=== PATIENT | male | born 1935 | race Caucasian/White ===

== ENCOUNTER → 2016-11-02 | Outpatient (REF) | payer MEDICARE, OTHER ==
[~2016-11-02] MED LIST: /CLON1TA PO; /NEPHROTA PO; /NITR4TASL SL; /PRAV20TA PO; ALLO100T PO; ALLO50TA PO; AMLO10TA2 PO; ASPI1TAB PO; ASPI81TA85 PO; CALC0.25 PO; CLOP75TA2 PO; COLA50CA3 PO; LASI80TA PO; LISI5TAB PO; M-VI27TA PO; METO50TA2 PO; MS C200T PO; OMEP40CA2 PO; OXYC-208 PO; PRED10TA2 PO; PRED1TAB32 PO; SPIR25TA2 PO; TYLE325T5 PO; UROX10TA10 PO; VITA10003 PO; [UNRECOGNIZED DRUG - OTHER] PO
[2016-11-02 14:05] LABS: TOTAL PROTEIN 7.3 GM/DL (6.4-8.2)
[2016-11-02 21:25] LABS: BASOPHILS 1 % (0-4); EOSINOPHILS 4 % (0-5)
[2016-11-02 21:34] LABS: HOWELL-JOLLY BODIES 1+
[2016-11-03 10:54] LABS: ALBUMIN 4.29 GM/DL (3.29-5.55); ALBUMIN % 58.8 % (55.8-66.1); GAMMA GLOBULIN % 14.8 % (11.1-18.8)
== END ==
LOC: M LAB REF 12:30
DX: D64.9 Anemia, unspecified (principal)

== ENCOUNTER 2018-03-01 02:55 | Inpatient (IN) | payer MEDICARE, OTHER ==
[2018-03-01] MEDS ORDERED: MORPHINE 4 MG/ML 1ML VIAL/SYRINGE (J2270) IV (03:15)
[2018-03-01] MEDS ORDERED: oxyCODONE 5MG TAB PO (04:00)
[2018-03-01] MEDS ORDERED: ACETAMINOPHEN 325 MG TAB PO (04:00)
[2018-03-01] MEDS ORDERED: NITROGLYCERIN 0.4 MG SUBL TABLET SL (04:00)
[2018-03-01] MEDS ORDERED: MORPHINE 15 MG SA TAB PO (04:00)
[2018-03-01] MEDS: PIPERACILLIN/TAZOBACTAM SOD 3.375 GM in D5W MINI-BAG PLUS 50 ML IV (04:00)
[2018-03-01 04:43] LABS: BASO # 0.1 10^3/uL (0.0-0.2); BASO % 0.5 % (0.0-1.0); EOS % 0.1 % (0.0-3.0); HEMOGLOBIN 11.1 g/dl (13.5-17.5); IMMATURE GRANULOCYTE % 0.3 % (0-3.0); LYMPH # 0.4 10^3/uL (1.5-4.5); LYMPH % 4.4 % (24.0-44.0); MEAN CORPUSCULAR HGB CONC 33.6 g/dl (32.0-36.5); MEAN CORPUSCULAR VOLUME 104.1 fl (80.0-96.0); MONO # 0.4 10^3/uL (0.0-0.8); MONO % 4.5 % (0.0-5.0); NEUTROPHILS # 8.4 10^3/uL (1.8-7.7); NEUTROPHILS % 90.2 % (36.0-66.0); PLATELET COUNT, AUTOMATED 185 10^3/uL (150-450); RED BLOOD COUNT 3.17 10^6/uL (4.30-6.10); RED CELL DISTRIBUTION WIDTH 14.1 % (11.5-14.5); WHITE BLOOD COUNT 9.3 10^3/uL (4.0-10.0)
[2018-03-01 04:54] LABS: INR 3.31; PROTHROMBIN TIME 35.2 SECONDS (12.4-14.5)
[2018-03-01] MEDS: NS 1,000 ML IV (04:59)
[2018-03-01 05:06] LABS: LACTIC ACID SEPSIS PROTOCOL 0.9 MMOL/L (0.4-2.0)
[2018-03-01 05:08] LABS: ALBUMIN 3.6 GM/DL (3.2-5.2); ALBUMIN/GLOBULIN RATIO 0.95 (1.00-1.93); ALKALINE PHOSPHATASE 147 U/L (45-117); ALT/SGPT 15 U/L (12-78); ANION GAP 8 MEQ/L (8-16); AST/SGOT 19 U/L (7-37); BILIRUBIN,TOTAL 0.4 MG/DL (0.2-1.0); BLOOD UREA NITROGEN 61 MG/DL (7-18); CALCIUM LEVEL 8.2 MG/DL (8.8-10.2); CARBON DIOXIDE LEVEL 29 MEQ/L (21-32); CHLORIDE LEVEL 103 MEQ/L (98-107); CPK CREATINE PHOSPHOKINASE 116 U/L (39-308); GLOMERULAR FILTRATION RATE 6.6 (>35); GLUCOSE, FASTING 122 MG/DL (70-100); PHOSPHORUS LEVEL 3.6 MG/DL (2.5-4.9); POTASSIUM SERUM 4.4 MEQ/L (3.5-5.1); SODIUM LEVEL 140 MEQ/L (136-145); TOTAL PROTEIN 7.4 GM/DL (6.4-8.2); TROPONIN I 0.04 NG/ML (< 0.10)
[2018-03-01 05:09] LABS: CK-MB VALUE MASS 2.6 NG/ML (<3.6); MB/CK RELATIVE INDEX 2.24 (< OR =4)
[2018-03-01 05:20] LABS: CREATININE FOR GFR 8.27 MG/DL (0.70-1.30)
[2018-03-01] MEDS: (RENVELA) SEVELAMER **CARBONate** 800 MG TAB PO ×3 (08:00→17:59)
[2018-03-01] MEDS: PANTOPRAZOLE 40MG INJ (PROTONIX) (C9113) IV (08:02)
[2018-03-01] MEDS: CARVedilol 3.125 MG TAB PO ×2 (09:05→20:18)
[2018-03-01] MEDS: HEPARIN 1,000 UNITS/ML 10ML VIAL (FOR RADIOLOGY& DIALYSIS ONLY) IV (11:15)
[2018-03-01] MEDS: EMLA CREAM 5GM (LIDOCAINE/PRILOCAINE) EXT (14:23)
[2018-03-01] MEDS: MULTIVITAMINS/MINERALS THERAP 1 TAB PO (14:42)
[2018-03-01] MEDS: MORPHINE 15 MG SA TAB PO ×2 (14:42→20:18)
[2018-03-01] MEDS: DOCUSATE SODIUM 100 MG CAP PO ×2 (14:42→20:17)
[2018-03-01] MEDS: ASPIRIN 81 MG ENTERIC TAB PO (14:43)
[2018-03-01] MEDS: PIPERACILLIN/TAZOBACTAM SOD 2.25 GM in D5W MINI-BAG PLUS 50 ML IV ×2 (14:43→20:19)
[2018-03-01] MEDS: PRAVASTATIN 20 MG TAB PO (20:17)
[2018-03-01] MEDS: traZODone 50 MG TAB PO (20:19)
[2018-03-01] MEDS: amLODIPine 5 MG TAB PO (20:19)
[2018-03-01] MEDS ORDERED: ACETAMINOPHEN TAB 650MG DOSE (2X325MG) PO (23:00)
[2018-03-02] MEDS: PANTOPRAZOLE 40MG INJ (PROTONIX) (C9113) IV (05:25)
[2018-03-02] MEDS: PIPERACILLIN/TAZOBACTAM SOD 2.25 GM in D5W MINI-BAG PLUS 50 ML IV (05:25)
[2018-03-02 06:25] LABS: BASO # 0.1 10^3/uL (0.0-0.2); BASO % 0.7 % (0.0-1.0); EOS # 0.1 10^3/uL (0.0-0.50); EOS % 1.4 % (0.0-3.0); HEMATOCRIT 31.6 % (42.0-52.0); HEMOGLOBIN 10.7 g/dl (13.5-17.5); IMMATURE GRANULOCYTE % 0.5 % (0-3.0); LYMPH # 0.8 10^3/uL (1.5-4.5); LYMPH % 8.1 % (24.0-44.0); MEAN CORPUSCULAR HEMOGLOBIN 34.9 pg (27.0-33.0); MEAN CORPUSCULAR HGB CONC 33.9 g/dl (32.0-36.5); MEAN CORPUSCULAR VOLUME 102.9 fl (80.0-96.0); MONO % 10.4 % (0.0-5.0); NEUTROPHILS # 7.5 10^3/uL (1.8-7.7); NEUTROPHILS % 78.9 % (36.0-66.0); PLATELET COUNT, AUTOMATED 178 10^3/uL (150-450); RED BLOOD COUNT 3.07 10^6/uL (4.30-6.10); RED CELL DISTRIBUTION WIDTH 14.4 % (11.5-14.5); WHITE BLOOD COUNT 9.5 10^3/uL (4.0-10.0)
[2018-03-02 06:42] LABS: INR 3.43; PROTHROMBIN TIME 36.2 SECONDS (12.4-14.5)
[2018-03-02 06:48] LABS: ALBUMIN/GLOBULIN RATIO 0.77 (1.00-1.93); ALKALINE PHOSPHATASE 117 U/L (45-117); ALT/SGPT 15 U/L (12-78); ANION GAP 8 MEQ/L (8-16); AST/SGOT 19 U/L (7-37); BILIRUBIN,TOTAL 0.5 MG/DL (0.2-1.0); BLOOD UREA NITROGEN 37 MG/DL (7-18); CALCIUM LEVEL 8.6 MG/DL (8.8-10.2); CARBON DIOXIDE LEVEL 30 MEQ/L (21-32); CHLORIDE LEVEL 102 MEQ/L (98-107); CREATININE FOR GFR 6.25 MG/DL (0.70-1.30); GLOMERULAR FILTRATION RATE 9.1 (>35); GLUCOSE, FASTING 116 MG/DL (70-100); MAGNESIUM LEVEL 2.1 MG/DL (1.8-2.4); POTASSIUM SERUM 4.1 MEQ/L (3.5-5.1); SODIUM LEVEL 140 MEQ/L (136-145); TOTAL PROTEIN 6.9 GM/DL (6.4-8.2)
[2018-03-02] MEDS: (RENVELA) SEVELAMER **CARBONate** 800 MG TAB PO (09:08)
[2018-03-02] MEDS: DOCUSATE SODIUM 100 MG CAP PO (09:09)
[2018-03-02] MEDS: ASPIRIN 81 MG ENTERIC TAB PO (09:09)
[2018-03-02] MEDS: CARVedilol 3.125 MG TAB PO (09:09)
[2018-03-02] MEDS: MULTIVITAMINS/MINERALS THERAP 1 TAB PO (09:09)
[2018-03-02] MEDS: MORPHINE 15 MG SA TAB PO (09:10)
[2018-03-02] MEDS: OMEPRAZOLE 20 MG CAP PO (10:30)
== END 2018-03-02 10:43 | disposition home or self-care (01) | DRG 444 ==
LOC: M ED 02:55 → M ED INP 05:48 → M MSPAV 14:11
PROC: 5A1D70Z Performance of Urinary Filtration, Intermittent, Less than 6 Hours Per Day (ICD-10-PCS; principal; 2018-03-01)
DX: K81.0 Acute cholecystitis (principal); N18.6 End stage renal disease; I12.0 Hypertensive chronic kidney disease with stage 5 chronic kidney disease or end stage renal disease; N25.81 Secondary hyperparathyroidism of renal origin; M10.9 Gout, unspecified; I48.91 Unspecified atrial fibrillation; Z79.01 Long term (current) use of anticoagulants; I25.10 Atherosclerotic heart disease of native coronary artery without angina pectoris; M54.5 Low back pain; N40.0 Benign prostatic hyperplasia without lower urinary tract symptoms; Z79.82 Long term (current) use of aspirin; Z79.899 Other long term (current) drug therapy; Z90.81 Acquired absence of spleen; Z95.1 Presence of aortocoronary bypass graft; Z87.891 Personal history of nicotine dependence; D72.829 Elevated white blood cell count, unspecified

== ENCOUNTER → 2018-03-09 | Day surgery (SDC) | payer MEDICARE, OTHER ==
[~2018-03-09] MED LIST changes: -/CLON1TA PO; -/NEPHROTA PO; -/NITR4TASL SL; -/PRAV20TA PO; -ALLO100T PO; -ALLO50TA PO; -AMLO10TA2 PO; +AMPICILLIN SOD/SULBACTAM SOD 3 GM in D5W MINI-BAG PLUS 100 ML IV; -ASPI1TAB PO; -ASPI81TA85 PO; -CALC0.25 PO; -CLOP75TA2 PO; -COLA50CA3 PO; -LASI80TA PO; -LISI5TAB PO; +LR 1,000 ML IV; -M-VI27TA PO; -METO50TA2 PO; -MS C200T PO; -OMEP40CA2 PO; -OXYC-208 PO; -PRED10TA2 PO; -PRED1TAB32 PO; -SPIR25TA2 PO; -TYLE325T5 PO; -UROX10TA10 PO; -VITA10003 PO; -[UNRECOGNIZED DRUG - OTHER] PO
[2018-03-09] MEDS: LIDOCAINE 1% SDV INJ 30 ML VIAL As Ordered (13:25)
[2018-03-09] MEDS: BUPIVACAINE HCL 0.25% 30 ML VIAL As Ordered (13:25)
[2018-03-09 13:54] LABS: INR 1.04; PROTHROMBIN TIME 13.7 SECONDS (12.4-14.5)
[2018-03-09 13:58] LABS: POTASSIUM SERUM 4.7 MEQ/L (3.5-5.1)
[2018-03-09] MEDS: NS 1,000 ML IV (14:00)
== END | disposition home or self-care (01) ==
LOC: M SDC 13:02
DX: K81.0 Acute cholecystitis (principal); Z53.09 Procedure and treatment not carried out because of other contraindication; Z79.01 Long term (current) use of anticoagulants
CPT/HCPCS: 84132

== ENCOUNTER 2019-03-19 15:33 | Inpatient (IN) | payer MEDICARE, OTHER ==
[~2019-03-19] VITALS: Ht 175.3 cm; Wt 60.8 kg
[~2019-03-19 15:33] MED LIST changes: +ALLO100T PO; +ALLO50TA PO; +AMLO10TA2 PO; +AMLO5TAB6 PO; -AMPICILLIN SOD/SULBACTAM SOD 3 GM in D5W MINI-BAG PLUS 100 ML IV; +ASPI1TAB PO; +ASPI81TA85 PO; +ASPI81TAEC PO; +CALC0.25 PO; +CARV3.12 PO; +CLON-412 PO; +CLOP75TA2 PO; +COLA50CA3 PO; +DOCU100C16 PO; +LASI80TA PO; +LIDO2.5C15 EXT; +LISI5TAB PO; -LR 1,000 ML IV; +M-VI27TA PO; +METO50TA2 PO; +MORP-38 PO; +MS C200T PO; +NEPH1TAB8 PO; +NITR0.4S SL; +NITR4TASL SL; +OMEP20CA3 PO; +OMEP40CA2 PO; +OXYC-208 PO; +OXYC-517 PO; +PRAV1TAB39 PO; +PRAV40TA2 PO; +PRED10TA2 PO; +PRED1TAB32 PO; +RENATAB5 PO; +RENV2TAB PO; +SPIR25TA2 PO; +TRAZ-252 PO; +TYLE325T5 PO; +UROX10TA10 PO; +VITA10002 PO; +VITA10003 PO; +VITA50005 PO; +VITMTA PO; +WARF-20 PO; +[UNRECOGNIZED DRUG - OTHER] PO
[2019-03-19] MEDS ORDERED: WARFARIN SOD 5 MG TAB PO SCH (17:00)
[2019-03-19 17:41] VITALS: BP 154/84
[2019-03-19 18:27] LABS: HEMATOCRIT 29.2 % (42.0-52.0); HEMOGLOBIN 9.9 g/dl (13.5-17.5); MEAN CORPUSCULAR HEMOGLOBIN 36.3 pg (27.0-33.0); MEAN CORPUSCULAR HGB CONC 33.9 g/dl (32.0-36.5); PLATELET COUNT, AUTOMATED 270 10^3/uL (150-450); RED BLOOD COUNT 2.73 10^6/uL (4.30-6.10); WHITE BLOOD COUNT 11.8 10^3/uL (4.0-10.0)
[2019-03-19 18:36] LABS: INR 1.42; PROTHROMBIN TIME 17.6 SECONDS (12.1-14.4)
--- NOTE | 2019-03-19 18:54 | HPEPDOC ---
General Date of Admission Mar 19, 2019 at 17:35 Date of Service: Mar 19, 2019 Attending Physician: TATYANA CUNHA MD Chief Complaint The patient is a 83-year-old male admitted with a [facility]. History of Present Illness Patient is an 83 year old male, directly admitted from [facility] after preliminary evalaution showed multiple right rib fractures and mild rhabdomyolysis. Patient has a past medical history significant for end-stage renal disease on hemodialysis Tuesdays, , Wednesday, atrial fibrillation on anticoagulation therapy with Coumadin, CAD status post CABG, quadruple 1989, hypertension, chronic back pain. By patient's account, a week ago Wednesday he tripped over while working with the lawnmower. He did not seek attention continued with his daily activities. He, however, noticed significant pain which worsened yesterday when he slid to the floor and was unable to get up. Patient estimates he may have been on the floor for over 2 hours. EMS services were called and patient was brought to the hospital. Preliminary evaluation at [facility] is as stated above. Patient was able to have his hemodialysis session yesterday but multiple imaging studies were completed at that facility including CT of his spine with IV contrast. He was therefore transferred over to this facility for hemodialysis since marketing teacher is here. For removal of contrast and management of rhabdomyolysis. Other than complaining of severe pain. Patient denies any chills, fever, chest pain or shortness of breath. On assessment, he is on room air and oxygen saturation is greater than 95%. He is, however, in atrial fibrillation at a rapid ventricular rate. Home Medications Scheduled Amlodipine Besylate (Amlodipine Besylate) 5 Mg Tab, 5 MG PO QHS, (Reported) Carvedilol (Carvedilol) 3.125 Mg Tab, 3.125 MG PO BID, (Reported) Docusate Sodium (Docusate Sodium) 100 Mg Cap, 100 MG PO BID, (Reported) Ergocalciferol (Vitamin D2) (Vitamin D2) 50,000 Unit Cap, 50,000 UNIT PO 1XWK, (Reported) TAKES ON MONDAYS Folic Acid/Vit B Complex and C (Annabel-Nadine Tablet) 1 Tab Tab, 1 TAB PO DAILY, (Reported) Lidocaine/Prilocaine (Lidocaine-Prilocaine Cream) 1 Cre Cre, 1 CRE EXT 3XW, (Reported) TAKES ON TUESDAYS, WEDNESDAY AND SATURDAYS BEFORE DIALYSIS. Morphine Sulfate (Morphine Sulfate ER) 15 Mg Tab, 15 MG PO BID, (Reported) Omeprazole (Omeprazole) 20 Mg Cap, 20 MG PO DAILY, (Reported) Pravastatin Sodium (Pravastatin Sodium) 40 Mg Tab, 40 MG PO QHS, (Reported) Sennosides (Senna Lax) 8.6 Mg Tablet, 8.6 MG PO DAILY, (Reported) Sevelamer Carbonate (Renvela) 800 Mg Tab, 800 MG PO WM, (Reported) Warfarin Sodium (Warfarin Sodium) 2.5 Mg Tablet, 5 MG PO 2XW, (Reported) WEDNESDAY AND WEDNESDAY Warfarin Sodium (Warfarin Sodium) 2.5 Mg Tablet, 3.75 MG PO 5XW, (Reported) WED, , WED, , WED Scheduled PRN Acetaminophen (Tylenol) 325 Mg Tablet, 650 MG PO Q4H PRN for PAIN, (Reported) Nitroglycerin (Nitrostat) 0.4 Mg Subl, 0.4 MG SL NITRO PRN for CHEST PAIN, (Reported) Oxycodone HCl (Oxycodone HCl) 5 Mg Tab, 5 MG PO QID PRN for PAIN, (Reported) Trazodone HCl (Trazodone HCl) 50 Mg Tablet, 50 MG PO QHS PRN for SLEEP, (Reported) HAS NOT BEEN TAKING DUE TO NO RX, HOWEVER STATES HE DOES HAVE TROUBLE TAKING AND WOULD LIKE TO START RECEIVING AGAIN. Allergies Coded Allergies: No Known Allergies (Verified , 03/09/18) Past Medical History Medical History Hypertension. End-stage renal disease on hemodialysis. Gout. CAD status post CABG Chronic back pain. Chronic atrial fibrillation Surgical History Back surgery. Quadruple bypass. Splenectomy. Tonsillectomy. Fistula placement. Family History Significant Family History: No pertinent family hx Social History * Smoker: Denies Alcohol: occationally Drugs: denies A-FIB/CHADSVASC A-FIB History Current/History of A-Fib/PAF?: Yes Current PO Anticoag Therapy: Yes Age/Risk Factor Scoring CHADSVASC: CHADSVASC Response (Comments) Value Age Risk Factor Age >/= 75 years old 2 Total 2 Treatment Treatment ordered: Warfarin Review of Systems Other systems A pertinent 10 point review of systems is completed, negative except as stated in the history of presenting illness Physical Examination General Exam: Positive: Alert, Cooperative, No Acute Distress Eye Exam: Positive: PERRLA, Conjunctiva & lids normal, EOMI ENT Exam: Positive: Atraumatic, Mucous membr. moist/pink, Nares Patent Neck Exam: Positive: Supple; Negative: JVD, thyromegaly Chest Exam: Positive: Clear to auscultation, Normal air movement; Negative: Rales, Rhonchi, Wheezing Heart Exam: Positive: Tachycardic, Irregular Rhythm Telemetry: Positive: Atrial fibrillation Abdomen Exam: Positive: Normal bowel sounds, Soft; Negative: Tenderness Extremity Exam: Positive: Edema, Normal pulses; Negative: Clubbing, Cyanosis Skin Exam: Positive: Lesion (duffy abrasion) Neuro Exam: Positive: Normal Speech, Cranial Nerves 3-12 NL Psych Exam: Positive: Mental status NL, Mood NL, Oriented x 3 Vital Signs see below Laboratory Data Labs 24H Laboratory Tests 2 03/19/19 18:21: Nucleated Red Blood Cells % (auto) 0.0 CBC/BMP Laboratory Tests 03/19/19 18:21 Red Blood Count 2.73 L, Mean Corpuscular Volume 107.0 H, Mean Corpuscular Hemoglobin 36.3 H, Mean Corpuscular Hemoglobin Concent 33.9, Red Cell Distribution Width 16.0 H Assessment/Plan Chronic atrial fibrillation with RVR -Continue Anticoagulation therapy -Monitor INR to keep between 2-3 -Rate control with beta bailee Elevated CPK -Likely due to recent trauma and prolonged immobility due to weakness -Hemodialysis by nephrology -. Monitor CPK levels with treatment End-stage renal disease on hemodialysis -Call has been placed to patient's primary marketing teacher, who plans to dialyze him tomorrow -Renal diet. Fluid restriction, daily weights -Management of dialysis by nephrology, appreciate input Mechanical fall -Sustaining right rib fractures, 7 and 8 -Presenting with significant weakness -Fall precautions -Pain control as needed -PT, OT evaluation for rehabilitation potential and requirements DVT prophylaxis Fully anticoagulated on warfarin Plan / VTE VTE Prophylaxis Ordered?: Yes Plan Plan I saw and evaluated patient. I agree with the finding and plan of care as documented by DARLENE LESTER Mar 19, 2019 18:54 TATYANA CUNHA MD Mar 20, 2019 07:07
[2019-03-19 18:55] LABS: ALBUMIN 3.3 GM/DL (3.2-5.2); BILIRUBIN,TOTAL 0.7 MG/DL (0.2-1.0); CREATININE FOR GFR 6.34 MG/DL (0.70-1.30); POTASSIUM SERUM 4.4 MEQ/L (3.5-5.1); TOTAL PROTEIN 7.6 GM/DL (6.4-8.2)
[2019-03-19] MEDS ORDERED: RA S8.6T3 PO (18:57)
[2019-03-19] MEDS ORDERED: ACET-907 PO (18:57)
[2019-03-19] MEDS ORDERED: WARF-18 PO ×2 (18:57)
[2019-03-19] MEDS ORDERED: TRAZ-252 PO (18:58)
[2019-03-19] MEDS ORDERED: NITROGLYCERIN 0.4 MG SUBL TABLET SL PRN ×2 (19:15→20:00)
[2019-03-19 20:00] VITALS: BP 170/77
[2019-03-19] MEDS: (RENVELA) SEVELAMER **CARBONate** 800 MG TAB PO SCH (20:01)
[2019-03-19] MEDS: CARVedilol 3.125 MG TAB PO SCH (20:02)
[2019-03-19] MEDS: PRAVASTATIN 20 MG TAB PO SCH (21:24)
[2019-03-19] MEDS: DOCUSATE SODIUM 100 MG CAP PO SCH (21:24)
[2019-03-19] MEDS: MORPHINE 15 MG SA TAB PO SCH (21:26)
[2019-03-19] MEDS: amLODIPine 5 MG TAB PO SCH (21:27)
[2019-03-20] VITALS: BP 138/77
[2019-03-20 04:00] VITALS: BP 143/67
[2019-03-20 04:54] LABS: HEMATOCRIT 25.9 % (42.0-52.0); HEMOGLOBIN 8.7 g/dl (13.5-17.5); MEAN CORPUSCULAR HEMOGLOBIN 35.5 pg (27.0-33.0); MEAN CORPUSCULAR HGB CONC 33.6 g/dl (32.0-36.5); MEAN CORPUSCULAR VOLUME 105.7 fl (80.0-96.0); PLATELET COUNT, AUTOMATED 250 10^3/uL (150-450); RED BLOOD COUNT 2.45 10^6/uL (4.30-6.10); WHITE BLOOD COUNT 9.1 10^3/uL (4.0-10.0)
[2019-03-20 05:04] LABS: INR 1.66; PROTHROMBIN TIME 19.9 SECONDS (12.1-14.4)
[2019-03-20 05:12] LABS: ALBUMIN 2.9 GM/DL (3.2-5.2); BILIRUBIN,TOTAL 0.5 MG/DL (0.2-1.0); CALCIUM LEVEL 8.2 MG/DL (8.8-10.2); CREATININE FOR GFR 6.93 MG/DL (0.70-1.30); GLOMERULAR FILTRATION RATE 8.1 (>35); POTASSIUM SERUM 4.1 MEQ/L (3.5-5.1); TOTAL PROTEIN 6.4 GM/DL (6.4-8.2)
[2019-03-20 08:00] VITALS: BP 156/80
[2019-03-20] MEDS: DOCUSATE SODIUM 100 MG CAP PO SCH ×2 (08:45→21:12)
[2019-03-20] MEDS: CARVedilol 3.125 MG TAB PO SCH ×2 (08:45→21:13)
[2019-03-20] MEDS: OMEPRAZOLE 20 MG CAP PO SCH (08:45)
[2019-03-20] MEDS: (RENVELA) SEVELAMER **CARBONate** 800 MG TAB PO SCH ×3 (08:45→18:25)
[2019-03-20] MEDS: SENNA 8.6 MG TAB (SENOKOT) PO SCH (08:45)
[2019-03-20] MEDS: MORPHINE 15 MG SA TAB PO SCH ×2 (08:48→21:11)
[2019-03-20] MEDS ORDERED: VITAMIN D 50,000 UNITS CAPSULE (ERGOCALCIFEROL 1.25MG) PO SCH (09:00)
[2019-03-20] MEDS ORDERED: DARBEPOETIN 100 MCG/0.5 ML *DIALYSIS* SYRINGE (J0882) IV SCH (10:45)
[2019-03-20 12:00] VITALS: BP 140/77
[2019-03-20] MEDS ORDERED: HEPARIN 1,000 UNITS/ML 10ML VIAL (FOR RADIOLOGY& DIALYSIS ONLY) IV ONE (12:15)
[2019-03-20] MEDS ORDERED: LIDOCAINE 1% SDV 5 ML VIAL SQ ONE (12:15)
[2019-03-20 14:45] VITALS: BP 130/86
--- NOTE | 2019-03-20 16:35 | IPNPDOC ---
Text Note Date of Service The patient was seen on 03/20/19. NOTE Mr. Phillip is seen on rounds this morning, he is feeling well, he is walking ar ound without difficulty or chest pain. He has no specific complaints today. SUBJECTIVE: Patient is sitting in bedside chair speaking with his son who is in the exam room, he has no complaints. Says his rib pain on the right is much improved. Otherwise patient denies chest pain, shortness breath, nausea, vomiting, fevers, chills. OBJECTIVE PHYSICAL EXAMINATION: VITAL SIGNS: Please see below. GENERAL: Pleasant 83 y/o male sitting up in bed side chair awake alert oriented speaking in complete sentences no acute distress HEENT: Moist mucous membranes no elevation, no JVD, EOMI CARDIOVASCULAR: S1 S2 regular no additional heart sounds appreciated RESPIRATORY: Clear to auscultation bilaterally, no rales, rhonchi or wheezing ABDOMINAL: Bowel sounds present abdomen soft and nontender, thin, no he patosplenomegaly or masses appreciated, nabsx4 EXTREMITIES: No clubbing cyanosis or edema NEUROLOGICAL: Spontaneously moves all 4 extremities, no focal deficits appreciated PSYCHOLOGICAL: Appropriate affect LABORATORY DATA, MICROBIOLOGY: Please see below. This is a 83 yo male who presented to the ED with CP., now recovering well s/p CP from rib fractures from being hit by lawnmower. 1. Chest pain from multiple rib fractures right 7, 8 -patient says his chest pain is controlled, he is walking around the unit without difficultly -he says he was hit by a lawnmower that was sliding down a ramp, he did not have SOB, CP, urinary or bowel incontinence before event, he was simply unable to get out of the way before being struck by run away padder -he has not cleared PT., needs to work them again tomorrow -fall precautions 2. Chronic atrial fibrillation with RVR -Continue Anticoagulation therapy -Monitor INR to keep between 2-3, currently is only 1.6, increasing coumidin to 5 mg daily -Rate control with beta bailee, he is rate controlled at this time 3. Elevated CPK -Likely due to recent trauma and prolonged immobility due to weakness, repeat pending for today -Hemodialysis by nephrology -Monitor CPK levels with treatment 4. End-stage renal disease on hemodialysis -Nephrology on board appreciate their help -Renal diet. Fluid restriction, daily weights 5. DVT prophylaxis On warfarin Disposition: Changing coumidin dosing to 5 mg dosing in light of subtherapeutic INR., he needs to work with PT tomorrow, he has not been cleared by them for d.c VS,Fishbone, I+O VS, Fishbone, I+O Laboratory Tests 03/19/19 18:21 Red Blood Count 2.73 L, Mean Corpuscular Volume 107.0 H, Mean Corpuscular Hemoglobin 36.3 H, Mean Corpuscular Hemoglobin Concent 33.9, Red Cell Distribution Width 16.0 H, Calcium Level 9.0, Aspartate Amino Transf (AST/SGOT) 63 H, Alanine Aminotransferase (ALT/SGPT) 29, Total Creatine Kinase 2460 H, Alkaline Phosphatase 112, Total Bilirubin 0.7, Total Protein 7.6, Albumin 3.3 03/20/19 04:38 Red Blood Count 2.45 L, Mean Corpuscular Volume 105.7 H, Mean Corpuscular Hemoglobin 35.5 H, Mean Corpuscular Hemoglobin Concent 33.6, Red Cell Distribution Width 16.0 H, Calcium Level 8.2 L, Aspartate Amino Transf (AST/SGOT) 47 H, Alanine Aminotransferase (ALT/SGPT) 27, Total Creatine Kinase 1 509 H, Alkaline Phosphatase 97, Total Bilirubin 0.5, Total Protein 6.4, Albumin 2.9 L Vital Signs Date Time Temp Pulse Resp B/P (MAP) Pulse Ox O2 Delivery O2 Flow Rate FiO2 03/20/19 14:45 97.8 91 18 130/86 (101) 94 03/20/19 04:00 2.0 I&O- Last 24 Hours up to 6 AM 03/20/19 06:00 Intake Total 850 ml Balance 850 ml GME ATTESTATION GME ATTESTATION My faculty preceptor for this patient encounter was physically present during the encounter and was fully available. All aspects of the patient interview, examination, medical decision making process, and medical care plan development were reviewed and approved by the faculty preceptor. The faculty preceptor is aware and concurs with the plan as stated in the body of this note and will attest to such by his/her cosignature. ATTENDING NOTE I, Samy Morales, have both independently examined this patient as well as revi ewed the documentation. I have discussed in detail with the resident the findings and plan of treatment as documented in the residents documentation and agree with what is stated. I will continue to follow the patient and offer further guidance to the patients care as necessary during this hospital stay. CONNIE HOLLIS DO Mar 20, 2019 16:35 SAMY MORALES MD Mar 20, 2019 17:16
[2019-03-20] MEDS ORDERED: WARFARIN SOD 2.5 MG TAB PO SCH (17:00)
[2019-03-20] MEDS ORDERED: WARFARIN SOD 5 MG TAB PO SCH (17:00)
[2019-03-20] MEDS: amLODIPine 5 MG TAB PO SCH (21:12)
[2019-03-20] MEDS: PRAVASTATIN 20 MG TAB PO SCH (21:13)
[2019-03-20 22:00] VITALS: BP 134/61
[2019-03-21 02:00] VITALS: BP 142/69
[2019-03-21 06:00] VITALS: BP 133/69
[2019-03-21 06:26] LABS: INR 2.24; PROTHROMBIN TIME 25.2 SECONDS (12.1-14.4)
[2019-03-21] MEDS: SENNA 8.6 MG TAB (SENOKOT) PO SCH (06:38)
[2019-03-21] MEDS: (RENVELA) SEVELAMER **CARBONate** 800 MG TAB PO SCH ×3 (06:38→17:29)
[2019-03-21] MEDS: CARVedilol 3.125 MG TAB PO SCH ×2 (06:38→20:40)
[2019-03-21] MEDS: OMEPRAZOLE 20 MG CAP PO SCH (06:39)
[2019-03-21] MEDS: DOCUSATE SODIUM 100 MG CAP PO SCH ×2 (06:40→20:39)
[2019-03-21] MEDS: MORPHINE 15 MG SA TAB PO SCH ×2 (06:40→20:39)
--- NOTE | 2019-03-21 07:24 | CR ---
DATE OF CONSULTATION: 03/20/2019 REQUESTING PHYSICIAN: Dr. Samy Grande REASON FOR CONSULTATION: Management of end-stage renal disease on hemodialysis. HISTORY OF PRESENT ILLNESS: The patient is an 83-year-old male well known to me with a past medical history of end-stage renal disease on hemodialysis on a Wednesday, , Wednesday schedule, atrial fibrillation, coronary artery disease status post coronary artery bypass graft (CABG), hypertension, and other comorbid conditions mentioned below. The patient states he was in his usual health until a week ago when a marine meteorologist that his family member was unloading off of a vehicle slipped and struck the patient in the right chest. He did not seek medical attention at that time; however, over the next several days he noted ongoing pain in his side which culminated in him eventually being unable to get off the floor for a couple of hours. EMS services were called and the patient was brought to [facility] Emergency Room where he did have a contrast based CAT scan. He was subsequently transferred over to [facility] for hemodialysis arrangement and management of his very mild creatine kinase elevation. PAST MEDICAL AND SURGICAL HISTORY: Significant for longstanding hypertension, coronary artery disease status post CABG, atrial fibrillation on anticoagulation, dyslipidemia, end-stage renal disease on dialysis Tuesdays, and Wednesday, gout, secondary hyperparathyroidism, history of chronic low back pain, history of anemia related to chronic renal failure, benign prostatic hypertrophy (BPH), depression. Past surgical history of splenectomy due to trauma in 1971, CABG for four vessels in 2007, tonsillectomy in his 20s, AV fistula creation. HOME MEDICATIONS: Reviewed and include amlodipine, Renovite, aspirin, carvedilol, vitamin B12, Colace, vitamin D, omeprazole, pravastatin, Renvela, trazodone, Coumadin, and opioids. ALLERGIES: The patient has no known drug allergies. PERSONAL AND SOCIAL HISTORY: Lives alone with a dog. He is . He denies any alcohol or drug use. He quit smoking about a decade ago. FAMILY HISTORY: Noncontributory. REVIEW OF SYSTEMS: The patient denies any fevers or chills. He has been feeling generally weak with pain in the right side. ENT: He denies tinnitus or rhinorrhea. Cardiac system is significant for chronic atrial fibrillation. He denies chest pain. There is history of coronary artery disease. Respiratory system is significant for chronic obstructive pulmonary disease (COPD), but he denies any new cough or pleuritic type of chest pain. Gastrointestinal system is significant for history of cholecystitis. He denies any nausea, vomiting or diarrhea. system is significant for BPH. He denies dysuria. Musculoskeletal: Significant for chronic back pain for which he has been narcotic dependent. He denies leg edema. He reports some trauma to the right chest wall. Endocrine system is significant for secondary hyperparathyroidism. There is no history of diabetes. Neurologic system is negative for seizures or strokes. Hematologic system is significant for chronic anticoagulation and anemia of chronic kidney disease. Skin is negative for rash or ulcers. PHYSICAL EXAMINATION: Vital Signs: Temperature 98.5, pulse 77, respiratory rate 17, blood pressure 134/61, saturating 94% on room air. Intake yesterday was 450, dialysis today removed 1 liter. Weight in the bed scale today is 62.8 kg. General: The patient is seen on hemodialysis awake, alert, oriented, conversational, interactive, in no acute distress. Extraocular muscles are intact. Tongue is moist. Neck is supple. Jugular veins are not elevated. Cardiac: S1 and S2, systolic murmur. No edema in the peripheries. Lungs show symmetric air entry bilaterally. No crackles or rales. Abdomen is soft and nontender. There are bowel sounds. The lower extremities are negative for edema. The right upper extremity fistula is presently in use. Skin: Normal temperature and turgor. Neurologic: He is oriented times three and there are no focal deficits. LABORATORY DATA: Sodium 134, potassium 4.1, bicarbonate 29, CK 1500, hemoglobin 8.7. Microbiology: Blood cultures no growth for 24 hours times one set. INPATIENT MEDICATIONS: Reviewed by myself and include - Tylenol p.r.n. - amlodipine 5 mg by mouth at bedtime - Coreg 3.125 mg by mouth twice a day - Aranesp 100 mcg IV with dialysis - morphine sulfate 15 mg by mouth twice a day - Prilosec 20 mg by mouth daily - pravastatin 40 mg by mouth at bedtime - Senokot two tablets by mouth daily - Renvela 800 mg by mouth with meals - vitamin D on Mondays - Coumadin PROBLEMS: 1. End-stage renal disease on hemodialysis on a Wednesday, , Wednesday schedule. His last dialysis was on Wednesday. He had a contrast procedure over the weekend at an outside emergency room. He is being dialyzed today for a short treatment for 2-1/2 hours with goal fluid removal of 1 kg. His electrolytes and volume status are acceptable. His creatine kinase level is very mild and fairly negligible. He will be dialyzed again tomorrow as per his chronic maintenance schedule and we have arranged for that hemodialysis treatment be done in the outpatient setting. 2. Right rib fractures secondary to trauma. The patient reports pain is adequately controlled. He is chronically opioid dependent. He is receiving physical therapy and is on fall precautions. His CK was mildly elevated and is already improving. He is dialyzed today and will be dialyzed again tomorrow. 3. Hypertension. Blood pressures are acceptable and no changes are being made to the current regimen of carvedilol and amlodipine. 4. Anemia related to chronic renal failure. He will continue on the usual Aranesp. 5. Chronic atrial fibrillation. The patient is rate controlled with beta bailee. His INR is subtherapeutic and his Coumadin is adjusted as per the primary team. Thank you for involving me in the care of Mr. Grace. I will be happy to follow him along with you.
[2019-03-21 08:11] LABS: BASO # 0.1 10^3/uL (0.0-0.2); BASO % 0.5 % (0.0-1.0); CALCIUM LEVEL 8.6 MG/DL (8.8-10.2); CREATININE FOR GFR 4.96 MG/DL (0.70-1.30); EOS # 0.1 10^3/uL (0.0-0.50); GLOMERULAR FILTRATION RATE 11.9 (>35); HEMATOCRIT 27.4 % (42.0-52.0); LYMPH # 0.6 10^3/uL (1.5-4.5); MAGNESIUM LEVEL 2.1 MG/DL (1.8-2.4); MEAN CORPUSCULAR HEMOGLOBIN 34.9 pg (27.0-33.0); MEAN CORPUSCULAR HGB CONC 32.8 g/dl (32.0-36.5); MEAN CORPUSCULAR VOLUME 106.2 fl (80.0-96.0); MONO % 10.2 % (0.0-5.0); NEUTROPHILS # 8.1 10^3/uL (1.8-7.7); PLATELET COUNT, AUTOMATED 262 10^3/uL (150-450); POTASSIUM SERUM 4.4 MEQ/L (3.5-5.1); RED BLOOD COUNT 2.58 10^6/uL (4.30-6.10); WHITE BLOOD COUNT 9.8 10^3/uL (4.0-10.0)
[2019-03-21] MEDS ORDERED: HEPARIN 1,000 UNITS/ML 10ML VIAL (FOR RADIOLOGY& DIALYSIS ONLY) IV ONE (09:15)
--- NOTE | 2019-03-21 10:46 | IPNPDOC ---
Text Note Date of Service The patient was seen on 03/21/19. NOTE Mr. Phillip is seen on rounds this morning, currently going through HD. He is fee ling well, he says he has some chest wall pain where his ribs were bruised from his fall, when he is ambulating but it is much improved since admission and pain is tolerable. He has no specific complaints today. SUBJECTIVE: Patient is in his bed undergoing dialysis, he says his rib pain on the right is much improved but still present with ambulation . Otherwise patient denies chest pain, shortness breath, nausea, vomiting, fevers, chills. OBJECTIVE PHYSICAL EXAMINATION: VITAL SIGNS: Please see below. GENERAL: Pleasant 83 y/o male sitting up in bed side chair awake alert oriented speaking in complete sentences no acute distress HEENT: Moist mucous membranes no elevation, no JVD, EOMI CARDIOVASCULAR: S1 S2 regular no additional heart sounds appreciated RESPIRATORY: Clear to auscultation bilaterally, no rales, rhonchi or wheezing ABDOMINAL: Bowel sounds present abdomen soft and nontender, thin, no hepatosplenomegaly or masses appreciated, nabsx4 EXTREMITIES: No clubbing cyanosis or edema NEUROLOGICAL: Spontaneously moves all 4 extremities, no focal deficits appreciated PSYCHOLOGICAL: Appropriate affect LABORATORY DATA, MICROBIOLOGY: Please see below. This is a 83 yo male who presented to the ED with CP., now recovering well s/p CP from rib fractures from being hit by lawnmower. 1. Chest pain from multiple rib fractures right 7, 8 -patient says his chest pain is tolerable, he can feel it a bit when he walks around controlled -he says he was hit by a lawnmower that was sliding down a ramp, he did not have SOB, CP, urinary or bowel incontinence before event, he was simply unable to get out of the way before being struck by run away press feeder, this was a mechanical fall/injury -he has cleared PT. today 03/21/19 2. Chronic atrial fibrillation with RVR -Continue Anticoagulation therapy, he is now therapeutic INR this AM was 2.24 -Goal INR would be to keep between 2-3, will reduce Coumadin to 3 mg today -Will need follow up out pt with PCP for repeat INR's and adjustment of Coumadin as needed -Will return to home regimen upon discharge -Rate control with beta bailee, he is rate controlled at this time 3. Elevated CPK -Likely due to recent trauma and prolonged immobility due to weakness, repeat showed improvement -Hemodialysis by nephrology today -Resolving 4. End-stage renal disease on hemodialysis -Nephrology on board appreciate their help, he is getting dialysis today -Renal diet. Fluid restriction, daily weights 5. DVT prophylaxis On warfarin Disposition: From a medical standpoint the patient should be optimized for d/c today, however he has no way of getting home, his son can't get him until tomorrow, as such we will pend for d/c in AM VS,Fishbone, I+O VS, Fishbone, I+O Laboratory Tests 03/21/19 05:50 Red Blood Count 2.58 L, Mean Corpuscular Volume 106.2 H, Mean Corpuscular Hemoglobin 34.9 H, Mean Corpuscular Hemoglobin Concent 32.8, Red Cell Distribution Width 16.7 H, Neutrophils (%) (Auto) 82.0 H, Lymphocytes (%) (Auto) 6.0 L, Monocytes (%) (Auto) 10.2 H, Eosinophils (%) (Auto) 1.0, Basophils (%) (Auto) 0.5, Neutrophils # (Auto) 8.1 H, Lymphocytes # (Auto) 0.6 L, Monocytes # (Auto) 1.0 H, Eosinophils # (Auto) 0.1, Basophils # (Auto) 0.1, Calcium Level 8.6 L Vital Signs Date Time Temp Pulse Resp B/P (MAP) Pulse Ox O2 Delivery O2 Flow Rate FiO2 03/21/19 06:40 18 03/21/19 06:38 77 133/69 03/21/19 06:00 98.1 91 03/20/19 04:00 2.0 I&O- Last 24 Hours up to 6 AM 03/21/19 06:00 Intake Total 1050 ml Output Total 1200 ml Balance -150 ml GME ATTESTATION GME ATTESTATION My faculty preceptor for this patient encounter was physically present during the encounter and was fully available. All aspects of the patient interview, examination, medical decision making process, and medical care plan development were reviewed and approved by the faculty preceptor. The faculty preceptor is aware and concurs with the plan as stated in the body of this note and will attest to such by his/her cosignature. ATTENDING NOTE I, Samy Morales, have both independently examined this patient as well as reviewed the documentation. I have discussed in detail with the resident the findings and plan of treatment as documented by the resident. I agree with their findings and treatment plan. I will continue to follow the patient and offer further guidance to the patients care as necessary during this hospital stay. CONNIE HOLLIS DO Mar 21, 2019 10:46 SAMY MORALES MD Mar 21, 2019 14:20
[2019-03-21 14:00] VITALS: BP 147/65
[2019-03-21] MEDS ORDERED: WARFARIN SOD 3 MG TAB PO SCH (17:00)
[2019-03-21 18:00] VITALS: BP 140/58
[2019-03-21] MEDS: ACETAMINOPHEN TAB 650MG DOSE (2X325MG) PO PRN (18:09)
[2019-03-21] MEDS: PRAVASTATIN 20 MG TAB PO SCH (20:39)
[2019-03-21] MEDS: amLODIPine 5 MG TAB PO SCH (20:40)
--- NOTE | 2019-03-21 21:38 | IPN ---
DATE: 03/21/2019 SUBJECTIVE: Kenji is seen and examined this morning at the bedside. Has no complaints. Dialysis was uneventful with 1500 mL of fluid removed. He is looking forward to going home tomorrow. VITAL SIGNS: Temperature 98.9, pulse 50, respiratory rate 16, blood pressure 140/58, saturating 92% on room air. Intake yesterday was 1450. Dialysis yesterday removed 1 liter. Dialysis today removed 1.5 liters. Weight in the bed scale today is 62.4 kg. General: The patient is seen lying in bed, awake, alert and comfortable. No distress. Mucous membranes are moist. Jugular veins were not elevated. Cardiac: Heart sounds are regular. S1, S2. No edema in the peripheries. Lungs are clear to auscultation bilaterally. No crackle, rale or wheeze. Abdomen is soft and nontender. Extremities: The right upper extremity fistula is patent with thrill and bruit. Skin: Normal temperature and turgor. LABORATORY DATA White count 9.8, hemoglobin 9.0, sodium 139, potassium 4.4. Microbiology: Blood cultures: No growth for 48 hours. INPATIENT MEDICATIONS: Reviewed by myself. Coumadin was adjusted per the primary team. Remainder of medications are unchanged from prior. PROBLEMS: 1. End-stage renal disease, on hemodialysis on a Wednesday, , Wednesday schedule. The patient was dialyzed today to bring him back to his usual schedule. He is tolerating his treatments without any issues. His fistula is in good use. His volume status and electrolytes are reasonable. His next hemodialysis treatment will be on as an outpatient. 2. Right-sided rib fracture. Status post chest wall trauma. The patient cleared physical therapy. He is looking forward to going home. 3. Atrial fibrillation. INR is therapeutic today and he continues on the Coumadin. Dose has been adjusted and he is rate controlled with Carvedilol. 4. Hypertension. Blood pressures are acceptable on the current regimen and no changes are being made. 5. Anemia related to chronic renal failure. He continues on Aranesp.
[2019-03-21 22:00] VITALS: BP 132/57
[2019-03-22 02:00] VITALS: BP 140/63
[2019-03-22 02:45] VITALS: BP 117/59
[2019-03-22 04:15] VITALS: BP 154/72
[2019-03-22] MEDS: ACETAMINOPHEN TAB 650MG DOSE (2X325MG) PO PRN (05:29)
[2019-03-22 06:57] LABS: BASO # 0.1 10^3/uL (0.0-0.2); BASO % 0.5 % (0.0-1.0); EOS # 0.2 10^3/uL (0.0-0.50); EOS % 1.5 % (0.0-3.0); HEMOGLOBIN 9.4 g/dl (13.5-17.5); LYMPH # 0.7 10^3/uL (1.5-4.5); LYMPH % 6.3 % (24.0-44.0); MEAN CORPUSCULAR HEMOGLOBIN 36.4 pg (27.0-33.0); MEAN CORPUSCULAR HGB CONC 33.6 g/dl (32.0-36.5); MEAN CORPUSCULAR VOLUME 108.5 fl (80.0-96.0); MONO # 1.2 10^3/uL (0.0-0.8); MONO % 11.5 % (0.0-5.0); NEUTROPHILS # 8.3 10^3/uL (1.8-7.7); NEUTROPHILS % 79.6 % (36.0-66.0); PLATELET COUNT, AUTOMATED 273 10^3/uL (150-450); RED BLOOD COUNT 2.58 10^6/uL (4.30-6.10); WHITE BLOOD COUNT 10.4 10^3/uL (4.0-10.0)
[2019-03-22 07:07] LABS: INR 2.23; PROTHROMBIN TIME 25.1 SECONDS (12.1-14.4)
[2019-03-22 07:23] LABS: CALCIUM LEVEL 8.6 MG/DL (8.8-10.2); CREATININE FOR GFR 3.98 MG/DL (0.70-1.30); GLOMERULAR FILTRATION RATE 15.4 (>35); MAGNESIUM LEVEL 2.2 MG/DL (1.8-2.4)
[2019-03-22 08:00] VITALS: BP 142/76
[2019-03-22] MEDS: OMEPRAZOLE 20 MG CAP PO SCH (08:46)
[2019-03-22] MEDS: SENNA 8.6 MG TAB (SENOKOT) PO SCH (08:46)
[2019-03-22] MEDS: DOCUSATE SODIUM 100 MG CAP PO SCH (08:46)
[2019-03-22 08:48] VITALS: BP 154/72
[2019-03-22] MEDS: (RENVELA) SEVELAMER **CARBONate** 800 MG TAB PO SCH (08:48)
[2019-03-22] MEDS: CARVedilol 3.125 MG TAB PO SCH (08:48)
[2019-03-22] MEDS: MORPHINE 15 MG SA TAB PO SCH (08:48)
--- NOTE | 2019-03-22 11:32 | DS.PDOC ---
Discharge Summary General Date of Admission Mar 19, 2019 at 17:35 Date of Discharge Mar 21, 2019 Discharge Summary dc 6. no ride home until then DISCHARGE DIAGNOSIS: 1. Rib fractures right 7, 8 SECONDARY DIAGNOSIS: 1. Hypertension 2. End-stage renal disease on hemodialysis 3. Gout 4. CAD status post CABG 5. Chronic back pain 6. Chronic atrial fibrillation PROCEDURES PERFORMED DURING STAY: Hemodialysis 03.21.19. CONSULTANTS: Nephrology HOSPITAL COURSE: Mr. Grace is a 83 y/o male that was directly admitted from [facility] after preliminary evaluation showed multiple right rib fractures and mild rhabdomyolysis. He apparently had been off loading a match up person from a truck and was inadvertently hit by the machine as it came down the ramps. Pt has a past medical history significant for end stage renal disease on hemodialysis Wednesday, and Wednesday, atrial fibrillation on anticoagulation thearp with Coumadin, CAD status post CABG, quadruple 1989, hypertension, chronic back pain. He states the a week ago Wednesday he was struck in the chest by a runaway lawnmower coming down the ramp of his truck and did not seek medical attention at that time. On 03.18.19, he noticed significant pain in the chest area where he was struck and slid to the floor and was unable to get up. Pt estimates that he may have been on the floor for over 2 hours. EMS services were called and patient was brought to [facility]. Multiple imaging studies were completed at [facility] including CT of his spine with IV contrast. He therefore transferred over to [facility] for hemodialysis since sales marketing director was here. Hemodialysis was performed on 03.21.19. During his hospitalization he denied experiencing cp, sob, light headedness, n/v, blurred vision, LOC, urine or bowel incontinence, jaw or shoulder pain just before being hit by a lawnmower, he sustained no LOC after the event. DISCHARGE MEDICATIONS: Please see below. ALLERGIES: Please see below SUBJECTIVE: Patient is sitting in his bed, alert and oriented. He says his rib pain on the right is improved but still small amount of pain with ambulation but is controlled. Patient otherwise patient denies chest pain, shortness, breath, nausea, vomiting, fever, chills OBJECTIVE: PHYSICAL EXAMINATION: VITAL SIGNS: Please see below GENERAL: Pleasant 83 y/o male sitting up in bed awake alert oriented speaking in complete sentences no acute distress HEENT: Moist mucous membranes no elevation, no JVD, EOMI CARDIOVASCULAR: S1 S2 regular no additional heart sounds appreciated RESPIRATORY: Clear to auscultation bilaterally, no rales, rhonchi, or wheezing, some tenderness over right rib 8 with palpation, no bruising, swelling or erythema appreciated nor swelling of area ABDOMINAL: Bowel sounds present abdomen soft and nontender, thin, no hep atosplenomegaly or masses, nabsx4 appreciated EXTREMITIES: No clubbing, cyanosis, edema NEUROLOGICAL: Spontaneously moves all 4 extremities, cranial 2 through 12 grossly intact, no gross focal deficits appreciated PSYCHOLOGICAL: Appropriate affect LABORATORY DATA, MICROBIOLOGY: Please see below DVT prophylaxis ordered: on Warfarin ASSESSMENT AND PLAN: This is a 83 -year-old male who presented to the ED with chest pain, who is now recovering well s/p CP from rib fractures from being hit by a runaway lawnmower. PROBLEMS: 1. Chest pain from multiple rib fractures right 7, 8 2. Chronic atrial fibrillation with RVR 3. Elevated CPK 4. End stage renal disease on hemodialysis DISPOSITION: Patient is stable and eager to go home. DISCHARGE CONDITION: Stable PROGNOSIS: Favorable prognosis FOLLOW UP: PCP and nephrology within 5-7 days of dc; return to the ER if you experience any problems ACTIVITY: As prior to admission DIET: Renal diet as prior to admission, fluid restriction, daily weights TIME SPENT ON DISCHARGE: 45 min Vital Signs/I&Os Vital Signs Date Time Temp Pulse Resp B/P (MAP) Pulse Ox O2 Delivery O2 Flow Rate FiO2 03/22/19 08:48 18 03/22/19 08:48 96 154/72 03/22/19 08:00 98.3 91 03/20/19 04:00 2.0 I&O- Last 24 Hours up to 6 AM 03/22/19 06:00 Intake Total 1110 ml Output Total 1700 ml Balance -590 ml Laboratory Data Labs 24H Laboratory Tests 2 03/22/19 06:21: Immature Granulocyte % (Auto) 0.6, White Blood Count 10.4H, Red Blood Count 2.58L, Hemoglobin 9.4L, Hematocrit 28.0L, Mean Corpuscular Volume 108.5H, Mean Corpuscular Hemoglobin 36.4H, Mean Corpuscular Hemoglobin Concent 33.6, Red Cell Distribution Width 16.7H, Platelet Count 273, Neutrophils (%) (Auto) 79.6H, Lymphocytes (%) (Auto) 6.3L, Monocytes (%) (Auto) 11.5H, Eosinophils (%) (Auto) 1.5, Basophils (%) (Auto) 0.5, Neutrophils # (Auto) 8.3H, Lymphocytes # (Auto) 0.7L, Monocytes # (Auto) 1.2H, Eosinophils # (Auto) 0.2, Basophils # (Auto) 0.1, Nucleated Red Blood Cells % (auto) 0.2H, Prothrombin Time 25.1H, Prothromb Time International Ratio 2.23, Anion Gap 5L, Glomerular Filtration Rate 15.4L, Blood Urea Nitrogen 30H, Creatinine 3.98H, Sodium Level 140, Potassium Level 4.0, Chloride Level 104, Carbon Dioxide Level 31, Calcium Level 8.6L, Magnesium Level 2.2 CBC/BMP Laboratory Tests 03/22/19 06:21 Red Blood Count 2.58 L, Mean Corpuscular Volume 108.5 H, Mean Corpuscular Hemoglobin 36.4 H, Mean Corpuscular Hemoglobin Concent 33.6, Red Cell Distribution Width 16.7 H, Neutrophils (%) (Auto) 79.6 H, Lymphocytes (%) (Auto) 6.3 L, Monocytes (%) (Auto) 11.5 H, Eosinophils (%) (Auto) 1.5, Basophils (%) (A uto) 0.5, Neutrophils # (Auto) 8.3 H, Lymphocytes # (Auto) 0.7 L, Monocytes # (Auto) 1.2 H, Eosinophils # (Auto) 0.2, Basophils # (Auto) 0.1, Calcium Level 8.6 L Microbiology Microbiology 03/19/19 Blood Culture - Preliminary, Resulted No Growth after 48 hours. All Specime... Discharge Medications Scheduled Amlodipine Besylate (Amlodipine Besylate) 5 Mg Tab, 5 MG PO QHS, (Reported) Carvedilol (Carvedilol) 3.125 Mg Tab, 3.125 MG PO BID, (Reported) Docusate Sodium (Docusate Sodium) 100 Mg Cap, 100 MG PO BID, (Reported) Ergocalciferol (Vitamin D2) (Vitamin D2) 50,000 Unit Cap, 50,000 UNIT PO 1XWK, (Reported) TAKES ON MONDAYS Folic Acid/Vit B Complex and C (Annabel-Nadine Tablet) 1 Tab Tab, 1 TAB PO DAILY, (Reported) Lidocaine/Prilocaine (Lidocaine-Prilocaine Cream) 1 Cre Cre, 1 CRE EXT 3XW, (Reported) TAKES ON TUESDAYS, WEDNESDAY AND SATURDAYS BEFORE DIALYSIS. Morphine Sulfate (Morphine Sulfate ER) 15 Mg Tab, 15 MG PO BID, (Reported) Omeprazole (Omeprazole) 20 Mg Cap, 20 MG PO DAILY, (Reported) Pravastatin Sodium (Pravastatin Sodium) 40 Mg Tab, 40 MG PO QHS, (Reported) Sennosides (Senna Lax) 8.6 Mg Tablet, 8.6 MG PO DAILY, (Reported) Sevelamer Carbonate (Renvela) 800 Mg Tab, 800 MG PO WM, (Reported) Warfarin Sodium (Warfarin Sodium) 2.5 Mg Tablet, 5 MG PO 2XW, (Reported) WEDNESDAY AND WEDNESDAY Warfarin Sodium (Warfarin Sodium) 2.5 Mg Tablet, 3.75 MG PO 5XW, (Reported) WED, , WED, , WED Scheduled PRN Acetaminophen (Tylenol) 325 Mg Tablet, 650 MG PO Q4H PRN for PAIN, (Reported) Nitroglycerin (Nitrostat) 0.4 Mg Subl, 0.4 MG SL NITRO PRN for CHEST PAIN, (Reported) Oxycodone HCl (Oxycodone HCl) 5 Mg Tab, 5 MG PO QID PRN for PAIN, (Reported) Trazodone HCl (Trazodone HCl) 50 Mg Tablet, 50 MG PO QHS PRN for SLEEP, (Reported) HAS NOT BEEN TAKING DUE TO NO RX, HOWEVER STATES HE DOES HAVE TROUBLE TAKING AND WOULD LIKE TO START RECEIVING AGAIN. Allergies Coded Allergies: No Known Allergies (Verified , 03/09/18) GME ATTESTATION GME ATTESTATION My faculty preceptor for this patient encounter was physically present during the encounter and was fully available. All aspects of the patient interview, examination, medical decision making process, and medical care plan development were reviewed and approved by the faculty preceptor. The faculty preceptor is a hewitt and concurs with the plan as stated in the body of this note and will attest to such by his/her cosignature. ATTENDING NOTE I, Samy Grande, have both independently examined this patient as well as reviewed the documentation. I have discussed in detail with the resident the findings and plan of treatment as documented by the resident. I agree with their findings and treatment plan. I will continue to follow the patient and offer further guidance to the patients care as necessary during this hospital stay. Time spent on discharge was 32 minutes CARISSA MAR OMS-3 Mar 22, 2019 11:32 CONNIE HOLLIS DO Mar 22, 2019 13:03 SAMY GRANDE MD Mar 22, 2019 13:38
== END 2019-03-22 12:45 | disposition home health service (06) | DRG 183 ==
LOC: M ICU 17:35 → M MSPAV 03-20 14:09 → M PCU 03-22 04:15
PROVIDERS: ADMIT Internal Medicine; ATTEND Internal Medicine
DX: S22.41XA Multiple fractures of ribs, right side, initial encounter for closed fracture (principal); N18.6 End stage renal disease; M62.82 Rhabdomyolysis; M10.9 Gout, unspecified; I48.2 Chronic atrial fibrillation; M54.5 Low back pain; I25.10 Atherosclerotic heart disease of native coronary artery without angina pectoris; Z95.1 Presence of aortocoronary bypass graft; Z79.01 Long term (current) use of anticoagulants; I10 Essential (primary) hypertension; Z79.899 Other long term (current) drug therapy; Z90.81 Acquired absence of spleen; D63.1 Anemia in chronic kidney disease; W22.8XXA Striking against or struck by other objects, initial encounter; Y92.009 Unspecified place in unspecified non-institutional (private) residence as the place of occurrence of the external cause

== ENCOUNTER → 2019-05-19 | Outpatient (REF) | payer MEDICARE, OTHER ==
[~2019-05-19] MED LIST changes: +ACET-907 PO; +CYAN100049 PO; -OMEP20CA3 PO; +OMEP20CA4 PO; +RA S8.6T3 PO; -VITA10002 PO; +WARF-18 PO
== END ==
LOC: M LAB REF 17:15
PROVIDERS: ATTEND Internal Medicine
DX: H53.2 Diplopia (principal)

== ENCOUNTER 2019-06-14 10:22 | Inpatient (IN) | payer MEDICARE, OTHER ==
[2019-06-14] VITALS (8 sets, daily range): BP systolic 96–179; BP diastolic 51–87
[~2019-06-14] VITALS: Ht 172.7 cm; Wt 52.0 kg
[~2019-06-14 10:22] MED LIST changes: -MORP-38 PO; +MORP-69 PO
[2019-06-14 12:40] LABS: HEMATOCRIT 36.1 % (42.0-52.0); HEMOGLOBIN 11.9 g/dl (13.5-17.5); MEAN CORPUSCULAR VOLUME 106.2 fl (80.0-96.0); PLATELET COUNT, AUTOMATED 170 10^3/uL (150-450); WHITE BLOOD COUNT 12.1 10^3/uL (4.0-10.0)
[2019-06-14] MEDS ORDERED: CARVedilol 6.25 MG TAB PO ONE (12:45)
[2019-06-14] MEDS ORDERED: ATOR80TA59 PO (12:56)
[2019-06-14] MEDS ORDERED: PROT40IN4 IV (12:56)
[2019-06-14] MEDS ORDERED: NITR2OI TOP (12:56)
[2019-06-14] MEDS ORDERED: [UNRECOGNIZED DRUG - OTHER] IV (12:56)
[2019-06-14] MEDS ORDERED: [UNRECOGNIZED DRUG - CODE] IV (12:56)
[2019-06-14] MEDS ORDERED: diltiaZEM 125 MG in NS 100 ML IV SCH (13:00)
[2019-06-14] MEDS ORDERED: traZODone 50 MG TAB PO PRN (13:00)
[2019-06-14] MEDS ORDERED: NITROGLYCERIN 0.4 MG SUBL TABLET SL PRN (13:00)
[2019-06-14 13:08] LABS: ALBUMIN 3.5 GM/DL (3.2-5.2); BILIRUBIN,TOTAL 0.6 MG/DL (0.2-1.0); CALCIUM LEVEL 9.4 MG/DL (8.8-10.2); CREATININE FOR GFR 5.53 MG/DL (0.70-1.30); GLOMERULAR FILTRATION RATE 10.5 (>35); POTASSIUM SERUM 4.4 MEQ/L (3.5-5.1); TOTAL PROTEIN 7.7 GM/DL (6.4-8.2)
--- NOTE | 2019-06-14 13:29 | REP ---
Portable chest, 12th 58 p.m., single AP view with the patient semi upright: Comparison is 03/02/2018. Bilateral interstitial infiltrates are again identified but are significantly worsened from the prior study. Additionally, there is a focal alveolar infiltrate inferiorly in the right lung also an interval change. There are bilateral pleural effusions, not significantly changed. There are sternotomy wires, unchanged. Impression: Worsening interstitial infiltrates. New right lower lobe alveolar infiltrate. Chronic cardiomegaly, unchanged. Chronic bilateral pleural effusions, unchanged. Electronically Signed by Giorgi Bay MD 06/14/2019 01:21 P
--- NOTE | 2019-06-14 13:33 | HPEPDOC ---
General Date of Admission Jun 14, 2019 at 11:49 Date of Service: Jun 14, 2019 Chief Complaint The patient is a 83-year-old male who is transferred from [facility] because of lack of dialysis capability History of Present Illness Patient is an 83-year-old male with PMHx of ESRD on HD (TTS), A. fib (on Coumadin), CAD s/p CABG (1988), HTN, Chronic back pain who presented to [facility] ICU as a transfer from [facility] because of lack of dialysis capability. Patient had reported that he was experiencing shortness of breath that started yesterday afternoon after he completed dialysis. Patient had reported that his dry weight is usually 61 kg. However, after his dialysis session, he had noted that his weight was higher than his dry weight. Patient was expressing some shortness of breath, but try to sleep. Patient had reported difficulty sleeping because of shortness of breath. This morning patient had woken up with worsening shortness of breath. . He denied cough, chest pain or palpitations. . He denies any fevers or chills over the last 2 weeks. He has reported no leg swelling or difficulty lying flat on his back. Patient denies nausea, vomiting, abdominal pain, constipation, diarrhea or urinary discomfort. Patient does report the ability to make some urine. Patient reports that his appetite is normal, but does report a mild weight increase. Home Medications Scheduled Amlodipine Besylate (Amlodipine Besylate) 5 Mg Tab, 5 MG PO DAILY, (Reported) Atorvastatin Calcium (Atorvastatin Calcium) 80 Mg Tablet, 80 MG PO QHS, (Reported) Carvedilol (Carvedilol) 3.125 Mg Tab, 3.125 MG PO BID, (Reported) Diltiazem HCl (Diltiazem HCl) 5 Mg/1 Ml Vial, 10 MG IV ASDIRECTED, (Reported) BOLUS OVER 4 MINUTES - RECEIVED AT [place] Docusate Sodium (Docusate Sodium) 100 Mg Cap, 100 MG PO DAILY, (Reported) Folic Acid/Vit B Complex and C (Annabel-Nadine Tablet) 1 Tab Tab, 1 TAB PO DAILY, (Reported) Lidocaine/Prilocaine (Lidocaine-Prilocaine Cream) 1 Cre Cre, 1 CRE EXT 3XW, (Reported) TAKES ON TUESDAYS, WEDNESDAY AND SATURDAYS BEFORE DIALYSIS. Morphine Sulfate (Morphine Sulfate ER) 15 Mg Tab, 15 MG PO BID, (Reported) Nitroglycerin (Nitro-Bid) 1 Gm Oint...g., 1 INCH TOP ASDIRECTED, (Reported) STARTED AT [place] Omeprazole (Omeprazole) 20 Mg Cap, 20 MG PO DAILY, (Reported) Pantoprazole Sodium (Protonix IV) 40 Mg Vial, 40 MG IV ASDIRECTED, (Reported) RECEIVED AT [place] Sevelamer Carbonate (Renvela) 800 Mg Tab, 800 MG PO DAILY, (Reported) WITH BREAKFAST Warfarin Sodium (Warfarin Sodium) 2.5 Mg Tablet, 2.5 MG PO QPM, (Reported) [Diltiazem Drip] , 5 MG IV ASDIRECTED, (Reported) IV DRIP AT 5MG PER HOUR - STARTED AT [place] Scheduled PRN Acetaminophen (Tylenol) 325 Mg Tablet, 650 MG PO Q4H PRN for PAIN, (Reported) Nitroglycerin (Nitrostat) 0.4 Mg Subl, 0.4 MG SL NITRO PRN for CHEST PAIN, (Reported) Oxycodone HCl (Oxycodone HCl) 5 Mg Tab, 5 MG PO QID PRN for PAIN, (Reported) Trazodone HCl (Trazodone HCl) 50 Mg Tablet, 50 MG PO QHS PRN for SLEEP, (Reported) Allergies Coded Allergies: No Known Allergies (Verified , 03/09/18) Past Medical History Medical History ESRD on HD (), A. 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[employer] Review of Systems Other systems 10 point review of systems complete, all negative otherwise stated in HPI Vital Signs - Vitals: BP 179/87, HR 83, RR 18, Sat 94%NC10L, Temp 96.9F - General: Lying in bed, No acute distress, Speaking in full sentences, AAOx3 - HEENT: NC, AT, PERRLA, EOMI - CVS: Tachycardic, +S1S2 - Lungs: Diminished lung sounds at bases, mild crackles, no appreciable rhonchi or wheezing - Abdomen: Soft, Non-distended, Non-tender - Extremities: Trace pitting edema bilaterally, No calf tenderness - Neuro: No focal motor or sensory deficit - Skin: Small open ulcers on right leg Laboratory Data Labs 24H Laboratory Tests 2 06/14/19 11:28: 06/14/19 12:17: Nucleated Red Blood Cells % (auto) 0.0, Anion Gap 6L, Glomerular Filtration Rate 10.5L, Lactic Acid Level 1.7, Blood Urea Nitrogen 37H, Creatinine 5.53H, Sodium Level 138, Potassium Level 4.4, Chloride Level 98, Carbon Dioxide Level 34H, Calcium Level 9.4, Aspartate Amino Transf (AST/SGOT) 20, Alanine Aminotransferase (ALT/SGPT) 17, Alkaline Phosphatase 124H, Total Bilirubin 0.6, Total Protein 7.7, Albumin 3.5, Albumin/Globulin Ratio 0.83L 06/14/19 13:11: CBC/BMP Laboratory Tests 06/14/19 12:17 Red Blood Count 3.40 L, Mean Corpuscular Volume 106.2 H, Mean Corpuscular Hemoglobin 35.0 H, Mean Corpuscular Hemoglobin Concent 33.0, Red Cell Distributi on Width 15.5 H, Calcium Level 9.4, Aspartate Amino Transf (AST/SGOT) 20, Alanine Aminotransferase (ALT/SGPT) 17, Alkaline Phosphatase 124 H, Total Bilirubin 0.6, Total Protein 7.7, Albumin 3.5 Microbiology Microbiology 06/14/19 Blood Culture, Received Pending 06/14/19 Blood Culture, Received Pending Plan / VTE VTE Prophylaxis Ordered?: Yes Plan Plan Shortness of breath - likely 2/2 bilateral effusion and pulmonary edema - 2/2 fluid overload - possibly 2/2 ESRD - Patient has reported shortness of breath from yesterday afternoon - Reports that his current weight is higher than his dry weight - BNP from [facility] was found to be significantly elevated - Imaging was reviewed by myself personally and does reveal bilateral effusions and pulmonary edema - Nephrology has been consulted and will be dialyzing the patient today A. fib with RVR - Upon arrival to [facility] patient was found to be in A. fib with RVR with heart rate of 150 - Patient was placed on Cardizem drip at [facility] and upon transfer - Upon arrival, patients heart rate was between 90-110 - Cardizem drip has been discontinued and carvedilol by mouth has been reinstituted - INR is subtherapeutic - Will increase dose of Coumadin to achieve therapeutic INR ESRD on HD () - Patient is scheduled for dialysis Wednesday, and Wednesday - Received dialysis on Wednesday without event - Nephrology has been consulted CAD s/p CABG (1988) - c/w Atorvastatin, Carvedilol HTN Urgency - Patients systolic blood pressure is approximately 170 - Will resume home blood pressure medications and patient will be dialyzed today - Will reevaluate blood pressure and readjust as needed Chronic back pain - c/w opiate based medications from outpatient setting Insomnia - c/w Trazodone GERD - c/w Omeprazole DVT prophylaxis - c/w full anticoagulation MINRO MORALES MD Jun 14, 2019 13:33
[2019-06-14 13:37] LABS: INR 1.73
--- NOTE | 2019-06-14 14:38 | ECGEPIP ---
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
[2019-06-14] MEDS ORDERED: WARFARIN SOD 5 MG TAB PO SCH (17:00)
--- NOTE | 2019-06-14 20:19 | ECHO ---
DATE OF PROCEDURE: 06/14/2019 Date of : 1935 Age: 83 REFERRING PHYSICIAN: Darin Grande MD REASON FOR ECHOCARDIOGRAM: Shortness of breath. 2D MEASUREMENTS: IVS: 1.5 cm LV: 3.7 cm LVPW: 1.5 cm LA: 4.8 cm Aorta: 3.1 cm DOPPLER MEASUREMENTS: Peak velocity across the aortic valve: 1.1 m/s Peak velocity across the LVOT: 0.53 m/s Mitral E: 0.84 Maximum tricuspid valve velocity: 3.6 m/s 2D COMMENTS: 1. Normal left ventricular size with probably moderately increased left ventricular wall thickness. Left ventricular systolic function is moderately depressed with a left ventricular ejection fraction (LVEF) estimated at 35%. 2. Mildly enlarged left atrium. Moderately enlarged right atrium. The right ventricle appeared to be mildly enlarged and hypokinetic. 3. The atrial septum appeared to be normal without evidence of defect or shunt. 4. Normal aortic root. 5. Trace pericardial effusion noted at the base of the heart. 6. Mildly calcified aortic valve with normal leaflet excursion. Could not rule out a bioprosthetic aortic valve. Normal tricuspid valve and pulmonic valve. The proximal pulmonary artery branches also appear to be normal. 7. The inferior vena cava was not visualized. DOPPLER: It detects mild aortic radiation, mild mitral regurgitation, and probably moderate tricuspid regurgitation. The calculated pulmonary artery systolic pressure varies between 50-60 mmHg. Assessment of the left ventricular diastolic function was limited. IMPRESSION 1. Moderate global left ventricular systolic dysfunction with diffuse hypokinesis. There is mild concentric left ventricle hypertrophy. Assessment of the left ventricular diastolic function was limited. 2. Probably by prosthetic aortic valve with normal function. There was mild aortic radiation. 3. Mild tricuspid regurgitation with mildly enlarged left atrium and mitral annulus calcification. 4. Mild to moderate tricuspid regurgitation with moderate pulmonary hypertension and dilated right heart chambers. There are features consistent with right ventricular systolic dysfunction. 5. A left pleural effusion was noted. Trace pericardial effusion was noted, many at the base of the heart.
[2019-06-14] MEDS: CARVedilol 3.125 MG TAB PO SCH (20:26)
[2019-06-14] MEDS: ATORVASTATIN 20 MG TAB PO SCH (20:26)
[2019-06-14] MEDS: MORPHINE 15 MG SA TAB PO SCH (20:27)
[2019-06-15] VITALS (13 sets, daily range): BP systolic 103–156; BP diastolic 55–78
[2019-06-15 05:30] LABS: BASO # 0.1 10^3/uL (0.0-0.2); BASO % 0.7 % (0.0-1.0); EOS # 0.1 10^3/uL (0.0-0.50); EOS % 0.5 % (0.0-3.0); HEMATOCRIT 31.7 % (42.0-52.0); HEMOGLOBIN 10.2 g/dl (13.5-17.5); LYMPH # 0.6 10^3/uL (1.5-4.5); LYMPH % 6.7 % (24.0-44.0); MEAN CORPUSCULAR HEMOGLOBIN 33.4 pg (27.0-33.0); MEAN CORPUSCULAR HGB CONC 32.2 g/dl (32.0-36.5); MEAN CORPUSCULAR VOLUME 103.9 fl (80.0-96.0); MONO % 10.8 % (0.0-5.0); NEUTROPHILS # 7.4 10^3/uL (1.8-7.7); PLATELET COUNT, AUTOMATED 147 10^3/uL (150-450); RED BLOOD COUNT 3.05 10^6/uL (4.30-6.10); WHITE BLOOD COUNT 9.1 10^3/uL (4.0-10.0)
[2019-06-15 05:40] LABS: INR 1.92; PROTHROMBIN TIME 21.7 SECONDS (11.8-14.0)
[2019-06-15 06:04] LABS: ALBUMIN 2.8 GM/DL (3.2-5.2); BILIRUBIN,TOTAL 0.5 MG/DL (0.2-1.0); CALCIUM LEVEL 8.9 MG/DL (8.8-10.2); CREATININE FOR GFR 4.25 MG/DL (0.70-1.30); GLOMERULAR FILTRATION RATE 14.2 (>35); MAGNESIUM LEVEL 1.8 MG/DL (1.8-2.4); POTASSIUM SERUM 4.5 MEQ/L (3.5-5.1); TOTAL PROTEIN 6.6 GM/DL (6.4-8.2)
[2019-06-15] MEDS: amLODIPine 5 MG TAB PO SCH (08:10)
[2019-06-15] MEDS: OMEPRAZOLE 20 MG CAP PO SCH (08:10)
[2019-06-15] MEDS: DOCUSATE SODIUM 100 MG CAP PO SCH (08:10)
[2019-06-15] MEDS: CARVedilol 3.125 MG TAB PO SCH ×2 (08:10→20:32)
[2019-06-15] MEDS: MORPHINE 15 MG SA TAB PO SCH ×2 (08:11→20:32)
--- NOTE | 2019-06-15 10:41 | IPNPDOC ---
Text Note Date of Service The patient was seen on 06/15/19. NOTE Subjective: Patient is an 83-year-old male who was transferred yesterday from [facility] due to their lack of dialysis capability. Patient says that he had been experiencing difficulty breathing after his dialysis treatment on Wednesday. He says he was eating dinner and he felt okay and then began having more difficulty breathing. Patient was then brought to the hospital where jessica trotter was found to have signs and symptoms of fluid overload. Patient was then transferred to our hospital and dialysis was performed again yesterday. Patient says he is feeling much better today however, he is still on 5 L of oxygen via nasal cannula which is not his baseline. Other than the fact that he is still not maintaining his saturations on room air, the patient says he is feeling well. He says he ate breakfast without difficulty and is feeling much better than he did prior to dialysis yesterday. Review of systems General: Patient denies fevers HEENT: Patient denies headaches Cardiovascular: Patient denies chest pain Respiratory: Patient denies shortness of breath while on 5 L of oxygen via nasal cannula. GI: Patient denies abdominal pain, nausea, vomiting, diarrhea : Patient denies pain or difficulty with urination Neurological: Patient denies numbness or tingling in extremities Extremities: Patient denies swelling or pain in extremities Objective: Vitals: (see below) General: No acute distress, laying comfortably in bed. HEENT: Normocephalic, atraumatic, moist mucous membranes. Neck: No JVD or lymphadenopathy Cardiac: Irregularly irregular, normal rate, No murmurs Pulm: Clear to auscultation b/l. No wheezing, rhonchi Abd: NT/ND + BS Ext: Patient has chronic venous stasis changes in his lower extremities bilaterally. There is small scabbed over areas on his right duffy. Labs (see below) Images: A chest x-ray performed on 06/14/2019 showed worsening interstitial infiltrates, new right lower lobe alveolar infiltrate, chronic cardiomegaly, unchanged. Chronic bilateral pleural effusions, unchanged. Assessment/Plan 1. Shortness of breath. This is most likely secondary to bilateral pleural effusions and pulmonary edema secondary to fluid overload. Patient's shortness of breath has decreased. Plan is to continue to wean the patient off his oxygen today as tolerated. A thoracentesis has been ordered in order to evaluate the pleural effusions. These are most likely transudate effusions however, this needs to be confirmed. Patient will get dialysis again today in order to help wean him off the oxygen as he may still be somewhat fluid overloaded. 2. Atrial fibrillation with rapid ventricular response. Patient was on a Cardizem drip when he arrived to our facility but has been taken off and has been switched to his carvedilol by mouth. Patient's heart rate was controlled today. Patient's Coumadin was held today for procedure. 3. End-stage renal disease on hemodialysis. Patient is on a Wednesday, , and Wednesday schedule. Nephrology has been consulted and we appreciate their help in treating this patient. 4. Coronary artery disease status post coronary artery bypass graft in 1988. We will continue with atorvastatin carvedilol. 5. Asymptomatic severe hypertension. Patient's blood pressure is better controlled today. 6. Chronic back pain. Continue with opiate-based pain medications from outpatient providers. 7. Insomnia. Continue with trazodone. 8. GERD. Continue with omeprazole. DVT prophy: Coumadin Dispo: Pending clinical improvement. VS,Fishbone, I+O VS, Fishbone, I+O Laboratory Tests 06/14/19 12:17 Red Blood Count 3.40 L, Mean Corpuscular Volume 106.2 H, Mean Corpuscular Hemoglobin 35.0 H, Mean Corpuscular Hemoglobin Concent 33.0, Red Cell Distribution Width 15.5 H, Calcium Level 9.4, Aspartate Amino Transf (AST/SGOT) 20, Alanine Aminotransferase (ALT/SGPT) 17, Alkaline Phosphatase 124 H, Total Bilirubin 0.6, Total Protein 7.7, Albumin 3.5 06/15/19 05:10 Red Blood Count 3.05 L, Mean Corpuscular Volume 103.9 H, Mean Corpuscular Hemoglobin 33.4 H, Mean Corpuscular Hemoglobin Concent 32.2, Red Cell Distribution Width 15.4 H, Calcium Level 8.9, Aspartate Amino Transf (AST/SGOT) 14, Alanine Aminotransferase (ALT/SGPT) 14, Alkaline Phosphatase 101, Total Bilirubin 0.5, Total Protein 6.6, Albumin 2.8 L, Neutrophils (%) (Auto) 81.0 H, Lymphocytes (%) (Auto) 6.7 L, Monocytes (%) (Auto) 10.8 H, Eosinophils (%) (Auto) 0.5, Basophils (%) (Auto) 0.7, Neutrophils # (Auto) 7.4, Lymphocytes # (Auto) 0.6 L, Monocytes # (Auto) 1.0 H, Eosinophils # (Auto) 0.1, Basophils # (Auto) 0.1 Vital Signs Date Time Temp Pulse Resp B/P (MAP) Pulse Ox O2 Delivery O2 Flow Rate FiO2 06/15/19 08:11 20 06/15/19 08:10 77 133/62 06/15/19 08:00 5.0 06/15/19 07:10 97.2 92 06/14/19 11:55 50 I&O- Last 24 Hours up to 6 AM 06/15/19 06:00 Intake Total 555 ml Output Total 3000 ml Balance -2445 ml GME ATTESTATION GME ATTESTATION My faculty preceptor for this patient encounter was physically present during the encounter and was fully available. All aspects of the patient interview, examination, medical decision making process, and medical care plan development were reviewed and approved by the faculty preceptor. The faculty preceptor is aware and concurs with the plan as stated in the body of this note and will attest to such by his/her cosignature. ATTENDING NOTE I, Samy Grande, have independently examined this patient and performed my own physical exam, as well as reviewed the documentation and edited where necessary. I have discussed in detail with the resident / student the findings and plan of treatment as documented by the resident / student and edited their note. I agree with their findings and treatment plan and have edited their documentation. I will continue to follow the patient during this hospital stay. COLBY RUFFIN DO Jun 15, 2019 10:41 SAMY GRANDE MD Jun 15, 2019 13:09
[2019-06-15] MEDS ORDERED: HEPARIN 1,000 UNITS/ML 10ML VIAL (FOR RADIOLOGY& DIALYSIS ONLY) IV ONE (11:00)
[2019-06-15] MEDS ORDERED: oxyCODONE 5MG TAB PO PRN (14:15)
--- NOTE | 2019-06-15 20:13 | IPN ---
DATE: 06/15/2019 Mr. Grace is seen this morning on his bedside in intensive care unit. He was admitted yesterday with acute pulmonary edema and rapid atrial fibrillation. The patient underwent urgent dialysis and 2.5 liters of fluid was removed. His atrial fibrillation has been controlled with medications. Diltiazem drip has been stopped and he is now on oral Carvedilol 3.125 mg twice a day. The patient is feeling much better today and denies any dyspnea, chest pain, nausea or vomiting. He is still on five liters of oxygen. PHYSICAL EXAMINATION: Temperature 97.9 degrees Fahrenheit, heart rate 72 per minute and respiratory rate 18 per minute. Blood pressure 112/55 mmHg and oxygen saturation 91% on five liters of oxygen. Head is atraumatic. Neck is supple and jugular venous distention (JVD) is still elevated. Lungs have bilateral diminished breath sounds and basilar rales. Heart sounds are irregular in rhythm. Abdomen is soft and nontender and bowel sounds are normal. Extremities without any cyanosis or clubbing. Neurologically, he is awake, alert and oriented times three. LABORATORY DATA: Today's laboratories show WBC count 9.1, hemoglobin 10.2 and hematocrit 31.7. Sodium 140, potassium 4.5, CO2 of 33, BUN 22 and creatinine 4.25. Albumin is 2.80. Chest x-ray done yesterday did show bilateral pleural effusions. He also had interstitial infiltrates and focal alveolar infiltrate in the inferior right lung. PROBLEMS: 1. Acute pulmonary edema. Volume status improved significantly with hemodialysis yesterday and three liters of fluid removal. He is still requiring five liters of oxygen and volume status is still decompensated. We will ultrafiltrate today and try to remove another 2.5 liters fluid as tolerated. 2. Atrial fibrillation with rapid ventricular rate. At present, his ventricular rate is reasonably well-controlled on low-dose of Carvedilol 3.125 mg twice a day. 3. Bilateral pleural effusions. He does have bilateral pleural effusions but I do not feel that they are big enough to consider thoracentesis on the chest x-ray from yesterday. We will see how he does with hemodialysis and ultrafiltration. If his hypoxemia improves then we will not consider thoracentesis and if it does not then we will consider it. 4. Anemia. At present, his anemia is stable and does not need any urgent intervention. 5. End-stage renal disease. The patient had regular dialysis yesterday. He will be ultrafiltrated today. His electrolytes are stable.
[2019-06-15] MEDS: ATORVASTATIN 20 MG TAB PO SCH (20:31)
[2019-06-16] VITALS: BP 139/63
[2019-06-16 04:00] VITALS: BP 119/61
[2019-06-16 05:02] LABS: BASO # 0.1 10^3/uL (0.0-0.2); BASO % 0.8 % (0.0-1.0); EOS # 0.2 10^3/uL (0.0-0.50); EOS % 2.5 % (0.0-3.0); HEMATOCRIT 33.3 % (42.0-52.0); HEMOGLOBIN 10.8 g/dl (13.5-17.5); LYMPH # 0.9 10^3/uL (1.5-4.5); MEAN CORPUSCULAR HEMOGLOBIN 34.8 pg (27.0-33.0); MEAN CORPUSCULAR HGB CONC 32.4 g/dl (32.0-36.5); MEAN CORPUSCULAR VOLUME 107.4 fl (80.0-96.0); MONO # 1.1 10^3/uL (0.0-0.8); MONO % 13.7 % (0.0-5.0); NEUTROPHILS # 5.5 10^3/uL (1.8-7.7); NEUTROPHILS % 70.7 % (36.0-66.0); PLATELET COUNT, AUTOMATED 150 10^3/uL (150-450); WHITE BLOOD COUNT 7.7 10^3/uL (4.0-10.0)
[2019-06-16 05:12] LABS: INR 1.61; PROTHROMBIN TIME 18.9 SECONDS (11.8-14.0)
[2019-06-16 05:32] LABS: ALBUMIN 2.7 GM/DL (3.2-5.2); BILIRUBIN,TOTAL 0.3 MG/DL (0.2-1.0); CALCIUM LEVEL 8.6 MG/DL (8.8-10.2); CREATININE FOR GFR 6.3 MG/DL (0.70-1.30); MAGNESIUM LEVEL 1.9 MG/DL (1.8-2.4); POTASSIUM SERUM 4.3 MEQ/L (3.5-5.1); TOTAL PROTEIN 6.7 GM/DL (6.4-8.2)
[2019-06-16 08:00] VITALS: BP 144/74
--- NOTE | 2019-06-16 08:16 | REP ---
Portable chest, 07:25 a.m., single AP view with the patient upright: Comparison is 06/14/2019. The the bilateral interstitial infiltrates have improved. The alveolar infiltrate inferiorly in the right lung has improved. There are bilateral pleural effusions, unchanged. There are sternotomy wires, unchanged. There is cardiomegaly, unchanged. Impression: The interstitial infiltrates have improved. The alveolar infiltrate inferiorly in the right lung has improved. No other interval change. Electronically Signed by Giorgi Bay MD 06/16/2019 08:08 A
--- NOTE | 2019-06-16 09:55 | IPNPDOC ---
Text Note Date of Service The patient was seen on 06/16/19. NOTE Subjective: Patient was seen and examined is bedside. Patient had dialysis again yesterday. Patient says he is feeling great today although he is still requiring 3 L of nasal cannula oxygen. Patient ate a double tray this morning and says he is feeling back to his usual self. There was no acute events overnight. Review of systems General: Patient denies fevers HEENT: Patient denies headaches Cardiovascular: Patient denies chest pain Respiratory: Patient denies shortness of breath, cough GI: Patient denies abdominal pain, nausea, vomiting, diarrhea : Patient denies pain or difficulty with urination Neurological: Patient denies numbness or tingling in extremities Extremities: Patient denies swelling or pain in extremities Objective: Vitals: (see below) General: No acute distress, laying comfortably in bed. HEENT: Normocephalic, atraumatic, moist mucous membranes. Neck: No JVD or lymphadenopathy Cardiac: RRR, No murmurs Pulm: Clear to auscultation b/l. No wheezing, rhonchi Abd: NT/ND + BS Ext: Patient has chronic venous stasis skin discolorations on his lower shor tness bilaterally. There are some scabbed over areas on his left duffy. Labs (see below) Images: A portable chest x-ray performed on 06/16/2019 shows interstitial infiltrates that are improved. Alveolar infiltrate inferiorly in the right lung has improved. No other interval change. Assessment/Plan 1. Shortness of breath. This is most likely secondary to pulmonary edema and bilateral pleural effusion secondary to fluid overload. Patient's shortness of breath has decreased and patient is now on 3 L of nasal cannula oxygen. We will continue to wean the patient off nasal cannula oxygen as the patient is not on oxygen at home. Based on the newest chest x-ray performed today, interstitial infiltrates have improved. The pleural effusions are unchanged but his oxygen requirement is lower so a thorocentesis may not be necessary. It appears patient will be getting dialyzed again today in order to help with his fluid overload status. 2. Atrial fibrillation with rapid ventricular response. Patient is currently on carvedilol 3.125 mg twice a day. Patient's rate is controlled. Patient is on Coumadin for anticoagulation. 3. End-stage renal disease on hemodialysis. Nephrology has been consulted and we appreciate Dr. Regalado's help treating this patient. Patient will be getting dialysis again today. 4. Coronary artery disease status post CABG in 1988. Continue atorvastatin and carvedilol. 5. Asymptomatic severe hypertension. Patient's blood pressure is controlled today. 6. Chronic back pain. Continue with opiate-based pain medications the patient is been on her outpatient providers. 7. Insomnia. Continue with trazodone. 8. GERD. Continue with omeprazole. DVT prophy: Coumadin Dispo: Pending improvement of respiratory status. VS,Fishbone, I+O VS, Fishbone, I+O Laboratory Tests 06/16/19 04:48 Red Blood Count 3.10 L, Mean Corpuscular Volume 107.4 H, Mean Corpuscular Hemoglobin 34.8 H, Mean Corpuscular Hemoglobin Concent 32.4, Red Cell Dis tribution Width 15.2 H, Neutrophils (%) (Auto) 70.7 H, Lymphocytes (%) (Auto) 12.0 L, Monocytes (%) (Auto) 13.7 H, Eosinophils (%) (Auto) 2.5, Basophils (%) (Auto) 0.8, Neutrophils # (Auto) 5.5, Lymphocytes # (Auto) 0.9 L, Monocytes # (Auto) 1.1 H, Eosinophils # (Auto) 0.2, Basophils # (Auto) 0.1, Calcium Level 8.6 L, Aspartate Amino Transf (AST/SGOT) 13, Alanine Aminotransferase (ALT/SGPT) 14, Alkaline Phosphatase 106, Total Bilirubin 0.3, Total Protein 6.7, Albumin 2.7 L Vital Signs Date Time Temp Pulse Resp B/P (MAP) Pulse Ox O2 Delivery O2 Flow Rate FiO2 06/16/19 08:35 92 2.0 06/16/19 08:00 97.8 78 20 144/74 (97) 06/14/19 11:55 50 I&O- Last 24 Hours up to 6 AM 06/16/19 06:00 Intake Total 920 ml Output Total 2500 ml Balance -1580 ml GME ATTESTATION GME ATTESTATION My faculty preceptor for this patient encounter was physically present during the encounter and was fully available. All aspects of the patient interview, examination, medical decision making process, and medical care plan development were reviewed and approved by the faculty preceptor. The faculty preceptor is aware and concurs with the plan as stated in the body of this note and will attest to such by his/her cosignature. ATTENDING NOTE I, Samy Grande, have independently examined this patient and performed my own physical exam, as well as reviewed the documentation and edited where necessary. I have discussed in detail with the resident / student the findings and plan of treatment as documented by the resident / student and edited their note. I agree with their findings and treatment plan and have edited their documentation. I will continue to follow the patient during this hospital stay. COLBY RUFFIN DO Jun 16, 2019 09:55 SAMY GRANDE MD Jun 16, 2019 13:33
[2019-06-16] MEDS ORDERED: HEPARIN 1,000 UNITS/ML 10ML VIAL (FOR RADIOLOGY& DIALYSIS ONLY) IV ONE (10:30)
--- NOTE | 2019-06-16 11:29 | CR ---
DATE OF CONSULTATION: 06/14/2019 NEPHROLOGY CONSULTATION FOR: Samy Grande MD REASON FOR CONSULTATION: Is to assist in the management of end-stage renal disease and shortness of breath. HISTORY OF PRESENT ILLNESS: Mr. Grace is an 83-year-old gentleman with known history of end-stage renal disease, coronary artery disease, congestive heart failure, pleural effusions and atrial fibrillation. He is regularly dialyzed on Wednesday, and Wednesday schedule. He was dialyzed yesterday and was feeling at his baseline. After dialysis he started to have episodes of shortness of breath which initially improved, however, later at night he became more short of breath and presented to the emergency room at [facility] today. He was found to be in pulmonary edema and also had bilateral pleural effusions. He was transferred to [facility] and admitted to intensive care unit. A nephrology consultation was requested for urgent dialysis as the patient is in acute pulmonary edema. PAST MEDICAL AND SURGICAL HISTORY: Significant for: 1. History of end-stage renal disease, atrial fibrillation, coronary artery disease, status post CABG, history of hypertension, history of valvular heart disease, history of chronic back pain, history of systolic congestive heart failure. Past surgical history is significant for AV fistula creation, quadruple bypass surgery, back surgery, tonsillectomy and splenectomy. ALLERGIES: The patient has no known drug allergies. MEDICATIONS: His medications include: - amlodipine 5 mg daily - atorvastatin 80 mg daily - carvedilol 6.125 mg twice a day - diltiazem, currently receiving in the drip form - Colace 100 mg twice a day - folic acid with B complex one tablet daily - morphine sulfate 15 mg twice a day - omeprazole 20 mg daily - nitroglycerin sublingual as needed - Renvela 800 mg three times a day with meals - Coumadin 2.5 mg daily - Tylenol as needed - he also takes trazodone 50 mg at bedtime PERSONAL AND SOCIAL HISTORY: The patient is and lives by himself. He denies any alcohol or drug use. FAMILY HISTORY: Is noncontributory and negative for end-stage renal disease. REVIEW OF SYSTEMS: The patient denies any fever or chills. He has been short of breath since yesterday. Denies any hemoptysis or pleuritic type of chest pain. Ears, nose and throat are unremarkable. Cardiovascular system significant for history of atrial fibrillation and coronary artery disease. He denies any leg edema. He has been short of breath. He was found to be in rapid atrial fibrillation at [facility] and has been on Cardizem drip. Respiratory system negative for hemoptysis or pleuritic type of chest pain. GI system negative for vomiting or diarrhea. system is negative for dysuria or hematuria. Hematological system significant for chronic anticoagulation with Coumadin. He also has a history of anemia of chronic kidney disease. Musculoskeletal system significant for chronic back pain. Neurological system negative for seizures or stroke. Psychosocial system negative for depression, anxiety. PHYSICAL EXAMINATION: The patient is awake and at his baseline mentation at the time of my visit in intensive care unit. His temperature is 98 degrees Fahrenheit, heart rate now 90s and respiratory rate 22 per minute. Blood pressure 179/87 mmHg and oxygen saturation is 94% on 10 liters oxygen. His head is atraumatic. Neck is supple and JVD is markedly elevated. He has no oral thrush or ulcers. Heart sounds are irregular and somewhat tachycardiac. Lungs with bilateral diminished breath sounds and bilateral rales. Abdomen soft and nontender and bowel sounds are normal. Extremities have no cyanosis or clubbing. Neurologically he is awake, alert and at his baseline mentation. His labs done here at [facility] after transfer show WBC count 12.1, hemoglobin 11.9 and hematocrit 36. Sodium 138, potassium 4.4, CO2 34, BUN 37 and creatinine 5.53. INR is 1.73. PROBLEMS: 1. End-stage renal disease. The patient is regularly dialyzed on Wednesday, and Wednesday schedule. He was dialyzed yesterday and we will urgently dialyze him again today due to pulmonary edema. 2. Shortness of breath. The patient has rapid atrial fibrillation which may have contributed to his acute pulmonary edema. He also has bilateral pleural effusions. At present his ventricular rate is reasonably well-controlled. We have arranged urgent dialysis and will try to remove 2.5 to 3 liters of fluid as tolerated. 3. Bilateral pleural effusions. The patient is frail and does have bilateral pleural effusions. I would suggest to consider a thoracentesis which would optimize his respiratory status. We should hold his Coumadin for a day. 4. Rapid atrial fibrillation. The patient has been on Cardizem even as an outpatient. His ventricular rate is better controlled now with Cardizem drip. He is not a suitable candidate for amiodarone due to chronic interstitial lung disease and hypoxemia. Will have to optimize his ventricular rate with possible use of digoxin and calcium channel blockers. 5. Anemia. His anemia is mild and stable and does not need any intervention. Thank you for involving me in the care of Mr. Grace. I will follow him along with you.
[2019-06-16 12:57] VITALS: BP 135/79
[2019-06-16] MEDS: CARVedilol 3.125 MG TAB PO SCH ×2 (12:59→20:43)
[2019-06-16] MEDS: OMEPRAZOLE 20 MG CAP PO SCH (12:59)
[2019-06-16] MEDS: DOCUSATE SODIUM 100 MG CAP PO SCH (13:00)
[2019-06-16] MEDS: amLODIPine 5 MG TAB PO SCH (13:00)
[2019-06-16] MEDS: MORPHINE 15 MG SA TAB PO SCH ×2 (13:01→20:41)
[2019-06-16] MEDS ORDERED: MIRALAX *UNIT DOSE* 17GM PACKET PO PRN (14:00)
[2019-06-16] MEDS ORDERED: SENOKOT S TAB PO PRN (14:00)
[2019-06-16] MEDS: WARFARIN SOD 2.5 MG TAB PO SCH (17:20)
--- NOTE | 2019-06-16 19:59 | IPN ---
DATE: 06/16/2019 Mr. Grace is seen this morning during hemodialysis. He was admitted with shortness of breath and was found to have acute pulmonary edema and bilateral pleural effusions. Initially we felt that he should have a thoracentesis. However, it has been on hold as he is being dialyzed on a daily basis and his dyspnea and hypoxemia is improving. Today we are ultrafiltrating him and trying to remove about 2.5 to 3 liters of fluid. He had another dialysis yesterday and will be dialyzed again tomorrow. The patient is feeling much better now and he is eating well. He denies any fever or chills. PHYSICAL EXAMINATION: Temperature 97.8 degrees Fahrenheit, heart rate 78 per minute and respiratory rate 20 per minute. Blood pressure 144/74 mmHg and oxygen saturation 95% on 3 liters oxygen. His head is atraumatic. Neck is supple and jugular venous distention (JVD) is not abnormally elevated now. Lungs have diminished breath sounds at bases and few basilar rales. Heart: Sounds are irregular. Abdomen: Soft and nontender and bowel sounds are normal. Extremities: Without any cyanosis or clubbing. Neurologically he is at his baseline mentation without a focal deficit. Today's labs show WBC count 7.7, hemoglobin 10.8 and hematocrit 33.3. Platelets 150. Sodium 138, potassium 4.3, CO2 of 31, BUN 44 and creatinine 6.30. PROBLEM #1: Acute pulmonary edema and bilateral pleural effusions. His volume status is gradually improving with frequent dialysis and fluid removal. Today we are trying to remove about 2.5 liters of fluid. Yesterday 2.5 liters was also removed, while the day before yesterday we removed 3 liters. His weight is now 52 kg. We will plan to dialyze him again tomorrow which is his regular dialysis day. PROBLEM #2: End-stage renal disease. The patient is dialyzed regularly three times a week. He is getting extra ultrafiltration in between dialysis treatments to correct his volume status. PROBLEM #3: Bilateral pleural effusion. I am going to hold off on thoracentesis at this point as his hypoxemia is improving with frequent dialysis and fluid removal. I am optimistic that he will be able to come off oxygen either later today or tomorrow. PROBLEM #4: Atrial fibrillation with rapid ventricular rate. His ventricular rate is now well controlled with current dose of a beta bailee. PROBLEM #5: Anemia. At present, his anemia is stable and we will continue to monitor closely.
[2019-06-16] MEDS: ATORVASTATIN 20 MG TAB PO SCH (20:40)
[2019-06-16 22:00] VITALS: BP 132/81
[2019-06-17 06:00] VITALS: BP 121/86
[2019-06-17 06:22] LABS: BASO # 0.1 10^3/uL (0.0-0.2); BASO % 0.9 % (0.0-1.0); EOS # 0.2 10^3/uL (0.0-0.50); EOS % 2.4 % (0.0-3.0); HEMATOCRIT 34.9 % (42.0-52.0); HEMOGLOBIN 11.5 g/dl (13.5-17.5); LYMPH # 0.7 10^3/uL (1.5-4.5); LYMPH % 9.3 % (24.0-44.0); MEAN CORPUSCULAR HEMOGLOBIN 34.8 pg (27.0-33.0); MEAN CORPUSCULAR VOLUME 105.8 fl (80.0-96.0); MONO # 1.1 10^3/uL (0.0-0.8); MONO % 13.7 % (0.0-5.0); NEUTROPHILS # 5.8 10^3/uL (1.8-7.7); NEUTROPHILS % 73.3 % (36.0-66.0); PLATELET COUNT, AUTOMATED 189 10^3/uL (150-450); WHITE BLOOD COUNT 7.9 10^3/uL (4.0-10.0)
[2019-06-17 06:34] LABS: INR 1.24; PROTHROMBIN TIME 15.3 SECONDS (11.8-14.0)
[2019-06-17 06:39] LABS: BILIRUBIN,TOTAL 0.4 MG/DL (0.2-1.0); CALCIUM LEVEL 8.9 MG/DL (8.8-10.2); GLOMERULAR FILTRATION RATE 11.8 (>35); MAGNESIUM LEVEL 1.7 MG/DL (1.8-2.4); POTASSIUM SERUM 4.3 MEQ/L (3.5-5.1); TOTAL PROTEIN 7.2 GM/DL (6.4-8.2)
[2019-06-17] MEDS: OMEPRAZOLE 20 MG CAP PO SCH (07:49)
[2019-06-17] MEDS: DOCUSATE SODIUM 100 MG CAP PO SCH (07:49)
[2019-06-17] MEDS: amLODIPine 5 MG TAB PO SCH (07:49)
[2019-06-17] MEDS: CARVedilol 3.125 MG TAB PO SCH ×2 (07:50→21:19)
[2019-06-17] MEDS: MORPHINE 15 MG SA TAB PO SCH ×2 (07:50→21:18)
--- NOTE | 2019-06-17 08:53 | IPNPDOC ---
Text Note Date of Service The patient was seen on 06/17/19. NOTE Subjective: Patient was seen today while he was getting dialysis. Patient was resting comfortably in the hospital bed. Patient did not have any acute events overnight. Patient was able to be weaned down to 1 L of oxygen via nasal cannula. He was attempted at 0.5 L however, his O2 saturation dropped below 90 and the patient was given 1 L. Patient remained on 1 L overnight. Patient denies any acute complaints today. Review of systems General: Patient denies fevers HEENT: Patient denies headaches Cardiovascular: Patient denies chest pain Respiratory: Patient denies shortness of breath, cough GI: Patient denies abdominal pain, nausea, vomiting, diarrhea : Patient denies pain or difficulty with urination Neurological: Patient denies numbness or tingling in extremities Extremities: Patient denies swelling or pain in extremities Objective: Vitals: (see below) General: No acute distress, laying comfortably in bed. HEENT: Normocephalic, atraumatic, moist mucous membranes. Neck: No JVD or lymphadenopathy Cardiac: RRR, No murmurs Pulm: Fine crackles at the bases bilaterally. All other lung benson clear to auscultation bilaterally. Abd: NT/ND + BS Ext: No edema present in the bilateral lower extremities. There are some healed wounds on the left duffy. Labs (see below) Images: No new images have been performed. Assessment/Plan 1. Shortness of breath. This is most likely secondary to pulmonary edema and bilateral pleural effusions secondary to fluid overload. Patient's shortness of breath has decreased and patient is now on 1 L of oxygen via nasal cannula. Plan is to hopefully wean the patient completely off oxygen today and have him work with physical therapy in order for him to be discharged home tomorrow. Patient is getting his regularly scheduled dialysis today which should hopefully help him. Patient's chest x-ray did show improvement in the pulmonary edema however, the pleural effusions were the same. Thoracentesis has been canceled as the pleural effusions are small. 2. Atrial fibrillation with rapid ventricular response. Patient is currently on carvedilol 3.125 mg twice a day. Patient's rate is now controlled. Patient's Coumadin was restarted and we will check an INR for him to be in the therapeutic range. 3. End-stage renal disease on hemodialysis. Nephrology has been consulted and we appreciate Dr. Regalado's help treating this patient. Patient is getting dialysis on his regular schedule today. 4. Coronary artery disease status post CABG in 1988. Continue atorvastatin carvedilol. 5. Asymptomatic severe hypertension. Patient's blood pressure is controlled today. 6. Chronic back pain. Continue with the patient's opiate pain medications from his outpatient provider. 7. Insomnia. Continue with trazodone. 8. GERD. Continue with omeprazole. DVT prophy: Coumadin Dispo: Pending improvement of respiratory status. VS,Fishbone, I+O VS, Fishbone, I+O Laboratory Tests 06/17/19 05:28 Red Blood Count 3.30 L, Mean Corpuscular Volume 105.8 H, Mean Corpuscular Hemoglobin 34.8 H, Mean Corpuscular Hemoglobin Concent 33.0, Red Cell Distribution Width 15.1 H, Neutrophils (%) (Auto) 73.3 H, Lymphocytes (%) (Auto) 9.3 L, Monocytes (%) (Auto) 13.7 H, Eosinophils (%) (Auto) 2.4, Basophils (%) (Auto) 0.9, Neutrophils # (Auto) 5.8, Lymphocytes # (Auto) 0.7 L, Monocytes # (Auto) 1.1 H, Eosinophils # (Auto) 0.2, Basophils # (Auto) 0.1, Calcium Level 8.9, Aspartate Amino Transf (AST/SGOT) 17, Alanine Aminotransferase (ALT/SGPT) 19, Alkaline Phosphatase 130 H, Total Bilirubin 0.4, Total Protein 7.2, Albumin 3.0 L Vital Signs Date Time Temp Pulse Resp B/P (MAP) Pulse Ox O2 Delivery O2 Flow Rate FiO2 06/17/19 07:50 16 1.0 06/17/19 07:49 85 137/76 06/17/19 06:00 98.0 97 06/14/19 11:55 50 I&O- Last 24 Hours up to 6 AM 06/17/19 06:00 Intake Total 1020 ml Output Total 2500 ml Balance -1480 ml GME ATTESTATION GME ATTESTATION My faculty preceptor for this patient encounter was physically present during the encounter and was fully available. All aspects of the patient interview, examination, medical decision making process, and medical care plan development were reviewed and approved by the faculty preceptor. The faculty preceptor is aware and concurs with the plan as stated in the body of this note and will attest to such by his/her cosignature. ATTENDING NOTE I, Samy Grande, have independently examined this patient and performed my own physical exam, as well as reviewed the documentation and edited where necessary. I have discussed in detail with the resident / student the findings and plan of treatment as documented by the resident / student and edited their note. I agree with their findings and treatment plan and have edited their documentation. I will continue to follow the patient during this hospital stay. COLYB RUFFIN DO Jun 17, 2019 08:52 SAMY GRANDE MD Jun 17, 2019 10:57
[2019-06-17] MEDS ORDERED: HEPARIN 1,000 UNITS/ML 10ML VIAL (FOR RADIOLOGY& DIALYSIS ONLY) IV ONE (10:00)
--- NOTE | 2019-06-17 13:07 | IPN ---
DATE OF SERVICE: 06/17/2019 SUBJECTIVE: The patient was seen and examined at the bedside today morning during hemodialysis procedure. He is tolerating the hemodialysis procedure well. His shortness of breath is significantly better. Oxygen requirement is going down. He got fluid removal [id number] for the last 3 days. OBJECTIVE: Vital signs: Temperature is 98 degrees Fahrenheit, blood pressure 137/76, pulse is 85, respiratory rate of 17, saturating 97% on 1 liter via nasal cannula. Intake and output: There is no urine output recorded. Ultrafiltration with hemodialysis yesterday was 2.5 liters. Weight in the bed scale was 52 kg yesterday. PHYSICAL EXAMINATION: General: The patient is awake, alert, oriented times three, laying in bed getting hemodialysis done. Head and neck examination: Extraocular muscles intact. Pupils equally round and reactive to light. Mucous membranes are moist. Neck is supple. There is no jugular venous distention (JVD). Cardiovascular: S1, S2, regular rate. No edema of the bilateral lower extremities. Respiratory: Chest is clear to auscultation bilaterally. Bilateral equal air entry. No rales or rhonchi. Abdomen: Soft. Positive bowel sounds. Nontender. No organomegaly. Musculoskeletal: No clubbing or cyanosis. Pulses are 2+. Central nervous system (MAINTENANCE MILLWRIGHT): No focal deficit. Power is 5/5 in all extremities. LABORATORY REVIEW: Complete blood count (CBC) showed WBC 7.9, hemoglobin 11.5, platelets are 189. Basic metabolic profile (BMP) showed sodium 136, potassium 4.3, chloride 98, bicarbonate 29, BUN 33, creatinine 5, albumin is 3. CURRENT INPATIENT MEDICATIONS: The patient's medications were all reviewed by me. There is no change in the medications today as compared with yesterday. ASSESSMENT AND PLAN: 1. End-stage renal disease. The patient is hemodialysis dependent. He is being dialyzed today. Ultrafiltration goal will be at least 2 liters as tolerated by his blood pressure. He is tolerating the fluid removal. 2. Bilateral pleural effusions and fluid overload. The patient's volume status is significantly better. So far, for the last 3 days in a row, 13 kg of fluid has been removed; and he is getting further fluid removal. Volume status is optimal. Oxygen requirement is only 1 liter now; and hopefully, after dialysis today, oxygen can be weaned off. 3. Atrial fibrillation with rapid ventricular rate. Heart rate is controlled now. He is currently on Coreg 3.125 mg by mouth twice a day. He is anticoagulated with Coumadin. 4. Hypertension with end-stage renal disease. Continue current dose of Coreg. Blood pressure is stable, even though aggressive fluid removal has been done. In the heparin hypertension. Continue current dose of carvedilol. Blood pressure is optimized. I am going to stop the amlodipine because of systolic heart failure and switch the patient to hydralazine or angiotensin-converting enzyme (SORAYA) inhibitor. 5. Acute decompensated systolic congestive heart failure. Patient volume status is improving. The latest echocardiogram done on 06/14/2019 shows left ventricle (LV) ejection fraction of around 35%. Continue the beta bailee. Hold the calcium channel bailee, and start the patient on hydralazine 10 mg by mouth twice a day with holding parameters.
[2019-06-17 14:00] VITALS: BP 119/51
[2019-06-17] MEDS: WARFARIN SOD 2.5 MG TAB PO SCH (17:33)
[2019-06-17] MEDS: ATORVASTATIN 20 MG TAB PO SCH (21:17)
[2019-06-17] MEDS: **hydrALAZINE** 10 MG TAB PO SCH (21:18)
[2019-06-17 21:19] VITALS: BP 146/67
[2019-06-17 22:00] VITALS: BP 132/63
[2019-06-18 06:00] VITALS: BP 133/64
[2019-06-18 06:15] LABS: BASO # 0.1 10^3/uL (0.0-0.2); BASO % 0.8 % (0.0-1.0); EOS # 0.3 10^3/uL (0.0-0.50); EOS % 3.4 % (0.0-3.0); HEMOGLOBIN 11.4 g/dl (13.5-17.5); LYMPH # 0.8 10^3/uL (1.5-4.5); LYMPH % 9.1 % (24.0-44.0); MEAN CORPUSCULAR HEMOGLOBIN 34.3 pg (27.0-33.0); MEAN CORPUSCULAR HGB CONC 32.6 g/dl (32.0-36.5); MEAN CORPUSCULAR VOLUME 105.4 fl (80.0-96.0); MONO # 1.1 10^3/uL (0.0-0.8); NEUTROPHILS # 6.1 10^3/uL (1.8-7.7); NEUTROPHILS % 73.3 % (36.0-66.0); PLATELET COUNT, AUTOMATED 196 10^3/uL (150-450); RED BLOOD COUNT 3.32 10^6/uL (4.30-6.10); WHITE BLOOD COUNT 8.3 10^3/uL (4.0-10.0)
[2019-06-18 06:21] LABS: INR 1.19; PROTHROMBIN TIME 14.8 SECONDS (11.8-14.0)
[2019-06-18 06:37] LABS: ALBUMIN 3.1 GM/DL (3.2-5.2); BILIRUBIN,TOTAL 0.6 MG/DL (0.2-1.0); CALCIUM LEVEL 9.3 MG/DL (8.8-10.2); CREATININE FOR GFR 4.74 MG/DL (0.70-1.30); GLOMERULAR FILTRATION RATE 12.6 (>35); MAGNESIUM LEVEL 1.9 MG/DL (1.8-2.4); POTASSIUM SERUM 4.3 MEQ/L (3.5-5.1); TOTAL PROTEIN 7.4 GM/DL (6.4-8.2)
[2019-06-18] MEDS: OMEPRAZOLE 20 MG CAP PO SCH (09:02)
[2019-06-18] MEDS: MORPHINE 15 MG SA TAB PO SCH (09:02)
[2019-06-18] MEDS: DOCUSATE SODIUM 100 MG CAP PO SCH (09:02)
[2019-06-18] MEDS: **hydrALAZINE** 10 MG TAB PO SCH (09:03)
[2019-06-18] MEDS: CARVedilol 3.125 MG TAB PO SCH (09:03)
[2019-06-18] MEDS ORDERED: HYDR10TAB PO ×2 (09:58→11:49)
--- NOTE | 2019-06-18 10:07 | DS.PDOC ---
Discharge Summary General Date of Admission Jun 14, 2019 at 11:49 Date of Discharge 06/18/2019 Discharge Summary PROCEDURES PERFORMED DURING STAY: [None]. ADMITTING DIAGNOSES / DISCHARGE DIAGNOSES: Shortness of breath - Acute hypoxic respiratory failure - likely 2/2 bilateral effusion and pulmonary edema - 2/2 fluid overload - possibly 2/2 ESRD A. fib; s/p RVR ESRD on HD () CAD s/p CABG (1988) s/p HTN Urgency Chronic back pain Insomnia GERD DVT prophylaxis COMPLICATIONS/CHIEF COMPLAINT: Shortness of breath HISTORY OF PRESENT ILLNESS: Patient is an 83-year-old male with PMHx of ESRD on HD (), A. fib (on Coumadin), CAD s/p CABG (1988), HTN, Chronic back pain who presented to [facility] ICU as a transfer from [facility] because of lack of dialysis capability. Patient had reported that he was experiencing shortness of breath that started yesterday afternoon after he completed dialysis. Patient had reported that his dry weight is usually 61 kg. However, after his dialysis session, he had noted that his weight was higher than his dry weight. Patient was expressing some shor tness of breath, but try to sleep. Patient had reported difficulty sleeping because of shortness of breath. This morning patient had woken up with worsening shortness of breath. . He denied cough, chest pain or palpitations. . He denies any fevers or chills over the last 2 weeks. He has reported no leg swelling or difficulty lying flat on his back. Patient was admitted to hospitalist service for further evaluation and treatment. HOSPITAL COURSE: Shortness of breath - Acute hypoxic respiratory failure - likely 2/2 bilateral effusion and pulmonary edema - 2/2 fluid overload - possibly 2/2 ESRD - Clinically patient has had significant improvement in breathing - Patient has been taken off of supplemental oxygen and has been saturating well on room air - Nephrology has been consulted - Will have outpatient follow-up with Dr. Madeline Allison and Dr. Ania Cortez fib; s/p RVR - s/p Cardizem drip - c/w rate control with carvedilol - INR is subtherapeutic - will c/w Coumadin; will have outpatient lab work completed for INR check ESRD on HD () - Patient is scheduled for dialysis Wednesday, and Wednesday - Received dialysis on Wednesday without event - Nephrology has been consulted CAD s/p CABG (1988) - c/w Atorvastatin, Carvedilol s/p HTN Urgency - Patient's blood pressure has been well controlled - c/w Hydralazine and Carvedilol, s/p Amlodipine Chronic back pain - c/w opiate based medications from outpatient setting Insomnia - c/w Trazodone GERD - c/w Omeprazole DVT prophylaxis - c/w full anticoagulation DISCHARGE MEDICATIONS: Please see below. ALLERGIES: Please see below. PHYSICAL EXAMINATION ON DISCHARGE: VITAL SIGNS: Please see below. General: Lying in bed, no acute distress, comfortable, AAOx3 HEENT: NC, AT CVS: RRR, +S1S2 Lungs: Fair air entry b/l, no appreciable wheezing, rhonchi or rales Abdomen: Soft, ND, NT Extremities: - Edema, - Calf tenderness LABORATORY DATA: Please see below. ACTIVITY: [As tolerated]. DISCHARGE PLAN: Follow up with Dr. Madeline Allison and Dr. Jorge within 7 days Remain compliant with treatment plan and medications Return to the ER if you experience problems DISPOSITION: Home DISCHARGE CONDITION: [Stable]. TIME SPENT ON DISCHARGE: 37 minutes Vital Signs/I&Os Vital Signs Date Time Temp Pulse Resp B/P (MAP) Pulse Ox O2 Delivery O2 Flow Rate FiO2 06/18/19 09:02 20 06/18/19 06:00 97.0 75 133/64 (87) 96 06/17/19 20:45 1.0 06/14/19 11:55 50 I&O- Last 24 Hours up to 6 AM 06/18/19 06:00 Intake Total 960 ml Output Total 1500 ml Balance -540 ml Laboratory Data Labs 24H Laboratory Tests 2 06/18/19 05:26: Immature Granulocyte % (Auto) 0.4, White Blood Count 8.3, Red Blood Count 3.32L, Hemoglobin 11.4L, Hematocrit 35.0L, Mean Corpuscular Volume 105.4H, Mean Corpuscular Hemoglobin 34.3H, Mean Corpuscular Hemoglobin Concent 32.6, Red Cell Distribution Width 15.0H, Platelet Count 196, Neutrophils (%) (Auto) 73.3H, Lymphocytes (%) (Auto) 9.1L, Monocytes (%) (Auto) 13.0H, Eosinophils (%) (Auto) 3.4H, Basophils (%) (Auto) 0.8, Neutrophils # (Auto) 6.1, Lymphocytes # (Auto) 0.8L, Monocytes # (Auto) 1.1H, Eosinophils # (Auto) 0.3, Basophils # (Auto) 0.1, Nucleated Red Blood Cells % (auto) 0.0, Prothrombin Time 14.8H, Prothromb Time International Ratio 1.19, Anion Gap 6L, Glomerular Filtration Rate 12.6L, Blood Urea Nitrogen 29H, Creatinine 4.74H, Sodium Level 137, Potassium Level 4.3, Chloride Level 100, Carbon Dioxide Level 31, Calcium Level 9.3, Aspartate Amino Transf (AST/SGOT) 22, Alanine Aminotransferase (ALT/SGPT) 22, Alkaline Phosphatase 137H, Total Bilirubin 0.6, Total Protein 7.4, Albumin 3.1L, Magnesium Level 1.9, Albumin/Globulin Ratio 0.72L CBC/BMP Laboratory Tests 06/18/19 05:26 Red Blood Count 3.32 L, Mean Corpuscular Volume 105.4 H, Mean Corpuscular Hemoglobin 34.3 H, Mean Corpuscular Hemoglobin Concent 32.6, Red Cell Distribution Width 15.0 H, Neutrophils (%) (Auto) 73.3 H, Lymphocytes (%) (Auto) 9.1 L, Monocytes (%) (Auto) 13.0 H, Eosinophils (%) (Auto) 3.4 H, Basophils (%) (Auto) 0.8, Neutrophils # (Auto) 6.1, Lymphocytes # (Auto) 0.8 L, Monocytes # (Auto) 1.1 H, Eosinophils # (Auto) 0.3, Basophils # (Auto) 0.1, Calcium Level 9.3, Aspartate Amino Transf (AST/SGOT) 22, Alanine Aminotransferase (ALT/SGPT) 22, Alkaline Phosphatase 137 H, Total Bilirubin 0.6, Total Protein 7.4, Albumin 3.1 L Microbiology Microbiology 06/14/19 Blood Culture - Preliminary, Resulted No Growth after 72 hours. All specime... 06/14/19 Blood Culture - Preliminary, Resulted No Growth after 72 hours. All specime... Discharge Medications Scheduled Atorvastatin Calcium (Atorvastatin Calcium) 80 Mg Tablet, 80 MG PO QHS, (Reported) Carvedilol (Carvedilol) 3.125 Mg Tab, 3.125 MG PO BID, (Reported) Docusate Sodium (Docusate Sodium) 100 Mg Cap, 100 MG PO DAILY, (Reported) Folic Acid/Vit B Complex and C (Annabel-Nadine Tablet) 1 Tab Tab, 1 TAB PO DAILY, (Reported) Hydralazine HCl (Hydralazine HCl) 10 Mg Tablet, 10 MG PO BID Lidocaine/Prilocaine (Lidocaine-Prilocaine Cream) 1 Cre Cre, 1 CRE EXT 3XW, (Reported) TAKES ON TUESDAYS, WEDNESDAY AND SATURDAYS BEFORE DIALYSIS. Morphine Sulfate (Morphine Sulfate ER) 15 Mg Tab, 15 MG PO BID, (Reported) Nitroglycerin (Nitro-Bid) 1 Gm Oint...g., 1 INCH TOP ASDIRECTED, (Reported) STARTED AT RIVER Omeprazole (Omeprazole) 20 Mg Cap, 20 MG PO DAILY, (Reported) Sevelamer Carbonate (Renvela) 800 Mg Tab, 800 MG PO DAILY, (Reported) WITH BREAKFAST Warfarin Sodium (Warfarin Sodium) 2.5 Mg Tablet, 2.5 MG PO QPM, (Reported) Scheduled PRN Acetaminophen (Tylenol) 325 Mg Tablet, 650 MG PO Q4H PRN for PAIN, (Reported) Nitroglycerin (Nitrostat) 0.4 Mg Subl, 0.4 MG SL NITRO PRN for CHEST PAIN, (Reported) Oxycodone HCl (Oxycodone HCl) 5 Mg Tab, 5 MG PO QID PRN for PAIN, (Reported) Trazodone HCl (Trazodone HCl) 50 Mg Tablet, 50 MG PO QHS PRN for SLEEP, (Reported) Allergies Coded Allergies: No Known Allergies (Verified , 03/09/18) MINOR MORALES MD Jun 18, 2019 10:07
== END 2019-06-18 11:46 | disposition home health service (06) | DRG 186 ==
LOC: M ICU 11:49 → M MSPAV 06-16 10:35
PROVIDERS: ADMIT Internal Medicine; ATTEND Internal Medicine
PROC: 5A1D70Z Performance of Urinary Filtration, Intermittent, Less than 6 Hours Per Day (ICD-10-PCS; principal; 2019-06-17)
DX: J90 Pleural effusion, not elsewhere classified (principal); N18.6 End stage renal disease; J81.0 Acute pulmonary edema; J96.01 Acute respiratory failure with hypoxia; I48.91 Unspecified atrial fibrillation; I16.0 Hypertensive urgency; K21.9 Gastro-esophageal reflux disease without esophagitis; G47.00 Insomnia, unspecified; M54.5 Low back pain; Z95.1 Presence of aortocoronary bypass graft; I25.10 Atherosclerotic heart disease of native coronary artery without angina pectoris; Z79.01 Long term (current) use of anticoagulants; Z79.899 Other long term (current) drug therapy; D64.9 Anemia, unspecified

== ENCOUNTER 2019-10-24 15:36 | Inpatient (IN) | payer MEDICARE, OTHER ==
[~2019-10-24] VITALS: Ht 175.3 cm; Wt 55.2 kg
[~2019-10-24 15:36] MED LIST changes: +ATOR80TA59 PO; +HYDR10TAB PO; +NITR2OI TOP; +OMEP-172 PO; -OMEP20CA4 PO; +PROT40IN4 IV; +[UNRECOGNIZED DRUG - CODE] IV; +[UNRECOGNIZED DRUG - OTHER] IV
[2019-10-24] MEDS ORDERED: ONDANSETRON 4MG/2ML VIAL (J2405) IV ONE (16:15)
[2019-10-24] MEDS ORDERED: MORPHINE 2 MG/ML 1ML VIAL (J2270) IV ONE (16:15)
--- NOTE | 2019-10-24 16:46 | REP ---
Pelvis right hip: Three views. History: Trauma. Findings: There is advanced diffuse osteopenia. No pelvic fracture is seen. No sacral fractures noted. Fairly prominent vascular calcifications noted. The left hip appears intact. There is a comminuted intertrochanteric fracture of the right hip in varus. Impression: Comminuted intertrochanteric right hip fracture in varus position. Osteoporosis. Electronically Signed by Kan Henderson MD 10/24/2019 04:37 P
--- NOTE | 2019-10-24 16:49 | REP ---
Right femur: Three views. History: Trauma. Findings: Comparison is made with right hip radiographs. The intertrochanteric/subtrochanteric fracture is seen in the proximal femur. There is diffuse osteopenia and vascular calcification. No distal femoral fracture is appreciated. Impression: No distal femoral fracture seen. Electronically Signed by Kan Henderson MD 10/24/2019 06:22 P
--- NOTE | 2019-10-24 16:50 | REP ---
Chest x-ray: Portable exam single view. History: Preop. Comparison study: June 16, 2019. Findings: The patient is status post prior median sternotomy. EKG electrodes are seen. Vascular calcifications noted. Cardiomegaly is observed unchanged. The lungs are well inflated and free of infiltrate today. Pulmonary vasculature is not increased. Impression: Cardiomegaly. Status post prior sternotomy. Vascular calcification. No acute disease. Electronically Signed by Kan Henderson MD 10/24/2019 06:23 P
[2019-10-24 17:29] LABS: BASO # 0.1 10^3/uL (0.0-0.2); BASO % 0.7 % (0.0-1.0); EOS # 0.2 10^3/uL (0.0-0.5); EOS % 1.9 % (0.0-3.0); HEMATOCRIT 36.1 % (42.0-52.0); HEMOGLOBIN 11.3 g/dl (13.5-17.5); LYMPH # 0.6 10^3/uL (1.5-5.0); LYMPH % 5.7 % (24.0-44.0); MEAN CORPUSCULAR HEMOGLOBIN 33.6 pg (27.0-33.0); MEAN CORPUSCULAR HGB CONC 31.3 g/dl (32.0-36.5); MEAN CORPUSCULAR VOLUME 107.4 fl (80.0-96.0); MONO # 0.9 10^3/uL (0.0-0.8); NEUTROPHILS % 82.1 % (36.0-66.0); PLATELET COUNT, AUTOMATED 296 10^3/uL (150-450); RED BLOOD COUNT 3.36 10^6/uL (4.30-6.10); WHITE BLOOD COUNT 9.8 10^3/uL (4.0-10.0)
[2019-10-24] MEDS: MORPHINE 4 MG/ML 1ML VIAL/SYRINGE (J2270) IV PRN ×2 (17:42→18:32)
[2019-10-24 17:53] LABS: INR 1.88; PROTHROMBIN TIME 21.4 SECONDS (11.8-14.0)
[2019-10-24 17:54] LABS: PARTIAL THROMBOPLASTIN TIME 37.2 SECONDS (25.0-38.4)
[2019-10-24 17:58] LABS: CALCIUM LEVEL 8.9 MG/DL (8.8-10.2); CREATININE FOR GFR 4.68 MG/DL (0.70-1.30); GLOMERULAR FILTRATION RATE 12.7 (>35); POTASSIUM SERUM 4.6 MEQ/L (3.5-5.1)
[2019-10-24] MEDS ORDERED: GLUCOSE 4 GM CHEW TABLET PO PRN (18:30)
[2019-10-24] MEDS ORDERED: ACETAMINOPHEN TAB 650MG DOSE (2X325MG) PO PRN (18:30)
[2019-10-24] MEDS ORDERED: DEXTROSE 50% 50 ML SYRINGE IV PRN (18:30)
[2019-10-24] MEDS ORDERED: GLUCAGON FOR INJ 1 MG VIAL (J1610) SC PRN (18:30)
[2019-10-24] MEDS ORDERED: HYDR10TAB PO (19:11)
[2019-10-24] MEDS ORDERED: WARF-18 PO (19:11)
[2019-10-24] MEDS ORDERED: MORPHINE 2 MG/ML 1ML VIAL (J2270) IV PRN (19:30)
[2019-10-24 19:40] VITALS: BP 177/81
[2019-10-24 20:30] LABS: TROPONIN I 0.05 NG/ML (< 0.10)
[2019-10-24] MEDS: **hydrALAZINE** 10 MG TAB PO SCH (21:00)
[2019-10-24] MEDS: DOCUSATE SODIUM 100 MG CAP PO SCH (21:03)
[2019-10-24 22:00] VITALS: BP 140/65
[2019-10-24] MEDS ORDERED: ACETAMINOPHEN *IV* 1,000 MG in IV 1 EA IV ONE (22:00)
--- NOTE | 2019-10-24 22:52 | HPEPDOC ---
[facility] Medical History & Physical Date of Admission Oct 24, 2019 Date of Service: Oct 24, 2019 Primary Care Physician: Jr Allison Collins Attending Physician: STEPAN JENSEN MD History and Physical TIME OF SERVICE: 9 PM CHIEF COMPLAINT: Right hip pain HISTORY OF PRESENT ILLNESS: This is an 83-year-old male who was sent to the hospital today after tripping on a rug while walking to the [place] clinic. As a result of the fall, he developed right right-sided, aching, 8 out of 10 in severity, hip pain and was found to have a right-sided hip fracture. Prior to the fall he denied having prodromal headache, shortness of breath, dizziness, palpitations, nausea, vomiting or diarrhea. He attended his dialysis session on Wednesday. REVIEW OF SYSTEMS: 12 point review of systems negative except as listed in HPI PAST MEDICAL/ SURGICAL HISTORY: Chronic CAD/CABG Atrial fibrillation (Coumadin) Dyslipidemia. Chronic hypertension. Chronic back pain ESRD via right arm AV fistula (TTS) Status post splenectomy. Status post laminectomy SOCIAL HISTORY: Former smoker. was in the [place] FAMILY HISTORY: Kidney failure. Hypertensive heart disease ALLERGIES: Please see below. HOME MEDICATIONS: Please see below. PHYSICAL EXAMINATION: VITAL SIGNS: Please see below. GEN: Slim build/ well developed/ NAD INTEGUMENT: not flushed/ not jaundice /has immature AV fistula at the right arm with a palpable thrill HEENT: NCAT / lips acyanotic /mucus membranes moist and pink CVS: RRR/NMRG/no lower extremity edema LUNGS: coughing / lungs are clear to auscultation bilaterally on room air ABDOMEN: Contour (flat,) / the abdomen is soft & not tender with palpation MSK/EXTREMITIES: range of motion intact in all extremities except for right hip NEURO: CN 2-12 are grossly intact / speech is not dysarthric PSYCH: alert and oriented to person place and time/ able to understand and fol low all commands LABORATORY DATA: See below. IMAGING: X-ray of the hip and pelvis " Impression: Comminuted intertrochanteric right hip fracture in varus position. Osteoporosis." X-ray of the femur " Impression: No distal femoral fracture seen." Chest x-ray " Impression: Cardiomegaly. Status post prior sternotomy. Vascular calcification. No acute disease." MICROBIOLOGY: Please see below. ASSESSMENT: Mr. Grace is an 83-year-old with a history of CAD, fibrillation, hypertension, dyslipidemia, ESRD, chronic back pain who is admitted for management of a right hip fracture. PLAN: 1. Mechanical fall resulting in right hip fracture X-ray confirmed the presence of a right hip fracture and osteoporosis Plan: admit to [facility] / NPO after midnight w IVF for surgery possibly tomorrow / Ortho consult / PT consult / pain control w Ofrimev and Morphine / will need work-up to r/o secondary causes of Osteoporosis which can be done on an out pt prior to selecting medications 2. Hyperchromic macrocytic anemia Likely multifactorial in nature as he has ESRD. Plan: Follow-up iron panel, B12 & folate and stool occult 3. Chronic CAD/CABG / Dyslipidemia Plan: atorvastatin, carvedilol, nitroglycerin 4.Atrial fibrillation INR is subtherapeutic at 1.8. Plan: Hold warfarin follow-up repeat INR in the morning 5. Chronic hypertension Plan: Carvedilol, hydralazine 6. Chronic back pain Plan: Morphine and lidocaine patch 7. ESRD via right arm AV fistula (TTS) Plan: Nephrology consult, Sevelamer 8. Preoperative Assessment Revised Cardiac Index (RCRI) to asses risk of MACE from surgery = 2 points = class III risk Plan: Based on the 2016 [facility] Perioperative Guidelines because of his RCRI score we checked a BNP which was >300. Based on the guidelines we ordered Troponins & EKG. He is on Coumadin for atrial fibrillation with a CHADSVASC2 score of 4, therefore he does not need bridging prior to discontinuing warfarin. Surprisingly, his INR was only 1.8. We'll recheck INR in the morning. In the morning if his troponin, EKG, and INR unremarkable he will likely be optimized for surgery. DVT PROPHYLAXIS: SCDs pending surgery DISPOSITION: Inpatient rehabilitation vs SNF after more than 2 midnight's stay Vital Signs Vital Signs Date Time Temp Pulse Resp B/P (MAP) Pulse Ox O2 Delivery O2 Flow Rate FiO2 10/24/19 21:15 18 10/24/19 18:36 108 179/79 (112) 92 Room Air 10/24/19 15:59 98.5 Laboratory Data Labs 24H Laboratory Tests 2 10/24/19 16:48: Immature Granulocyte % (Auto) 0.6, Neutrophils (%) (Auto) 82.1H, Lymphocytes (%) (Auto) 5.7L, Monocytes (%) (Auto) 9.0H, Eosinophils (%) (Auto) 1.9, Basophils (%) (Auto) 0.7, Neutrophils # (Auto) 8.0, Lymphocytes # (Auto) 0.6L, Monocytes # (Auto) 0.9H, Eosinophils # (Auto) 0.2, Basophils # (Auto) 0.1, Nucleated Red Blood Cells % (auto) 0.0, Prothrombin Time 21.4H, Prothromb Time International Ratio 1.88, Activated Partial Thromboplast Time 37.2, Anion Gap 8, Glomerular Filtration Rate 12.7L, Calcium Level 8.9, Troponin I 0.05, IH-Ldl-J-Type Natriuretic Peptide 30081R CBC/BMP Laboratory Tests 10/24/19 16:48 Home Medications Scheduled Atorvastatin Calcium (Atorvastatin Calcium) 80 Mg Tablet, 80 MG PO QHS Carvedilol (Carvedilol) 3.125 Mg Tab, 3.125 MG PO BID Docusate Sodium (Docusate Sodium) 100 Mg Cap, 100 MG PO DAILY Folic Acid/Vit B Complex and C (Annabel-Nadine Tablet) 1 Tab Tab, 1 TAB PO DAILY Hydralazine HCl (Hydralazine HCl) 10 Mg Tablet, 10 MG PO BID Lidocaine/Prilocaine (Lidocaine-Prilocaine Cream) 1 Cre Cre, 1 DOSE EXT 3XW TAKES ON TUESDAYS, WEDNESDAY AND SATURDAYS BEFORE DIALYSIS. Omeprazole (Omeprazole) 20 Mg Cap, 20 MG PO DAILY Sevelamer Carbonate (Renvela) 800 Mg Tab, 1,600 MG PO WM Warfarin Sodium (Warfarin Sodium) 2.5 Mg Tablet, 2.5 MG PO 6XWK QPM: WED, , WED, , WED, SAT Warfarin Sodium (Warfarin Sodium) 2.5 Mg Tablet, 5 MG PO 1XWK QPM: WEDNESDAY Scheduled PRN Acetaminophen (Tylenol) 325 Mg Tablet, 650 MG PO Q4H PRN for PAIN Morphine Sulfate (Morphine Sulfate ER) 15 Mg Tab, 15 MG PO BID PRN for PAIN PATIENT STATES HE TAKES ONLY WHEN NEEDED Nitroglycerin (Nitrostat) 0.4 Mg Subl, 0.4 MG SL NITRO PRN for CHEST PAIN Oxycodone HCl (Oxycodone HCl) 5 Mg Tab, 5 MG PO QID PRN for PAIN Trazodone HCl (Trazodone HCl) 50 Mg Tablet, 50 MG PO QHS PRN for SLEEP Allergies Coded Allergies: No Known Allergies (Verified , 03/09/18) A-FIB/CHADSVASC A-FIB History Current/History of A-Fib/PAF?: Yes Current PO Anticoag Therapy: No Age/Risk Factor Scoring CHADSVASC: CHADSVASC Response (Comments) Value Age Risk Factor Age >/= 75 years old 2 Gender Risk Factor Male 0 Hx of CHF No 0 Hx of HTN Yes 1 Hx of Stroke/TIA/or VTE No 0 Hx of Diabetes No 0 Hx of Vascular Disease Yes 1 Total 4 Treatment Treatment ordered: Holding Warfarin Reason Anticoagulant not given: Recent/upcomin procedure STEPAN JENSEN MD Oct 24, 2019 22:51
[2019-10-24] MEDS: MORPHINE 2 MG/ML 1ML VIAL (J2270) IV PRN (23:22)
[2019-10-24] MEDS: RAMELTEON 8 MG TAB (ROZEREM) PO SCH (23:22)
[2019-10-24] MEDS: LIDOCAINE 5% (LIDODERM) PATCH TD SCH (23:22)
[2019-10-24] MEDS ORDERED: NITROGLYCERIN 0.4 MG SUBL TABLET SL PRN (23:45)
[2019-10-24] MEDS ORDERED: (RENVELA) SEVELAMER **CARBONate** 800 MG TAB PO ONE (23:45)
[2019-10-24] MEDS ORDERED: traZODone 50 MG TAB PO PRN (23:45)
[2019-10-25] MEDS: ATORVASTATIN 20 MG TAB PO SCH ×2 (00:25→21:42)
[2019-10-25] MEDS: CARVedilol 3.125 MG TAB PO SCH ×3 (00:32→21:43)
[2019-10-25] MEDS: MORPHINE 2 MG/ML 1ML VIAL (J2270) IV PRN ×3 (05:38→13:04)
[2019-10-25 06:00] VITALS: BP_SYST 125; BP_SYST 156; BP_DIAS 71; BP_DIAS 88
[2019-10-25] MEDS: ceFAZolin SOD 2 GM in IV 1 EA IV ONE ×2 (06:00→12:58)
[2019-10-25 06:20] LABS: HEMATOCRIT 31.8 % (42.0-52.0); HEMOGLOBIN 10.5 g/dl (13.5-17.5); MEAN CORPUSCULAR HEMOGLOBIN 34.9 pg (27.0-33.0); MEAN CORPUSCULAR VOLUME 105.6 fl (80.0-96.0); PLATELET COUNT, AUTOMATED 270 10^3/uL (150-450); RED BLOOD COUNT 3.01 10^6/uL (4.30-6.10); WHITE BLOOD COUNT 12.6 10^3/uL (4.0-10.0)
[2019-10-25 06:27] LABS: INR 1.57; PROTHROMBIN TIME 18.5 SECONDS (11.8-14.0)
[2019-10-25 06:28] LABS: PARTIAL THROMBOPLASTIN TIME 34.6 SECONDS (25.0-38.4)
[2019-10-25 06:46] LABS: BLOOD UREA NITROGEN 30 MG/DL (7-18); CALCIUM LEVEL 8.7 MG/DL (8.8-10.2); CARBON DIOXIDE LEVEL 31 MEQ/L (21-32); CHLORIDE LEVEL 96 MEQ/L (98-107); CREATININE FOR GFR 5.94 MG/DL (0.70-1.30); FERRITIN 1143 NG/ML (26-388); GLOMERULAR FILTRATION RATE 9.7 (>35); GLUCOSE, FASTING 96 MG/DL (70-100); IRON (FE) 37 UG/DL (65-175); PERCENT SATURATION 26.1 % (19.7-50.0); POTASSIUM SERUM 5.2 MEQ/L (3.5-5.1); SODIUM LEVEL 137 MEQ/L (136-145); TOTAL IRON BINDING CAPACITY 142 UG/DL (250-450); TROPONIN I 0.06 NG/ML (< 0.10)
[2019-10-25] MEDS: (RENVELA) SEVELAMER **CARBONate** 800 MG TAB PO SCH ×3 (08:00→18:01)
--- NOTE | 2019-10-25 08:03 | ECGEPIP ---
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
--- NOTE | 2019-10-25 08:28 | HPE ---
DATE OF ADMISSION: 10/24/2019 CHIEF COMPLAINT: Right intertrochanteric hip fracture. HISTORY OF PRESENT ILLNESS: This is an 83-year-old man who seen at the [place] [facility]. He tripped on a rug and fell on to his right hip. He is unable to ambulate. He was brought to the emergency department and x-ray showed a right intertrochanteric hip fracture. He denied previous hip pain or problems with shortness breath, chest pain, dizziness or head injuries associated with hip fracture. He underwent dialysis recently as yesterday. He did not take his Coumadin yesterday. He is seen today on the pavilion by the hospitalist. 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 HOME MEDICATIONS: Atorvastatin, carvedilol, docusate sodium, folic acid, vitamin D, lidocaine/prilocaine, omeprazole, sevelamer carbonate, Warfarin 2.5 mg, as needed acetaminophen morphine, nitroglycerin, oxycodone, trazodone. NO KNOWN DRUG ALLERGIES. SOCIAL HISTORY: He has a nephew the Esdras that lives a few blocks away from him, otherwise he lives alone with his dog. He ambulates with a walker inside his house and a cane outside the house. He has a daughter in [place] and a son as well as two daughters who live in [facility]. He is a nonsmoker. He drinks occasional alcohol. He does not use illicit drug use. He goes to the [place] and was in the [place]. PHYSICAL EXAMINATION: Vital signs are stable. 97.6 Temperature, 125/71 blood pressure, pulse rate 77. Respiratory 17, 99% on room air. He is alert and oriented times three. He responds appropriately. He is lying supine in bed. On inspection of the lower extremities right side slightly short externally rotated. He can wiggles toes. Normal sensation throughout the foot was warm well perfused. Good pedal pulses. No obvious abnormalities or pain down the knee or tibia right side. Radiographs of the right hip and pelvis demonstrate a four-part right worse oblique intertrochanteric hip fracture. There was demineralization. LABS: Laboratory examination reveals hemoglobin 9.5. Inr elevated 1.8 down to 1.57 this morning. ASSESSMENT/PLAN: 83-year-old man who is four-part right intertrochanteric hip fracture. He is on Coumadin with an elevated INR as well as being on dialysis. We talked about pros and cons, risks and benefits of nonsurgical internal fixation in the form IM nail. Risks include but not limited to infection, pain, stiffness, and bleeding, neuromuscular injury, delayed mal or nonunion, anesthetic complications, blood clots and . He wished to go ahead and we signed the consent form for this as well as possible need for blood products risks of this were discussed as well. For now he can have breakfast. I will wait to trend his INR down possibly surgery tonight or tomorrow if his INR trends down closer to 1.3. Will give Vitamin K if it does not trend down. He is well aware of the plan and further management with the hospitalist service. ELIOT
[2019-10-25] MEDS: DOCUSATE SODIUM 100 MG CAP PO SCH ×2 (08:57→21:43)
[2019-10-25] MEDS: OMEPRAZOLE 20 MG CAP PO SCH (08:57)
[2019-10-25] MEDS: **hydrALAZINE** 10 MG TAB PO SCH ×2 (08:58→21:42)
[2019-10-25] MEDS ORDERED: DOCUSATE SODIUM 100 MG CAP PO SCH (09:00)
[2019-10-25] MEDS ORDERED: PREVNAR 13 VACCINE SYRINGE (CPT CODE:90670) IM ONE (09:00)
[2019-10-25] MEDS: **NOTE PATIENT COMMENT** MISC XX SCH (09:00)
[2019-10-25 09:10] LABS: VITAMIN B12 LEVEL 540 PG/ML (247-911)
[2019-10-25 09:11] LABS: FOLATE > 24.0 NG/ML (>5.4)
--- NOTE | 2019-10-25 13:12 | IPNPDOC ---
Subjective Date Seen The patient was seen on 10/25/19. Subjective Chief Complaint/HPI Is comfortable offers no new complaints at the present time is awaiting for surgery General: Denies: ROS Unobtainable, Chills, Night Sweats, Fatigue, Malaise, Normal Appetite, Other Symptoms Constitutional: Denies: Chills, Fever, Malaise, Night Sweats, Weakness, Fatigue, Weight Loss, Lethargy, Other Pulmonary: Denies: Dyspnea, Cough, Pleuritic Chest Pain, Other Symptoms Cardiovascular: Denies: Chest Pain, Palpitations, Orthopnea, Paroxysmal Noc. Dyspnea, Edema, Lt Headedness, Other Symptoms Gastrointestinal: Denies: Nausea, Vomiting, Abdominal Pain, Diarrhea, Constipation, Melena, Hematochezia, Other Symptoms Musculoskeletal: Denies: Neck Pain, Back Pain, Shoulder Pain, Arm Pain, Hand Pain, Leg Pain, Foot Pain, Joint Pain, Muscle Pain, Spasms, Other Symptoms Neurological: Denies: Weakness, Numbness, Incoordination, Change in speech, Confusion, Seizures, Other Symptoms Objective Physical Examination General Exam: Positive: Alert, Cooperative Eye Exam: Positive: PERRLA, Conjunctiva & lids normal Chest Exam: Positive: Clear to auscultation, Normal air movement Heart Exam: Positive: Rate Normal, Normal S1, Normal S2 Abdomen Exam: Positive: Normal bowel sounds, Soft Extremity Exam: Positive: Normal pulses Neuro Exam: Positive: Strength at 5/5 X4 ext, Cranial Nerves 3-12 NL Assessment /Plan Problems (1) Intertrochanteric fracture of right hip Status: Acute Problem Text: Patient sustained a mechanical fall causing fracture of right hip Patient is nothing by mouth at the present time of the consult was done Awaiting PT/INR to be corrected before patient goes to OR Continue all other present meds (2) ESRD needing dialysis Status: Chronic Problem Text: ESRD via right arm AV fistula (TTS) Nephrology consult, Sevelamer Plan/VTE VTE Prophylaxis Ordered?: Yes VS, I&O, 24H, Fishbone Vital Signs/I&O Vital Signs Date Time Temp Pulse Resp B/P (MAP) Pulse Ox O2 Delivery O2 Flow Rate FiO2 10/25/19 13:04 17 10/25/19 06:00 97.6 77 125/71 (89) 99 Room Air I&O- Last 24 Hours up to 6 AM 10/25/19 06:00 Intake Total 0 ml Balance 0 ml Laboratory Data 24H LABS Laboratory Tests 2 10/24/19 16:48: Immature Granulocyte % (Auto) 0.6, Neutrophils (%) (Auto) 82.1H, Lymphocytes (%) (Auto) 5.7L, Monocytes (%) (Auto) 9.0H, Eosinophils (%) (Auto) 1.9, Basophils (%) (Auto) 0.7, Neutrophils # (Auto) 8.0, Lymphocytes # (Auto) 0.6L, Monocytes # (Auto) 0.9H, Eosinophils # (Auto) 0.2, Basophils # (Auto) 0.1, Nucleated Red Blood Cells % (auto) 0.0, Prothrombin Time 21.4H, Prothromb Time International Ratio 1.88, Activated Partial Thromboplast Time 37.2, Anion Gap 8, Glomerular Filtration Rate 12.7L, Calcium Level 8.9, Troponin I 0.05, OP-Uea-N-Type Natriuretic Peptide [id number] 10/25/19 01:33: Troponin I 0.08# 10/25/19 05:49: Nucleated Red Blood Cells % (auto) 0.0, Prothrombin Time 18.5H, Prothromb Time International Ratio 1.57, Activated Partial Thromboplast Time 34.6, Anion Gap 10, Glomerular Filtration Rate 9.7L, Calcium Level 8.7L, Troponin I 0.06#, Iron Level 37L, Total Iron Binding Capacity 142L, Transferrin % Saturation 26.1, Ferritin 1143H, Vitamin B12 Level 540, Folate > 24.0 CBC/BMP Laboratory Tests 10/24/19 16:48 10/25/19 05:49 TATYANA CUNHA MD Oct 25, 2019 13:12
[2019-10-25 14:00] VITALS: BP 143/74
--- NOTE | 2019-10-25 14:27 | CR ---
DATE OF CONSULTATION: 10/25/2019 REQUESTING PHYSICIAN: Benigno Rushing MD CONSULTING PHYSICIAN: Lorena Regalado MD REASON FOR CONSULTATION: Management of end-stage renal disease on hemodialysis in this patient with hip fracture. HISTORY OF PRESENT ILLNESS: Kenji Grace is well known to me. He is an 83-year-old male with a past medical history of end-stage renal disease on hemodialysis on a Wednesday, , Wednesday schedule, coronary artery disease, congestive heart failure, atrial fibrillation and other comorbid conditions mentioned below. He was last dialyzed on Wednesday and had an uneventful dialysis treatment. He had a fall [place] the [place] when he tripped on a rug and sustained a right hip fracture. He was subsequently admitted to [facility] yesterday and is pending OR later this afternoon. The patient reports his pain is controlled and he denies any other complaints including shortness of breath or chest pain. PAST MEDICAL HISTORY: End-stage renal disease. Atrial fibrillation. Coronary artery disease. History of hypertension. History of valvular heart disease. Chronic back pain. History of systolic congestive heart failure. PAST SURGICAL HISTORY: AV fistula creation. quadruple bypass surgery. Back surgery. Tonsillectomy. Splenectomy. ALLERGIES: No known drug allergies. HOME MEDICATIONS: Reviewed and include: - amlodipine 5 mg daily - atorvastatin 80 mg daily - carvedilol 6.125 mg twice daily - diltiazem - Colace 100 mg twice a day - folic acid with B complex one tablet daily - morphine sulfate 15 mg twice a day - omeprazole 20 mg daily - nitroglycerin sublingual as needed - Renvela 800 mg three times a day with meals - Coumadin 2.5 mg daily - Tylenol as needed - trazodone 50 mg at bedtime. PERSONAL AND SOCIAL HISTORY: He is . He lives alone. He denies any alcohol or drug use. FAMILY HISTORY: Noncontributory and is negative for end-stage renal disease. REVIEW OF SYSTEMS: CONSTITUTIONAL: Denies fevers or chills. EYES: Denies visual changes or tearing. ENT: Denies any recent epistaxis or odynophagia. CARDIAC: Has a history of atrial fibrillation and coronary artery disease. Denies leg edema or palpitations. RESPIRATORY: Denies shortness of breath or cough. GASTROINTESTINAL: Denies nausea, vomiting or diarrhea. ENDOCRINE: Has secondary hyperparathyroidism of renal origin. Denies diabetes. MUSCULOSKELETAL: Reports right hip fracture and pain. Denies any other trauma. Also significant for chronic back pain. GENITOURINARY: Negative for dysuria or hematuria. HEMATOLOGIC: Significant for chronic anticoagulation and history of anemia of chronic kidney disease. NEUROLOGIC SYSTEM: Negative for seizures or strokes. PSYCHOSOCIAL SYSTEM: Negative for depression and anxiety. SKIN: Is negative for any new ulcers or pruritus. PHYSICAL EXAMINATION Vital signs: Temperature 97.6, pulse 77, respiratory rate 17, blood pressure 125/71, saturating 99% on room air. GENERAL: Patient is seen lying in bed, elderly male, awake, alert, oriented, interactive, conversational, no acute distress. Extraocular muscles are intact and the pupils are round and reactive to light. Ears, nose and throat are unremarkable. Neck is supple. Jugular veins were not elevated. Heart sounds are regular S1-S2. No edema in the legs. Lungs are clear to auscultation bilaterally. No crackles, rale or rhonchus. Abdomen is soft and nontender. There are bowel sounds. Extremities negative for clubbing, cyanosis or edema. Range of motion of the right hip was not tested. There is a fistula in the right upper extremity, which is patent with thrill and bruit. Neurologic: He is oriented times three, interactive conversational at baseline mentation. Psychiatric: Appropriate mood and affect. Skin: Normal turgor and temperature. LABORATORIES: White count 12.6, hemoglobin 10.5, sodium 137, potassium 5.2, BUN 30, transferrin saturation 26%, ferritin 1100. INR 1.5. IMAGING STUDIES Chest x-ray yesterday shows cardiomegaly. Lungs are well inflated and free of infiltrate. Pulmonary vasculature is not increased. INPATIENT MEDICATIONS: Reviewed by myself. - cephazolin 2 grams IV x1 - Tylenol 650 mg p.o. every 4 hours p.r.n. - atorvastatin 80 mg p.o. q.h.s. - carvedilol 3.125 mg p.o. twice daily - docusate 100 mg p.o. b.i.d. - hydralazine 10 mg p.o. b.i.d. - morphine 2 mg IV x1 and 2 mg IV q. 2 hours p.r.n. pain - omeprazole 20 mg p.o. daily - Zofran 4 mg IV x1 - Renvela 1600 mg p.o. with meals - trazodone 50 mg p.o. q.h.s. problems 1. End-stage renal disease on hemodialysis on a Wednesday, , Wednesday schedule the patient was last dialyzed on Wednesday. He is well dialyzed. His volume status is acceptable and well compensated. There is very mild hyperkalemia on labs today. His next dialysis will be on as per his maintenance schedule. I will plan for heparin free dialysis in view of orthopedic intervention. 2. Mechanical fall resulting in right hip fracture. The patient is n.p.o. for orthopedic intervention later this afternoon. He reports his pain is well controlled. It is managed as per the primary team and orthopedic service. 3. Anemia related to chronic renal failure, hemoglobin is 10.5 which is optimal for end-stage renal disease. His iron studies are acceptable with transferrin saturation of 26%. He will receive Aranesp while he is in the hospital. 4. Hypertension. Blood pressures are well-controlled and no changes are being made to the current antihypertensives. 5. Hyperkalemia. It is mild. He is due for his next treatment on . When his diet is resumed it should be a renal diet.
[2019-10-25] MEDS: MORPHINE 4 MG/ML 1ML VIAL/SYRINGE (J2270) IV PRN ×3 (14:42→23:21)
[2019-10-25 16:38] LABS: INR 1.57; PROTHROMBIN TIME 18.5 SECONDS (11.8-14.0)
[2019-10-25] MEDS ORDERED: PHYTONADIONE 5 MG TAB PO ONE (17:00)
[2019-10-25] MEDS: LIDOCAINE 5% (LIDODERM) PATCH TD SCH (18:00)
[2019-10-25] MEDS: RAMELTEON 8 MG TAB (ROZEREM) PO SCH (21:42)
[2019-10-25 22:00] VITALS: BP 157/74
--- NOTE | 2019-10-25 23:13 | ECGEPIP ---
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 Electronically Signed on 10-25-2019 23:12:38 EST by Paul Mckeon
[2019-10-26] MEDS: MORPHINE 4 MG/ML 1ML VIAL/SYRINGE (J2270) IV PRN ×4 (02:47→14:16)
[2019-10-26 06:00] VITALS: BP 133/79
[2019-10-26] MEDS ORDERED: ceFAZolin SOD 2 GM in IV 1 EA IV ONE (06:00)
[2019-10-26] MEDS: (RENVELA) SEVELAMER **CARBONate** 800 MG TAB PO SCH ×3 (06:12→18:00)
[2019-10-26] MEDS: **hydrALAZINE** 10 MG TAB PO SCH ×2 (06:13→22:45)
[2019-10-26] MEDS: CARVedilol 3.125 MG TAB PO SCH ×2 (06:13→22:46)
[2019-10-26] MEDS: OMEPRAZOLE 20 MG CAP PO SCH (06:13)
[2019-10-26] MEDS: DOCUSATE SODIUM 100 MG CAP PO SCH ×2 (06:13→22:12)
[2019-10-26 06:32] LABS: BASO # 0.1 10^3/uL (0.0-0.2); BASO % 0.4 % (0.0-1.0); EOS % 0.1 % (0.0-3.0); HEMATOCRIT 34.6 % (42.0-52.0); HEMOGLOBIN 11.5 g/dl (13.5-17.5); LYMPH # 0.7 10^3/uL (1.5-5.0); MEAN CORPUSCULAR HEMOGLOBIN 34.7 pg (27.0-33.0); MEAN CORPUSCULAR HGB CONC 33.2 g/dl (32.0-36.5); MEAN CORPUSCULAR VOLUME 104.5 fl (80.0-96.0); MONO # 1.9 10^3/uL (0.0-0.8); MONO % 11.5 % (0.0-5.0); NEUTROPHILS # 13.4 10^3/uL (1.5-8.5); NEUTROPHILS % 83.4 % (36.0-66.0); PLATELET COUNT, AUTOMATED 259 10^3/uL (150-450); RED BLOOD COUNT 3.31 10^6/uL (4.30-6.10); WHITE BLOOD COUNT 16.1 10^3/uL (4.0-10.0)
[2019-10-26 07:08] LABS: ALBUMIN 2.8 GM/DL (3.2-5.2); BILIRUBIN,TOTAL 0.7 MG/DL (0.2-1.0); CALCIUM LEVEL 8.5 MG/DL (8.8-10.2); CREATININE FOR GFR 7.97 MG/DL (0.70-1.30); GLOMERULAR FILTRATION RATE 6.9 (>35); POTASSIUM SERUM 5.6 MEQ/L (3.5-5.1); TOTAL PROTEIN 7.2 GM/DL (6.4-8.2)
[2019-10-26 07:10] LABS: INR 1.57; PROTHROMBIN TIME 18.5 SECONDS (11.8-14.0)
--- NOTE | 2019-10-26 08:02 | IPN ---
DATE: 10/26/2019 CHIEF COMPLAINT: Post admission day 2 right hip fracture. HISTORY OF PRESENT ILLNESS: This 83-year-old man has a right intertrochanteric hip fracture. We have been holding his blood thinners as he was on Coumadin trying to get his INR to come down to appropriate level for surgery. Unfortunately, this was still elevated last night so we allowed him to eat and made him nothing by mouth overnight. He is doing well aside from pain to his right hip. PHYSICAL EXAMINATION: Well appearing 83-year-old man. He is alert and oriented times three. Responds appropriately. He is neurovascularly intact to his right lower extremity. He wiggles his toes, normal sensation and motor function to his foot. Warm and well perfused, good pedal pulses. INR still elevated at 1.57. ASSESSMENT/PLAN: We gave Kenji vitamin K last night. We will recheck the INR this afternoon, but my preference would be to do the case this afternoon around 2 o'clock as long as anesthesia feels comfortable with giving man anesthetic with his INR being slightly elevated, as to not wait more than 48 hours since admission for the hip fracture surgery.
[2019-10-26] MEDS: **NOTE PATIENT COMMENT** MISC XX SCH (08:57)
--- NOTE | 2019-10-26 12:24 | IPN ---
DATE OF SERVICE: 10/26/2019 SUBJECTIVE: Kenji is seen and examined this afternoon in the hemodialysis unit receiving his treatment. His potassium level was elevated at 5.6 today. He is scheduled for the OR later this afternoon. He is receiving heparin free dialysis and we are not removing any fluid with his treatment. He offers no complaints and reports his pain is tolerably controlled. Denies shortness of breath. Temperature 98.4, pulse 100, respiratory rate 18, blood pressure 133/79, saturating 100% on room air. Intake yesterday was 240. Weight in the bed scale today is not recorded. General: The patient is seen in the hemodialysis unit receiving his treatment. Elderly male awake, alert, oriented, interactive, conversational, in no apparent distress. Extraocular muscles are intact. Pupils are round and reactive to light. Ears, nose and throat are unremarkable. Neck is supple. Jugular veins were not elevated. Heart sounds are regular. S1, S2. No edema in the legs nor in the dependent area. Lungs are clear to auscultation bilaterally. No crackle, rale or rhonchus. Abdomen is soft and nontender. There are bowel sounds. The extremities are negative for clubbing, cyanosis or edema. The right hip was not examined. There is a fistula which is in the right upper extremity and is presently in use. Neurologic: He is oriented times three, interactive and conversational at baseline mentation. Skin: Normal turgor and temperature. Psychiatric: Appropriate mood and affect. LABS: Sodium 136, potassium 5.6, glucose 114, hemoglobin 11.5, INR 1.5. INPATIENT MEDICATIONS: Reviewed by myself. He is pending a dose of cephazolin today. His pain medication morphine was adjusted by the primary team. The remainder medications are unchanged as compared to yesterday. PROBLEMS: 1. End-stage renal disease on hemodialysis on a Wednesday, , Wednesday schedule. The patient was dialyzed today. We did not remove any fluid given that he is for the OR this afternoon. He is well dialyzed. His volume status is acceptable. He was mildly hyperkalemic and this should improve with dialysis. He received heparin free dialysis in view of pending OR/orthopedic intervention. 2. Anemia related to chronic renal failure. Hemoglobin is optimal and at goal. Iron studies were acceptable. Aranesp will be resumed when indicated. 3. Hypertension. Blood pressures are well-controlled and no changes are being made to the current antihypertensive regimen. 4. Hyperkalemia. It is mild. Potassium 5.6. He is dialyzed prior to the OR. When his diet is resumed, it should be a renal diet. 5. Mechanical fall resulting in right hip fracture. The patient is pending orthopedic intervention later this afternoon. He received heparin free dialysis this morning. Pain management, etc., etc., is as per primary team and orthopedic service.
--- NOTE | 2019-10-26 12:36 | IPNPDOC ---
Subjective Date Seen The patient was seen on 10/26/19. Subjective Chief Complaint/HPI Rebekah complaining of pain at the right hip, scheduled for surgery today General: Denies: ROS Unobtainable, Chills, Night Sweats, Fatigue, Malaise, Normal Appetite, Other Symptoms Pulmonary: Denies: Dyspnea, Cough, Pleuritic Chest Pain, Other Symptoms Cardiovascular: Denies: Chest Pain, Palpitations, Orthopnea, Paroxysmal Noc. Dyspnea, Edema, Lt Headedness, Other Symptoms Gastrointestinal: Denies: Nausea, Vomiting, Abdominal Pain, Diarrhea, Constipation, Melena, Hematochezia, Other Symptoms Hematologic: Denies: Bruising, Bleeding Excessively, Petecchia, Purpura, Enlarged Lymph Nodes, Other Hematologic Endocrine: Denies: Polydipsia, Polyphagia, Polyuria, Heat Intolerance, Cold Intolerance, Other Endocrine Sx Musculoskeletal: Reports: Other Symptoms Neurological: Denies: Weakness, Numbness, Incoordination, Change in speech, Confusion, Seizures, Other Symptoms Psych: Denies: Mood Normal, Anxiety, Depression, Memory Issues, Thoughts of Se lf Harm, Anger, Thoughts of Harming Other, Other Psych Objective Physical Examination Chest Exam: Positive: Clear to auscultation, Normal air movement Heart Exam: Positive: Rate Normal, Normal S1, Normal S2 Abdomen Exam: Positive: Normal bowel sounds, Soft Extremity Exam: Positive: Normal pulses, Other (pain and right hip on palpation) Neuro Exam: Positive: Strength at 5/5 X4 ext, Cranial Nerves 3-12 NL Assessment /Plan Problems (1) Intertrochanteric fracture of right hip Status: Acute Problem Text: Patient sustained a mechanical fall causing fracture of right hip Patient is nothing by mouth at the present time of the consult was done Patient is scheduled for surgery today Also will receive hemodialysis as before the surgery Discussed with Dr. Reyes patient possibly will be discharged to acute rehabilitation unit tomorrow (2) ESRD needing dialysis Status: Chronic Problem Text: ESRD via right arm AV fistula (TTS) Scheduled for HD today Plan/VTE VTE Prophylaxis Ordered?: Yes VS, I&O, 24H, Fishbone Vital Signs/I&O Vital Signs Date Time Temp Pulse Resp B/P (MAP) Pulse Ox O2 Delivery O2 Flow Rate FiO2 10/26/19 09:08 16 10/26/19 06:00 98.4 100 133/79 (97) 100 Room Air I&O- Last 24 Hours up to 6 AM 10/26/19 06:00 Intake Total 240 ml Output Total 0 ml Balance 240 ml Laboratory Data 24H LABS Laboratory Tests 2 10/25/19 13:43: Troponin I 0.04# 10/25/19 16:05: Prothrombin Time 18.5H, Prothromb Time International Ratio 1.57 10/25/19 19:09: Troponin I 0.04 10/26/19 06:04: Prothrombin Time 18.5H, Prothromb Time International Ratio 1.57, Immature Granulocyte % (Auto) 0.6, Neutrophils (%) (Auto) 83.4H, Lymphocytes (%) (Auto) 4.0L, Monocytes (%) (Auto) 11.5H, Eosinophils (%) (Auto) 0.1, Basophils (%) (Auto) 0.4, Neutrophils # (Auto) 13.4H, Lymphocytes # (Auto) 0.7L, Monocytes # (Auto) 1.9H, Eosinophils # (Auto) 0.0, Basophils # (Auto) 0.1, Nucleated Red Blood Cells % (auto) 0.0, Anion Gap 9, Glomerular Filtration Rate 6.9L, Calcium Level 8.5L, Total Bilirubin 0.7, Aspartate Amino Transf (AST/SGOT) 17, Alanine Aminotransferase (ALT/SGPT) 17, Alkaline Phosphatase 97, Total Protein 7.2, Albumin 2.8L, Albumin/Globulin Ratio 0.64L CBC/BMP Laboratory Tests 10/26/19 06:04 TATYANA CUNHA MD Oct 26, 2019 12:36
[2019-10-26 14:00] VITALS: BP 173/93
[2019-10-26 14:24] LABS: INR 1.36; PROTHROMBIN TIME 16.5 SECONDS (11.8-14.0)
[2019-10-26] MEDS ORDERED: KETAMINE HCL 200 MG/20 ML VIAL As Ordered ONE (14:57)
[2019-10-26] MEDS ORDERED: TRANEXAMIC ACID 100 MG/ML 10ML VIAL As Ordered ONE (14:57)
[2019-10-26] MEDS ORDERED: MIDAZOLAM INJ 2 MG/2 ML VIAL (J2250) As Ordered ONE (14:57)
[2019-10-26] MEDS ORDERED: ceFAZolin 1GM INJ (J0690 PER 500MG) As Ordered ONE (14:58)
[2019-10-26] MEDS ORDERED: ceFAZolin 2 GM/D5W 50 ML IV BAG (J0690 PER 500MG) As Ordered ONE (15:08)
[2019-10-26 16:30] LABS: CALCIUM LEVEL 8.4 MG/DL (8.8-10.2); CREATININE FOR GFR 4.54 MG/DL (0.70-1.30); GLOMERULAR FILTRATION RATE 13.2 (>35); POTASSIUM SERUM 4.7 MEQ/L (3.5-5.1)
[2019-10-26] MEDS ORDERED: fentaNYL 100 MCG/2 ML INJECTION (J3010) As Ordered ONE ×4 (17:11→19:41)
[2019-10-26] MEDS ORDERED: PHENYLephrine HCL 500 MCG/5 ML (100MCG/ML) SYRINGE (J2370) As Ordered ONE (17:41)
[2019-10-26] MEDS ORDERED: PROPOFOL 200 MG/20 ML VIAL As Ordered ONE (17:41)
[2019-10-26] MEDS ORDERED: LIDOCAINE 2% INJ 100 MG/5 ML SDV (FOR ANES.) As Ordered ONE (17:41)
[2019-10-26] MEDS ORDERED: ONDANSETRON 4MG/2ML VIAL (J2405) As Ordered ONE (18:29)
[2019-10-26] MEDS: PERCOCET 5MG/325MG TAB PO PRN ×5 (19:00→19:37)
[2019-10-26] MEDS ORDERED: PERCOCET 5MG/325MG TAB As Ordered ONE ×2 (19:04→19:37)
--- NOTE | 2019-10-26 19:13 | REP ---
Right femur: Six views. History: ORIF. 4 minutes 39 seconds of fluoroscopy time is reported. Findings: A sequence of six last image hold fluoroscopically obtained spot radiographs of the femur document open reduction internal fixation for proximal femur fracture. Electronically Signed by Kan Henderson MD 10/26/2019 07:04 P
[2019-10-26] MEDS ORDERED: HYDROMORPHONE HCL 0.5 MG/ 0.5 ML SYRINGE (J1170 PER 1) As Ordered ONE (19:22)
[2019-10-26] MEDS: HYDROMORPHONE HCL 0.5 MG/ 0.5 ML SYRINGE (J1170 PER 1) IV PRN ×2 (19:23→19:31)
[2019-10-26] MEDS ORDERED: LABETALOL HCL 100 MG/20 ML VIAL As Ordered ONE (19:31)
[2019-10-26] MEDS: fentaNYL 100 MCG/2 ML INJECTION (J3010) IV PRN ×2 (19:37→19:42)
--- NOTE | 2019-10-26 19:38 | RO ---
DATE OF PROCEDURE: 10/26/2019 PREOPERATIVE DIAGNOSIS: Right hip intertrochanteric hip fracture. POSTOPERATIVE DIAGNOSIS: Right hip intertrochanteric hip fracture. PLANNED PROCEDURE: Right hip IM nailing. PROCEDURE: Right hip IM nailing. SURGEON: Dr. Ohara. METROPOLITAN EDITOR: Dr. Urrutia FRONT WORKER: None. TYPE OF ANESTHETIC: Spinal converted to a GA. OPERATIVE PREAMBLE: This 83-year-old man had a mechanical slip and fall. He had a four part comminuted right intertrochanteric hip fracture. Talked about pros and cons, risks and benefits and going ahead with IM nailing versus nonoperative management. We waited for his INR to come down after treatment with vitamin K. Recently dialyzes electrolytes were appropriate proceeded surgery. I marked the right lower extremity and we proceeded to surgery. He had no further questions. I met his son prior to the case. OPERATIVE REPORT: Patient was brought to the operating room theater. They did a spinal anesthetic and placed in the for the fracture table. Spinal anesthetic did not fully take so he was converted general anesthetic. Right leg was placed in traction. Left leg was scissored and attached to the bed with Coban and appropriately padded with a pillow. Right lower extremity was placed in traction and internal rotation. Preoperative AP radiographs were taken to confirm appropriate reduction. Limb was prepped and draped the usual sterile fashion lying over 3 minutes for prep solution to dry. 2g IV Ancef and 0.25g TXA IV was given. Preop time-out was performed to confirm the site, patient and surgery. I began making a small 2 inch incision centered three fingerbreadths proximal to level of greater trochanter. I carried this dissection down through skin saphenous tissue. I ensured the partially threaded 3.2 mm guidewire at the level of the greater trochanter on AP lateral rate radiographs aiming towards the lesser trochanter on AP radiograph and down the femoral canal on the lateral radiographs. Then used soft tissue protector in the entry reamer over top the guidewire. This was all removed and first and ball-tip guidewire inserted down the distal femur center center on both AP lateral radiographs. This measured 400 mm long. Sequential reaming was used up to a size 12.5 mm reamer with chatter at the isthmus. A Synthes TFN-A IM nail length 400 mm diameter 11 mm and neck shaft angle 130 degrees was used inserted appropriate depth. Ball tip guide wire removed. I used 130 drop down guide. I made a small percutaneous incision over the anterior aspect of the femoral neck staying well lateral to the femoral vessels to achieve proper reduction of the neck shaft angle on lateral radiographs. The guidewire was again passed up to the center of the femoral head. This had to be slightly posterior inferior in order to get to appropriate position. This measured 115 mm as such we reamed to 105 mm and inserted a 105 mm helical blade. Nail was locked proximally and backed off a quarter turn to allow for some compression. I then turned my attention distally. I used percutaneous technique inserted perfect tunica-biloxi technique to insert two distal locking screws. These were 50 mm long and 46 mm long in the proximal and oblong hole. This confirmed on both AP and lateral radiographs. Guide was removed and final e final radiographs AP lateral proximally was taken and saved on to the system. The wound was thoroughly irrigated using normal saline with Ancef solution. Subcutaneous tissues closed with interrupted 2-0 Vicryl sutures and skin with anuj. Drapes removed and bandages applied. The patient was removed the traction setup transferred off the operating table taken postanesthetic care unit stable condition. All sponge, needle, strong counts were correct.. Blood loss 100 mL. No complications. PLAN: The patient will be weightbearing as tolerated. Back on his normal blood thinner for VT prophylaxis. Admit under hospitalist service for medical management. Follow up in clinic 2 weeks time and discontinue the anuj and Cheryl Moran Nurse Practitioner will aid in the discharge planning. ELIOT
[2019-10-26] MEDS ORDERED: NS 1,000 ML IV SCH (19:45)
[2019-10-26] MEDS ORDERED: METOCLOPRAMIDE INJ 10MG/2ML VIAL (J2765) IV PRN (20:00)
[2019-10-26] MEDS ORDERED: MEPERIDINE INJ 25 MG/ML VIAL (J2175) IV PRN (20:00)
[2019-10-26] MEDS ORDERED: ONDANSETRON 4MG/2ML VIAL (J2405) IV PRN ×2 (20:00→21:00)
[2019-10-26 20:57] VITALS: BP 127/65
[2019-10-26] MEDS ORDERED: PERCOCET 5MG/325MG TAB PO PRN (21:00)
[2019-10-26] MEDS ORDERED: MORPHINE 2 MG/ML 1ML VIAL (J2270) IV PRN (21:00)
[2019-10-26 21:33] VITALS: BP 119/62
[2019-10-26] MEDS: ATORVASTATIN 20 MG TAB PO SCH (22:12)
[2019-10-26] MEDS: RAMELTEON 8 MG TAB (ROZEREM) PO SCH (22:13)
[2019-10-26 22:20] VITALS: BP 103/55
[2019-10-26] MEDS: LIDOCAINE 5% (LIDODERM) PATCH TD SCH (22:20)
[2019-10-27] MEDS: ACETAMINOPHEN TAB 650MG DOSE (2X325MG) PO PRN ×2 (01:13→07:07)
[2019-10-27 02:05] VITALS: BP 95/50
[2019-10-27 05:57] VITALS: BP 101/62
[2019-10-27] MEDS ORDERED: ceFAZolin SOD 2 GM in IV 1 EA IV SCH (06:00)
[2019-10-27] MEDS ORDERED: PERCOCET 5MG/325MG TAB PO PRN ×2 (06:15)
[2019-10-27] MEDS ORDERED: PERC5TAB12 PO (06:20)
--- NOTE | 2019-10-27 07:38 | IPN ---
DATE: 10/27/2019 Postoperative day 1 right IM nailing for hip fracture. HISTORY OF PRESENT ILLNESS This 83-year-old man underwent open reduction internal fixation of his right intertrochanteric hip fracture yesterday evening. Appears to be doing well in the reed. No concerns or complaints from him or the nursing staff. PHYSICAL EXAMINATION: Physical exams shows well-appearing 83-year-old man. He is alert and oriented times three. He is up and alert, eating his breakfast. Vital signs are stable. Bulky dressing in situ free of strike through. He is able to wiggle his toes, dorsiflex and plantar flex the foot. Normal sensation of foot. The foot is warm and well perfused. Laboratory examination pending. ASSESSMENT/PLAN: This 83-year-old man we will mobilize weightbearing as tolerated. He is doing well with the aid of Cheryl, our nurse practitioner. She relayed discharge planning and management to the hospitalist service.
[2019-10-27 09:00] VITALS: BP 89/41
[2019-10-27] MEDS ORDERED: MIRALAX *UNIT DOSE* 17GM PACKET PO SCH (09:00)
[2019-10-27] MEDS ORDERED: SENOKOT S TAB PO SCH (09:00)
[2019-10-27] MEDS ORDERED: PREVNAR 13 VACCINE SYRINGE (CPT CODE:90670) IM ONE (09:00)
[2019-10-27] MEDS: CARVedilol 3.125 MG TAB PO SCH (09:00)
[2019-10-27] MEDS: **hydrALAZINE** 10 MG TAB PO SCH (09:00)
[2019-10-27] MEDS: DOCUSATE SODIUM 100 MG CAP PO SCH (09:20)
[2019-10-27] MEDS: OMEPRAZOLE 20 MG CAP PO SCH (09:20)
[2019-10-27] MEDS: (RENVELA) SEVELAMER **CARBONate** 800 MG TAB PO SCH (09:21)
[2019-10-27] MEDS: **NOTE PATIENT COMMENT** MISC XX SCH (09:22)
[2019-10-27] MEDS ORDERED: PEG1POW PO (10:02)
[2019-10-27] MEDS ORDERED: PERCOCET PO (10:02)
[2019-10-27] MEDS ORDERED: SENN-52 PO (10:02)
[2019-10-27] MEDS ORDERED: RAME8TAB2 PO (10:02)
[2019-10-27 10:42] LABS: HEMOGLOBIN 9.8 g/dl (13.5-17.5); MEAN CORPUSCULAR HEMOGLOBIN 34.5 pg (27.0-33.0); MEAN CORPUSCULAR HGB CONC 31.6 g/dl (32.0-36.5); MEAN CORPUSCULAR VOLUME 109.2 fl (80.0-96.0); PLATELET COUNT, AUTOMATED 240 10^3/uL (150-450); RED BLOOD COUNT 2.84 10^6/uL (4.30-6.10); WHITE BLOOD COUNT 15.4 10^3/uL (4.0-10.0)
[2019-10-27 11:04] LABS: CALCIUM LEVEL 7.8 MG/DL (8.8-10.2); CREATININE FOR GFR 6.45 MG/DL (0.70-1.30); GLOMERULAR FILTRATION RATE 8.8 (>35); POTASSIUM SERUM 4.8 MEQ/L (3.5-5.1)
--- NOTE | 2019-10-27 12:08 | DS.PDOC ---
Discharge Summary General Date of Admission Oct 24, 2019 at 18:30 Date of Discharge 10/27/19 Discharge Summary PROCEDURES PERFORMED DURING STAY: None. ADMITTING DIAGNOSES: 1. Intertrochanteric fracture of right hip. DISCHARGE DIAGNOSES: 1. Intertrochanteric fracture of right hip. COMPLICATIONS/CHIEF COMPLAINT: Intertrochanteric Fracture Of Rt Hip. HISTORY OF PRESENT ILLNESS: This is an 83-year-old male who was sent to the hospital today after tripping on a rug while walking to the [facility] clinic. As a re sult of the fall, he developed right right-sided, aching, 8 out of 10 in severity, hip pain and was found to have a right-sided hip fracture. Prior to the fall he denied having prodromal headache, shortness of breath, dizziness, palpitations, nausea, vomiting or diarrhea. He attended his dialysis session on Wednesday.. HOSPITAL COURSE: [ Intertrochanteric fracture of right hip Patient sustained a mechanical fall causing fracture of right hip Patient was taken to operating room and had ORIF of right hip done Patient was started on physical therapy and pain management Will be transferred to acute rehabilitation unit for further care ESRD needing dialysis ESRD via right arm AV fistula (TTS) Head HD yesterday. Further, as per nephrology DISCHARGE MEDICATIONS: Please see below. ALLERGIES: Please see below. PHYSICAL EXAMINATION ON DISCHARGE: VITAL SIGNS: Please see below. GENERAL: Within normal limits HEENT: PERRLA. Extraocular muscles intact NECK: Supple CARDIOVASCULAR EXAMINATION: S1, S2, regular RESPIRATORY EXAMINATION: Clear to A&P ABDOMINAL EXAMINATION: Benign EXTREMITIES: No clubbing, cyanosis, edema SKIN: Within normal limits NEUROLOGICAL EXAMINATION: Focal motor sensory deficit PSYCHIATRIC EXAMINATION: Ben LABORATORY DATA: Please see below. IMAGING: X-ray of hip: Findings: A sequence of six last image hold fluoroscopically obtained spot radiographs of the femur document open reduction internal fixation for proximal femur fracture. PROGNOSIS: Good ACTIVITY: As tolerated. DIET: As tolerated DISCHARGE PLAN: Discharged to acute rehabilitation unit DISPOSITION: 70 Xfer Other. DISCHARGE INSTRUCTIONS: 1. As per discharge instructions. ITEMS TO FOLLOWUP ON ON OUTPATIENT: 1. To acute rehabilitation unit. DISCHARGE CONDITION: Stable. TIME SPENT ON DISCHARGE: 38 minutes. Vital Signs/I&Os Vital Signs Date Time Temp Pulse Resp B/P (MAP) Pulse Ox O2 Delivery O2 Flow Rate FiO2 10/27/19 09:00 89/41 10/27/19 08:00 2.0 10/27/19 05:57 96.5 89 20 99 Nasal Cannula I&O- Last 24 Hours up to 6 AM 10/27/19 06:00 Intake Total 1560 ml Output Total 500 ml Balance 1060 ml Laboratory Data Labs 24H Laboratory Tests 2 10/26/19 13:31: Prothrombin Time 16.5H, Prothromb Time International Ratio 1.36 10/26/19 15:49: Anion Gap 9, Glomerular Filtration Rate 13.2L, Calcium Level 8.4L 10/27/19 10:05: Anion Gap 13, Glomerular Filtration Rate 8.8L, Calcium Level 7.8L, Nucleated Red Blood Cells % (auto) 0.0 CBC/BMP Laboratory Tests 10/26/19 15:49 10/27/19 10:05 Discharge Medications Scheduled Atorvastatin Calcium (Atorvastatin Calcium) 80 Mg Tablet, 80 MG PO QHS, (Reported) Carvedilol (Carvedilol) 3.125 Mg Tab, 3.125 MG PO BID, (Reported) Docusate Sodium (Docusate Sodium) 100 Mg Cap, 100 MG PO DAILY, (Reported) Folic Acid/Vit B Complex and C (Annabel-Nadine Tablet) 1 Tab Tab, 1 TAB PO DAILY, (Reported) Hydralazine HCl (Hydralazine HCl) 10 Mg Tablet, 10 MG PO BID, (Reported) Lidocaine/Prilocaine (Lidocaine-Prilocaine Cream) 1 Cre Cre, 1 DOSE EXT 3XW, (Reported) TAKES ON TUESDAYS, WEDNESDAY AND SATURDAYS BEFORE DIALYSIS. Omeprazole (Omeprazole) 20 Mg Cap, 20 MG PO DAILY, (Reported) Polyethylene Glycol 3350 (Polyethylene Glycol 3350) 17 Gm Powd.pack, 1 PKT PO DAILY Ramelteon (Ramelteon) 8 Mg Tablet, 8 MG PO QHS Sennosides/Docusate Sodium (Senna Plus Tablet) 1 Each Tablet, 1 TAB PO BID Sevelamer Carbonate (Renvela) 800 Mg Tab, 1,600 MG PO WM, (Reported) Warfarin Sodium (Warfarin Sodium) 2.5 Mg Tablet, 2.5 MG PO 6XWK, (Reported) QPM: MON, TU, WED, TH, FRI, SAT Warfarin Sodium (Warfarin Sodium) 2.5 Mg Tablet, 5 MG PO 1XWK, (Reported) QPM: WEDNESDAY Scheduled PRN Acetaminophen (Tylenol) 325 Mg Tablet, 650 MG PO Q4H PRN for PAIN, (Reported) Morphine Sulfate (Morphine Sulfate ER) 15 Mg Tab, 15 MG PO BID PRN for PAIN, (Reported) PATIENT STATES HE TAKES ONLY WHEN NEEDED Nitroglycerin (Nitrostat) 0.4 Mg Subl, 0.4 MG SL NITRO PRN for CHEST PAIN, (Reported) Oxycodone HCl/Acetaminophen (Percocet 5-325 mg Tablet) 1 Each Tablet, 1 TAB PO Q4H PRN for PAIN Oxycodone/Acetaminophen (Oxycodone-Acetaminophen 5-325) 1 Each Tablet, 1 TAB PO Q4HP PRN for MILD/MODERATE PAIN (PS 1-7) Oxycodone/Acetaminophen (Oxycodone-Acetaminophen 5-325) 1 Each Tablet, 2 TAB PO Q4HP PRN for SEVERE PAIN (PS 8-10) Trazodone HCl (Trazodone HCl) 50 Mg Tablet, 50 MG PO QHS PRN for SLEEP, (Reported) Allergies Coded Allergies: No Known Allergies (Verified , 03/09/18) TATYANA CUNHA MD Oct 27, 2019 12:08
[2019-10-27] MEDS ORDERED: HEPARIN 1,000 UNITS/ML 10ML VIAL (FOR RADIOLOGY& DIALYSIS ONLY) IV ONE (16:30)
== END 2019-10-27 10:55 | DRG 480 ==
LOC: M ED 15:36 → EDBD 15:36 → M ED INP 18:30 → ENRESERV 18:48 → M MSPAV 19:40 → M MS5PR 10-26 20:30
PROVIDERS: ADMIT General Practice; ATTEND Internal Medicine
PROC: 0QS636Z Reposition Right Upper Femur with Intramedullary Internal Fixation Device, Percutaneous Approach (ICD-10-PCS; principal; 2019-10-24)
PROC: 5A1D70Z Performance of Urinary Filtration, Intermittent, Less than 6 Hours Per Day (ICD-10-PCS; 2019-10-26)
DX: S72.144A Nondisplaced intertrochanteric fracture of right femur, initial encounter for closed fracture (principal); N18.6 End stage renal disease; Z79.899 Other long term (current) drug therapy; W18.09XA Striking against other object with subsequent fall, initial encounter; Y92.009 Unspecified place in unspecified non-institutional (private) residence as the place of occurrence of the external cause; I48.91 Unspecified atrial fibrillation; Z79.01 Long term (current) use of anticoagulants; E78.5 Hyperlipidemia, unspecified; Z87.891 Personal history of nicotine dependence; M54.5 Low back pain; I25.10 Atherosclerotic heart disease of native coronary artery without angina pectoris; D53.9 Nutritional anemia, unspecified; D63.1 Anemia in chronic kidney disease; E87.5 Hyperkalemia

== ENCOUNTER 2019-10-27 10:17 | Inpatient (IN) | payer MEDICARE, OTHER ==
[~2019-10-27 10:17] MED LIST changes: -OMEP-172 PO; +OMEP1CAP73 PO; +PEG1POW PO; +PERC5TAB12 PO; +PERCOCET PO; +RAME8TAB2 PO; +SENN-52 PO
[2019-10-27 11:05] VITALS: BP 153/65
[2019-10-27] MEDS ORDERED: oxyCODONE 5MG TAB PO ONE (12:00)
[2019-10-27] MEDS ORDERED: ACETAMINOPHEN 500 MG TAB PO ONE (12:00)
[2019-10-27] MEDS ORDERED: NITROGLYCERIN 0.4 MG SUBL TABLET SL PRN (12:30)
[2019-10-27] MEDS: (RENVELA) SEVELAMER **CARBONate** 800 MG TAB PO SCH ×2 (12:30→17:23)
[2019-10-27 14:00] VITALS: BP 110/55
[2019-10-27] MEDS: oxyCODONE 5MG TAB PO SCH ×2 (15:11→18:54)
--- NOTE | 2019-10-27 15:24 | HPEPDOC ---
Formulation Technician Note DATE OF ADMISSION: 10-27-19 DATE OF SERVICE: 10-27-19 TIME OF ADMISSION: Please refer to physician's admission order. SOURCE OF ADMISSION INFORMATION: [facility] record and patient CHIEF COMPLAINT: hip fracture HISTORY OF PRESENT ILLNESS: 83M pmh CAD s/p CABG, Afib obn Coumadin, HLD, HTN, chronic back pain, ESRD on HD who fell at home onto his right side and presented to [facility] ED on 10-24-19 complaining of difficulty walking. Hip x-ray revealed, Comminuted int ertrochanteric right hip fracture in varus position. He was evaluated by orthopedics and underwent an ORIF on 10-26-19 without any complications and was made WBAT. He was monitored on telemetry for his atrial fibrillation, and was found to have had post-op anemia and leukocytosis. He was evaluated by therapy, noted to be well below his prior level of function and deemed medically a ppropriate for discharge to ARU on 10-27-19. REVIEW OF SYSTEMS: The following is a completed review of systems and has been reviewed. Review of systems otherwise unremarkable. PAIN: Patient self reports right hip pain and chronic low back pain EYES: No recent vision changes EARS, NOSE, & THROAT: No throat pain, or dysphagia, or rhinorrhea. CARDIOVASCULAR: Denies chest pain or palpitations PULMONARY: Denies shortness of breath GASTROINTESTINAL: Denies constipation/diarrhea GENITOURINARY: denies dysuria MUSCULOSKELETAL: right hip fracture NEUROLOGICAL: denies focal tremor HEMATOLOGICAL: +anemia SKIN: right hip incision PSYCHIATRIC: Unremarkable All other review of systems found to be negative. PAST MEDICAL HISTORY: as per HPI PAST SURGICAL HISTORY: Splenectomy, laminectomy ALLERGIES: Please see below. MEDICATIONS: Please see below. FAMILY HISTORY: Kidney failure, HTN SOCIAL HISTORY: Former smoker, no etoh/illicit drugs DIET: renal PHYSICAL EXAMINATION: VITAL SIGNS: Please see below. GENERAL: Pleasant and cooperative. No acute distress. thin HEENT: PERRL. Extraocular movements intact. Clear conjunctiva CARDIOVASCULAR: Irregular rate and rhythm. No murmurs, rubs, or gallops LUNGS: Clear to auscultation bilaterally. No wheezes. No rhonchi ABDOMEN: Soft, nontender, nondistended. Positive bowel sounds. Normal active bowel sounds NEUROLOGICAL: Alert and oriented times three. Cranial nerves II through XII grossly intact. Sensation grossly intact EXTREMITIES: 5\5 strength bilateral upper extremities. 5\5 strength right ankle DF and PF (limited due to recent surgery) 5/5 strength in left lower extremity. SKIN: right hip incision LABORATORY DATA: Please see below. IMAGING:Imaging documentation personally reviewed by record. FUNCTIONAL STATUS: Premorbid: Modified Independent with all activities of daily life as well as mobility On Admission: Minimum assistance for dressing, bed chair and wheelchair transfers, toilet transfers, ambulation x 3Ft GOALS: Modified independent household distances, stairs, dressing, toileting, functional transfers, medical optimization. ASSESSMENT: 83-year-old M with past medical history of ESRD on HD, Afib, CHF who presents status post fall with right hip fracture: PLAN: 1. Rehab- PT/OT advance gait and ADL training, strengthen/stretch/maintain ROM all 4 extremities -Max HR 110-120 or RPE 4-5 while in therapy 2. Neuro: no known hx, monitor for delirium 3. Cardiac: hx of CAD s/p CABG & CHF with EF 35%, fluid management per renal, will fluid restrict while on ARU- medicine consulted to assist in management -Hx of afib on Co-Reg and Warfarin, monitor daily INRs and adjust, goal 2-3 -pmh HTN, will hold hydralazine for soft BPs -HLD- statin -c/u supplemental 02 prn 4. Resp: patient without known pulmonary disease, patient denies being on home 02 -monitor for infection and encourage incentive spirometry 5. Renal: ESRD on HD [id number], renal consulted to assist in management 6. Ortho: s/p right hip fracture with ORIF- ortho consulted 7. Heme: anemia of chronic disease, per renal 8. Pain: oxycodone and Tylenol 9. DVT ppx: teds, on Coumadin 10. GI ppx: prilosec 11. Psych- trazodone for insomnia 12. Dispo: TBD POST ADMISSION PHYSICIAN EVALUATION: Medical and functional status: Description of medical status, medical assessment: As above. Rehabilitation diagnosis and current and prior cold morbid medical conditions as above. Risk of complications and plans to mitigate them as above. Description of functional status current status is as above. Prior status as above. Status compared to preadmission: There are no clinically significant differences between the patient's current status and the information described on the preadmission screening document. Treatment plan anticipated: Treatment plan is as described above. Required disciplines including physical therapy, occupational therapy, others as noted above. Intensity of services: 3 hours a day, 6 days a week. Special considerations: There are no specific special or safety considerations that would likely preclude immediate implementation of an intensive rehabilitation program or subsequently influence the plan of care. ATTESTATION: Considering all the information above, it is my best judgment that this patient requires intensive rehabilitation therapy as described above and an inpatient hospital environment due to the complexity of nursing, medical, and rehabilitation needs required by the patient. Furthermore, this patient can reasonably be expected to participate in an benefit from an inpatient rehabilita tion stay with an interdisciplinary team approach to the delivery of rehabilitation care under the direction and supervision of rehabilitation physician. PROGNOSIS: Good ESTIMATED LENGTH OF STAY:14-18 days. PROJECTED DISCHARGE DESTINATION: Home with family support and any durable medical equipment required to increase functional safety and mobility TIME SPENT COUNSELING AND COORDINATING INITIAL CARE: Greater than 70 minutes. Vital Signs Vital Sign - Last 24 Hours 10/27/19 10/27/19 10/27/19 11:05 12:31 14:00 Temp 97.1 97.2 Pulse 79 85 Resp 20 18 20 B/P (MAP) 153/65 (94) 110/55 (73) Pulse Ox 100 96 O2 Delivery Room Air Room Air Home Medications Scheduled Atorvastatin Calcium (Atorvastatin Calcium) 80 Mg Tablet, 80 MG PO QHS, (Reported) Carvedilol (Carvedilol) 3.125 Mg Tab, 3.125 MG PO BID, (Reported) Docusate Sodium (Docusate Sodium) 100 Mg Cap, 100 MG PO DAILY, (Reported) Folic Acid/Vit B Complex and C (Annabel-Nadine Tablet) 1 Tab Tab, 1 TAB PO DAILY, (Reported) Hydralazine HCl (Hydralazine HCl) 10 Mg Tablet, 10 MG PO BID, (Reported) Lidocaine/Prilocaine (Lidocaine-Prilocaine Cream) 1 Cre Cre, 1 DOSE EXT 3XW, (Re ported) TAKES ON TUESDAYS, WEDNESDAY AND SATURDAYS BEFORE DIALYSIS. Omeprazole (Omeprazole) 20 Mg Cap, 20 MG PO DAILY, (Reported) Polyethylene Glycol 3350 (Polyethylene Glycol 3350) 17 Gm Powd.pack, 1 PKT PO DAILY Ramelteon (Ramelteon) 8 Mg Tablet, 8 MG PO QHS Sennosides/Docusate Sodium (Senna Plus Tablet) 1 Each Tablet, 1 TAB PO BID Sevelamer Carbonate (Renvela) 800 Mg Tab, 1,600 MG PO WM, (Reported) Warfarin Sodium (Warfarin Sodium) 2.5 Mg Tablet, 2.5 MG PO 6XWK, (Reported) QPM: MON, TU, WED, THURS, FRI, SAT Warfarin Sodium (Warfarin Sodium) 2.5 Mg Tablet, 5 MG PO 1XWK, (Reported) QPM: WEDNESDAY Scheduled PRN Acetaminophen (Tylenol) 325 Mg Tablet, 650 MG PO Q4H PRN for PAIN, (Reported) Morphine Sulfate (Morphine Sulfate ER) 15 Mg Tab, 15 MG PO BID PRN for PAIN, (Reported) PATIENT STATES HE TAKES ONLY WHEN NEEDED Nitroglycerin (Nitrostat) 0.4 Mg Subl, 0.4 MG SL NITRO PRN for CHEST PAIN, (Reported) Oxycodone HCl/Acetaminophen (Percocet 5-325 mg Tablet) 1 Each Tablet, 1 TAB PO Q4H PRN for PAIN Oxycodone/Acetaminophen (Oxycodone-Acetaminophen 5-325) 1 Each Tablet, 1 TAB PO Q4HP PRN for MILD/MODERATE PAIN (PS 1-7) Oxycodone/Acetaminophen (Oxycodone-Acetaminophen 5-325) 1 Each Tablet, 2 TAB PO Q4HP PRN for SEVERE PAIN (PS 8-10) Trazodone HCl (Trazodone HCl) 50 Mg Tablet, 50 MG PO QHS PRN for SLEEP, (Reported) Allergies Coded Allergies: No Known Allergies (Verified , 03/09/18) A-FIB/CHADSVASC A-FIB History Current/History of A-Fib/PAF?: Yes Current PO Anticoag Therapy: Yes KATJA UGALDE MD Oct 27, 2019 15:24
[2019-10-27] MEDS: NEPHRO-VIT TAB (NEPHROCAPS) PO SCH (15:54)
[2019-10-27] MEDS: REMEDY PHYTOPLEX Z-GUARD PASTE 113GM TUBE (FROM STOREROOM PRODUCT) TOP SCH ×2 (16:00→21:28)
[2019-10-27] MEDS: ACETAMINOPHEN 500 MG TAB PO SCH ×2 (16:08→21:27)
[2019-10-27] MEDS ORDERED: WARFARIN SOD 5 MG TAB PO ONE (17:00)
[2019-10-27] MEDS ORDERED: DARBEPOETIN 100 MCG/0.5 ML *DIALYSIS* SYRINGE (J0882) IV SCH (18:30)
--- NOTE | 2019-10-27 19:47 | CR ---
DATE OF CONSULTATION: 10/27/2019 CONSULTATION REPORT FOR: Dr. Reyes CONSULTING PHYSICIAN: Dr. Regalado REASON FOR CONSULTATION: Management of end-stage renal disease on hemodialysis. HISTORY OF PRESENT ILLNESS: Kenji Grace is well-known to me. He is an 83-year-old male with a past medical history of end-stage renal disease on hemodialysis on a Wednesday, , Wednesday schedule, coronary artery disease status post coronary artery bypass graft (CABG), atrial fibrillation on Coumadin, dyslipidemia, hypertension, chronic back pain and other comorbid conditions mentioned below. He had a mechanical fall after tripping on a rug at [facility] and was admitted for fracture of the right hip. He was evaluated by orthopedics and underwent open reduction and internal fixation on 10/26/2019 and was made weightbearing as tolerated (WBAT). He was found to have functional status below his baseline and he was discharged to the acute rehabilitation unit today. The patient was last dialyzed yesterday prior to the operating room (OR). Today, he is seen and he complains of postoperative pain but has no other complaints. PAST MEDICAL HISTORY: End-stage renal disease on hemodialysis, coronary artery disease status post coronary artery bypass graft (CABG), atrial fibrillation on Coumadin, hypertension, dyslipidemia, chronic back pain, end-stage renal disease on hemodialysis, anemia of chronic kidney disease, secondary hyperparathyroidism of renal origin, gastroesophageal reflux disease (GERD), history of valvular heart disease and history of systolic congestive heart failure. PAST SURGICAL HISTORY: Splenectomy, laminectomy, arteriovenous fistula (AVF) creation, quadruple bypass, back surgery, tonsillectomy. ALLERGIES: No known drug allergies. HOME MEDICATIONS: - amlodipine 5 mg daily - atorvastatin 80 mg daily - Carvedilol 6.125 mg twice daily - diltiazem - Colace 100 mg twice daily - vitamin B complex one tablet daily - morphine sulfate 15 mg twice a day - omeprazole 20 mg daily - nitroglycerin sublingual as needed - Renvela 800 mg three times a day with meal - Coumadin 2.5 mg daily - Tylenol as needed - trazodone 50 mg at bedtime PERSONAL AND SOCIAL HISTORY: He is . He lives alone. There is no alcohol or drug use. FAMILY HISTORY: Noncontributory and is negative for end-stage renal disease. REVIEW OF SYSTEMS: CONSTITUTIONAL: Denies fevers, chills. EYES: Denies visual changes or tearing. EARS, NOSE AND THROAT (ENT): Denies recent epistaxis or odynophagia. CARDIAC: He has a history of atrial fibrillation and coronary artery disease. Denies leg edema or palpitations. RESPIRATORY: Denies shortness of breath or cough. GASTROINTESTINAL: Denies nausea, vomiting or diarrhea. ENDOCRINE: He has secondary hyperparathyroidism of renal origin. Denies diabetes. MUSCULOSKELETAL: Reports hip fracture and pain, status post open reduction internal fixation. Denies any other, also significant for chronic back pain. GENITOURINARY: Negative for dysuria or hematuria. HEMATOLOGIC: Significant for chronic anticoagulation and history of anemia of chronic kidney disease. NEUROLOGIC SYSTEM: Negative for seizures or strokes. PSYCHOSOCIAL SYSTEM: Negative for depression or anxiety. SKIN: Negative for new ulcers or pruritus. PHYSICAL EXAMINATION: VITAL SIGNS: Temperature 97.2, pulse 85, respiratory rate 20, blood pressure 110/55, saturating 96% on room air. GENERAL: The patient is seen in the rehabilitation unit, elderly male, awake, alert, oriented, interactive, conversational, in no apparent distress, of thin body habitus and slight fraying. Extraocular muscles are intact. Ears, nose and throat are unremarkable. Jugular veins are not abnormally distended. Heart sounds are irregularly irregular. There is no murmur. There is no edema of the legs. Lungs are clear to auscultation bilaterally. No crackle, rale or rhonchus. Abdomen is soft and nontender. There are bowel sounds. NEUROLOGIC: He is oriented times three. No focal deficits. EXTREMITIES: There is a right upper extremity fistula that is patent. The right hip is not examined. The legs are negative for edema or clubbing. SKIN: Normal temperature and turgor. LABORATORY DATA: Sodium 136, potassium 4.8, BUN 42. Hemoglobin 9.8, platelets 240, white count 15. INPATIENT MEDICATIONS: - Tylenol 1 gram by mouth three times a day - atorvastatin 80 mg by mouth at bedtime - Carvedilol 3.125 mg by mouth daily - gabapentin 100 mg by mouth at bedtime - omeprazole 20 mg by mouth daily - oxycodone as needed and oxycodone 5 mg at 07:00 a.m., 11:00 a.m., 03:00 p.m. and 07:00 p.m. - Renvela 1600 mg by mouth with meal - trazodone as needed at bedtime - Coumadin PROBLEMS: 1. End-stage renal disease on hemodialysis on a Wednesday, , Wednesday schedule. The patient was last dialyzed on . That was preoperatively and we dialyzed him for clearance only without fluid removal. His electrolytes and volume status are acceptable. His next dialysis will be on Wednesday. 2. Anemia related to chronic renal failure and also perioperative. Hemoglobin has down trended slightly but is still reasonable. There is no need for transfusion at present. I will continue him on Aranesp. 3. Systolic congestive heart failure, ejection fraction of 35%. Volume management is via hemodialysis. He is appropriately on fluid restriction. Next dialysis treatment will be on Wednesday and his volume status is well-compensated at present. 4. History of atrial fibrillation. The patient is rate controlled with Carvedilol and anticoagulated with Coumadin. I see that his Coumadin has been resumed. 5. Status post right hip fracture. Pain management is as per rehabilitation and primary team. Thank you for involving me in the care Mr. Grace. I will be happy to follow him along with you.
[2019-10-27 20:42] VITALS: BP 122/68
[2019-10-27] MEDS: RAMELTEON 8 MG TAB (ROZEREM) PO SCH (21:26)
[2019-10-27] MEDS: SENOKOT S TAB PO SCH (21:26)
[2019-10-27] MEDS: GABAPENTIN 100 MG CAP PO SCH (21:26)
[2019-10-27] MEDS: ATORVASTATIN 20 MG TAB PO SCH (21:27)
[2019-10-27] MEDS: oxyCODONE 5MG TAB PO PRN (21:57)
[2019-10-28] MEDS ORDERED: PERCOCET 5MG/325MG TAB PO ONE (03:30)
[2019-10-28 06:00] VITALS: BP 130/66
[2019-10-28] MEDS: oxyCODONE 5MG TAB PO SCH ×4 (06:14→18:10)
[2019-10-28 06:41] LABS: BASO % 0.2 % (0.0-1.0); EOS # 0.1 10^3/uL (0.0-0.5); EOS % 0.7 % (0.0-3.0); HEMOGLOBIN 8.7 g/dl (13.5-17.5); LYMPH # 0.5 10^3/uL (1.5-5.0); LYMPH % 4.2 % (24.0-44.0); MEAN CORPUSCULAR HEMOGLOBIN 34.4 pg (27.0-33.0); MEAN CORPUSCULAR HGB CONC 32.2 g/dl (32.0-36.5); MEAN CORPUSCULAR VOLUME 106.7 fl (80.0-96.0); MONO # 1.4 10^3/uL (0.0-0.8); MONO % 11.1 % (0.0-5.0); NEUTROPHILS # 10.6 10^3/uL (1.5-8.5); NEUTROPHILS % 83.2 % (36.0-66.0); PLATELET COUNT, AUTOMATED 250 10^3/uL (150-450); RED BLOOD COUNT 2.53 10^6/uL (4.30-6.10); WHITE BLOOD COUNT 12.7 10^3/uL (4.0-10.0)
[2019-10-28 06:55] LABS: INR 1.36; PROTHROMBIN TIME 16.5 SECONDS (11.8-14.0)
[2019-10-28 07:12] LABS: ALBUMIN 2.3 GM/DL (3.2-5.2); ALT/SGPT < 6 U/L (12-78); BILIRUBIN,TOTAL 0.4 MG/DL (0.2-1.0); BLOOD UREA NITROGEN 56 MG/DL (7-18); CALCIUM LEVEL 7.8 MG/DL (8.8-10.2); CARBON DIOXIDE LEVEL 26 MEQ/L (21-32); CHLORIDE LEVEL 94 MEQ/L (98-107); CREATININE FOR GFR 7.84 MG/DL (0.70-1.30); GLUCOSE, FASTING 118 MG/DL (70-100); POTASSIUM SERUM 4.8 MEQ/L (3.5-5.1); SODIUM LEVEL 131 MEQ/L (136-145); TOTAL PROTEIN 6.6 GM/DL (6.4-8.2)
[2019-10-28] MEDS: SENOKOT S TAB PO SCH ×2 (07:29→20:15)
[2019-10-28] MEDS: NEPHRO-VIT TAB (NEPHROCAPS) PO SCH (07:30)
[2019-10-28] MEDS: (RENVELA) SEVELAMER **CARBONate** 800 MG TAB PO SCH ×3 (07:30→17:33)
[2019-10-28] MEDS: ACETAMINOPHEN 500 MG TAB PO SCH ×3 (07:30→20:17)
[2019-10-28] MEDS: OMEPRAZOLE 20 MG CAP PO SCH (07:30)
[2019-10-28] MEDS: CARVedilol 3.125 MG TAB PO SCH (07:31)
[2019-10-28] MEDS: REMEDY PHYTOPLEX Z-GUARD PASTE 113GM TUBE (FROM STOREROOM PRODUCT) TOP SCH ×3 (09:00→20:18)
[2019-10-28 14:00] VITALS: BP 128/58
[2019-10-28] MEDS: WARFARIN SOD 2.5 MG TAB PO SCH (17:33)
--- NOTE | 2019-10-28 17:39 | CR.PDOC ---
General Date of Consultation: Oct 28, 2019 Consultation REASON FOR CONSULTATION/CHIEF COMPLAINT: Physical examination HISTORY OF PRESENT ILLNESS: Patient is 83 years old male with past medical history of end-stage renal diseases on dialysis, atrial fibrillation on Coumadin, coronary artery diseases presented to the hospital with fracture of the right hip. He underwent open reduction and internal fixation on 10/26/2019 and was made weightbearing as tolerated (WBAT). He was discharged to the acute rehabilitation unit. Patient denies fever, chills, nausea, vomiting, chest pain, palpitations, diarrhea. ALLERGIES: Please see below. HOME MEDICATIONS: Please see below. PAST MEDICAL HISTORY: End-stage renal disease on hemodialysis, coronary artery disease status post coronary artery bypass graft (CABG), atrial fibrillation on Coumadin, hypertension, dyslipidemia, chronic back pain, end-stage renal disease on hemodialysis, anemia of chronic kidney disease, secondary hyperparathyroidism of renal origin, gastroesophageal reflux disease (GERD), history of valvular heart disease and history of systolic congestive heart failure. PAST SURGICAL HISTORY: quadruple bypass, back surgery, tonsillectomy. splenectomy, laminectomy FAMILY HISTORY: I personally reviewed family history and found not pertinent SOCIAL HISTORY: ETOH: Denied Illicit drug use: Denied IV drug use: Denied Tobacco smoking denied REVIEW OF SYSTEMS: All 10 point review system negative except as listed above PHYSICAL EXAMINATION: VITAL SIGNS: Please see below. GENERAL APPEARANCE: not in apparent distress HEENT: Normocephalic, atraumatic. Mucous members moist and pink CARDIOVASCULAR: Irregularly irregular, S1-S2 LUNGS: Diminished lung sounds ABDOMEN: Abdomen is soft and nontender. MUSCULOSKELETAL: Range of motion is intact in all 4 extremities NEUROLOGICAL: Cranial nerves II-12 are grossly intact. Speech is not dysarthric EXTREMITIES: There is a right upper extremity fistula that is patent. The right hip is not examined. The legs are negative for edema or clubbing. LABORATORY DATA: Please see below ASSESSMENT/PLAN: Status post right hip fracture Continue pain management is as per rehabilitation and primary team. Systolic congestive heart failure, -Volume management is via hemodialysis. [employer] team follows him Atrial fibrillation Rate is under control Continue home cardioprotective medications with Coumadin Anemia of chronic diseases We'll transfuse if hemoglobin less than 7 Continue Aranesp per counter maker recommendation End-stage renal diseases Continue with dialysis Wednesday, , Wednesday Vital Signs/I&O Vital Signs Date Time Temp Pulse Resp B/P (MAP) Pulse Ox O2 Delivery O2 Flow Rate FiO2 10/28/19 15:33 16 10/28/19 14:00 97.7 83 128/58 (81) 95 Room Air I&O- Last 24 Hours up to 6 AM 10/28/19 06:00 Intake Total 565 ml Output Total 0 ml Balance 565 ml Laboratory Data Labs 24H Laboratory Tests 2 10/28/19 06:25: Immature Granulocyte % (Auto) 0.6, Neutrophils (%) (Auto) 83.2H, Lymphocytes (%) (Auto) 4.2L, Monocytes (%) (Auto) 11.1H, Eosinophils (%) (Auto) 0.7, Basophils (%) (Auto) 0.2, Neutrophils # (Auto) 10.6H, Lymphocytes # (Auto) 0.5L, Monocytes # (Auto) 1.4H, Eosinophils # (Auto) 0.1, Basophils # (Auto) 0.0, Nucleated Red Blood Cells % (auto) 0.0, Prothrombin Time 16.5H, Prothromb Time International Ratio 1.36, Anion Gap 11, Glomerular Filtration Rate 7.0L, Calcium Level 7.8L, Total Bilirubin 0.4, Aspartate Amino Transf (AST/SGOT) 24, Alanine Aminotransferase (ALT/SGPT) < 6L, Alkaline Phosphatase 85, Total Protein 6.6, Albumin 2.3L, Albumin/Globulin Ratio 0.53L CBC/BMP Laboratory Tests 10/28/19 06:25 Allergies Coded Allergies: No Known Allergies (Verified , 03/09/18) Home Medications Scheduled Atorvastatin Calcium (Atorvastatin Calcium) 80 Mg Tablet, 80 MG PO QHS, (Reported) Carvedilol (Carvedilol) 3.125 Mg Tab, 3.125 MG PO BID, (Reported) Docusate Sodium (Docusate Sodium) 100 Mg Cap, 100 MG PO DAILY, (Reported) Folic Acid/Vit B Complex and C (Annabel-Nadine Tablet) 1 Tab Tab, 1 TAB PO DAILY, (Reported) Hydralazine HCl (Hydralazine HCl) 10 Mg Tablet, 10 MG PO BID, (Reported) Lidocaine/Prilocaine (Lidocaine-Prilocaine Cream) 1 Cre Cre, 1 DOSE EXT 3XW, (Reported) TAKES ON TUESDAYS, WEDNESDAY AND SATURDAYS BEFORE DIALYSIS. Omeprazole (Omeprazole) 20 Mg Cap, 20 MG PO DAILY, (Reported) Polyethylene Glycol 3350 (Polyethylene Glycol 3350) 17 Gm Powd.pack, 1 PKT PO DAILY, #30 Ramelteon (Ramelteon) 8 Mg Tablet, 8 MG PO QHS, #30 Sennosides/Docusate Sodium (Senna Plus Tablet) 1 Each Tablet, 1 TAB PO BID, #30 Sevelamer Carbonate (Renvela) 800 Mg Tab, 1,600 MG PO WM, (Reported) Warfarin Sodium (Warfarin Sodium) 2.5 Mg Tablet, 2.5 MG PO 6XWK, (Reported) QPM: MON, , WED, , WED, SAT Warfarin Sodium (Warfarin Sodium) 2.5 Mg Tablet, 5 MG PO 1XWK, (Reported) QPM: WEDNESDAY Scheduled PRN Acetaminophen (Tylenol) 325 Mg Tablet, 650 MG PO Q4H PRN for PAIN, (Reported) Morphine Sulfate (Morphine Sulfate ER) 15 Mg Tab, 15 MG PO BID PRN for PAIN, (Reported) PATIENT STATES HE TAKES ONLY WHEN NEEDED Nitroglycerin (Nitrostat) 0.4 Mg Subl, 0.4 MG SL NITRO PRN for CHEST PAIN, (Reported) Oxycodone HCl/Acetaminophen (Percocet 5-325 mg Tablet) 1 Each Tablet, 1 TAB PO Q4H PRN for PAIN, #30 Oxycodone/Acetaminophen (Oxycodone-Acetaminophen 5-325) 1 Each Tablet, 1 TAB PO Q4HP PRN for MILD/MODERATE PAIN (PS 1-7), #30 Oxycodone/Acetaminophen (Oxycodone-Acetaminophen 5-325) 1 Each Tablet, 2 TAB PO Q4HP PRN for SEVERE PAIN (PS 8-10), #30 Trazodone HCl (Trazodone HCl) 50 Mg Tablet, 50 MG PO QHS PRN for SLEEP, (Reported) ELLIE SANCHEZ DO Oct 28, 2019 17:39
--- NOTE | 2019-10-28 18:58 | IPN ---
DATE: 10/28/2019 Mr. Grace is seen this morning on his bedside. He was admitted with right hip fracture following a fall. He already had his surgery and is feeling some pain in his hip. He did have physical therapy this morning. The patient is scheduled for hemodialysis this afternoon. He is weak and frail but not in any acute distress. PHYSICAL EXAMINATION: Temperature 97.7 degrees Fahrenheit, heart rate 82 per minute and respiratory rate 18 per minute. Blood pressure 128/58 mmHg and oxygen saturation 95% on room air. Head is atraumatic. Neck is supple and without jugular venous distension (JVD) or thyroid enlargement. He is very frail looking. Heart: Sounds are irregular in rhythm and lungs sound clear to auscultation. Abdomen: Soft and nontender. Bowel sounds are normal. Extremities: Without any cyanosis or clubbing. Neurologically, he seems to be at his baseline mentation. He has a right forearm AV fistula, which is patent. Today's labs show WBC count 12.7, hemoglobin 8.7 and hematocrit 27.0. Platelets 250. Sodium 131, potassium 4.8, CO2 26, BUN 56 and creatinine 7.84. Calcium 7.8 and albumin 2.3. INR is 1.36. PROBLEMS: 1. End-stage renal disease. The patient is due for dialysis and we plan to dialyze him this afternoon. We will use A 2.0 mEq potassium bath. 2. Congestive heart failure and atrial fibrillation. His volume status seems reasonably well-compensated and ventricular rate is also well controlled. We will try to remove about 1.5 to 2 liters of fluid with dialysis today. He remains on his chronic low-dose beta bailee therapy along with Coumadin. His Coumadin was held for hip surgery and has been resumed. His INR is still subtherapeutic. 3. Anemia. Will give him Aranesp 100 mcg once a week with dialysis. At this point, there is no emergent indication for a transfusion. 4. Right hip fracture. The patient already had his surgery and is now working with physical therapy and acute rehab. His pain is being managed by rehab service.
[2019-10-28 20:00] VITALS: BP 109/54
[2019-10-28] MEDS: GABAPENTIN 100 MG CAP PO SCH (20:15)
[2019-10-28] MEDS: ATORVASTATIN 20 MG TAB PO SCH (20:15)
[2019-10-28] MEDS: RAMELTEON 8 MG TAB (ROZEREM) PO SCH (20:15)
[2019-10-28] MEDS: oxyCODONE 5MG TAB PO PRN (20:17)
[2019-10-28] MEDS: traZODone 25MG PER 1/2 TABLET PO PRN (23:34)
[2019-10-29] MEDS ORDERED: PERCOCET 5MG/325MG TAB PO ONE (00:45)
[2019-10-29 05:53] VITALS: BP 143/67
[2019-10-29] MEDS: oxyCODONE 5MG TAB PO SCH ×4 (06:24→18:03)
[2019-10-29 06:57] LABS: INR 2.4
[2019-10-29] MEDS: CARVedilol 3.125 MG TAB PO SCH (08:25)
[2019-10-29] MEDS: (RENVELA) SEVELAMER **CARBONate** 800 MG TAB PO SCH ×3 (08:25→18:02)
[2019-10-29] MEDS: SENOKOT S TAB PO SCH ×2 (08:25→20:33)
[2019-10-29] MEDS: REMEDY PHYTOPLEX Z-GUARD PASTE 113GM TUBE (FROM STOREROOM PRODUCT) TOP SCH ×3 (08:25→20:41)
[2019-10-29] MEDS: NEPHRO-VIT TAB (NEPHROCAPS) PO SCH (08:25)
[2019-10-29] MEDS: ACETAMINOPHEN 500 MG TAB PO SCH ×3 (08:25→20:33)
[2019-10-29] MEDS: OMEPRAZOLE 20 MG CAP PO SCH (08:25)
[2019-10-29 14:00] VITALS: BP 120/62
[2019-10-29] MEDS: WARFARIN SOD 2.5 MG TAB PO SCH (16:08)
[2019-10-29 20:00] VITALS: BP 140/63
[2019-10-29] MEDS: RAMELTEON 8 MG TAB (ROZEREM) PO SCH (20:33)
[2019-10-29] MEDS: ATORVASTATIN 20 MG TAB PO SCH (20:34)
[2019-10-29] MEDS: GABAPENTIN 100 MG CAP PO SCH (20:34)
[2019-10-29] MEDS: oxyCODONE 5MG TAB PO PRN (21:53)
[2019-10-29] MEDS: traZODone 25MG PER 1/2 TABLET PO PRN (23:00)
[2019-10-30] MEDS: oxyCODONE 5MG TAB PO PRN (01:45)
[2019-10-30 05:37] VITALS: BP 134/63
[2019-10-30] MEDS: oxyCODONE 5MG TAB PO SCH ×4 (06:15→18:38)
[2019-10-30 06:57] LABS: INR 4.45; PROTHROMBIN TIME 42.6 SECONDS (11.8-14.0)
[2019-10-30] MEDS: SENOKOT S TAB PO SCH ×2 (09:08→21:32)
[2019-10-30] MEDS: OMEPRAZOLE 20 MG CAP PO SCH (09:08)
[2019-10-30] MEDS: NEPHRO-VIT TAB (NEPHROCAPS) PO SCH (09:08)
[2019-10-30] MEDS: CARVedilol 3.125 MG TAB PO SCH (09:09)
[2019-10-30] MEDS: (RENVELA) SEVELAMER **CARBONate** 800 MG TAB PO SCH ×3 (09:09→17:51)
[2019-10-30] MEDS: ACETAMINOPHEN 500 MG TAB PO SCH ×3 (09:10→21:33)
[2019-10-30] MEDS: REMEDY PHYTOPLEX Z-GUARD PASTE 113GM TUBE (FROM STOREROOM PRODUCT) TOP SCH ×3 (09:11→21:36)
[2019-10-30 10:22] LABS: BASO # 0.1 10^3/uL (0.0-0.2); BASO % 0.4 % (0.0-1.0); EOS # 0.3 10^3/uL (0.0-0.5); EOS % 2.5 % (0.0-3.0); HEMATOCRIT 25.3 % (42.0-52.0); HEMOGLOBIN 8.1 g/dl (13.5-17.5); LYMPH # 0.8 10^3/uL (1.5-5.0); LYMPH % 6.9 % (24.0-44.0); MEAN CORPUSCULAR HEMOGLOBIN 34.9 pg (27.0-33.0); MEAN CORPUSCULAR VOLUME 109.1 fl (80.0-96.0); MONO # 1.3 10^3/uL (0.0-0.8); NEUTROPHILS # 8.9 10^3/uL (1.5-8.5); NEUTROPHILS % 78.5 % (36.0-66.0); PLATELET COUNT, AUTOMATED 288 10^3/uL (150-450); RED BLOOD COUNT 2.32 10^6/uL (4.30-6.10); WHITE BLOOD COUNT 11.4 10^3/uL (4.0-10.0)
[2019-10-30 10:27] LABS: CALCIUM LEVEL 8.2 MG/DL (8.8-10.2); CREATININE FOR GFR 7.23 MG/DL (0.70-1.30); GLOMERULAR FILTRATION RATE 7.7 (>35); POTASSIUM SERUM 5.7 MEQ/L (3.5-5.1)
[2019-10-30] MEDS ORDERED: PILL CUTTER 1 EACH XX PRN (11:30)
--- NOTE | 2019-10-30 11:32 | IPNPDOC ---
PM&R Progress Note DATE OF SERVICE: Oct 30, 2019 Associate Professor Of Radiology Progress Note Subjective: Patient reporting he is having left hip pain, but that it is a little better since getting oxycodone in the middle of the night. REVIEW OF SYSTEMS: The following is a completed review of systems and has been reviewed. Review of systems otherwise unremarkable. PAIN: Patient self reports right hip pain and chronic low back pain EYES: No recent vision changes EARS, NOSE, & THROAT: No throat pain, or dysphagia, or rhinorrhea. CARDIOVASCULAR: Denies chest pain or palpitations PULMONARY: Denies shortness of breath GASTROINTESTINAL: Denies constipation/diarrhea GENITOURINARY: denies dysuria MUSCULOSKELETAL: right hip fracture NEUROLOGICAL: denies focal tremor HEMATOLOGICAL: +anemia SKIN: right hip incision PSYCHIATRIC: Unremarkable All other review of systems found to be negative. PHYSICAL EXAMINATION: VITAL SIGNS: Please see below. GENERAL: Pleasant and cooperative. No acute distress. thin HEENT: PERRL. Extraocular movements intact. Clear conjunctiva CARDIOVASCULAR: Irregular rate and rhythm. No murmurs, rubs, or gallops LUNGS: Clear to auscultation bilaterally. No wheezes. No rhonchi ABDOMEN: Soft, nontender, nondistended. Positive bowel sounds. Normal active bowel sounds NEUROLOGICAL: Alert and oriented times three. Cranial nerves II through XII grossly intact. Sensation grossly intact EXTREMITIES: 5\5 strength bilateral upper extremities. 5\5 strength right ankle DF and PF (limited due to recent surgery) 5/5 strength in left lower extremity. SKIN: right hip incision ASSESSMENT: 83-year-old M with past medical history of ESRD on HD, Afib, CHF who presents status post fall with right hip fracture: PLAN: 1. Rehab- PT/OT advance gait and ADL training, strengthen/stretch/maintain ROM all 4 extremities -Max HR 110-120 or RPE 4-5 while in therapy 2. Neuro: no known hx, monitor for delirium 3. Cardiac: hx of CAD s/p CABG & CHF with EF 35%, fluid management per renal, will fluid restrict while on ARU- medicine consulted to assist in management -Hx of afib on Co-Reg and Warfarin, monitor daily INRs and adjust, goal 2-3- holding Warfarin today for INR 4.45 -pmh HTN, will hold hydralazine for soft BPs -HLD- statin -c/u supplemental 02 prn 4. Resp: patient without known pulmonary disease, patient denies being on home 02 -monitor for infection and encourage incentive spirometry 5. Renal: ESRD on HD [id number], renal consulted to assist in management -will giv 1x dose Veltassa for high potassium 6. Ortho: s/p right hip fracture with ORIF- ortho consulted 7. Heme: anemia of chronic disease, per renal 8. Pain: oxycodone and Tylenol -will trial low dose effexor 9. DVT ppx: teds, on Coumadin 10. GI ppx: prilosec 11. Psych- trazodone for insomnia 12. Dispo: TBD Allergies Coded Allergies: No Known Allergies (Verified , 03/09/18) Vital Signs Vital Signs Date Time Temp Pulse Resp B/P (MAP) Pulse Ox O2 Delivery O2 Flow Rate FiO2 10/30/19 11:00 20 Room Air 10/30/19 09:09 88 128/60 10/30/19 05:37 97.6 98 Laboratory Data CBC/BMP Laboratory Tests 10/30/19 06:22 Labs 24H Laboratory Tests 2 10/30/19 06:22: Immature Granulocyte % (Auto) 0.7, Neutrophils (%) (Auto) 78.5H, Lymphocytes (%) (Auto) 6.9L, Monocytes (%) (Auto) 11.0H, Eosinophils (%) (Auto) 2.5, Basophils (%) (Auto) 0.4, Neutrophils # (Auto) 8.9H, Lymphocytes # (Auto) 0.8L, Monocytes # (Auto) 1.3H, Eosinophils # (Auto) 0.3, Basophils # (Auto) 0.1, Nucleated Red Blood Cells % (auto) 0.0, Anion Gap 10, Glomerular Filtration Rate 7.7L, Calcium Level 8.2L 10/30/19 06:26: Prothrombin Time 42.6H, Prothromb Time International Ratio 4.45 Current Medications Current Medications Current Medications Medications (Trade) Dose Ordered Sig/Kristen Route PRN Reason Start Time Stop Time Status Last Admin Dose Admin Acetaminophen (Tylenol Tab) 1,000 mg TID PO 10/27/19 16:00 10/30/19 09:10 Atorvastatin Calcium (Lipitor) 80 mg QHS PO 10/27/19 21:00 10/29/19 20:34 Carvedilol (COReg) 3.125 mg DAILY PO 10/28/19 09:00 10/30/19 09:09 Darbepoetin Alvin (Aranesp (Dialysis Use)) 100 mcg HD IV 10/27/19 18:30 Gabapentin (Neurontin) 100 mg QHS PO 10/27/19 21:00 10/29/19 20:34 Magnesium Hydroxide (Milk Of Magnesia) 30 ml DAILYPRN PRN PO CONSTIPATION 10/27/19 12:30 Nitroglycerin (Nitrostat (1/ 150)) 0.4 mg Q5MP PRN SL CHEST PAIN 10/27/19 12:30 Omeprazole (PriLOSEC) 20 mg DAILY PO 10/28/19 09:00 10/30/19 09:08 Oxycodone HCl (Roxicodone, Oxyir) 5 mg 0700,1100,1500,1900 PO 10/27/19 15:00 10/30/19 11:00 Oxycodone HCl (Roxicodone, Oxyir) 5 mg QHS PRN PO PAIN 10/27/19 12:30 10/29/19 21:53 Oxycodone HCl (Roxicodone, Oxyir) 5 mg QHS PRN PO PAIN 10/29/19 11:30 10/30/19 01:45 Ramelteon (Rozerem) 8 mg QHS PO 10/27/19 21:00 10/29/19 20:33 Senna/Docusate Sodium (Senokot S) 1 tab BID PO 10/27/19 21:00 10/30/19 09:08 Sevelamer Carbonate (Renvela) 1,600 mg WM PO 10/27/19 12:30 10/30/19 09:09 Trazodone HCl (Desyrel) 25 mg QHSP PRN PO INSOMNIA 10/27/19 12:30 10/29/19 23:00 Vitamin B Complex/ Vit C/Folic Acid (Nephro-Nadine Rx) 1 tab DAILY PO 10/27/19 09:00 10/30/19 09:08 Warfarin Sodium (Coumadin) 2.5 mg DAILY@17 PO 10/28/19 17:00 10/30/19 09:58 DC 10/29/19 16:08 KATJA UGALDE MD Oct 30, 2019 11:32
[2019-10-30] MEDS ORDERED: PATIROMER SORBITEX CALCIUM 8.4 GM POWDER PACKET (VELTASSA) PO ONE (12:00)
[2019-10-30] MEDS: VENLAFAXINE 37.5 MG TAB PO SCH ×2 (12:51→21:33)
[2019-10-30 14:00] VITALS: BP 134/63
[2019-10-30] MEDS ORDERED: SOD POLYSTYRENE SULFONATE SUSP 15 GM/60 ML UD PO ONE (14:00)
--- NOTE | 2019-10-30 19:47 | IPN ---
DATE: 10/30/2019 Mr. Grace is seen this morning on his bedside. He is sitting in the chair and reports pain in his right hip. He did have physical therapy this morning. The patient denies any dyspnea, chest pain, nausea or vomiting. PHYSICAL EXAMINATION: Temperature is 97.6 degrees Fahrenheit, heart rate 88 per minute and respiratory rate 20 per minute. Blood pressure 128/60 mmHg and oxygen saturation 98% on room air. Head is atraumatic. Neck supple and without JVD or thyroid enlargement. Heart sounds are irregular in rhythm and lungs with few basilar crepitations. Abdomen soft and nontender and bowel sounds are normal. Extremities without any cyanosis or clubbing. Skin has no rash or ulcers. Neurologically he is awake and at his baseline. Today's labs show WBC count 11.4, hemoglobin 8.1 and hematocrit 25.3. Platelets 288. Sodium 133, potassium 5.7, CO2 27, BUN 56 and creatinine 7.23. Glucose 90 and calcium 8.2. PROBLEMS: 1. End-stage renal disease. The patient is regularly dialyzed on Wednesday, and Wednesday schedule. He was dialyzed on Wednesday and we will plan on dialyzing him again tomorrow. 2. Hyperkalemia. Most likely this is related to his hip fracture surgery and hematoma absorption. We will give him one dose of Kayexalate and recheck his electrolytes tomorrow. 3. Anemia. His anemia is also worsened, most likely related to hip fracture and blood loss. CBC will be checked again tomorrow and will consider to transfuse if needed. 4. Atrial fibrillation. Ventricular rate is well-controlled. His INR is being managed by rehabilitation service.
[2019-10-30 20:00] VITALS: BP 141/62
[2019-10-30] MEDS: traZODone 25MG PER 1/2 TABLET PO PRN (21:32)
[2019-10-30] MEDS: GABAPENTIN 100 MG CAP PO SCH (21:32)
[2019-10-30] MEDS: RAMELTEON 8 MG TAB (ROZEREM) PO SCH (21:33)
[2019-10-30] MEDS: ATORVASTATIN 20 MG TAB PO SCH (21:33)
[2019-10-31] MEDS: oxyCODONE 5MG TAB PO PRN (01:49)
[2019-10-31 05:12] VITALS: BP 161/72
[2019-10-31] MEDS: oxyCODONE 5MG TAB PO SCH ×2 (06:08→12:31)
[2019-10-31 07:05] LABS: HEMATOCRIT 25.9 % (42.0-52.0); HEMOGLOBIN 8.3 g/dl (13.5-17.5); MEAN CORPUSCULAR HEMOGLOBIN 34.3 pg (27.0-33.0); PLATELET COUNT, AUTOMATED 349 10^3/uL (150-450); RED BLOOD COUNT 2.42 10^6/uL (4.30-6.10); WHITE BLOOD COUNT 13.6 10^3/uL (4.0-10.0)
[2019-10-31 07:14] LABS: PROTHROMBIN TIME 48.1 SECONDS (11.8-14.0)
[2019-10-31 07:21] LABS: INR 5.18
[2019-10-31 07:33] LABS: ALBUMIN 2.5 GM/DL (3.2-5.2); CREATININE FOR GFR 8.27 MG/DL (0.70-1.30); GLOMERULAR FILTRATION RATE 6.6 (>35); PHOSPHORUS LEVEL 4.7 MG/DL (2.5-4.9); POTASSIUM SERUM 5.2 MEQ/L (3.5-5.1)
[2019-10-31] MEDS: REMEDY PHYTOPLEX Z-GUARD PASTE 113GM TUBE (FROM STOREROOM PRODUCT) TOP SCH ×3 (09:00→21:00)
[2019-10-31] MEDS: ACETAMINOPHEN 500 MG TAB PO SCH ×3 (09:08→21:34)
[2019-10-31] MEDS: (RENVELA) SEVELAMER **CARBONate** 800 MG TAB PO SCH ×3 (09:08→18:46)
[2019-10-31] MEDS: CARVedilol 3.125 MG TAB PO SCH ×2 (09:09→21:34)
[2019-10-31] MEDS: NEPHRO-VIT TAB (NEPHROCAPS) PO SCH (09:09)
[2019-10-31] MEDS: OMEPRAZOLE 20 MG CAP PO SCH (09:09)
[2019-10-31] MEDS: VENLAFAXINE 37.5 MG TAB PO SCH ×2 (09:09→21:33)
[2019-10-31] MEDS: SENOKOT S TAB PO SCH ×2 (09:09→21:34)
[2019-10-31] MEDS ORDERED: HEPARIN 1,000 UNITS/ML 10ML VIAL (FOR RADIOLOGY& DIALYSIS ONLY)(J1644-10) IV ONE (10:30)
[2019-10-31 11:52] LABS: C REACTIVE PROTEIN QUANTITATIV 9.87 MG/DL (0.00-0.30)
[2019-10-31 14:00] VITALS: BP 119/74
--- NOTE | 2019-10-31 14:56 | IPNPDOC ---
PM&R Progress Note DATE OF SERVICE: Oct 31, 2019 Pulp Screen Operator Progress Note Subjective: Patient reporting daytime fatigue and states he slept ok last night, but in general is a poor sleeper. REVIEW OF SYSTEMS: The following is a completed review of systems and has been reviewed. Review of systems otherwise unremarkable. PAIN: Patient self reports right hip pain and chronic low back pain EYES: No recent vision changes EARS, NOSE, & THROAT: No throat pain, or dysphagia, or rhinorrhea. CARDIOVASCULAR: Denies chest pain or palpitations PULMONARY: Denies shortness of breath GASTROINTESTINAL: Denies constipation/diarrhea GENITOURINARY: denies dysuria MUSCULOSKELETAL: right hip fracture NEUROLOGICAL: denies focal tremor HEMATOLOGICAL: +anemia SKIN: right hip incision PSYCHIATRIC: Unremarkable All other review of systems found to be negative. PHYSICAL EXAMINATION: VITAL SIGNS: Please see below. GENERAL: Pleasant and cooperative. No acute distress. thin HEENT: PERRL. Extraocular movements intact. Clear conjunctiva CARDIOVASCULAR: Irregular rate and rhythm. No murmurs, rubs, or gallops LUNGS: Clear to auscultation bilaterally. No wheezes. No rhonchi ABDOMEN: Soft, nontender, nondistended. Positive bowel sounds. Normal active bowel sounds NEUROLOGICAL: Alert and oriented times three. Cranial nerves II through XII grossly intact. Sensation grossly intact EXTREMITIES: 5\5 strength bilateral upper extremities. 5\5 strength right ankle DF and PF (limited due to recent surgery) 5/5 strength in left lower extremity. SKIN: right hip incision ASSESSMENT: 83-year-old M with past medical history of ESRD on HD, Afib, CHF who presents status post fall with right hip fracture: PLAN: 1. Rehab- PT/OT advance gait and ADL training, strengthen/stretch/maintain ROM all 4 extremities -Max HR 110-120 or RPE 4-5 while in therapy 2. Neuro: no known hx, monitor for delirium 3. Cardiac: hx of CAD s/p CABG & CHF with EF 35%, fluid management per renal, will fluid restrict while on ARU- medicine consulted to assist in management -Hx of afib on Co-Reg and Warfarin, monitor daily INRs and adjust, goal 2-3- h olding Warfarin today for INR 5.18, no signs of active bleed -pmh HTN, will hold hydralazine for soft BPs -HLD- statin 4. Resp: patient without known pulmonary disease, patient denies being on home 02 -monitor for infection and encourage incentive spirometry -c/u supplemental 02, will change to nocturnal to assist with daytime somnolence 5. Renal: ESRD on HD [id number], renal consulted to assist in management -s/p 1x dose Veltassa for high potassium 6. Ortho: s/p right hip fracture with ORIF- ortho consulted 7. Heme: anemia of chronic disease, per renal 8. Pain: concern for daytime fatigue in setting of standing oxycodone dosing, will trial tramadol 25mg q4prn and d/c gabapentin -will increase effexor to 37.5 BID 9. DVT ppx: teds, on Coumadin 10. GI ppx: prilosec 11. Psych- trazodone for insomnia prn -will hold Rozerem for daytime somnolence 12. Leukocytosis: likely from post-op inflammation, will monitor and follow CRP, afebrile 13. Dispo: TBD Allergies Coded Allergies: No Known Allergies (Verified , 03/09/18) Vital Signs Vital Signs Date Time Temp Pulse Resp B/P (MAP) Pulse Ox O2 Delivery O2 Flow Rate FiO2 10/31/19 13:01 16 10/31/19 09:09 79 161/72 10/31/19 06:38 Room Air 10/31/19 05:12 97.5 98 Laboratory Data CBC/BMP Laboratory Tests 10/31/19 06:44 Labs 24H Laboratory Tests 2 10/31/19 06:44: Nucleated Red Blood Cells % (auto) 0.1H, Prothrombin Time 48.1H, Prothromb Time International Ratio 5.18*H, Anion Gap 11, Glomerular Filtration Rate 6.6L, Calcium Level 9.0, Phosphorus Level 4.7, C-Reactive Protein, Quantitative 9.87H, Albumin 2.5L Current Medications Current Medications Current Medications Medications (Trade) Dose Ordered Sig/Kristen Route PRN Reason Start Time Stop Time Status Last Admin Dose Admin Acetaminophen (Tylenol Tab) 1,000 mg TID PO 10/27/19 16:00 10/31/19 09:08 Atorvastatin Calcium (Lipitor) 80 mg QHS PO 10/27/19 21:00 10/30/19 21:33 Carvedilol (COReg) 3.125 mg BID PO 10/31/19 21:00 Carvedilol (COReg) 3.125 mg DAILY PO 10/28/19 09:00 10/31/19 11:26 DC 10/31/19 09:09 Darbepoetin Alvin (Aranesp (Dialysis Use)) 100 mcg HD IV 10/27/19 18:30 Gabapentin (Neurontin) 100 mg QHS PO 10/27/19 21:00 10/30/19 21:32 Magnesium Hydroxide (Milk Of Magnesia) 30 ml DAILYPRN PRN PO CONSTIPATION 10/27/19 12:30 Nitroglycerin (Nitrostat (1/ 150)) 0.4 mg Q5MP PRN SL CHEST PAIN 10/27/19 12:30 Omeprazole (PriLOSEC) 20 mg DAILY PO 10/28/19 09:00 10/31/19 09:09 Oxycodone HCl (Roxicodone, Oxyir) 5 mg 0700,1100,1500,1900 PO 10/27/19 15:00 10/31/19 12:31 Oxycodone HCl (Roxicodone, Oxyir) 5 mg QHS PRN PO PAIN 10/27/19 12:30 10/29/19 21:53 Oxycodone HCl (Roxicodone, Oxyir) 5 mg QHS PRN PO PAIN 10/29/19 11:30 10/31/19 01:49 Ramelteon (Rozerem) 8 mg QHS PO 10/27/19 21:00 10/30/19 21:33 Senna/Docusate Sodium (Senokot S) 1 tab BID PO 10/27/19 21:00 10/31/19 09:09 Sevelamer Carbonate (Renvela) 1,600 mg WM PO 10/27/19 12:30 10/31/19 12:31 Trazodone HCl (Desyrel) 25 mg QHSP PRN PO INSOMNIA 10/27/19 12:30 10/30/19 21:32 Venlafaxine HCl (Effexor) 18.75 mg BID PO 10/30/19 09:00 10/31/19 09:09 Vitamin B Complex/ Vit C/Folic Acid (Nephro-Nadine Rx) 1 tab DAILY PO 10/27/19 09:00 10/31/19 09:09 Warfarin Sodium (Coumadin) 2.5 mg DAILY@17 PO 10/28/19 17:00 10/30/19 09:58 DC 10/29/19 16:08 KATJA UGALDE MD Oct 31, 2019 14:56
[2019-10-31 16:59] LABS: PERCENT SATURATION 14.6 % (19.7-50.0)
--- NOTE | 2019-10-31 17:45 | IPN ---
DATE: 10/31/2019 Mr. Grace is seen this afternoon during hemodialysis. He is feeling better and tolerating dialysis treatment well. He is continuing with physical therapy and his right hip pain is improving. He denies any dyspnea, chest pain, nausea or vomiting. PHYSICAL EXAMINATION: Temperature 97 degrees Fahrenheit, heart rate 82 per minute and respiratory rate 18 per minute. Blood pressure 119/74 mmHg and oxygen saturation 94% on room air. Head is atraumatic. Neck is supple and without jugular venous distention (JVD) or thyroid enlargement. Heart sounds are irregular in rhythm. Lungs sound clear to auscultation. Abdomen is soft and nontender. Bowel sounds are normal. Extremities without any cyanosis or clubbing. Neurologically, he is awake, alert and oriented times three. LABORATORY DATA: Today's laboratories show WBC count 13.6, hemoglobin 8.3 and hematocrit 25.9. Sodium 130, potassium 5.2, BUN 74 and creatinine 8.27. His C-reactive protein is 9.87. PROBLEMS: 1. End-stage renal disease. The patient is being dialyzed this afternoon and he is tolerating his dialysis treatment very well. 2. Hyperkalemia. Slight improvement since yesterday with Kayexalate. The patient is being dialyzed with 2.0 mEq potassium bath today. This will correct his hyperkalemia. 3. Anemia. His anemia is related to hip fracture and surgery. He is receiving Aranesp 100 mcg once a week which will be continued and we will check iron studies to rule out any possibility of iron deficiency. 4. Right hip fracture, status post open reduction internal fixation (ORIF). The patient is currently undergoing acute rehabilitation and making some progress.
[2019-10-31 20:00] VITALS: BP 136/61
[2019-10-31] MEDS: traMADol 50 MG TAB PO PRN (21:32)
[2019-10-31] MEDS: ATORVASTATIN 20 MG TAB PO SCH (21:34)
[2019-11-01] MEDS: traMADol 50 MG TAB PO PRN ×3 (03:29→21:16)
[2019-11-01 06:00] VITALS: BP 138/70
[2019-11-01] MEDS: CARVedilol 3.125 MG TAB PO SCH ×2 (07:39→21:20)
[2019-11-01] MEDS: VENLAFAXINE 37.5 MG TAB PO SCH ×2 (07:39→21:15)
[2019-11-01] MEDS: OMEPRAZOLE 20 MG CAP PO SCH (07:39)
[2019-11-01] MEDS: (RENVELA) SEVELAMER **CARBONate** 800 MG TAB PO SCH ×3 (07:39→16:52)
[2019-11-01] MEDS: ACETAMINOPHEN 500 MG TAB PO SCH ×3 (07:39→21:17)
[2019-11-01] MEDS: REMEDY PHYTOPLEX Z-GUARD PASTE 113GM TUBE (FROM STOREROOM PRODUCT) TOP SCH ×3 (07:39→21:20)
[2019-11-01] MEDS: SENOKOT S TAB PO SCH ×2 (07:40→21:18)
[2019-11-01 07:48] LABS: BASO # 0.1 10^3/uL (0.0-0.2); BASO % 0.4 % (0.0-1.0); EOS # 0.1 10^3/uL (0.0-0.5); EOS % 0.7 % (0.0-3.0); HEMATOCRIT 24.5 % (42.0-52.0); HEMOGLOBIN 8.1 g/dl (13.5-17.5); LYMPH # 0.5 10^3/uL (1.5-5.0); LYMPH % 4.2 % (24.0-44.0); MEAN CORPUSCULAR HEMOGLOBIN 35.1 pg (27.0-33.0); MEAN CORPUSCULAR HGB CONC 33.1 g/dl (32.0-36.5); MEAN CORPUSCULAR VOLUME 106.1 fl (80.0-96.0); MONO # 1.1 10^3/uL (0.0-0.8); MONO % 9.3 % (0.0-5.0); NEUTROPHILS # 10.2 10^3/uL (1.5-8.5); NEUTROPHILS % 84.8 % (36.0-66.0); PLATELET COUNT, AUTOMATED 395 10^3/uL (150-450); RED BLOOD COUNT 2.31 10^6/uL (4.30-6.10); WHITE BLOOD COUNT 12.1 10^3/uL (4.0-10.0)
[2019-11-01 08:03] LABS: INR 3.05; PROTHROMBIN TIME 31.5 SECONDS (11.8-14.0)
[2019-11-01 08:31] LABS: C REACTIVE PROTEIN QUANTITATIV 9.4 MG/DL (0.00-0.30); CALCIUM LEVEL 8.9 MG/DL (8.8-10.2); CREATININE FOR GFR 4.74 MG/DL (0.70-1.30); GLOMERULAR FILTRATION RATE 12.6 (>35); POTASSIUM SERUM 4.7 MEQ/L (3.5-5.1)
[2019-11-01] MEDS: NEPHRO-VIT TAB (NEPHROCAPS) PO SCH (10:08)
[2019-11-01] MEDS ORDERED: tiZANidine 4 MG TAB PO ONE (11:45)
--- NOTE | 2019-11-01 11:53 | IPNPDOC ---
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 He reports his right hip muscles feel like they are in spasms. REVIEW OF SYSTEMS: The following is a completed review of systems and has been reviewed. Review of systems otherwise unremarkable. PAIN: Patient self reports right hip pain and chronic low back pain EYES: No recent vision changes EARS, NOSE, & THROAT: No throat pain, or dysphagia, or rhinorrhea. CARDIOVASCULAR: Denies chest pain or palpitations PULMONARY: Denies shortness of breath GASTROINTESTINAL: Denies constipation/diarrhea GENITOURINARY: denies dysuria MUSCULOSKELETAL: right hip fracture NEUROLOGICAL: denies focal tremor HEMATOLOGICAL: +anemia SKIN: right hip incision PSYCHIATRIC: Unremarkable All other review of systems found to be negative. PHYSICAL EXAMINATION: VITAL SIGNS: Please see below. GENERAL: Pleasant and cooperative. No acute distress. thin HEENT: PERRL. Extraocular movements intact. Clear conjunctiva CARDIOVASCULAR: Irregular rate and rhythm. No murmurs, rubs, or gallops LUNGS: Clear to auscultation bilaterally. No wheezes. No rhonchi ABDOMEN: Soft, nontender, nondistended. Positive bowel sounds. Normal active bowel sounds NEUROLOGICAL: Alert and oriented times three. Cranial nerves II through XII grossly intact. Sensation grossly intact EXTREMITIES: 5\5 strength bilateral upper extremities. 5\5 strength right ankle DF and PF (limited due to recent surgery) 5/5 strength in left lower extremity. SKIN: right hip incision ASSESSMENT: 83-year-old M with past medical history of ESRD on HD, Afib, CHF who presents status post fall with right hip fracture: PLAN: 1. Rehab- PT/OT advance gait and ADL training, strengthen/stretch/maintain ROM all 4 extremities -Max HR 110-120 or RPE 4-5 while in therapy 2. Neuro: no known hx, monitor for delirium 3. Cardiac: hx of CAD s/p CABG & CHF with EF 35%, fluid management per renal, will fluid restrict while on ARU- medicine consulted to assist in management -Hx of afib on Co-Reg and Warfarin, monitor daily INRs and adjust, goal 2-3- hol ding Warfarin again today for INR 3, will restart tomorrow at lower dose, no signs of active bleed -pmh HTN, will hold hydralazine for soft BPs -HLD- statin 4. Resp: patient without known pulmonary disease, patient denies being on home 02 -monitor for infection and encourage incentive spirometry -c/u supplemental 02, will change to nocturnal to assist with daytime somnolence 5. Renal: ESRD on HD [id number], renal consulted to assist in management -s/p 1x dose Veltassa for high potassium-resolved 6. Ortho: s/p right hip fracture with ORIF- ortho consulted 7. Heme: anemia of chronic disease, per renal 8. Pain: concern for daytime fatigue in setting of standing oxycodone dosing, will trial tramadol 25mg q4prn and d/c gabapentin -will increase effexor to 37.5 BID -one time dose fo tizanidine ordered for today 9. DVT ppx: teds, on Coumadin 10. GI ppx: prilosec 11. Psych- will increase trazodone to 50mg qHS standing -c/u to hold Rozerem for daytime somnolence 12. Leukocytosis: likely from post-op inflammation, will monitor and follow CRP, afebrile- CRP trending down 13. Dispo: TBD Allergies Coded Allergies: No Known Allergies (Verified , 03/09/18) Vital Signs Vital Signs Date Time Temp Pulse Resp B/P (MAP) Pulse Ox O2 Delivery O2 Flow Rate FiO2 11/01/19 08:13 16 11/01/19 07:43 Room Air 11/01/19 07:39 87 138/70 11/01/19 06:00 98.0 93 Laboratory Data CBC/BMP Laboratory Tests 11/01/19 07:29 Labs 24H Laboratory Tests 2 11/01/19 07:29: Immature Granulocyte % (Auto) 0.6, Neutrophils (%) (Auto) 84.8H, Lymphocytes (%) (Auto) 4.2L, Monocytes (%) (Auto) 9.3H, Eosinophils (%) (Auto) 0.7, Basophils (%) (Auto) 0.4, Neutrophils # (Auto) 10.2H, Lymphocytes # (Auto) 0.5L, Monocytes # (Auto) 1.1H, Eosinophils # (Auto) 0.1, Basophils # (Auto) 0.1, Nucleated Red Blood Cells % (auto) 0.3H, Prothrombin Time 31.5H, Prothromb Time International Ratio 3.05, Anion Gap 7L, Glomerular Filtration Rate 12.6L, Calcium Level 8.9, C-Reactive Protein, Quantitative 9.40H Current Medications Current Medications Current Medications Medications (Trade) Dose Ordered Sig/Kristen Route PRN Reason Start Time Stop Time Status Last Admin Dose Admin Acetaminophen (Tylenol Tab) 1,000 mg TID PO 10/27/19 16:00 11/01/19 07:39 Atorvastatin Calcium (Lipitor) 80 mg QHS PO 10/27/19 21:00 10/31/19 21:34 Carvedilol (COReg) 3.125 mg BID PO 10/31/19 21:00 11/01/19 07:39 Carvedilol (COReg) 3.125 mg DAILY PO 10/28/19 09:00 10/31/19 11:26 DC 10/31/19 09:09 Darbepoetin Alvin (Aranesp (Dialysis Use)) 100 mcg HD IV 10/27/19 18:30 Gabapentin (Neurontin) 100 mg QHS PO 10/27/19 21:00 10/31/19 14:53 DC 10/30/19 21:32 Magnesium Hydroxide (Milk Of Magnesia) 30 ml DAILYPRN PRN PO CONSTIPATION 10/27/19 12:30 Nitroglycerin (Nitrostat (1/ 150)) 0.4 mg Q5MP PRN SL CHEST PAIN 10/27/19 12:30 Omeprazole (PriLOSEC) 20 mg DAILY PO 10/28/19 09:00 11/01/19 07:39 Oxycodone HCl (Roxicodone, Oxyir) 5 mg 0700,1100,1500,1900 PO 10/27/19 15:00 10/31/19 14:53 DC 10/31/19 12:31 Oxycodone HCl (Roxicodone, Oxyir) 5 mg QHS PRN PO PAIN 10/27/19 12:30 10/31/19 14:53 DC 10/29/19 21:53 Oxycodone HCl (Roxicodone, Oxyir) 5 mg QHS PRN PO PAIN 10/29/19 11:30 10/31/19 14:53 DC 10/31/19 01:49 Ramelteon (Rozerem) 8 mg QHS PO 10/27/19 21:00 10/31/19 14:53 DC 10/30/19 21:33 Senna/Docusate Sodium (Senokot S) 1 tab BID PO 10/27/19 21:00 11/01/19 07:40 Sevelamer Carbonate (Renvela) 1,600 mg WM PO 10/27/19 12:30 11/01/19 07:39 Tramadol HCl (Ultram) 25 mg Q4HP PRN PO MODERATE PAIN (PS 5-7) 10/31/19 15:00 11/01/19 07:43 Trazodone HCl (Desyrel) 25 mg QHSP PRN PO INSOMNIA 10/27/19 12:30 10/30/19 21:32 Venlafaxine HCl (Effexor) 18.75 mg BID PO 10/30/19 09:00 10/31/19 14:53 DC 10/31/19 09:09 Venlafaxine HCl (Effexor) 37.5 mg BID PO 10/31/19 21:00 11/01/19 07:39 Vitamin B Complex/ Vit C/Folic Acid (Nephro-Nadine Rx) 1 tab DAILY PO 10/27/19 09:00 11/01/19 10:08 Warfarin Sodium (Coumadin) 2.5 mg DAILY@17 PO 10/28/19 17:00 10/30/19 09:58 DC 10/29/19 16:08 KATJA UGALDE MD Nov 01, 2019 11:53
[2019-11-01 14:00] VITALS: BP 149/64
[2019-11-01] MEDS: tiZANidine 4 MG TAB PO SCH ×2 (16:52→21:18)
[2019-11-01 20:00] VITALS: BP 135/61
[2019-11-01] MEDS ORDERED: traZODone 50 MG TAB PO SCH (21:00)
[2019-11-01] MEDS: ATORVASTATIN 20 MG TAB PO SCH (21:18)
[2019-11-02] MEDS: traMADol 50 MG TAB PO PRN (01:52)
[2019-11-02 05:31] VITALS: BP 159/74
[2019-11-02] MEDS: tiZANidine 4 MG TAB PO SCH ×4 (06:16→21:25)
[2019-11-02] MEDS: MOM 30ML SUSPENSION UDC PO PRN ×2 (06:34→06:35)
[2019-11-02 07:16] LABS: INR 3.26; PROTHROMBIN TIME 33.2 SECONDS (11.8-14.0)
[2019-11-02] MEDS: (RENVELA) SEVELAMER **CARBONate** 800 MG TAB PO SCH ×3 (08:00→18:01)
[2019-11-02] MEDS: SENOKOT S TAB PO SCH ×2 (09:29→21:29)
[2019-11-02] MEDS: VENLAFAXINE 37.5 MG TAB PO SCH ×2 (09:29→21:29)
[2019-11-02] MEDS: NEPHRO-VIT TAB (NEPHROCAPS) PO SCH (09:29)
[2019-11-02] MEDS: OMEPRAZOLE 20 MG CAP PO SCH (09:29)
[2019-11-02] MEDS: ACETAMINOPHEN 500 MG TAB PO SCH ×3 (09:32→21:30)
[2019-11-02] MEDS: CARVedilol 3.125 MG TAB PO SCH ×2 (09:33→21:00)
[2019-11-02] MEDS: REMEDY PHYTOPLEX Z-GUARD PASTE 113GM TUBE (FROM STOREROOM PRODUCT) TOP SCH ×3 (09:34→21:30)
[2019-11-02] MEDS ORDERED: traMADol 50 MG TAB PO PRN (10:30)
[2019-11-02] MEDS ORDERED: tiZANidine 4 MG TAB PO PRN (10:30)
[2019-11-02] MEDS ORDERED: HEPARIN 1,000 UNITS/ML 10ML VIAL (FOR RADIOLOGY& DIALYSIS ONLY)(J1644-10) IV ONE (11:00)
[2019-11-02] MEDS ORDERED: BISACODYL 10 MG SUPP PR ONE (11:00)
[2019-11-02] MEDS ORDERED: IRON SUCROSE 100MG 5ML VIAL (J1756 PER 1MG) IV SCH (11:15)
--- NOTE | 2019-11-02 12:01 | IPNPDOC ---
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 He reports he uses Relistor at home. He is having difficulty sleeping and says his appetite is poor. REVIEW OF SYSTEMS: The following is a completed review of systems and has been reviewed. Review of systems otherwise unremarkable. PAIN: Patient self reports right hip pain and chronic low back pain EYES: No recent vision changes EARS, NOSE, & THROAT: No throat pain, or dysphagia, or rhinorrhea. CARDIOVASCULAR: Denies chest pain or palpitations PULMONARY: Denies shortness of breath GASTROINTESTINAL: +constipation GENITOURINARY: denies dysuria MUSCULOSKELETAL: right hip fracture NEUROLOGICAL: denies focal tremor HEMATOLOGICAL: +anemia SKIN: right hip incision PSYCHIATRIC: Unremarkable All other review of systems found to be negative. PHYSICAL EXAMINATION: VITAL SIGNS: Please see below. GENERAL: Pleasant and cooperative. No acute distress. thin HEENT: PERRL. Extraocular movements intact. Clear conjunctiva CARDIOVASCULAR: Irregular rate and rhythm. No murmurs, rubs, or gallops LUNGS: Clear to auscultation bilaterally. No wheezes. No rhonchi ABDOMEN: Soft, nontender, nondistended. Positive bowel sounds. Normal active bowel sounds NEUROLOGICAL: Alert and oriented times three. Cranial nerves II through XII grossly intact. Sensation grossly intact EXTREMITIES: 5\5 strength bilateral upper extremities. 5\5 strength right ankle DF and PF (limited due to recent surgery) 5/5 strength in left lower extremity. SKIN: right hip incision ASSESSMENT: 83-year-old M with past medical history of ESRD on HD, Afib, CHF who presents status post fall with right hip fracture: PLAN: 1. Rehab- PT/OT advance gait and ADL training, strengthen/stretch/maintain ROM all 4 extremities -Max HR 110-120 or RPE 4-5 while in therapy 2. Neuro: no known hx, monitor for delirium 3. Cardiac: hx of CAD s/p CABG & CHF with EF 35%, fluid management per renal, will fluid restrict while on ARU- medicine consulted to assist in management -Hx of afib on Co-Reg and Warfarin, monitor daily INRs and adjust, goal 2-3- holding Warfarin again today for INR 3, will restart tomorrow at lower dose, no signs of active bleed -pmh HTN, will c/u to hold hydralazine for soft BPs -HLD- statin 4. Resp: patient without known pulmonary disease, patient denies being on home 02 -monitor for infection and encourage incentive spirometry -c/u supplemental 02, will change to nocturnal to assist with daytime somnolence 5. Renal: ESRD on HD [id number], renal consulted to assist in management -s/p 1x dose Veltassa for high potassium-resolved 6. Ortho: s/p right hip fracture with ORIF- ortho consulted 7. Heme: anemia of chronic disease, per renal 8. Pain: concern for daytime fatigue in setting of standing oxycodone dosing, d/c'd gabapentin -c/u tramadol at increased dose 50mg to TID standing and qHS prn -patient reported significant relief with tizanidine c/u -c/u effexor to 37.5 BID 9. DVT ppx: teds, on Coumadin 10. GI ppx: prilosec -will start Relistor 4mg q48h IM renally dosed for constipation, suppository ordered as well 11. Psych- will change trazodone to Remeron 7.5mg qhs to help with insomnia and poor appetite 12. Leukocytosis: likely from post-op inflammation, will monitor and follow CRP, afebrile- CRP trending down 13. Dispo: TBD Allergies Coded Allergies: No Known Allergies (Verified , 03/09/18) Vital Signs Vital Signs Date Time Temp Pulse Resp B/P (MAP) Pulse Ox O2 Delivery O2 Flow Rate FiO2 11/02/19 10:21 20 Room Air 11/02/19 09:33 95 149/70 11/02/19 05:31 96.6 100 2.0 Laboratory Data Labs 24H Laboratory Tests 2 11/02/19 06:46: Prothrombin Time 33.2H, Prothromb Time International Ratio 3.26 Current Medications Current Medications Current Medications Medications (Trade) Dose Ordered Sig/Kristen Route PRN Reason Start Time Stop Time Status Last Admin Dose Admin Acetaminophen (Tylenol Tab) 1,000 mg TID PO 10/27/19 16:00 11/02/19 09:32 Atorvastatin Calcium (Lipitor) 80 mg QHS PO 10/27/19 21:00 11/01/19 21:18 Carvedilol (COReg) 3.125 mg BID PO 10/31/19 21:00 11/02/19 09:33 Carvedilol (COReg) 3.125 mg DAILY PO 10/28/19 09:00 10/31/19 11:26 DC 10/31/19 09:09 Darbepoetin Alvin (Aranesp (Dialysis Use)) 100 mcg HD IV 10/27/19 18:30 Gabapentin (Neurontin) 100 mg QHS PO 10/27/19 21:00 10/31/19 14:53 DC 10/30/19 21:32 Iron (Venofer) 100 mg HD IV 11/02/19 11:15 Magnesium Hydroxide (Milk Of Magnesia) 30 ml DAILYPRN PRN PO CONSTIPATION 10/27/19 12:30 11/02/19 06:35 Nitroglycerin (Nitrostat (1/ 150)) 0.4 mg Q5MP PRN SL CHEST PAIN 10/27/19 12:30 Omeprazole (PriLOSEC) 20 mg DAILY PO 10/28/19 09:00 11/02/19 09:29 Oxycodone HCl (Roxicodone, Oxyir) 5 mg 0700,1100,1500,1900 PO 10/27/19 15:00 10/31/19 14:53 DC 10/31/19 12:31 Oxycodone HCl (Roxicodone, Oxyir) 5 mg QHS PRN PO PAIN 10/27/19 12:30 10/31/19 14:53 DC 10/29/19 21:53 Oxycodone HCl (Roxicodone, Oxyir) 5 mg QHS PRN PO PAIN 10/29/19 11:30 10/31/19 14:53 DC 10/31/19 01:49 Ramelteon (Rozerem) 8 mg QHS PO 10/27/19 21:00 10/31/19 14:53 DC 10/30/19 21:33 Senna/Docusate Sodium (Senokot S) 1 tab BID PO 10/27/19 21:00 11/02/19 09:29 Sevelamer Carbonate (Renvela) 1,600 mg WM PO 10/27/19 12:30 11/01/19 16:52 Tizanidine HCl (Zanaflex) 2 mg 0700,1100,1600,2100 PO 11/01/19 16:00 11/02/19 06:16 Tizanidine HCl (Zanaflex) 2 mg QHS PRN PO pain 11/02/19 10:30 Tramadol HCl (Ultram) 25 mg Q4HP PRN PO MODERATE PAIN (PS 5-7) 10/31/19 15:00 11/02/19 10:19 DC 11/02/19 01:52 Tramadol HCl (Ultram) 50 mg Q4HP PRN PO MODERATE PAIN (PS 5-7) 11/02/19 10:30 Trazodone HCl (Desyrel) 25 mg QHSP PRN PO INSOMNIA 10/27/19 12:30 11/01/19 11:42 DC 10/30/19 21:32 Trazodone HCl (Desyrel) 50 mg QHS PO 11/01/19 21:00 11/01/19 21:17 Venlafaxine HCl (Effexor) 18.75 mg BID PO 10/30/19 09:00 10/31/19 14:53 DC 10/31/19 09:09 Venlafaxine HCl (Effexor) 37.5 mg BID PO 10/31/19 21:00 11/02/19 09:29 Vitamin B Complex/ Vit C/Folic Acid (Nephro-Nadine Rx) 1 tab DAILY PO 10/27/19 09:00 11/02/19 09:29 Warfarin Sodium (Coumadin) 2.5 mg DAILY@17 PO 10/28/19 17:00 10/30/19 09:58 DC 10/29/19 16:08 KATJA UGALDE MD Nov 02, 2019 12:01
[2019-11-02] MEDS: traMADol 50 MG TAB PO SCH ×3 (12:59→21:25)
[2019-11-02] MEDS ORDERED: traMADol 50 MG TAB PO SCH (13:00)
[2019-11-02] MEDS: BISACODYL 10 MG SUPP PR ONE ×2 (13:00→19:48)
--- NOTE | 2019-11-02 14:36 | IPN ---
DATE: 11/02/2019 Mr. Grace is seen this morning on his bedside. He is complaining of pain in his right hip and also complains of pain in the rectal area and constipation. He denies any nausea, vomiting, dyspnea or chest pain. PHYSICAL EXAMINATION: Temperature 96.6 degrees Fahrenheit, heart rate 95 per minute and respiratory rate 18 per minute. Blood pressure 149/73 mmHg and oxygen saturation 100%. His head is atraumatic. Neck is supple and without jugular venous distention (JVD) or thyroid enlargement. Heart sounds are irregular and tachycardiac. Lungs sound clear to auscultation. Abdomen is soft and nontender. Bowel sounds are normal. Extremities are without any cyanosis or clubbing. Neurologically, he is awake, alert and oriented times three. His labs done yesterday have been reviewed. WBC count 12.1, hemoglobin 8.1 and hematocrit 24.5. His iron level was only 19 and saturation 14.6%. Sodium was 133, potassium 4.7, BUN 31 and creatinine 4.74. C-reactive protein 9.4. PROBLEMS: 1. End-stage renal disease. The patient is regularly dialyzed on Wednesday, and Wednesday schedule and today he will have his dialysis done this afternoon. 2. Hyponatremia. He does have mild chronic and stable hyponatremia, which is likely to improve with dialysis and no other intervention is indicated. 3. Iron deficiency anemia in the setting of end-stage renal disease. The patient has been receiving maintenance hemodialysis and Aranesp 100 mcg once a week along with it. He has iron deficiency due to his hip fracture and surgery, and I am starting him on Venofer 100 mg with each hemodialysis. 4. Constipation. Most likely related to pain medications. He has been getting stool softener, and we will give him one dose of Dulcolax suppository as he is complaining of rectal pain and suppository might help.
[2019-11-02] MEDS: METHYLNALTREXONE BROMIDE 12 MG/0.6 ML VIAL (RELISTOR) SC SCH (15:00)
[2019-11-02 16:45] VITALS: BP 170/75
[2019-11-02 20:00] VITALS: BP 102/50
[2019-11-02] MEDS: MIRTAZAPINE 7.5MG PER 1/2 TABLET PO SCH (21:26)
[2019-11-02] MEDS: ATORVASTATIN 20 MG TAB PO SCH (21:29)
[2019-11-03 05:34] VITALS: BP 124/80
[2019-11-03] MEDS: tiZANidine 4 MG TAB PO SCH ×4 (06:13→21:57)
[2019-11-03 07:08] LABS: BASO # 0.1 10^3/uL (0.0-0.2); BASO % 0.3 % (0.0-1.0); EOS % 0.1 % (0.0-3.0); HEMATOCRIT 24.7 % (42.0-52.0); HEMOGLOBIN 8.2 g/dl (13.5-17.5); LYMPH # 0.4 10^3/uL (1.5-5.0); LYMPH % 2.1 % (24.0-44.0); MEAN CORPUSCULAR HGB CONC 33.2 g/dl (32.0-36.5); MEAN CORPUSCULAR VOLUME 105.6 fl (80.0-96.0); MONO # 1.3 10^3/uL (0.0-0.8); MONO % 7.2 % (0.0-5.0); NEUTROPHILS # 15.9 10^3/uL (1.5-8.5); NEUTROPHILS % 89.5 % (36.0-66.0); PLATELET COUNT, AUTOMATED 457 10^3/uL (150-450); RED BLOOD COUNT 2.34 10^6/uL (4.30-6.10); WHITE BLOOD COUNT 17.8 10^3/uL (4.0-10.0)
[2019-11-03 07:17] LABS: INR 2.05; PROTHROMBIN TIME 22.9 SECONDS (11.8-14.0)
[2019-11-03 07:31] LABS: CALCIUM LEVEL 8.9 MG/DL (8.8-10.2); CREATININE FOR GFR 3.92 MG/DL (0.70-1.30); GLOMERULAR FILTRATION RATE 15.6 (>35); POTASSIUM SERUM 4.4 MEQ/L (3.5-5.1)
[2019-11-03] MEDS: MOM 30ML SUSPENSION UDC PO PRN (07:31)
[2019-11-03] MEDS: VENLAFAXINE 37.5 MG TAB PO SCH ×2 (07:32→22:01)
[2019-11-03] MEDS: OMEPRAZOLE 20 MG CAP PO SCH (07:32)
[2019-11-03] MEDS: (RENVELA) SEVELAMER **CARBONate** 800 MG TAB PO SCH ×3 (07:32→17:14)
[2019-11-03] MEDS: traMADol 50 MG TAB PO SCH ×3 (07:32→22:01)
[2019-11-03] MEDS: REMEDY PHYTOPLEX Z-GUARD PASTE 113GM TUBE (FROM STOREROOM PRODUCT) TOP SCH ×3 (07:33→21:00)
[2019-11-03] MEDS: SENOKOT S TAB PO SCH ×2 (07:33→22:01)
[2019-11-03] MEDS: CARVedilol 3.125 MG TAB PO SCH ×2 (07:33→22:00)
[2019-11-03] MEDS: ACETAMINOPHEN 500 MG TAB PO SCH ×3 (07:33→21:57)
[2019-11-03] MEDS: NEPHRO-VIT TAB (NEPHROCAPS) PO SCH (11:06)
--- NOTE | 2019-11-03 13:39 | REP ---
Chest x-ray: Three views. History: Rule out infiltrate. Comparison chest x-ray: October 24, 2019. Findings: Median sternotomy wires are noted. Multiple old bilateral rib fractures are again noted. Pulmonary vasculature is not increased. The aorta is tortuous and calcific. No infiltrate is seen. Impression: No infiltrate noted. Electronically Signed by Kan Henderson MD 11/03/2019 01:30 P
[2019-11-03 14:00] VITALS: BP 133/97
--- NOTE | 2019-11-03 14:40 | IPNPDOC ---
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 He acknowledges that sometimes when he looks down he see ants, stating this happened to him on occasion prior to being admitted to ARU. REVIEW OF SYSTEMS: The following is a completed review of systems and has been reviewed. Review of systems otherwise unremarkable. PAIN: Patient self reports right hip pain and chronic low back pain EYES: No recent vision changes EARS, NOSE, & THROAT: No throat pain, or dysphagia, or rhinorrhea. CARDIOVASCULAR: Denies chest pain or palpitations PULMONARY: Denies shortness of breath GASTROINTESTINAL: +constipation GENITOURINARY: denies dysuria MUSCULOSKELETAL: right hip fracture NEUROLOGICAL: denies focal tremor HEMATOLOGICAL: +anemia SKIN: right hip incision PSYCHIATRIC: Unremarkable All other review of systems found to be negative. PHYSICAL EXAMINATION: VITAL SIGNS: Please see below. GENERAL: Pleasant and cooperative. No acute distress. thin HEENT: PERRL. Extraocular movements intact. Clear conjunctiva CARDIOVASCULAR: Irregular rate and rhythm. No murmurs, rubs, or gallops LUNGS: Clear to auscultation bilaterally. No wheezes. No rhonchi ABDOMEN: Soft, nontender, nondistended. Positive bowel sounds. Normal active bowel sounds NEUROLOGICAL: Alert and oriented times three. Cranial nerves II through XII grossly intact. Sensation grossly intact EXTREMITIES: 5\5 strength bilateral upper extremities. 5\5 strength right ankle DF and PF (limited due to recent surgery) 5/5 strength in left lower extremity. SKIN: right hip incision ASSESSMENT: 83-year-old M with past medical history of ESRD on HD, Afib, CHF who presents status post fall with right hip fracture: PLAN: 1. Rehab- PT/OT advance gait and ADL training, strengthen/stretch/maintain ROM all 4 extremities -Max HR 110-120 or RPE 4-5 while in therapy 2. Neuro: no known hx, monitor for delirium 3. Cardiac: hx of CAD s/p CABG & CHF with EF 35%, fluid management per renal, will fluid restrict while on ARU- medicine consulted to assist in management -Hx of afib on Co-Reg and Warfarin, monitor daily INRs and adjust, goal 2-3- holding Warfarin again today for INR 3, will restart tomorrow at lower dose, no signs of active bleed -pmh HTN, will c/u to hold hydralazine for soft BPs -HLD- statin 4. Resp: patient without known pulmonary disease, patient denies being on home 02 -monitor for infection and encourage incentive spirometry -c/u supplemental 02, will change to nocturnal to assist with daytime somnolence 5. Renal: ESRD on HD [id number], renal consulted to assist in management -s/p 1x dose Veltassa for high potassium-resolved 6. Ortho: s/p right hip fracture with ORIF- ortho consulted 7. Heme: anemia of chronic disease, per renal 8. Pain: concern for daytime fatigue in setting of standing oxycodone dosing, d/c'd gabapentin -c/u tramadol at increased dose 50mg to TID standing and qHS prn -patient reported significant relief with tizanidine c/u -c/u effexor to 37.5 BID 9. DVT ppx: teds, on Coumadin 10. GI ppx: prilosec -c/u Relistor 4mg q48h IM renally dosed for constipation, will order enema today and q3d prn 11. Psych- c/u Remeron 7.5mg qhs to help with insomnia and poor appetite 12. Leukocytosis: likely from post-op inflammation, will monitor and follow CRP, afebrile- wbc and crp trending up, patient denies cough, fevers, or chills- blood cx, Ucx, and CXR ordered 13. Dispo: TBD Allergies Coded Allergies: No Known Allergies (Verified , 03/09/18) Vital Signs Vital Signs Date Time Temp Pulse Resp B/P (MAP) Pulse Ox O2 Delivery O2 Flow Rate FiO2 11/03/19 07:33 99 124/80 11/03/19 07:32 16 11/03/19 05:34 96.9 99 Nasal Cannula 2.0 Laboratory Data CBC/BMP Laboratory Tests 11/03/19 06:32 Labs 24H Laboratory Tests 2 11/03/19 06:32: Immature Granulocyte % (Auto) 0.8, Neutrophils (%) (Auto) 89.5H, Lymphocytes (%) (Auto) 2.1L, Monocytes (%) (Auto) 7.2H, Eosinophils (%) (Auto) 0.1, Basophils (%) (Auto) 0.3, Neutrophils # (Auto) 15.9H, Lymphocytes # (Auto) 0.4L, Monocytes # (Auto) 1.3H, Eosinophils # (Auto) 0.0, Basophils # (Auto) 0.1, Nucleated Red Blood Cells % (auto) 0.5H, Prothrombin Time 22.9H, Prothromb Time International Ratio 2.05, Anion Gap 8, Glomerular Filtration Rate 15.6L, Calcium Level 8.9, C- Reactive Protein, Quantitative 11.00H Microbiology Microbiology 11/03/19 Blood Culture, Received Pending 11/03/19 Blood Culture, Received Pending Current Medications Current Medications Current Medications Medications (Trade) Dose Ordered Sig/Kristen Route PRN Reason Start Time Stop Time Status Last Admin Dose Admin Acetaminophen (Tylenol Tab) 1,000 mg TID PO 10/27/19 16:00 11/03/19 07:33 Atorvastatin Calcium (Lipitor) 80 mg QHS PO 10/27/19 21:00 11/02/19 21:29 Carvedilol (COReg) 3.125 mg BID PO 10/31/19 21:00 11/03/19 07:33 Carvedilol (COReg) 3.125 mg DAILY PO 10/28/19 09:00 10/31/19 11:26 DC 10/31/19 09:09 Darbepoetin Alvin (Aranesp (Dialysis Use)) 100 mcg HD IV 10/27/19 18:30 Gabapentin (Neurontin) 100 mg QHS PO 10/27/19 21:00 10/31/19 14:53 DC 10/30/19 21:32 Iron (Venofer) 100 mg HD IV 11/02/19 11:15 Magnesium Hydroxide (Milk Of Magnesia) 30 ml DAILYPRN PRN PO CONSTIPATION 10/27/19 12:30 11/03/19 07:31 Methylnaltrexone [place] (Relistor) 4 mg Q48H SC 11/02/19 15:00 Mirtazapine (Remeron) 7.5 mg QHS PO 11/02/19 21:00 11/02/19 21:26 Nitroglycerin (Nitrostat (1/ 150)) 0.4 mg Q5MP PRN SL CHEST PAIN 10/27/19 12:30 Omeprazole (PriLOSEC) 20 mg DAILY PO 10/28/19 09:00 11/03/19 07:32 Oxycodone HCl (Roxicodone, Oxyir) 5 mg 0700,1100,1500,1900 PO 10/27/19 15:00 10/31/19 14:53 DC 10/31/19 12:31 Oxycodone HCl (Roxicodone, Oxyir) 5 mg QHS PRN PO PAIN 10/27/19 12:30 10/31/19 14:53 DC 10/29/19 21:53 Oxycodone HCl (Roxicodone, Oxyir) 5 mg QHS PRN PO PAIN 10/29/19 11:30 10/31/19 14:53 DC 10/31/19 01:49 Ramelteon (Rozerem) 8 mg QHS PO 10/27/19 21:00 10/31/19 14:53 DC 10/30/19 21:33 Senna/Docusate Sodium (Senokot S) 1 tab BID PO 10/27/19 21:00 11/03/19 07:33 Sevelamer Carbonate (Renvela) 1,600 mg WM PO 10/27/19 12:30 11/03/19 11:06 Sodium Biphosphate/ Sodium Phosphate (Fleet Enema) 1 ea Q3DP PRN [place] CONSTIPATION 11/06/19 09:00 Tizanidine HCl (Zanaflex) 2 mg 0700,1100,1600,2100 PO 11/01/19 16:00 11/03/19 11:06 Tizanidine HCl (Zanaflex) 2 mg QHS PRN PO pain 11/02/19 10:30 Tramadol HCl (Ultram) 25 mg Q4HP PRN PO MODERATE PAIN (PS 5-7) 10/31/19 15:00 11/02/19 10:19 DC 11/02/19 01:52 Tramadol HCl (Ultram) 50 mg DAILY@0100 PRN PO PAIN 11/02/19 12:00 Tramadol HCl (Ultram) 50 mg Q4HP PRN PO MODERATE PAIN (PS 5-7) 11/02/19 10:30 11/02/19 11:58 DC Tramadol HCl (Ultram) 50 mg QID PO 11/02/19 13:00 11/02/19 12:00 DC Tramadol HCl (Ultram) 50 mg TID PO 11/02/19 13:00 11/03/19 07:32 Trazodone HCl (Desyrel) 25 mg QHSP PRN PO INSOMNIA 10/27/19 12:30 11/01/19 11:42 DC 10/30/19 21:32 Trazodone HCl (Desyrel) 50 mg QHS PO 11/01/19 21:00 11/02/19 11:55 DC 11/01/19 21:17 Venlafaxine HCl (Effexor) 18.75 mg BID PO 10/30/19 09:00 10/31/19 14:53 DC 10/31/19 09:09 Venlafaxine HCl (Effexor) 37.5 mg BID PO 10/31/19 21:00 11/03/19 07:32 Vitamin B Complex/ Vit C/Folic Acid (Nephro-Nadine Rx) 1 tab DAILY PO 10/27/19 09:00 11/03/19 11:06 Warfarin Sodium (Coumadin) 1 mg DAILY@17 PO 11/03/19 17:00 Warfarin Sodium (Coumadin) 2.5 mg DAILY@17 PO 10/28/19 17:00 10/30/19 09:58 DC 10/29/19 16:08 KATJA UGALDE MD Nov 03, 2019 14:40
[2019-11-03] MEDS ORDERED: FLEET ENEMA PR ONE (15:00)
[2019-11-03] MEDS: WARFARIN SOD 1 MG TAB PO SCH (16:22)
[2019-11-03 20:00] VITALS: BP 151/71
[2019-11-03] MEDS: ATORVASTATIN 20 MG TAB PO SCH (22:02)
[2019-11-03] MEDS: MIRTAZAPINE 7.5MG PER 1/2 TABLET PO SCH (22:06)
[2019-11-04 06:00] VITALS: BP 148/68
[2019-11-04] MEDS: tiZANidine 4 MG TAB PO SCH ×4 (06:18→19:58)
[2019-11-04 06:43] LABS: BASO # 0.1 10^3/uL (0.0-0.2); BASO % 0.2 % (0.0-1.0); EOS % 0.1 % (0.0-3.0); HEMATOCRIT 25.6 % (42.0-52.0); HEMOGLOBIN 8.4 g/dl (13.5-17.5); LYMPH # 0.6 10^3/uL (1.5-5.0); LYMPH % 2.8 % (24.0-44.0); MEAN CORPUSCULAR HGB CONC 32.8 g/dl (32.0-36.5); MEAN CORPUSCULAR VOLUME 106.7 fl (80.0-96.0); MONO # 1.4 10^3/uL (0.0-0.8); MONO % 6.9 % (0.0-5.0); NEUTROPHILS # 17.9 10^3/uL (1.5-8.5); NEUTROPHILS % 89.1 % (36.0-66.0); PLATELET COUNT, AUTOMATED 475 10^3/uL (150-450); WHITE BLOOD COUNT 20.1 10^3/uL (4.0-10.0)
[2019-11-04 07:02] LABS: INR 2.15; PROTHROMBIN TIME 23.8 SECONDS (11.8-14.0)
[2019-11-04 07:13] LABS: CALCIUM LEVEL 9.3 MG/DL (8.8-10.2); CREATININE FOR GFR 5.8 MG/DL (0.70-1.30); GLOMERULAR FILTRATION RATE 9.9 (>35)
[2019-11-04] MEDS: SENOKOT S TAB PO SCH ×2 (08:33→19:57)
[2019-11-04] MEDS: (RENVELA) SEVELAMER **CARBONate** 800 MG TAB PO SCH ×3 (08:33→16:43)
[2019-11-04] MEDS: traMADol 50 MG TAB PO SCH ×3 (08:34→19:57)
[2019-11-04] MEDS: VENLAFAXINE 37.5 MG TAB PO SCH ×2 (08:34→19:58)
[2019-11-04] MEDS: OMEPRAZOLE 20 MG CAP PO SCH (08:34)
[2019-11-04] MEDS: NEPHRO-VIT TAB (NEPHROCAPS) PO SCH (08:34)
[2019-11-04] MEDS: CARVedilol 3.125 MG TAB PO SCH ×2 (08:34→19:59)
[2019-11-04] MEDS: ACETAMINOPHEN 500 MG TAB PO SCH ×3 (08:35→19:57)
[2019-11-04] MEDS: REMEDY PHYTOPLEX Z-GUARD PASTE 113GM TUBE (FROM STOREROOM PRODUCT) TOP SCH ×3 (08:35→20:08)
--- NOTE | 2019-11-04 14:12 | IPN ---
DATE OF SERVICE: 11/04/2019 SUBJECTIVE: The patient was seen and examined at the bedside today morning in the rehabilitation. He was sitting up on the sofa, he was drowsy. He does report pain in the right hip, today's his regular day of dialysis. He denies any other active complaints at this time. OBJECTIVE: Vital signs: Temperature is 97.2 degree Fahrenheit, blood pressure 148/68, pulse is 72, respiratory rate 18, saturating 95% on nasal cannula at 2 liters. Intake and output - there is no urine output recorded. Weight in the bed scale is 59.2 kg. PHYSICAL EXAMINATION: General: The patient is awake, alert, oriented times three, sitting up on the sofa in no apparent distress. Head and neck exam: Extraocular muscles intact. Pupils equally round and reactive to light. Mucous membranes are moist. Neck is supple. There is no jugular venous distention (JVD). Cardiovascular: S1, S2, regular rate. No edema of the bilateral extremities. Respiratory: Chest is clear to auscultation bilaterally. Bilateral equal air entry. No rales or rhonchi. Abdomen: Soft, positive bowel sounds. Nontender. Musculoskeletal: He has a right forearm AV fistula with thrill and bruit. LINE WALKER: No focal deficit, power is 5/5 in bilateral upper extremities. LAB REVIEW: CBC showed WBC of 20, hemoglobin is 8.4, platelets are 475. BMP showed sodium 135, potassium 5, chloride 98, bicarb 26, BUN 47, creatinine is 5.8. IMAGING: A chest x-ray was done yesterday which showed no infiltrates. CURRENT INPATIENT MEDICATIONS: The patient's medications were all reviewed by me. He continues to be on Venofer with dialysis along with Aranesp. There is no other significant change in the medications today as compared with yesterday. ASSESSMENT AND PLAN: 1. End-stage renal disease. The patient is dialysis dependent. He has he will be dialyzed today in the afternoon. Ultrafiltration goal will be around 1 liter as tolerated by his blood pressure. 2. Anemia secondary to iron deficiency and end-stage renal disease. The patient continues to be on Venofer and Aranesp. No urgent need of transfusion, hemoglobin level is slowly coming up. 3. Constipation. Patient is constipated. I see the primary team has already ordered an enema.
[2019-11-04] MEDS: METHYLNALTREXONE BROMIDE 12 MG/0.6 ML VIAL (RELISTOR) SC SCH (15:00)
[2019-11-04] MEDS ORDERED: HEPARIN 1,000 UNITS/ML 10ML VIAL (FOR RADIOLOGY& DIALYSIS ONLY)(J1644-10) IV ONE (15:00)
[2019-11-04] MEDS ORDERED: LIDOCAINE 1% SDV 5 ML VIAL SQ ONE (15:00)
[2019-11-04] MEDS: WARFARIN SOD 1 MG TAB PO SCH (16:43)
[2019-11-04 18:00] VITALS: BP 100/52
--- NOTE | 2019-11-04 18:39 | IPNPDOC ---
Subjective Date Seen The patient was seen on 11/04/19. Subjective Chief Complaint/HPI c/o pain in hip. sitting in chair. awake and alert Objective Physical Examination General Exam: Positive: Alert, Cooperative, No Acute Distress, Other (frail w/ kyphosis) Eye Exam: Positive: PERRLA; Negative: Sclera icteric ENT Exam: Positive: Mucous membr. 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9, Neutrophils (%) (Auto) 89.1H, Lymphocytes (%) (Auto) 2.8L, Monocytes (%) (Auto) 6.9H, Eosinophils (%) (Auto) 0.1, Basophils (%) (Auto) 0.2, Neutrophils # (Auto) 17.9H, Lymphocytes # (Auto) 0.6L, Monocytes # (Auto) 1.4H, Eosinophils # (Auto) 0.0, Basophils # (Auto) 0.1, Nucleated Red Blood Cells % (auto) 0.6H, Prothrombin Time 23.8H, Prothromb Time International Ratio 2.15, Anion Gap 11, Glomerular Filtration Rate 9.9L, Calcium Level 9.3 CBC/BMP Laboratory Tests 11/04/19 06:25 Microbiology Microbiology 11/03/19 Blood Culture - Preliminary, Resulted No growth after 24 hours . All specim... 11/03/19 Blood Culture - Preliminary, Resulted No growth after 24 hours . All specim... LORE LYONS MD Nov 04, 2019 18:34
[2019-11-04] MEDS: ATORVASTATIN 20 MG TAB PO SCH (19:58)
[2019-11-04] MEDS: MIRTAZAPINE 7.5MG PER 1/2 TABLET PO SCH (19:59)
[2019-11-04 20:00] VITALS: BP 110/56
[2019-11-05] MEDS: traMADol 50 MG TAB PO PRN (01:39)
[2019-11-05 06:00] VITALS: BP 158/84
[2019-11-05] MEDS: tiZANidine 4 MG TAB PO SCH ×4 (06:14→20:25)
[2019-11-05 07:22] LABS: INR 2.05; PROTHROMBIN TIME 22.9 SECONDS (11.8-14.0)
[2019-11-05] MEDS: (RENVELA) SEVELAMER **CARBONate** 800 MG TAB PO SCH ×3 (08:27→17:11)
[2019-11-05] MEDS: CARVedilol 3.125 MG TAB PO SCH ×2 (08:27→20:24)
[2019-11-05] MEDS: VENLAFAXINE 37.5 MG TAB PO SCH ×2 (08:27→20:24)
[2019-11-05] MEDS: OMEPRAZOLE 20 MG CAP PO SCH (08:27)
[2019-11-05] MEDS: SENOKOT S TAB PO SCH ×2 (08:27→20:24)
[2019-11-05] MEDS: traMADol 50 MG TAB PO SCH ×3 (08:28→20:25)
[2019-11-05] MEDS: REMEDY PHYTOPLEX Z-GUARD PASTE 113GM TUBE (FROM STOREROOM PRODUCT) TOP SCH ×3 (08:28→20:28)
[2019-11-05] MEDS: NEPHRO-VIT TAB (NEPHROCAPS) PO SCH (08:28)
[2019-11-05] MEDS: ACETAMINOPHEN 500 MG TAB PO SCH ×3 (09:25→20:25)
[2019-11-05 10:30] LABS: HEMATOCRIT 27.9 % (42.0-52.0); HEMOGLOBIN 8.7 g/dl (13.5-17.5); MEAN CORPUSCULAR HEMOGLOBIN 34.1 pg (27.0-33.0); MEAN CORPUSCULAR HGB CONC 31.2 g/dl (32.0-36.5); MEAN CORPUSCULAR VOLUME 109.4 fl (80.0-96.0); PLATELET COUNT, AUTOMATED 496 10^3/uL (150-450); RED BLOOD COUNT 2.55 10^6/uL (4.30-6.10); WHITE BLOOD COUNT 14.7 10^3/uL (4.0-10.0)
[2019-11-05 14:00] VITALS: BP 128/43
[2019-11-05] MEDS: WARFARIN SOD 1 MG TAB PO SCH (17:09)
[2019-11-05 20:00] VITALS: BP 112/64
[2019-11-05] MEDS: ATORVASTATIN 20 MG TAB PO SCH (20:24)
[2019-11-05] MEDS: MIRTAZAPINE 7.5MG PER 1/2 TABLET PO SCH (20:24)
[2019-11-06] MEDS: traMADol 50 MG TAB PO PRN (02:50)
[2019-11-06 05:44] VITALS: BP 150/82
[2019-11-06] MEDS: tiZANidine 4 MG TAB PO SCH ×2 (06:31→10:11)
[2019-11-06 06:46] LABS: BASO # 0.1 10^3/uL (0.0-0.2); BASO % 0.4 % (0.0-1.0); EOS # 0.2 10^3/uL (0.0-0.5); EOS % 1.5 % (0.0-3.0); HEMATOCRIT 29.5 % (42.0-52.0); HEMOGLOBIN 9.4 g/dl (13.5-17.5); LYMPH # 0.8 10^3/uL (1.5-5.0); LYMPH % 6.6 % (24.0-44.0); MEAN CORPUSCULAR HEMOGLOBIN 34.6 pg (27.0-33.0); MEAN CORPUSCULAR HGB CONC 31.9 g/dl (32.0-36.5); MEAN CORPUSCULAR VOLUME 108.5 fl (80.0-96.0); MONO % 8.3 % (0.0-5.0); NEUTROPHILS # 10.2 10^3/uL (1.5-8.5); NEUTROPHILS % 82.3 % (36.0-66.0); PLATELET COUNT, AUTOMATED 515 10^3/uL (150-450); RED BLOOD COUNT 2.72 10^6/uL (4.30-6.10); WHITE BLOOD COUNT 12.4 10^3/uL (4.0-10.0)
[2019-11-06 06:50] LABS: INR 1.83
[2019-11-06 07:20] LABS: CALCIUM LEVEL 8.6 MG/DL (8.8-10.2); CREATININE FOR GFR 5.31 MG/DL (0.70-1.30)
[2019-11-06] MEDS: REMEDY PHYTOPLEX Z-GUARD PASTE 113GM TUBE (FROM STOREROOM PRODUCT) TOP SCH ×3 (07:30→20:44)
[2019-11-06] MEDS: CARVedilol 3.125 MG TAB PO SCH ×2 (07:55→20:42)
[2019-11-06] MEDS: (RENVELA) SEVELAMER **CARBONate** 800 MG TAB PO SCH ×3 (07:55→17:24)
[2019-11-06] MEDS: VENLAFAXINE 37.5 MG TAB PO SCH ×2 (07:55→20:42)
[2019-11-06] MEDS: SENOKOT S TAB PO SCH ×2 (07:56→20:41)
[2019-11-06] MEDS: traMADol 50 MG TAB PO SCH (07:56)
[2019-11-06] MEDS: OMEPRAZOLE 20 MG CAP PO SCH (07:56)
[2019-11-06] MEDS: ACETAMINOPHEN 500 MG TAB PO SCH (07:57)
[2019-11-06] MEDS ORDERED: FLEET ENEMA PR PRN (09:00)
[2019-11-06] MEDS: NEPHRO-VIT TAB (NEPHROCAPS) PO SCH (10:11)
--- NOTE | 2019-11-06 11:17 | IPNPDOC ---
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 He would like to go back on his home Morphine sulphate regimen, stating he also took Frazer from time to time. REVIEW OF SYSTEMS: The following is a completed review of systems and has been reviewed. Review of systems otherwise unremarkable. PAIN: Patient self reports right hip pain and chronic low back pain EYES: No recent vision changes EARS, NOSE, & THROAT: No throat pain, or dysphagia, or rhinorrhea. CARDIOVASCULAR: Denies chest pain or palpitations PULMONARY: Denies shortness of breath GASTROINTESTINAL: denies constipation GENITOURINARY: denies dysuria MUSCULOSKELETAL: right hip fracture NEUROLOGICAL: denies focal tremor HEMATOLOGICAL: +anemia SKIN: right hip incision PSYCHIATRIC: Unremarkable All other review of systems found to be negative. PHYSICAL EXAMINATION: VITAL SIGNS: Please see below. GENERAL: Pleasant and cooperative. No acute distress. thin HEENT: PERRL. Extraocular movements intact. Clear conjunctiva CARDIOVASCULAR: Irregular rate and rhythm. No murmurs, rubs, or gallops LUNGS: Clear to auscultation bilaterally. No wheezes. No rhonchi ABDOMEN: Soft, nontender, nondistended. Positive bowel sounds. Normal active bowel sounds NEUROLOGICAL: Alert and oriented times three. Cranial nerves II through XII grossly intact. Sensation grossly intact EXTREMITIES: 5\5 strength bilateral upper extremities. 5\5 strength right ankle DF and PF (limited due to recent surgery) 5/5 strength in left lower extremity. SKIN: right hip incision ASSESSMENT: 83-year-old M with past medical history of ESRD on HD, Afib, CHF who presents status post fall with right hip fracture: PLAN: 1. Rehab- PT/OT advance gait and ADL training, strengthen/stretch/maintain ROM all 4 extremities, ambulating short distances with RW -Max HR 110-120 or RPE 4-5 while in therapy 2. Neuro: no known hx, monitor for delirium 3. Cardiac: hx of CAD s/p CABG & CHF with EF 35%, fluid management per renal, will fluid restrict while on ARU- medicine consulted to assist in management -Hx of afib on Co-Reg and Warfarin, monitor daily INRs and adjust, goal 2-3- holding Warfarin again today for INR 3, will restart tomorrow at lower dose, no signs of active bleed -pmh HTN, will c/u to hold hydralazine for soft BPs -HLD- statin 4. Resp: patient without known pulmonary disease, patient denies being on home 02 -monitor for infection and encourage incentive spirometry -c/u supplemental 02, will change to nocturnal to assist with daytime somnolence 5. Renal: ESRD on HD [id number], renal consulted to assist in management -s/p 1x dose Veltassa for high potassium-resolved 6. Ortho: s/p right hip fracture with ORIF- ortho consulted 7. Heme: anemia of chronic disease, per renal 8. Pain: will trial morphine sulfate 25mg BID per patient's request stating this helped him the most at home and Frazer q6h prn -c/u effexor to 37.5 BID 9. DVT ppx: teds, on Coumadin 10. GI ppx: prilosec -c/u Relistor 4mg q48h IM renally dosed for constipation, will order enema today and q3d prn 11. Psych- c/u Remeron 7.5mg qhs to help with insomnia and poor appetite 12. Leukocytosis: likely from post-op inflammation, resolving - patient denies cough, fevers, or chills- blood cx negative and CXR no i nfiltrate 13. Dispo: TBD Allergies Coded Allergies: No Known Allergies (Verified , 03/09/18) Vital Signs Vital Signs Date Time Temp Pulse Resp B/P (MAP) Pulse Ox O2 Delivery O2 Flow Rate FiO2 11/06/19 07:56 16 11/06/19 07:55 88 150/82 11/06/19 05:44 96.9 99 Room Air 11/04/19 06:00 2.0 Laboratory Data CBC/BMP Laboratory Tests 11/06/19 06:17 Labs 24H Laboratory Tests 2 11/06/19 06:17: Immature Granulocyte % (Auto) 0.9, Neutrophils (%) (Auto) 82.3H, Lymphocytes (%) (Auto) 6.6L, Monocytes (%) (Auto) 8.3H, Eosinophils (%) (Auto) 1.5, Basophils (%) (Auto) 0.4, Neutrophils # (Auto) 10.2H, Lymphocytes # (Auto) 0.8L, Monocytes # (Auto) 1.0H, Eosinophils # (Auto) 0.2, Basophils # (Auto) 0.1, Nucleated Red Blood Cells % (auto) 2.3H, Prothrombin Time 21.0H, Prothromb Time International Ratio 1.83, Anion Gap 7L, Glomerular Filtration Rate 11.0L, Calcium Level 8.6L Microbiology Microbiology 11/03/19 Blood Culture - Preliminary, Resulted No Growth after 48 hours. All Specime... 11/03/19 Blood Culture - Preliminary, Resulted No Growth after 48 hours. All Specime... Current Medications Current Medications Current Medications Medications (Trade) Dose Ordered Sig/Kristen Route PRN Reason Start Time Stop Time Status Last Admin Dose Admin Acetaminophen (Tylenol Tab) 1,000 mg TID PO 10/27/19 16:00 11/06/19 07:57 Atorvastatin Calcium (Lipitor) 80 mg QHS PO 10/27/19 21:00 11/05/19 20:24 Carvedilol (COReg) 3.125 mg BID PO 10/31/19 21:00 11/06/19 07:55 Carvedilol (COReg) 3.125 mg DAILY PO 10/28/19 09:00 10/31/19 11:26 DC 10/31/19 09:09 Darbepoetin Alvin (Aranesp (Dialysis Use)) 100 mcg HD IV 10/27/19 18:30 Gabapentin (Neurontin) 100 mg QHS PO 10/27/19 21:00 10/31/19 14:53 DC 10/30/19 21:32 Iron (Venofer) 100 mg HD IV 11/02/19 11:15 Magnesium Hydroxide (Milk Of Magnesia) 30 ml DAILYPRN PRN PO CONSTIPATION 10/27/19 12:30 11/03/19 07:31 Methylnaltrexone [place] (Relistor) 4 mg Q48H SC 11/02/19 15:00 Mirtazapine (Remeron) 7.5 mg QHS PO 11/02/19 21:00 11/05/19 20:24 Nitroglycerin (Nitrostat (1/ 150)) 0.4 mg Q5MP PRN SL CHEST PAIN 10/27/19 12:30 Omeprazole (PriLOSEC) 20 mg DAILY PO 10/28/19 09:00 11/06/19 07:56 Oxycodone HCl (Roxicodone, Oxyir) 5 mg 0700,1100,1500,1900 PO 10/27/19 15:00 10/31/19 14:53 DC 10/31/19 12:31 Oxycodone HCl (Roxicodone, Oxyir) 5 mg QHS PRN PO PAIN 10/27/19 12:30 10/31/19 14:53 DC 10/29/19 21:53 Oxycodone HCl (Roxicodone, Oxyir) 5 mg QHS PRN PO PAIN 10/29/19 11:30 10/31/19 14:53 DC 10/31/19 01:49 Ramelteon (Rozerem) 8 mg QHS PO 10/27/19 21:00 10/31/19 14:53 DC 10/30/19 21:33 Senna/Docusate Sodium (Senokot S) 1 tab BID PO 10/27/19 21:00 11/06/19 07:56 Sevelamer Carbonate (Renvela) 1,600 mg WM PO 10/27/19 12:30 11/06/19 07:55 Sodium Biphosphate/ Sodium Phosphate (Fleet Enema) 1 ea Q3DP PRN [place] CONSTIPATION 11/06/19 09:00 Tizanidine HCl (Zanaflex) 2 mg 0700,1100,1600,2100 PO 11/01/19 16:00 11/06/19 10:11 Tizanidine HCl (Zanaflex) 2 mg QHS PRN PO pain 11/02/19 10:30 Tramadol HCl (Ultram) 25 mg Q4HP PRN PO MODERATE PAIN (PS 5-7) 10/31/19 15:00 11/02/19 10:19 DC 11/02/19 01:52 Tramadol HCl (Ultram) 50 mg DAILY@0100 PRN PO PAIN 11/02/19 12:00 11/06/19 02:50 Tramadol HCl (Ultram) 50 mg Q4HP PRN PO MODERATE PAIN (PS 5-7) 11/02/19 10:30 11/02/19 11:58 DC Tramadol HCl (Ultram) 50 mg QID PO 11/02/19 13:00 11/02/19 12:00 DC Tramadol HCl (Ultram) 50 mg TID PO 11/02/19 13:00 11/06/19 07:56 Trazodone HCl (Desyrel) 25 mg QHSP PRN PO INSOMNIA 10/27/19 12:30 11/01/19 11:42 DC 10/30/19 21:32 Trazodone HCl (Desyrel) 50 mg QHS PO 11/01/19 21:00 11/02/19 11:55 DC 11/01/19 21:17 Venlafaxine HCl (Effexor) 18.75 mg BID PO 10/30/19 09:00 10/31/19 14:53 DC 10/31/19 09:09 Venlafaxine HCl (Effexor) 37.5 mg BID PO 10/31/19 21:00 11/06/19 07:55 Vitamin B Complex/ Vit C/Folic Acid (Nephro-Nadine Rx) 1 tab DAILY PO 10/27/19 09:00 11/06/19 10:11 Warfarin Sodium (Coumadin) 1 mg DAILY@17 PO 11/03/19 17:00 11/06/19 09:13 DC 11/05/19 17:09 Warfarin Sodium (Coumadin) 2 mg DAILY@17 PO 11/06/19 17:00 Warfarin Sodium (Coumadin) 2.5 mg DAILY@17 PO 10/28/19 17:00 10/30/19 09:58 DC 10/29/19 16:08 KATJA UGALDE MD Nov 06, 2019 11:17
[2019-11-06 14:00] VITALS: BP 128/57
[2019-11-06] MEDS: METHYLNALTREXONE BROMIDE 12 MG/0.6 ML VIAL (RELISTOR) SC SCH (14:19)
[2019-11-06] MEDS: MORPHINE 15 MG SA TAB PO SCH ×2 (14:20→20:42)
[2019-11-06] MEDS ORDERED: WARFARIN SOD 2 MG TAB PO SCH (17:00)
[2019-11-06 20:00] VITALS: BP 134/72
[2019-11-06] MEDS: MIRTAZAPINE 7.5MG PER 1/2 TABLET PO SCH (20:41)
[2019-11-06] MEDS: ATORVASTATIN 20 MG TAB PO SCH (20:42)
[2019-11-06] MEDS: NORCO, ANEXSIA 5/325MG TABLET (HYDROcodone/ACETAMINOPHEN) PO PRN (23:24)
[2019-11-07 05:59] VITALS: BP 139/68
[2019-11-07] MEDS: VENLAFAXINE 37.5 MG TAB PO SCH ×2 (08:13→21:49)
[2019-11-07] MEDS: CARVedilol 3.125 MG TAB PO SCH ×2 (08:13→21:49)
[2019-11-07] MEDS: OMEPRAZOLE 20 MG CAP PO SCH (08:13)
[2019-11-07] MEDS: NEPHRO-VIT TAB (NEPHROCAPS) PO SCH (08:13)
[2019-11-07] MEDS: SENOKOT S TAB PO SCH ×2 (08:13→21:49)
[2019-11-07] MEDS: (RENVELA) SEVELAMER **CARBONate** 800 MG TAB PO SCH ×3 (08:14→17:33)
[2019-11-07] MEDS: MORPHINE 15 MG SA TAB PO SCH ×2 (08:14→21:49)
[2019-11-07] MEDS: REMEDY PHYTOPLEX Z-GUARD PASTE 113GM TUBE (FROM STOREROOM PRODUCT) TOP SCH ×3 (08:16→21:50)
[2019-11-07 10:50] LABS: HEMATOCRIT 29.4 % (42.0-52.0); HEMOGLOBIN 9.4 g/dl (13.5-17.5); MEAN CORPUSCULAR HEMOGLOBIN 35.1 pg (27.0-33.0); MEAN CORPUSCULAR VOLUME 109.7 fl (80.0-96.0); PLATELET COUNT, AUTOMATED 518 10^3/uL (150-450); RED BLOOD COUNT 2.68 10^6/uL (4.30-6.10); WHITE BLOOD COUNT 11.9 10^3/uL (4.0-10.0)
[2019-11-07] MEDS: NORCO, ANEXSIA 5/325MG TABLET (HYDROcodone/ACETAMINOPHEN) PO PRN (11:11)
[2019-11-07 11:59] LABS: CALCIUM LEVEL 8.6 MG/DL (8.8-10.2); CREATININE FOR GFR 6.79 MG/DL (0.70-1.30); GLOMERULAR FILTRATION RATE 8.3 (>35)
[2019-11-07] MEDS ORDERED: LIDOCAINE 1% SDV 5 ML VIAL SQ ONE (12:00)
[2019-11-07] MEDS ORDERED: HEPARIN 1,000 UNITS/ML 10ML VIAL (FOR RADIOLOGY& DIALYSIS ONLY)(J1644-10) IV ONE (12:00)
--- NOTE | 2019-11-07 12:29 | IPNPDOC ---
PM&R Progress Note DATE OF SERVICE: Nov 07, 2019 [employer] Progress Note Subjective: Patient reporting he slept better and his pain is much better on the long acting morphine. He reports doing stairs and walking further. REVIEW OF SYSTEMS: The following is a completed review of systems and has been reviewed. Review of systems otherwise unremarkable. PAIN: Patient self reports right hip pain and chronic low back pain EYES: No recent vision changes EARS, NOSE, & THROAT: No throat pain, or dysphagia, or rhinorrhea. CARDIOVASCULAR: Denies chest pain or palpitations PULMONARY: Denies shortness of breath GASTROINTESTINAL: denies constipation GENITOURINARY: denies dysuria MUSCULOSKELETAL: right hip fracture NEUROLOGICAL: denies focal tremor HEMATOLOGICAL: +anemia SKIN: right hip incision PSYCHIATRIC: Unremarkable All other review of systems found to be negative. PHYSICAL EXAMINATION: VITAL SIGNS: Please see below. GENERAL: Pleasant and cooperative. No acute distress. thin HEENT: PERRL. Extraocular movements intact. Clear conjunctiva CARDIOVASCULAR: Irregular rate and rhythm. No murmurs, rubs, or gallops LUNGS: Clear to auscultation bilaterally. No wheezes. No rhonchi ABDOMEN: Soft, nontender, nondistended. Positive bowel sounds. Normal active bowel sounds NEUROLOGICAL: Alert and oriented times three. Cranial nerves II through XII grossly intact. Sensation grossly intact EXTREMITIES: 5\5 strength bilateral upper extremities. 5\5 strength right ankle DF and PF (limited due to recent surgery) 5/5 strength in left lower extremity. SKIN: right hip incision ASSESSMENT: 83-year-old M with past medical history of ESRD on HD, Afib, CHF who presents status post fall with right hip fracture: PLAN: 1. Rehab- PT/OT advance gait and ADL training, strengthen/stretch/maintain ROM all 4 extremities, ambulating short distances with RW -Max HR 110-120 or RPE 4-5 while in therapy 2. Neuro: no known hx, monitor for delirium 3. Cardiac: hx of CAD s/p CABG & CHF with EF 35%, fluid management per renal, will fluid restrict while on ARU- medicine consulted to assist in management -Hx of afib on Co-Reg and Warfarin, monitor daily INRs and adjust, goal 2-3- holding Warfarin again today for INR 3, will restart tomorrow at lower dose, no signs of active bleed -pmh HTN, will c/u to hold hydralazine for soft BPs -HLD- statin 4. Resp: patient without known pulmonary disease, patient denies being on home 02 -monitor for infection and encourage incentive spirometry -c/u supplemental , will change to nocturnal to assist with daytime somnolence 5. Renal: ESRD on HD [id number], renal consulted to assist in management -s/p 1x dose Veltassa for high potassium-resolved 6. Ortho: s/p right hip fracture with ORIF- ortho consulted 7. Heme: anemia of chronic disease, per renal 8. Pain: c/u morphine sulfate 15mg BID per patient's request stating this helped him the most at home and [place] q6h prn -c/u effexor to 37.5 BID 9. DVT ppx: teds, on Coumadin 10. GI ppx: prilosec -c/u Relistor 4mg q48h IM renally dosed for constipation, will order enema today and q3d prn 11. Psych- will increase Remeron 15 mg qhs to help with insomnia and poor appetite-imroving 12. Leukocytosis: likely from post-op inflammation, resolving - patient denies cough, fevers, or chills- blood cx negative and CXR no infiltrate 13. Dispo: TBD Allergies Coded Allergies: No Known Allergies (Verified , 03/09/18) Vital Signs Vital Signs Date Time Temp Pulse Resp B/P (MAP) Pulse Ox O2 Delivery O2 Flow Rate FiO2 11/07/19 11:41 16 11/07/19 08:13 90 139/68 11/07/19 05:59 97.5 96 Room Air 11/04/19 06:00 2.0 Laboratory Data CBC/BMP Laboratory Tests 11/07/19 10:31 Labs 24H Laboratory Tests 2 11/07/19 10:31: Nucleated Red Blood Cells % (auto) 2.3H, Anion Gap 9, Glomerular Filtration Rate 8.3L, Calcium Level 8.6L Microbiology Microbiology 11/03/19 Blood Culture - Preliminary, Resulted No Growth after 72 hours. All specime... 11/03/19 Blood Culture - Preliminary, Resulted No Growth after 72 hours. All specime... Current Medications Current Medications Current Medications Medications (Trade) Dose Ordered Sig/Kristen Route PRN Reason Start Time Stop Time Status Last Admin Dose Admin Acetaminophen (Tylenol Tab) 1,000 mg TID PO 10/27/19 16:00 11/06/19 11:14 DC 11/06/19 07:57 Acetaminophen/ Hydrocodone Bitart ([place], Anexsia 5/325) 1 tab Q6HP PRN PO MILD/MODERATE PAIN (PS 1-7) 11/06/19 11:15 11/07/19 11:11 Atorvastatin Calcium (Lipitor) 80 mg QHS PO 10/27/19 21:00 11/06/19 20:42 Carvedilol (COReg) 3.125 mg BID PO 10/31/19 21:00 11/07/19 08:13 Carvedilol (COReg) 3.125 mg DAILY PO 10/28/19 09:00 10/31/19 11:26 DC 10/31/19 09:09 Darbepoetin Alvin (Aranesp (Dialysis Use)) 100 mcg HD IV 10/27/19 18:30 Gabapentin (Neurontin) 100 mg QHS PO 10/27/19 21:00 10/31/19 14:53 DC 10/30/19 21:32 Iron (Venofer) 100 mg HD IV 11/02/19 11:15 Magnesium Hydroxide (Milk Of Magnesia) 30 ml DAILYPRN PRN PO CONSTIPATION 10/27/19 12:30 11/03/19 07:31 Methylnaltrexone [place] (Relistor) 4 mg Q48H SC 11/02/19 15:00 11/06/19 14:19 Mirtazapine (Remeron) 7.5 mg QHS PO 11/02/19 21:00 11/06/19 20:41 Morphine Sulfate (Ms Contin) 15 mg BID PO 11/06/19 09:00 11/07/19 08:14 Nitroglycerin (Nitrostat (1/ 150)) 0.4 mg Q5MP PRN SL CHEST PAIN 10/27/19 12:30 Omeprazole (PriLOSEC) 20 mg DAILY PO 10/28/19 09:00 11/07/19 08:13 Oxycodone HCl (Roxicodone, Oxyir) 5 mg 0700,1100,1500,1900 PO 10/27/19 15:00 10/31/19 14:53 DC 10/31/19 12:31 Oxycodone HCl (Roxicodone, Oxyir) 5 mg QHS PRN PO PAIN 10/27/19 12:30 10/31/19 14:53 DC 10/29/19 21:53 Oxycodone HCl (Roxicodone, Oxyir) 5 mg QHS PRN PO PAIN 10/29/19 11:30 10/31/19 14:53 DC 10/31/19 01:49 Ramelteon (Rozerem) 8 mg QHS PO 10/27/19 21:00 10/31/19 14:53 DC 10/30/19 21:33 Senna/Docusate Sodium (Senokot S) 1 tab BID PO 10/27/19 21:00 11/07/19 08:13 Sevelamer Carbonate (Renvela) 1,600 mg WM PO 10/27/19 12:30 11/07/19 12:20 Sodium Biphosphate/ Sodium Phosphate (Fleet Enema) 1 ea Q3DP PRN [place] CONSTIPATION 11/06/19 09:00 Tizanidine HCl (Zanaflex) 2 mg 0700,1100,1600,2100 PO 11/01/19 16:00 11/06/19 11:13 DC 11/06/19 10:11 Tizanidine HCl (Zanaflex) 2 mg QHS PRN PO pain 11/02/19 10:30 11/06/19 11:13 DC Tramadol HCl (Ultram) 25 mg Q4HP PRN PO MODERATE PAIN (PS 5-7) 10/31/19 15:00 11/02/19 10:19 DC 11/02/19 01:52 Tramadol HCl (Ultram) 50 mg DAILY@0100 PRN PO PAIN 11/02/19 12:00 11/06/19 11:13 DC 11/06/19 02:50 Tramadol HCl (Ultram) 50 mg Q4HP PRN PO MODERATE PAIN (PS 5-7) 11/02/19 10:30 11/02/19 11:58 DC Tramadol HCl (Ultram) 50 mg QID PO 11/02/19 13:00 11/02/19 12:00 DC Tramadol HCl (Ultram) 50 mg TID PO 11/02/19 13:00 11/06/19 11:13 DC 11/06/19 07:56 Trazodone HCl (Desyrel) 25 mg QHSP PRN PO INSOMNIA 10/27/19 12:30 11/01/19 11:42 DC 10/30/19 21:32 Trazodone HCl (Desyrel) 50 mg QHS PO 11/01/19 21:00 11/02/19 11:55 DC 11/01/19 21:17 Venlafaxine HCl (Effexor) 18.75 mg BID PO 10/30/19 09:00 10/31/19 14:53 DC 10/31/19 09:09 Venlafaxine HCl (Effexor) 37.5 mg BID PO 10/31/19 21:00 11/07/19 08:13 Vitamin B Complex/ Vit C/Folic Acid (Nephro-Nadine Rx) 1 tab DAILY PO 10/27/19 09:00 11/07/19 08:13 Warfarin Sodium (Coumadin) 1 mg DAILY@17 PO 11/03/19 17:00 11/06/19 09:13 DC 11/05/19 17:09 Warfarin Sodium (Coumadin) 2 mg DAILY@17 PO 11/06/19 17:00 11/06/19 17:24 Warfarin Sodium (Coumadin) 2.5 mg DAILY@17 PO 10/28/19 17:00 10/30/19 09:58 DC 10/29/19 16:08 KATJA UGALDE MD Nov 07, 2019 12:29
[2019-11-07] MEDS ORDERED: WARFARIN SOD 3 MG TAB PO SCH (17:00)
--- NOTE | 2019-11-07 17:14 | IPN ---
DATE: 11/07/2019 SUBJECTIVE: The patient is seen and examined this afternoon in the hemodialysis unit receiving his maintenance treatment. He reports rehab has been going well. His discharge date is still to be decided. He did not have an INR done today. He reports his pain is tolerably controlled. His dialysis treatment has been uneventful. Temperature 97.5, pulse 90, respiratory rate 18, blood pressure 139/68, saturating 96% on room air. Intake yesterday was 1 liter. Goal dialysis removal today is 1 liter. Weight in the bed scale today is 57.2 kg. General: The patient is seen awake, alert, oriented, comfortable, in no apparent distress in the hemodialysis unit receiving his treatment. Extraocular muscles are intact. Conjunctivae are clear. Heart sounds are irregular. There is no edema in the legs. Peripheral pulses are palpable. Lungs are clear to auscultation bilaterally. No crackle, rale, or rhonchus. Abdomen is soft and nontender. There are bowel sounds. Neurologic: He is at baseline mentation, alert, conversational, interactive, oriented times three. Musculoskeletal: There is no leg edema. The right hip is not examined. His fistula is in use. Skin: Normal temperature and turgor. LABORATORY DATA: There is no INR today. Hemoglobin 9.4, white count 11.9, platelets 518. Sodium 133, potassium 4.0. INPATIENT MEDICATIONS: Reviewed by myself. Noted his mirtazapine was increased to 15 mg by mouth nightly, and his Coumadin was adjusted to 3 mg. Remainder of medications are unchanged as compared to prior. PROBLEMS: 1. End-stage renal disease. The patient is dialyzed this afternoon, goal fluid removal is 1 liter. He has been compliant with fluid restriction. His electrolytes and volume status are acceptable. No changes being made to the current prescription. 2. Anemia related to chronic renal failure and hip fracture and surgery. He continues on Aranesp. Hemoglobin is overall improved to 9.4. He is also receiving Venofer with his treatments. 3. Hypertension. Blood pressures are acceptable and no change is being made to the current regimen of carvedilol.
[2019-11-07 17:31] VITALS: BP 147/75
[2019-11-07 20:00] VITALS: BP 149/64
[2019-11-07] MEDS: MIRTAZAPINE 15 MG TAB PO SCH (21:48)
[2019-11-07] MEDS: ATORVASTATIN 20 MG TAB PO SCH (21:50)
[2019-11-08 06:00] VITALS: BP 132/76
[2019-11-08 07:38] LABS: INR 2.18
[2019-11-08] MEDS: NEPHRO-VIT TAB (NEPHROCAPS) PO SCH (08:54)
[2019-11-08] MEDS: (RENVELA) SEVELAMER **CARBONate** 800 MG TAB PO SCH ×3 (08:54→16:20)
[2019-11-08] MEDS: SENOKOT S TAB PO SCH ×2 (08:54→21:06)
[2019-11-08] MEDS: OMEPRAZOLE 20 MG CAP PO SCH (08:54)
[2019-11-08] MEDS: CARVedilol 3.125 MG TAB PO SCH ×2 (08:54→21:05)
[2019-11-08] MEDS: VENLAFAXINE 37.5 MG TAB PO SCH ×2 (08:54→21:05)
[2019-11-08] MEDS: MORPHINE 15 MG SA TAB PO SCH ×2 (08:55→21:05)
[2019-11-08] MEDS: REMEDY PHYTOPLEX Z-GUARD PASTE 113GM TUBE (FROM STOREROOM PRODUCT) TOP SCH ×3 (08:56→21:06)
--- NOTE | 2019-11-08 12:04 | IPNPDOC ---
PM&R Progress Note DATE OF SERVICE: Nov 08, 2019 [employer] Progress Note Subjective: Patient reporting he continues to sleep better and that he had no pain overnight. He feels a little constipated today. REVIEW OF SYSTEMS: The following is a completed review of systems and has been reviewed. Review of systems otherwise unremarkable. PAIN: Patient self reports right hip pain and chronic low back pain EYES: No recent vision changes EARS, NOSE, & THROAT: No throat pain, or dysphagia, or rhinorrhea. CARDIOVASCULAR: Denies chest pain or palpitations PULMONARY: Denies shortness of breath GASTROINTESTINAL: denies constipation GENITOURINARY: denies dysuria MUSCULOSKELETAL: right hip fracture NEUROLOGICAL: denies focal tremor HEMATOLOGICAL: +anemia SKIN: right hip incision PSYCHIATRIC: Unremarkable All other review of systems found to be negative. PHYSICAL EXAMINATION: VITAL SIGNS: Please see below. GENERAL: Pleasant and cooperative. No acute distress. thin HEENT: PERRL. Extraocular movements intact. Clear conjunctiva CARDIOVASCULAR: Irregular rate and rhythm. No murmurs, rubs, or gallops LUNGS: Clear to auscultation bilaterally. No wheezes. No rhonchi ABDOMEN: Soft, nontender, nondistended. Positive bowel sounds. Normal active bowel sounds NEUROLOGICAL: Alert and oriented times three. Cranial nerves II through XII grossly intact. Sensation grossly intact EXTREMITIES: 5\5 strength bilateral upper extremities. 5\5 strength right ankle DF and PF (limited due to recent surgery) 5/5 strength in left lower extremity. SKIN: right hip incision ASSESSMENT: 83-year-old M with past medical history of ESRD on HD, Afib, CHF who presents status post fall with right hip fracture: PLAN: 1. Rehab- PT/OT advance gait and ADL training, strengthen/stretch/maintain ROM all 4 extremities, ambulating short distances with RW -Max HR 110-120 or RPE 4-5 while in therapy 2. Neuro: no known hx, monitor for delirium 3. Cardiac: hx of CAD s/p CABG & CHF with EF 35%, fluid management per renal, will fluid restrict while on ARU- medicine consulted to assist in management -Hx of afib on Co-Reg and Warfarin, monitor daily INRs and adjust, goal 2-3- holding Warfarin again today for INR 3, will restart tomorrow at lower dose, no signs of active bleed -pmh HTN, will c/u to hold hydralazine for soft BPs -HLD- statin 4. Resp: patient without known pulmonary disease, patient denies being on home 02 -monitor for infection and encourage incentive spirometry -c/u supplemental 02, will change to nocturnal to assist with daytime somnolence 5. Renal: ESRD on HD [id number], renal consulted to assist in management -s/p 1x dose Veltassa for high potassium-resolved 6. Ortho: s/p right hip fracture with ORIF- ortho consulted 7. Heme: anemia of chronic disease, per renal 8. Pain: c/u morphine sulfate 15mg BID per patient's request stating this helped him the most at home and [place] q6h prn -c/u effexor to 37.5 BID 9. DVT ppx: teds, on Coumadin 10. GI ppx: prilosec -c/u Relistor 4mg q48h IM renally dosed for constipation, enema ordered q3d prn 11. Psych- c/u Remeron 15 mg qhs to help with insomnia and poor appetite- improving 12. Leukocytosis: likely from post-op inflammation, resolving - patient denies cough, fevers, or chills- blood cx negative and CXR no infiltrate 13. Dispo: 11/16/19 to home, progressing towards goals Allergies Coded Allergies: No Known Allergies (Verified , 03/09/18) Vital Signs Vital Signs Date Time Temp Pulse Resp B/P (MAP) Pulse Ox O2 Delivery O2 Flow Rate FiO2 11/08/19 08:55 18 11/08/19 06:00 97.5 83 132/76 (94) 94 Room Air 11/04/19 06:00 2.0 Laboratory Data Labs 24H Laboratory Tests 2 11/08/19 07:07: Prothrombin Time 24.0H, Prothromb Time International Ratio 2.18 Microbiology Microbiology 11/03/19 Blood Culture - Preliminary, Resulted No Growth after 72 hours. All specime... 11/03/19 Blood Culture - Preliminary, Resulted No Growth after 72 hours. All specime... Current Medications Current Medications Current Medications Medications (Trade) Dose Ordered Sig/Kristen Route PRN Reason Start Time Stop Time Status Last Admin Dose Admin Acetaminophen (Tylenol Tab) 1,000 mg TID PO 10/27/19 16:00 11/06/19 11:14 DC 11/06/19 07:57 Acetaminophen/ Hydrocodone Bitart ([place], Anexsia 5/325) 1 tab Q6HP PRN PO MILD/MODERATE PAIN (PS 1-7) 11/06/19 11:15 11/07/19 11:11 Atorvastatin Calcium (Lipitor) 80 mg QHS PO 10/27/19 21:00 11/07/19 21:50 Carvedilol (COReg) 3.125 mg BID PO 10/31/19 21:00 11/08/19 08:54 Carvedilol (COReg) 3.125 mg DAILY PO 10/28/19 09:00 10/31/19 11:26 DC 10/31/19 09:09 Darbepoetin Alvin (Aranesp (Dialysis Use)) 100 mcg HD IV 10/27/19 18:30 Gabapentin (Neurontin) 100 mg QHS PO 10/27/19 21:00 10/31/19 14:53 DC 10/30/19 21:32 Iron (Venofer) 100 mg HD IV 11/02/19 11:15 Magnesium Hydroxide (Milk Of Magnesia) 30 ml DAILYPRN PRN PO CONSTIPATION 10/27/19 12:30 11/03/19 07:31 Methylnaltrexone [place] (Relistor) 4 mg Q48H SC 11/02/19 15:00 11/06/19 14:19 Mirtazapine (Remeron) 7.5 mg QHS PO 11/02/19 21:00 11/07/19 12:30 DC 11/06/19 20:41 Mirtazapine (Remeron) 15 mg QHS PO 11/07/19 21:00 11/07/19 21:48 Morphine Sulfate (Ms Contin) 15 mg BID PO 11/06/19 09:00 11/08/19 08:55 Nitroglycerin (Nitrostat (1/ 150)) 0.4 mg Q5MP PRN SL CHEST PAIN 10/27/19 12:30 Omeprazole (PriLOSEC) 20 mg DAILY PO 10/28/19 09:00 11/08/19 08:54 Oxycodone HCl (Roxicodone, Oxyir) 5 mg 0700,1100,1500,1900 PO 10/27/19 15:00 10/31/19 14:53 DC 10/31/19 12:31 Oxycodone HCl (Roxicodone, Oxyir) 5 mg QHS PRN PO PAIN 10/27/19 12:30 10/31/19 14:53 DC 10/29/19 21:53 Oxycodone HCl (Roxicodone, Oxyir) 5 mg QHS PRN PO PAIN 10/29/19 11:30 10/31/19 14:53 DC 10/31/19 01:49 Ramelteon (Rozerem) 8 mg QHS PO 10/27/19 21:00 10/31/19 14:53 DC 10/30/19 21:33 Senna/Docusate Sodium (Senokot S) 1 tab BID PO 10/27/19 21:00 11/08/19 08:54 Sevelamer Carbonate (Renvela) 1,600 mg WM PO 10/27/19 12:30 11/08/19 08:54 Sodium Biphosphate/ Sodium Phosphate (Fleet Enema) 1 ea Q3DP PRN [place] CONSTIPATION 11/06/19 09:00 Tizanidine HCl (Zanaflex) 2 mg 0700,1100,1600,2100 PO 11/01/19 16:00 11/06/19 11:13 DC 11/06/19 10:11 Tizanidine HCl (Zanaflex) 2 mg QHS PRN PO pain 11/02/19 10:30 11/06/19 11:13 DC Tramadol HCl (Ultram) 25 mg Q4HP PRN PO MODERATE PAIN (PS 5-7) 10/31/19 15:00 11/02/19 10:19 DC 11/02/19 01:52 Tramadol HCl (Ultram) 50 mg DAILY@0100 PRN PO PAIN 11/02/19 12:00 11/06/19 11:13 DC 11/06/19 02:50 Tramadol HCl (Ultram) 50 mg Q4HP PRN PO MODERATE PAIN (PS 5-7) 11/02/19 10:30 11/02/19 11:58 DC Tramadol HCl (Ultram) 50 mg QID PO 11/02/19 13:00 11/02/19 12:00 DC Tramadol HCl (Ultram) 50 mg TID PO 11/02/19 13:00 11/06/19 11:13 DC 11/06/19 07:56 Trazodone HCl (Desyrel) 25 mg QHSP PRN PO INSOMNIA 10/27/19 12:30 11/01/19 11:42 DC 10/30/19 21:32 Trazodone HCl (Desyrel) 50 mg QHS PO 11/01/19 21:00 11/02/19 11:55 DC 11/01/19 21:17 Venlafaxine HCl (Effexor) 18.75 mg BID PO 10/30/19 09:00 10/31/19 14:53 DC 10/31/19 09:09 Venlafaxine HCl (Effexor) 37.5 mg BID PO 10/31/19 21:00 11/08/19 08:54 Vitamin B Complex/ Vit C/Folic Acid (Nephro-Nadine Rx) 1 tab DAILY PO 10/27/19 09:00 11/08/19 08:54 Warfarin Sodium (Coumadin) 1 mg DAILY@17 PO 11/03/19 17:00 11/06/19 09:13 DC 11/05/19 17:09 Warfarin Sodium (Coumadin) 2 mg DAILY@17 PO 11/06/19 17:00 11/07/19 12:55 DC 11/06/19 17:24 Warfarin Sodium (Coumadin) 2.5 mg DAILY@17 PO 10/28/19 17:00 10/30/19 09:58 DC 10/29/19 16:08 Warfarin Sodium (Coumadin) 2.5 mg DAILY@17 PO 11/08/19 17:00 Warfarin Sodium (Coumadin) 3 mg DAILY@17 PO 11/07/19 17:00 11/08/19 10:14 DC 11/07/19 17:33 KATJA UGALDE MD Nov 08, 2019 12:04
[2019-11-08] MEDS: NORCO, ANEXSIA 5/325MG TABLET (HYDROcodone/ACETAMINOPHEN) PO PRN (13:01)
[2019-11-08 14:00] VITALS: BP 136/71
[2019-11-08] MEDS: METHYLNALTREXONE BROMIDE 12 MG/0.6 ML VIAL (RELISTOR) SC SCH (16:19)
[2019-11-08] MEDS: WARFARIN SOD 2.5 MG TAB PO SCH (16:19)
[2019-11-08] MEDS: MOM 30ML SUSPENSION UDC PO PRN (17:21)
[2019-11-08 20:00] VITALS: BP 126/61
[2019-11-08] MEDS: ATORVASTATIN 20 MG TAB PO SCH (21:06)
[2019-11-08] MEDS: MIRTAZAPINE 15 MG TAB PO SCH (21:14)
[2019-11-09 06:00] VITALS: BP 131/69
[2019-11-09 07:55] LABS: HEMATOCRIT 29.9 % (42.0-52.0); MEAN CORPUSCULAR HEMOGLOBIN 33.8 pg (27.0-33.0); MEAN CORPUSCULAR HGB CONC 30.1 g/dl (32.0-36.5); MEAN CORPUSCULAR VOLUME 112.4 fl (80.0-96.0); PLATELET COUNT, AUTOMATED 492 10^3/uL (150-450); RED BLOOD COUNT 2.66 10^6/uL (4.30-6.10); WHITE BLOOD COUNT 12.6 10^3/uL (4.0-10.0)
[2019-11-09 08:11] LABS: CALCIUM LEVEL 8.6 MG/DL (8.8-10.2); CREATININE FOR GFR 5.46 MG/DL (0.70-1.30); GLOMERULAR FILTRATION RATE 10.7 (>35); POTASSIUM SERUM 4.3 MEQ/L (3.5-5.1)
[2019-11-09] MEDS: NEPHRO-VIT TAB (NEPHROCAPS) PO SCH (08:13)
[2019-11-09] MEDS: VENLAFAXINE 37.5 MG TAB PO SCH ×2 (08:13→20:59)
[2019-11-09] MEDS: (RENVELA) SEVELAMER **CARBONate** 800 MG TAB PO SCH ×3 (08:14→18:00)
[2019-11-09] MEDS: MOM 30ML SUSPENSION UDC PO PRN (08:14)
[2019-11-09] MEDS: SENOKOT S TAB PO SCH ×2 (08:14→21:00)
[2019-11-09] MEDS: OMEPRAZOLE 20 MG CAP PO SCH (08:14)
[2019-11-09] MEDS: MORPHINE 15 MG SA TAB PO SCH ×2 (08:15→21:00)
[2019-11-09] MEDS: CARVedilol 3.125 MG TAB PO SCH ×2 (08:15→20:59)
[2019-11-09 08:24] LABS: INR 2.34; PROTHROMBIN TIME 25.4 SECONDS (11.8-14.0)
[2019-11-09] MEDS: REMEDY PHYTOPLEX Z-GUARD PASTE 113GM TUBE (FROM STOREROOM PRODUCT) TOP SCH ×3 (09:00→21:00)
[2019-11-09] MEDS ORDERED: HEPARIN 1,000 UNITS/ML 10ML VIAL (FOR RADIOLOGY& DIALYSIS ONLY)(J1644-10) IV ONE (12:00)
[2019-11-09] MEDS ORDERED: WARF-18 PO (12:24)
--- NOTE | 2019-11-09 12:31 | IPNPDOC ---
PM&R Progress Note DATE OF SERVICE: Nov 09, 2019 Bed Placement Coordinator Progress Note Subjective: Patient reporting he feels well today, he had an enema last night and is worried about having constipation when he goes home. REVIEW OF SYSTEMS: The following is a completed review of systems and has been reviewed. Review of systems otherwise unremarkable. PAIN: Patient self reports right hip pain and chronic low back pain EYES: No recent vision changes EARS, NOSE, & THROAT: No throat pain, or dysphagia, or rhinorrhea. CARDIOVASCULAR: Denies chest pain or palpitations PULMONARY: Denies shortness of breath GASTROINTESTINAL: denies constipation GENITOURINARY: denies dysuria MUSCULOSKELETAL: right hip fracture NEUROLOGICAL: denies focal tremor HEMATOLOGICAL: +anemia SKIN: right hip incision PSYCHIATRIC: Unremarkable All other review of systems found to be negative. PHYSICAL EXAMINATION: VITAL SIGNS: Please see below. GENERAL: Pleasant and cooperative. No acute distress. thin HEENT: PERRL. Extraocular movements intact. Clear conjunctiva CARDIOVASCULAR: Irregular rate and rhythm. No murmurs, rubs, or gallops LUNGS: Clear to auscultation bilaterally. No wheezes. No rhonchi ABDOMEN: Soft, nontender, nondistended. Positive bowel sounds. Normal active bowel sounds NEUROLOGICAL: Alert and oriented times three. Cranial nerves II through XII grossly intact. Sensation grossly intact EXTREMITIES: 5\5 strength bilateral upper extremities. 5\5 strength right ankle DF and PF (limited due to recent surgery) 5/5 strength in left lower extremity. SKIN: right hip incision ASSESSMENT: 83-year-old M with past medical history of ESRD on HD, Afib, CHF who presents status post fall with right hip fracture: PLAN: 1. Rehab- PT/OT advance gait and ADL training, strengthen/stretch/maintain ROM all 4 extremities, ambulating short distances with RW -Max HR 110-120 or RPE 4-5 while in therapy 2. Neuro: no known hx, monitor for delirium 3. Cardiac: hx of CAD s/p CABG & CHF with EF 35%, fluid management per renal, will fluid restrict while on ARU- medicine consulted to assist in management -Hx of afib on Co-Reg and Warfarin, monitor daily INRs and adjust, goal 2-3- holding Warfarin again today for INR 3, will restart tomorrow at lower dose, no signs of active bleed -pmh HTN, will c/u to hold hydralazine for soft BPs -HLD- statin 4. Resp: patient without known pulmonary disease, patient denies being on home 02 -monitor for infection and encourage incentive spirometry -c/u supplemental 02, will change to nocturnal to assist with daytime somnolence 5. Renal: ESRD on HD [id number], renal consulted to assist in management -s/p 1x dose Veltassa for high potassium-resolved 6. Ortho: s/p right hip fracture with ORIF- ortho consulted 7. Heme: anemia of chronic disease, per renal 8. Pain: c/u morphine sulfate 15mg BID per patient's request stating this helped him the most at home and [place] q6h prn -c/u effexor to 37.5 BID 9. DVT ppx: teds, on Coumadin 10. GI ppx: prilosec -c/u Relistor 4mg q48h IM renally dosed for constipation, enema ordered q3d prn 11. Psych- c/u Remeron 15 mg qhs to help with insomnia and poor appetite- improving 12. Leukocytosis: likely from post-op inflammation, stable - patient denies cough, fevers, or chills- blood cx negative and CXR no infiltrate 13. Dispo: 11/16/19 to home, progressing towards goals Allergies Coded Allergies: No Known Allergies (Verified , 03/09/18) Vital Signs Vital Signs Date Time Temp Pulse Resp B/P (MAP) Pulse Ox O2 Delivery O2 Flow Rate FiO2 11/09/19 08:15 18 Room Air 11/09/19 08:15 83 131/69 11/09/19 06:00 98.0 96 11/04/19 06:00 2.0 Laboratory Data CBC/BMP Laboratory Tests 11/09/19 07:31 Labs 24H Laboratory Tests 2 11/09/19 07:31: Nucleated Red Blood Cells % (auto) 0.4H, Prothrombin Time 25.4H, Prothromb Time International Ratio 2.34, Anion Gap 7L, Glomerular Filtration Rate 10.7L, Calcium Level 8.6L Microbiology Microbiology 11/03/19 Blood Culture - Final, Complete NO GROWTH AFTER 5 DAYS 11/03/19 Blood Culture - Final, Complete NO GROWTH AFTER 5 DAYS Current Medications Current Medications Current Medications Medications (Trade) Dose Ordered Sig/Kristen Route PRN Reason Start Time Stop Time Status Last Admin Dose Admin Acetaminophen (Tylenol Tab) 1,000 mg TID PO 10/27/19 16:00 11/06/19 11:14 DC 11/06/19 07:57 Acetaminophen/ Hydrocodone Bitart ([place], Anexsia 5/325) 1 tab Q6HP PRN PO MILD/MODERATE PAIN (PS 1-7) 11/06/19 11:15 11/08/19 13:01 Atorvastatin Calcium (Lipitor) 80 mg QHS PO 10/27/19 21:00 11/08/19 21:06 Carvedilol (COReg) 3.125 mg BID PO 10/31/19 21:00 11/09/19 08:15 Carvedilol (COReg) 3.125 mg DAILY PO 10/28/19 09:00 10/31/19 11:26 DC 10/31/19 09:09 Darbepoetin Alvin (Aranesp (Dialysis Use)) 100 mcg HD IV 10/27/19 18:30 Gabapentin (Neurontin) 100 mg QHS PO 10/27/19 21:00 10/31/19 14:53 DC 10/30/19 21:32 Iron (Venofer) 100 mg HD IV 11/02/19 11:15 11/23/19 23:59 Magnesium Hydroxide (Milk Of Magnesia) 30 ml DAILYPRN PRN PO CONSTIPATION 10/27/19 12:30 11/09/19 08:14 Methylnaltrexone [place] (Relistor) 4 mg Q48H SC 11/02/19 15:00 11/08/19 16:19 Mirtazapine (Remeron) 7.5 mg QHS PO 11/02/19 21:00 11/07/19 12:30 DC 11/06/19 20:41 Mirtazapine (Remeron) 15 mg QHS PO 11/07/19 21:00 11/08/19 21:14 Morphine Sulfate (Ms Contin) 15 mg BID PO 11/06/19 09:00 11/09/19 08:15 Nitroglycerin (Nitrostat (1/ 150)) 0.4 mg Q5MP PRN SL CHEST PAIN 10/27/19 12:30 Omeprazole (PriLOSEC) 20 mg DAILY PO 10/28/19 09:00 11/09/19 08:14 Oxycodone HCl (Roxicodone, Oxyir) 5 mg 0700,1100,1500,1900 PO 10/27/19 15:00 10/31/19 14:53 DC 10/31/19 12:31 Oxycodone HCl (Roxicodone, Oxyir) 5 mg QHS PRN PO PAIN 10/27/19 12:30 10/31/19 14:53 DC 10/29/19 21:53 Oxycodone HCl (Roxicodone, Oxyir) 5 mg QHS PRN PO PAIN 10/29/19 11:30 10/31/19 14:53 DC 10/31/19 01:49 Ramelteon (Rozerem) 8 mg QHS PO 10/27/19 21:00 10/31/19 14:53 DC 10/30/19 21:33 Senna/Docusate Sodium (Senokot S) 1 tab BID PO 10/27/19 21:00 11/09/19 08:14 Sevelamer Carbonate (Renvela) 1,600 mg WM PO 10/27/19 12:30 11/09/19 08:14 Sodium Biphosphate/ Sodium Phosphate (Fleet Enema) 1 ea Q3DP PRN [place] CONSTIPATION 11/06/19 09:00 11/08/19 17:21 Tizanidine HCl (Zanaflex) 2 mg 0700,1100,1600,2100 PO 11/01/19 16:00 11/06/19 11:13 DC 11/06/19 10:11 Tizanidine HCl (Zanaflex) 2 mg QHS PRN PO pain 11/02/19 10:30 11/06/19 11:13 DC Tramadol HCl (Ultram) 25 mg Q4HP PRN PO MODERATE PAIN (PS 5-7) 10/31/19 15:00 11/02/19 10:19 DC 11/02/19 01:52 Tramadol HCl (Ultram) 50 mg DAILY@0100 PRN PO PAIN 11/02/19 12:00 11/06/19 11:13 DC 11/06/19 02:50 Tramadol HCl (Ultram) 50 mg Q4HP PRN PO MODERATE PAIN (PS 5-7) 11/02/19 10:30 11/02/19 11:58 DC Tramadol HCl (Ultram) 50 mg QID PO 11/02/19 13:00 11/02/19 12:00 DC Tramadol HCl (Ultram) 50 mg TID PO 11/02/19 13:00 11/06/19 11:13 DC 11/06/19 07:56 Trazodone HCl (Desyrel) 25 mg QHSP PRN PO INSOMNIA 10/27/19 12:30 11/01/19 11:42 DC 10/30/19 21:32 Trazodone HCl (Desyrel) 50 mg QHS PO 11/01/19 21:00 11/02/19 11:55 DC 11/01/19 21:17 Venlafaxine HCl (Effexor) 18.75 mg BID PO 10/30/19 09:00 10/31/19 14:53 DC 10/31/19 09:09 Venlafaxine HCl (Effexor) 37.5 mg BID PO 10/31/19 21:00 11/09/19 08:13 Vitamin B Complex/ Vit C/Folic Acid (Nephro-Nadine Rx) 1 tab DAILY PO 10/27/19 09:00 11/09/19 08:13 Warfarin Sodium (Coumadin) 1 mg DAILY@17 PO 11/03/19 17:00 11/06/19 09:13 DC 11/05/19 17:09 Warfarin Sodium (Coumadin) 2 mg DAILY@17 PO 11/06/19 17:00 11/07/19 12:55 DC 11/06/19 17:24 Warfarin Sodium (Coumadin) 2.5 mg DAILY@17 PO 10/28/19 17:00 10/30/19 09:58 DC 10/29/19 16:08 Warfarin Sodium (Coumadin) 2.5 mg DAILY@17 PO 11/08/19 17:00 11/08/19 16:19 Warfarin Sodium (Coumadin) 3 mg DAILY@17 PO 11/07/19 17:00 11/08/19 10:14 DC 11/07/19 17:33 KATJA UGALDE MD Nov 09, 2019 12:31
[2019-11-09 17:05] VITALS: BP 167/75
[2019-11-09] MEDS ORDERED: FLEET ENEMA PR PRN (17:30)
[2019-11-09] MEDS: WARFARIN SOD 2.5 MG TAB PO SCH (18:43)
[2019-11-09 20:30] VITALS: BP 155/70
[2019-11-09] MEDS: ATORVASTATIN 20 MG TAB PO SCH (20:59)
[2019-11-09] MEDS: MIRTAZAPINE 15 MG TAB PO SCH (21:00)
[2019-11-09] MEDS ORDERED: DARBEPOETIN 100 MCG/0.5 ML *DIALYSIS* SYRINGE (J0882) IV SCH (21:30)
--- NOTE | 2019-11-09 23:19 | IPN ---
DATE: 11/09/2019 SUBJECTIVE The patient was seen and examined at the bedside today morning in the rehab unit. He was getting ready to get his physical therapy when I saw him. Today is the patient's regular day of dialysis. He complains of constipation. Otherwise he denies any active complaints. He reports that he is slowly gaining his strength back and hip pain is getting better. OBJECTIVE Vital signs: Temperature is 98.5 degrees Fahrenheit, blood pressure 155/70, pulse is 93, respiratory rate of 18, saturating 98% on room air. Intake and output: There is no urine output recorded. Weight in the bed scale is 56.3 kg. PHYSICAL EXAMINATION General: The patient is awake, alert, oriented times three, sitting up in the veloz chair. No apparent distress. Head and neck exam: Extraocular muscles intact. Pupils equally round and reactive to light. Mucous membranes are moist. Neck is supple. There is no jugular venous distention (JVD). Cardiovascular: S1, S2. Regular rate. No edema of the bilateral lower extremities. Respiratory: Chest is clear to auscultation bilaterally. Bilateral equal air entry. No rales or rhonchi. Abdomen: Soft, positive bowel sounds. Nontender. Musculoskeletal: No clubbing or cyanosis. Pulses are 2+. GAS STATION SERVICE ATTENDANT: No focal deficit. Power is 5/5 in bilateral upper extremities. LAB REVIEW: CBC showed a WBC of 12.6, hemoglobin is 9. Platelets are 492. BMP showed sodium 135, potassium 4.3, chloride 98, bicarb 30, BUN 36, creatinine is 5.4. CURRENT INPATIENT MEDICATIONS The patient's medications were all reviewed by me. There is no change in the medications today as compared with yesterday. ASSESSMENT/PLAN 1. End-stage renal disease. Today is the patient's regular day of dialysis. We shall try to remove at least 1-1.5 mL of fluid as tolerated by his blood pressure. 2. Anemia in end-stage renal disease. Hemoglobin level is 9, which is slightly suboptimal. I am going to change his Aranesp dose to 100 mcg with dialysis. The patient is also getting Venofer 100 mg with hemodialysis. 3. Hypertension. Continue current dose of Coreg 3.125 mg by mouth twice a day. 4. Constipation. Most likely is because of the pain medications. The patient is already on Senokot, Relistor and as needed Fleet enema. 5. Chronic kidney disease, mineral bone disease. Continue current dose of Renvela 1600 mg by mouth with meals.
[2019-11-10 05:24] VITALS: BP 143/88
[2019-11-10 07:18] LABS: INR 2.3; PROTHROMBIN TIME 25.1 SECONDS (11.8-14.0)
[2019-11-10] MEDS: SENOKOT S TAB PO SCH ×2 (09:05→21:05)
[2019-11-10] MEDS: NEPHRO-VIT TAB (NEPHROCAPS) PO SCH (09:05)
[2019-11-10] MEDS: CARVedilol 3.125 MG TAB PO SCH ×2 (09:05→21:04)
[2019-11-10] MEDS: OMEPRAZOLE 20 MG CAP PO SCH (09:05)
[2019-11-10] MEDS: (RENVELA) SEVELAMER **CARBONate** 800 MG TAB PO SCH ×3 (09:05→17:13)
[2019-11-10] MEDS: VENLAFAXINE 37.5 MG TAB PO SCH ×2 (09:05→21:06)
[2019-11-10] MEDS: MORPHINE 15 MG SA TAB PO SCH ×2 (09:06→21:05)
[2019-11-10] MEDS: REMEDY PHYTOPLEX Z-GUARD PASTE 113GM TUBE (FROM STOREROOM PRODUCT) TOP SCH ×3 (09:08→21:07)
[2019-11-10 14:00] VITALS: BP 143/65
[2019-11-10] MEDS: METHYLNALTREXONE BROMIDE 12 MG/0.6 ML VIAL (RELISTOR) SC SCH (15:17)
[2019-11-10] MEDS: WARFARIN SOD 2.5 MG TAB PO SCH (17:13)
--- NOTE | 2019-11-10 17:26 | IPNPDOC ---
PM&R Progress Note DATE OF SERVICE: Nov 10, 2019 Thread Grinder Tool Progress Note Subjective: Patient reporting he feels ok today and that his pain is well controlled. REVIEW OF SYSTEMS: The following is a completed review of systems and has been reviewed. Review of systems otherwise unremarkable. PAIN: Patient self reports right hip pain and chronic low back pain EYES: No recent vision changes EARS, NOSE, & THROAT: No throat pain, or dysphagia, or rhinorrhea. CARDIOVASCULAR: Denies chest pain or palpitations PULMONARY: Denies shortness of breath GASTROINTESTINAL: denies constipation GENITOURINARY: denies dysuria MUSCULOSKELETAL: right hip fracture NEUROLOGICAL: denies focal tremor HEMATOLOGICAL: +anemia SKIN: right hip incision PSYCHIATRIC: Unremarkable All other review of systems found to be negative. PHYSICAL EXAMINATION: VITAL SIGNS: Please see below. GENERAL: Pleasant and cooperative. No acute distress. thin HEENT: PERRL. Extraocular movements intact. Clear conjunctiva CARDIOVASCULAR: Irregular rate and rhythm. No murmurs, rubs, or gallops LUNGS: Clear to auscultation bilaterally. No wheezes. No rhonchi ABDOMEN: Soft, nontender, nondistended. Positive bowel sounds. Normal active bowel sounds NEUROLOGICAL: Alert and oriented times three. Cranial nerves II through XII grossly intact. Sensation grossly intact EXTREMITIES: 5\5 strength bilateral upper extremities. 5\5 strength right ankle DF and PF (limited due to recent surgery) 5/5 strength in left lower extremity. SKIN: right hip incision ASSESSMENT: 83-year-old M with past medical history of ESRD on HD, Afib, CHF who presents status post fall with right hip fracture: PLAN: 1. Rehab- PT/OT advance gait and ADL training, strengthen/stretch/maintain ROM all 4 extremities, ambulating short distances with RW -Max HR 110-120 or RPE 4-5 while in therapy 2. Neuro: no known hx, monitor for delirium 3. Cardiac: hx of CAD s/p CABG & CHF with EF 35%, fluid management per renal, will fluid restrict while on ARU- medicine consulted to assist in management -Hx of afib on Co-Reg and Warfarin, monitor daily INRs and adjust, goal 2-3- holding Warfarin again today for INR 3, will restart tomorrow at lower dose, no signs of active bleed -pmh HTN, will c/u to hold hydralazine for soft BPs -HLD- statin 4. Resp: patient without known pulmonary disease, patient denies being on home 02 -monitor for infection and encourage incentive spirometry -c/u supplemental 02, will change to nocturnal to assist with daytime somnolence 5. Renal: ESRD on HD [id number], renal consulted to assist in management -s/p 1x dose Veltassa for high potassium-resolved 6. Ortho: s/p right hip fracture with ORIF- ortho consulted 7. Heme: anemia of chronic disease, per renal 8. Pain: c/u morphine sulfate 15mg BID per patient's request stating this helped him the most at home and [place] q6h prn -c/u effexor to 37.5 BID 9. DVT ppx: teds, on Coumadin 10. GI ppx: prilosec -c/u Relistor 4mg q48h IM renally dosed for constipation, enema ordered daily prn 11. Psych- c/u Remeron 15 mg qhs to help with insomnia and poor appetite- improving 12. Leukocytosis: likely from post-op inflammation, stable - patient denies cough, fevers, or chills- blood cx negative and CXR no infiltrate 13. Dispo: 11/16/19 to home, progressing towards goals Allergies Coded Allergies: No Known Allergies (Verified , 03/09/18) Vital Signs Vital Signs Date Time Temp Pulse Resp B/P (MAP) Pulse Ox O2 Delivery O2 Flow Rate FiO2 11/10/19 14:00 98.1 107 18 143/65 (91) 97 Room Air 11/04/19 06:00 2.0 Laboratory Data Labs 24H Laboratory Tests 2 11/10/19 06:38: Prothrombin Time 25.1H, Prothromb Time International Ratio 2.30, C-Reactive Protein, Quantitative 6.19H Microbiology Microbiology 11/03/19 Blood Culture - Final, Complete NO GROWTH AFTER 5 DAYS 11/03/19 Blood Culture - Final, Complete NO GROWTH AFTER 5 DAYS Current Medications Current Medications Current Medications Medications (Trade) Dose Ordered Sig/Kristen Route PRN Reason Start Time Stop Time Status Last Admin Dose Admin Acetaminophen (Tylenol Tab) 1,000 mg TID PO 10/27/19 16:00 11/06/19 11:14 DC 11/06/19 07:57 Acetaminophen/ Hydrocodone Bitart ([place], Anexsia 5/325) 1 tab Q6HP PRN PO MILD/MODERATE PAIN (PS 1-7) 11/06/19 11:15 11/08/19 13:01 Atorvastatin Calcium (Lipitor) 80 mg QHS PO 10/27/19 21:00 11/09/19 20:59 Carvedilol (COReg) 3.125 mg BID PO 10/31/19 21:00 11/10/19 09:05 Carvedilol (COReg) 3.125 mg DAILY PO 10/28/19 09:00 10/31/19 11:26 DC 10/31/19 09:09 Darbepoetin Alvin (Aranesp (Dialysis Use)) 100 mcg HD IV 10/27/19 18:30 11/09/19 21:22 DC Darbepoetin Alvin (Aranesp (Dialysis Use)) 200 mcg HD IV 11/09/19 21:30 Gabapentin (Neurontin) 100 mg QHS PO 10/27/19 21:00 10/31/19 14:53 DC 10/30/19 21:32 Iron (Venofer) 100 mg HD IV 11/02/19 11:15 11/23/19 23:59 Magnesium Hydroxide (Milk Of Magnesia) 30 ml DAILYPRN PRN PO CONSTIPATION 10/27/19 12:30 11/09/19 08:14 Methylnaltrexone [place] (Relistor) 4 mg Q48H SC 11/02/19 15:00 11/10/19 15:17 Mirtazapine (Remeron) 7.5 mg QHS PO 11/02/19 21:00 11/07/19 12:30 DC 11/06/19 20:41 Mirtazapine (Remeron) 15 mg QHS PO 11/07/19 21:00 11/09/19 21:00 Morphine Sulfate (Ms Contin) 15 mg BID PO 11/06/19 09:00 11/10/19 09:06 Nitroglycerin (Nitrostat (1/ 150)) 0.4 mg Q5MP PRN SL CHEST PAIN 10/27/19 12:30 Omeprazole (PriLOSEC) 20 mg DAILY PO 10/28/19 09:00 11/10/19 09:05 Oxycodone HCl (Roxicodone, Oxyir) 5 mg 0700,1100,1500,1900 PO 10/27/19 15:00 10/31/19 14:53 DC 10/31/19 12:31 Oxycodone HCl (Roxicodone, Oxyir) 5 mg QHS PRN PO PAIN 10/27/19 12:30 10/31/19 14:53 DC 10/29/19 21:53 Oxycodone HCl (Roxicodone, Oxyir) 5 mg QHS PRN PO PAIN 10/29/19 11:30 10/31/19 14:53 DC 10/31/19 01:49 Ramelteon (Rozerem) 8 mg QHS PO 10/27/19 21:00 10/31/19 14:53 DC 10/30/19 21:33 Senna/Docusate Sodium (Senokot S) 1 tab BID PO 10/27/19 21:00 11/10/19 13:51 DC 11/10/19 09:05 Senna/Docusate Sodium (Senokot S) 2 tab BID PO 11/10/19 21:00 Sevelamer Carbonate (Renvela) 1,600 mg WM PO 10/27/19 12:30 11/10/19 17:13 Sodium Biphosphate/ Sodium Phosphate (Fleet Enema) 1 ea DAILYPRN PRN [place] CONSTIPATION 11/09/19 17:30 11/09/19 18:43 Sodium Biphosphate/ Sodium Phosphate (Fleet Enema) 1 ea Q3DP PRN [place] CONSTIPATION 11/06/19 09:00 11/09/19 17:28 DC 11/08/19 17:21 Tizanidine HCl (Zanaflex) 2 mg 0700,1100,1600,2100 PO 11/01/19 16:00 11/06/19 11:13 DC 11/06/19 10:11 Tizanidine HCl (Zanaflex) 2 mg QHS PRN PO pain 11/02/19 10:30 11/06/19 11:13 DC Tramadol HCl (Ultram) 25 mg Q4HP PRN PO MODERATE PAIN (PS 5-7) 10/31/19 15:00 11/02/19 10:19 DC 11/02/19 01:52 Tramadol HCl (Ultram) 50 mg DAILY@0100 PRN PO PAIN 11/02/19 12:00 11/06/19 11:13 DC 11/06/19 02:50 Tramadol HCl (Ultram) 50 mg Q4HP PRN PO MODERATE PAIN (PS 5-7) 11/02/19 10:30 11/02/19 11:58 DC Tramadol HCl (Ultram) 50 mg QID PO 11/02/19 13:00 11/02/19 12:00 DC Tramadol HCl (Ultram) 50 mg TID PO 11/02/19 13:00 11/06/19 11:13 DC 11/06/19 07:56 Trazodone HCl (Desyrel) 25 mg QHSP PRN PO INSOMNIA 10/27/19 12:30 11/01/19 11:42 DC 10/30/19 21:32 Trazodone HCl (Desyrel) 50 mg QHS PO 11/01/19 21:00 11/02/19 11:55 DC 11/01/19 21:17 Venlafaxine HCl (Effexor) 18.75 mg BID PO 10/30/19 09:00 10/31/19 14:53 DC 10/31/19 09:09 Venlafaxine HCl (Effexor) 37.5 mg BID PO 10/31/19 21:00 11/10/19 09:05 Vitamin B Complex/ Vit C/Folic Acid (Nephro-Nadine Rx) 1 tab DAILY PO 10/27/19 09:00 11/10/19 09:05 Warfarin Sodium (Coumadin) 1 mg DAILY@17 PO 11/03/19 17:00 11/06/19 09:13 DC 11/05/19 17:09 Warfarin Sodium (Coumadin) 2 mg DAILY@17 PO 11/06/19 17:00 11/07/19 12:55 DC 11/06/19 17:24 Warfarin Sodium (Coumadin) 2.5 mg DAILY@17 PO 10/28/19 17:00 10/30/19 09:58 DC 10/29/19 16:08 Warfarin Sodium (Coumadin) 2.5 mg DAILY@17 PO 11/08/19 17:00 11/10/19 17:13 Warfarin Sodium (Coumadin) 3 mg DAILY@17 PO 11/07/19 17:00 11/08/19 10:14 DC 11/07/19 17:33 KATJA UGALDE MD 24, 2020 17:26
--- NOTE | 2019-11-10 20:29 | IPN ---
DATE: 11/10/2019 This is an 83-year-old male on the acute rehab unit after having a comminuted intertrochanteric right hip fracture and had an open reduction internal fixation (ORIF). His anuj came out today. Incision looks good. He continues on Coumadin. His international normalized ratio (INR) is therapeutic at 2.3. He has a history of end-stage renal disease and continues on dialysis, tolerating without difficulty. He was sitting up in the chair today, very pleasant and cooperative, looking forward to possibly going home next week. White count is 12.6, hemoglobin 9.0, hematocrit 29.9, platelets 492. Sodium was 135, BUN 36, creatinine 5.46, INR 2.3. The patient was feeling well. OBJECTIVE: Blood pressure 143/88, pulse 64, respirations 16, temperature 98, oxygen saturation 96% on room air. The patient is alert and oriented times three. Pupils are equal and reactive to light. Extraocular movements intact. Cornea and sclerae clear. Conjunctivae is normal. No facial asymmetry. Pharynx, tongue and gums pink and moist. Tongue is midline. Neck is supple without lymphadenopathy. No thyromegaly. No goiter. Carotids are 2+ without bruits. Chest is clear to auscultation without wheeze or retractions. Heart is regular. Abdomen: Benign. Bowel sounds are positive. Genitalia/Rectal: Not done. Extremities: No cyanosis, clubbing or edema. Incision is without redness or drainage, well approximated. Peripheral pulses equal and palpable bilaterally. IMPRESSION AND PLAN: Status post right hip fracture. Warfarin for deep vein thrombosis (DVT) prophylaxis. Chronic systolic congestive heart failure (CHF). Hemodialysis per nephrology, tolerating Coreg. Chronic atrial fibrillation. International normalized ratio (INR) therapeutic. Anemia of chronic disease. Hemoglobin and hematocrit remains stable. Chronic kidney disease, stage V. On hemodialysis. Treatment per nephrology.
[2019-11-10] MEDS: MIRTAZAPINE 15 MG TAB PO SCH (21:05)
[2019-11-10] MEDS: ATORVASTATIN 20 MG TAB PO SCH (21:05)
[2019-11-10] MEDS: NORCO, ANEXSIA 5/325MG TABLET (HYDROcodone/ACETAMINOPHEN) PO PRN (21:06)
[2019-11-10 21:12] VITALS: BP 132/64
[2019-11-11] MEDS: (RENVELA) SEVELAMER **CARBONate** 800 MG TAB PO SCH ×3 (05:38→18:38)
[2019-11-11] MEDS: SENOKOT S TAB PO SCH ×2 (05:38→21:16)
[2019-11-11] MEDS: MORPHINE 15 MG SA TAB PO SCH ×2 (05:39→21:18)
[2019-11-11] MEDS: VENLAFAXINE 37.5 MG TAB PO SCH ×2 (05:39→21:16)
[2019-11-11] MEDS: OMEPRAZOLE 20 MG CAP PO SCH (05:40)
[2019-11-11] MEDS: NEPHRO-VIT TAB (NEPHROCAPS) PO SCH (05:40)
[2019-11-11] MEDS: CARVedilol 3.125 MG TAB PO SCH ×2 (05:41→21:16)
[2019-11-11] MEDS: REMEDY PHYTOPLEX Z-GUARD PASTE 113GM TUBE (FROM STOREROOM PRODUCT) TOP SCH ×3 (05:41→21:18)
[2019-11-11 06:00] VITALS: BP 150/75
[2019-11-11 07:16] LABS: INR 2.79; PROTHROMBIN TIME 29.3 SECONDS (11.8-14.0)
[2019-11-11] MEDS ORDERED: HEPARIN 1,000 UNITS/ML 10ML VIAL (FOR RADIOLOGY& DIALYSIS ONLY)(J1644-10) IV ONE (13:30)
[2019-11-11 14:00] VITALS: BP 132/62
[2019-11-11] MEDS: WARFARIN SOD 2.5 MG TAB PO SCH (18:38)
[2019-11-11 21:06] VITALS: BP 135/65
[2019-11-11] MEDS: ATORVASTATIN 20 MG TAB PO SCH (21:16)
[2019-11-11] MEDS: MIRTAZAPINE 15 MG TAB PO SCH (21:17)
[2019-11-11] MEDS: NORCO, ANEXSIA 5/325MG TABLET (HYDROcodone/ACETAMINOPHEN) PO PRN (21:17)
[2019-11-12 06:00] VITALS: BP 135/76
[2019-11-12 07:24] LABS: INR 2.47; PROTHROMBIN TIME 26.6 SECONDS (11.8-14.0)
[2019-11-12] MEDS: NEPHRO-VIT TAB (NEPHROCAPS) PO SCH (08:27)
[2019-11-12] MEDS: (RENVELA) SEVELAMER **CARBONate** 800 MG TAB PO SCH ×3 (08:27→17:40)
[2019-11-12] MEDS: SENOKOT S TAB PO SCH ×2 (08:27→20:41)
[2019-11-12] MEDS: MORPHINE 15 MG SA TAB PO SCH ×2 (08:28→20:40)
[2019-11-12] MEDS: VENLAFAXINE 37.5 MG TAB PO SCH ×2 (08:28→20:41)
[2019-11-12] MEDS: OMEPRAZOLE 20 MG CAP PO SCH (08:29)
[2019-11-12] MEDS: REMEDY PHYTOPLEX Z-GUARD PASTE 113GM TUBE (FROM STOREROOM PRODUCT) TOP SCH ×3 (08:29→20:41)
[2019-11-12] MEDS: CARVedilol 3.125 MG TAB PO SCH ×2 (08:29→20:41)
--- NOTE | 2019-11-12 11:25 | IPN ---
DATE: 11/11/2019 SUBJECTIVE The patient was seen and examined at the bedside today morning. He is afebrile, hemodynamically stable. Today's is the patient's regular day of dialysis. Apart from constipation, he does not have any active complaints. OBJECTIVE Vital signs: Temperature is 96.5 degrees Fahrenheit, blood pressure 132/62, pulse is 88, respiratory rate of 18, saturating 99% on room air. Intake and output: There is no urine output recorded. Weight in the bed scale is 59.3 kg. PHYSICAL EXAMINATION General: The patient is awake, alert, oriented times three, sitting up in the sofa, no apparent distress. Head and neck examination: Extraocular muscles intact. Pupils equally round and reactive to light. Mucous membranes are moist. Neck is supple. There is no jugular venous distention (JVD). Cardiovascular: S1, S2, regular rate. No edema of the bilateral lower extremities. Respiratory: Chest is clear to auscultation bilaterally. Bilateral equal air entry. No rales or rhonchi. Abdomen: Soft, positive bowel sounds. Nontender. Muskuloskeletal: No clubbing or stenosis. Pulses are 2+. LEAN COACH: No focal deficit. Power is 5/5 in bilateral upper extremities. LAB REVIEW: CBC and BMP from November 09. No recent BMP is available. CURRENT INPATIENT MEDICATIONS: The patient's medications were all reviewed by me. There is no change in the medications today. ASSESSMENT/PLAN 1. End-stage renal disease. Today is the patient's regular day of dialysis. He will be dialyzed in the afternoon. Ultrafiltration goal will be around 1.5 liters as tolerated by his blood pressure. 2. Anemia in end-stage renal disease. Continue current dose of Aranesp and Venofer with dialysis. 3. Hypertension. Blood pressure is optimal. Continue current dose of Coreg. 4. Constipation. The patient is currently on Senokot and relistor. He had 2 bowel movements yesterday.
[2019-11-12 14:00] VITALS: BP 150/75
[2019-11-12] MEDS: METHYLNALTREXONE BROMIDE 12 MG/0.6 ML VIAL (RELISTOR) SC SCH (14:45)
[2019-11-12] MEDS: WARFARIN SOD 2.5 MG TAB PO SCH (17:40)
[2019-11-12 20:00] VITALS: BP 136/61
[2019-11-12] MEDS: MIRTAZAPINE 15 MG TAB PO SCH (20:41)
[2019-11-12] MEDS: ATORVASTATIN 20 MG TAB PO SCH (20:41)
[2019-11-13 06:00] VITALS: BP 165/84
[2019-11-13 06:49] LABS: BASO # 0.1 10^3/uL (0.0-0.2); BASO % 0.4 % (0.0-1.0); EOS # 0.3 10^3/uL (0.0-0.5); EOS % 2.3 % (0.0-3.0); HEMATOCRIT 28.2 % (42.0-52.0); HEMOGLOBIN 8.7 g/dl (13.5-17.5); LYMPH # 0.7 10^3/uL (1.5-5.0); LYMPH % 5.2 % (24.0-44.0); MEAN CORPUSCULAR HEMOGLOBIN 34.7 pg (27.0-33.0); MEAN CORPUSCULAR HGB CONC 30.9 g/dl (32.0-36.5); MEAN CORPUSCULAR VOLUME 112.4 fl (80.0-96.0); MONO # 1.4 10^3/uL (0.0-0.8); MONO % 10.5 % (0.0-5.0); NEUTROPHILS # 10.8 10^3/uL (1.5-8.5); NEUTROPHILS % 80.9 % (36.0-66.0); PLATELET COUNT, AUTOMATED 382 10^3/uL (150-450); RED BLOOD COUNT 2.51 10^6/uL (4.30-6.10); WHITE BLOOD COUNT 13.4 10^3/uL (4.0-10.0)
[2019-11-13 06:54] LABS: INR 2.39; PROTHROMBIN TIME 25.9 SECONDS (11.8-14.0)
[2019-11-13 07:14] LABS: CALCIUM LEVEL 8.3 MG/DL (8.8-10.2); CREATININE FOR GFR 4.6 MG/DL (0.70-1.30); POTASSIUM SERUM 5.1 MEQ/L (3.5-5.1)
[2019-11-13] MEDS: MOM 30ML SUSPENSION UDC PO PRN (07:44)
[2019-11-13] MEDS: (RENVELA) SEVELAMER **CARBONate** 800 MG TAB PO SCH ×3 (07:45→17:36)
[2019-11-13] MEDS: NEPHRO-VIT TAB (NEPHROCAPS) PO SCH (07:46)
[2019-11-13] MEDS: OMEPRAZOLE 20 MG CAP PO SCH (07:46)
[2019-11-13] MEDS: VENLAFAXINE 37.5 MG TAB PO SCH ×2 (07:47→20:47)
[2019-11-13] MEDS: MORPHINE 15 MG SA TAB PO SCH ×2 (07:47→20:48)
[2019-11-13] MEDS: SENOKOT S TAB PO SCH ×2 (07:48→20:48)
[2019-11-13] MEDS: CARVedilol 3.125 MG TAB PO SCH ×2 (07:48→20:48)
[2019-11-13] MEDS: REMEDY PHYTOPLEX Z-GUARD PASTE 113GM TUBE (FROM STOREROOM PRODUCT) TOP SCH ×3 (07:49→20:49)
--- NOTE | 2019-11-13 13:41 | IPNPDOC ---
PM&R Progress Note DATE OF SERVICE: Nov 13, 2019 Radar Repairer Progress Note Subjective: Patient seen in OT working on kitchen tasks, states he is feeling well. REVIEW OF SYSTEMS: The following is a completed review of systems and has been reviewed. Review of systems otherwise unremarkable. PAIN: Patient self reports right hip pain and chronic low back pain EYES: No recent vision changes EARS, NOSE, & THROAT: No throat pain, or dysphagia, or rhinorrhea. CARDIOVASCULAR: Denies chest pain or palpitations PULMONARY: Denies shortness of breath GASTROINTESTINAL: denies constipation GENITOURINARY: denies dysuria MUSCULOSKELETAL: right hip fracture NEUROLOGICAL: denies focal tremor HEMATOLOGICAL: +anemia SKIN: right hip incision PSYCHIATRIC: Unremarkable All other review of systems found to be negative. PHYSICAL EXAMINATION: VITAL SIGNS: Please see below. GENERAL: Pleasant and cooperative. No acute distress. thin HEENT: PERRL. Extraocular movements intact. Clear conjunctiva CARDIOVASCULAR: Irregular rate and rhythm. No murmurs, rubs, or gallops LUNGS: Clear to auscultation bilaterally. No wheezes. No rhonchi ABDOMEN: Soft, nontender, nondistended. Positive bowel sounds. Normal active bowel sounds NEUROLOGICAL: Alert and oriented times three. Cranial nerves II through XII grossly intact. Sensation grossly intact EXTREMITIES: 5\5 strength bilateral upper extremities. 5\5 strength right ankle DF and PF (limited due to recent surgery) 5/5 strength in left lower extremity. SKIN: right hip incision ASSESSMENT: 83-year-old M with past medical history of ESRD on HD, Afib, CHF who presents status post fall with right hip fracture: PLAN: 1. Rehab- PT/OT advance gait and ADL training, strengthen/stretch/maintain ROM all 4 extremities, ambulating short distances with RW -Max HR 110-120 or RPE 4-5 while in therapy 2. Neuro: no known hx, monitor for delirium 3. Cardiac: hx of CAD s/p CABG & CHF with EF 35%, fluid management per renal, will fluid restrict while on ARU- medicine consulted to assist in management -Hx of afib on Co-Reg and Warfarin, monitor daily INRs and adjust, goal 2-3- holding Warfarin again today for INR 3, will restart tomorrow at lower dose, no signs of active bleed -pmh HTN, will c/u to hold hydralazine for soft BPs -HLD- statin 4. Resp: patient without known pulmonary disease, patient denies being on home 02 -monitor for infection and encourage incentive spirometry -c/u supplemental 02, will change to nocturnal to assist with daytime somnolence 5. Renal: ESRD on HD [id number], renal consulted to assist in management -s/p 1x dose Veltassa for high potassium-resolved 6. Ortho: s/p right hip fracture with ORIF- ortho consulted 7. Heme: anemia of chronic disease, per renal 8. Pain: c/u morphine sulfate 15mg BID per patient's request stating this helped him the most at home and [place] q6h prn -c/u effexor to 37.5 BID 9. DVT ppx: teds, on Coumadin 10. GI ppx: prilosec -c/u Relistor 4mg q48h IM renally dosed for constipation, enema ordered daily prn 11. Psych- c/u Remeron 15 mg qhs to help with insomnia and poor appetite- improving 12. Leukocytosis: likely from post-op inflammation, stable, CRP overall trending down - patient denies cough, fevers, or chills- blood cx negative and CXR no infiltrate 13. Dispo: 11/16/19 to home, progressing towards goals Allergies Coded Allergies: No Known Allergies (Verified , 03/09/18) Vital Signs Vital Signs Date Time Temp Pulse Resp B/P (MAP) Pulse Ox O2 Delivery O2 Flow Rate FiO2 11/13/19 07:48 75 165/84 11/13/19 07:47 18 Room Air 11/13/19 06:00 97.1 95 Laboratory Data CBC/BMP Laboratory Tests 11/13/19 06:27 Labs 24H Laboratory Tests 2 11/13/19 06:27: Immature Granulocyte % (Auto) 0.7, Neutrophils (%) (Auto) 80.9H, Lymphocytes (%) (Auto) 5.2L, Monocytes (%) (Auto) 10.5H, Eosinophils (%) (Auto) 2.3, Basophils (%) (Auto) 0.4, Neutrophils # (Auto) 10.8H, Lymphocytes # (Auto) 0.7L, Monocytes # (Auto) 1.4H, Eosinophils # (Auto) 0.3, Basophils # (Auto) 0.1, Nucleated Red Blood Cells % (auto) 0.2H, Prothrombin Time 25.9H, Prothromb Time International Ratio 2.39, Anion Gap 10, Glomerular Filtration Rate 13.0L, Calcium Level 8.3L Microbiology Microbiology 11/03/19 Blood Culture - Final, Complete NO GROWTH AFTER 5 DAYS 11/03/19 Blood Culture - Final, Complete NO GROWTH AFTER 5 DAYS Current Medications Current Medications Current Medications Medications (Trade) Dose Ordered Sig/Kristen Route PRN Reason Start Time Stop Time Status Last Admin Dose Admin Acetaminophen (Tylenol Tab) 1,000 mg TID PO 10/27/19 16:00 11/06/19 11:14 DC 11/06/19 07:57 Acetaminophen/ Hydrocodone Bitart ([place], Anexsia 5/325) 1 tab Q6HP PRN PO MILD/MODERATE PAIN (PS 1-7) 11/06/19 11:15 11/11/19 21:17 Atorvastatin Calcium (Lipitor) 80 mg QHS PO 10/27/19 21:00 11/12/19 20:41 Carvedilol (COReg) 3.125 mg BID PO 10/31/19 21:00 11/13/19 07:48 Carvedilol (COReg) 3.125 mg DAILY PO 10/28/19 09:00 10/31/19 11:26 DC 10/31/19 09:09 Darbepoetin Alvin (Aranesp (Dialysis Use)) 100 mcg HD IV 10/27/19 18:30 11/09/19 21:22 DC Darbepoetin Alvin (Aranesp (Dialysis Use)) 200 mcg HD IV 11/09/19 21:30 Gabapentin (Neurontin) 100 mg QHS PO 10/27/19 21:00 10/31/19 14:53 DC 10/30/19 21:32 Iron (Venofer) 100 mg HD IV 11/02/19 11:15 11/23/19 23:59 Magnesium Hydroxide (Milk Of Magnesia) 30 ml DAILYPRN PRN PO CONSTIPATION 10/27/19 12:30 11/13/19 07:44 Methylnaltrexone [place] (Relistor) 4 mg Q48H SC 11/02/19 15:00 11/12/19 14:45 Mirtazapine (Remeron) 7.5 mg QHS PO 11/02/19 21:00 11/07/19 12:30 DC 11/06/19 20:41 Mirtazapine (Remeron) 15 mg QHS PO 11/07/19 21:00 11/12/19 20:41 Miscellaneous (Unresolved Clarification Entry) SEE LABEL COMMENTS DAILY XX 11/12/19 09:00 11/12/19 12:22 DC Morphine Sulfate (Ms Contin) 15 mg BID PO 11/06/19 09:00 11/13/19 07:47 Nitroglycerin (Nitrostat (1/ 150)) 0.4 mg Q5MP PRN SL CHEST PAIN 10/27/19 12:30 Omeprazole (PriLOSEC) 20 mg DAILY PO 10/28/19 09:00 11/13/19 07:46 Oxycodone HCl (Roxicodone, Oxyir) 5 mg 0700,1100,1500,1900 PO 10/27/19 15:00 10/31/19 14:53 DC 10/31/19 12:31 Oxycodone HCl (Roxicodone, Oxyir) 5 mg QHS PRN PO PAIN 10/27/19 12:30 10/31/19 14:53 DC 10/29/19 21:53 Oxycodone HCl (Roxicodone, Oxyir) 5 mg QHS PRN PO PAIN 10/29/19 11:30 10/31/19 14:53 DC 10/31/19 01:49 Ramelteon (Rozerem) 8 mg QHS PO 10/27/19 21:00 10/31/19 14:53 DC 10/30/19 21:33 Senna/Docusate Sodium (Senokot S) 1 tab BID PO 10/27/19 21:00 11/10/19 13:51 DC 11/10/19 09:05 Senna/Docusate Sodium (Senokot S) 2 tab BID PO 11/10/19 21:00 11/13/19 07:48 Sevelamer Carbonate (Renvela) 1,600 mg WM PO 10/27/19 12:30 11/13/19 12:14 Sodium Biphosphate/ Sodium Phosphate (Fleet Enema) 1 ea DAILYPRN PRN [place] CONSTIPATION 11/09/19 17:30 11/09/19 18:43 Sodium Biphosphate/ Sodium Phosphate (Fleet Enema) 1 ea Q3DP PRN [place] CONSTIPATION 11/06/19 09:00 11/09/19 17:28 DC 11/08/19 17:21 Tizanidine HCl (Zanaflex) 2 mg 0700,1100,1600,2100 PO 11/01/19 16:00 11/06/19 11:13 DC 11/06/19 10:11 Tizanidine HCl (Zanaflex) 2 mg QHS PRN PO pain 11/02/19 10:30 11/06/19 11:13 DC Tramadol HCl (Ultram) 25 mg Q4HP PRN PO MODERATE PAIN (PS 5-7) 10/31/19 15:00 11/02/19 10:19 DC 11/02/19 01:52 Tramadol HCl (Ultram) 50 mg DAILY@0100 PRN PO PAIN 11/02/19 12:00 11/06/19 11:13 DC 11/06/19 02:50 Tramadol HCl (Ultram) 50 mg Q4HP PRN PO MODERATE PAIN (PS 5-7) 11/02/19 10:30 11/02/19 11:58 DC Tramadol HCl (Ultram) 50 mg QID PO 11/02/19 13:00 11/02/19 12:00 DC Tramadol HCl (Ultram) 50 mg TID PO 11/02/19 13:00 11/06/19 11:13 DC 11/06/19 07:56 Trazodone HCl (Desyrel) 25 mg QHSP PRN PO INSOMNIA 10/27/19 12:30 11/01/19 11:42 DC 10/30/19 21:32 Trazodone HCl (Desyrel) 50 mg QHS PO 11/01/19 21:00 11/02/19 11:55 DC 11/01/19 21:17 Venlafaxine HCl (Effexor) 18.75 mg BID PO 10/30/19 09:00 10/31/19 14:53 DC 10/31/19 09:09 Venlafaxine HCl (Effexor) 37.5 mg BID PO 10/31/19 21:00 11/13/19 07:47 Vitamin B Complex/ Vit C/Folic Acid (Nephro-Nadine Rx) 1 tab DAILY PO 10/27/19 09:00 11/13/19 07:46 Warfarin Sodium (Coumadin) 1 mg DAILY@17 PO 11/03/19 17:00 11/06/19 09:13 DC 11/05/19 17:09 Warfarin Sodium (Coumadin) 2 mg DAILY@17 PO 11/06/19 17:00 11/07/19 12:55 DC 11/06/19 17:24 Warfarin Sodium (Coumadin) 2.5 mg DAILY@17 PO 10/28/19 17:00 10/30/19 09:58 DC 10/29/19 16:08 Warfarin Sodium (Coumadin) 2.5 mg DAILY@17 PO 11/08/19 17:00 11/12/19 17:40 Warfarin Sodium (Coumadin) 3 mg DAILY@17 PO 11/07/19 17:00 11/08/19 10:14 DC 11/07/19 17:33 KATJA UGALDE MD Nov 13, 2019 13:41
[2019-11-13 14:00] VITALS: BP 148/80
[2019-11-13] MEDS: WARFARIN SOD 2.5 MG TAB PO SCH (17:36)
[2019-11-13 20:00] VITALS: BP 137/81
[2019-11-13] MEDS: MIRTAZAPINE 15 MG TAB PO SCH (20:47)
[2019-11-13] MEDS: ATORVASTATIN 20 MG TAB PO SCH (20:49)
[2019-11-14] MEDS: NORCO, ANEXSIA 5/325MG TABLET (HYDROcodone/ACETAMINOPHEN) PO PRN ×2 (02:00→12:20)
[2019-11-14 06:00] VITALS: BP 167/77
[2019-11-14 07:12] LABS: INR 2.93; PROTHROMBIN TIME 30.5 SECONDS (11.8-14.0)
[2019-11-14] MEDS: NEPHRO-VIT TAB (NEPHROCAPS) PO SCH (08:26)
[2019-11-14] MEDS: MORPHINE 15 MG SA TAB PO SCH ×2 (08:27→20:34)
[2019-11-14] MEDS: SENOKOT S TAB PO SCH ×2 (08:27→20:34)
[2019-11-14] MEDS: (RENVELA) SEVELAMER **CARBONate** 800 MG TAB PO SCH ×3 (08:27→19:01)
[2019-11-14] MEDS: VENLAFAXINE 37.5 MG TAB PO SCH ×2 (08:28→20:35)
[2019-11-14] MEDS: CARVedilol 3.125 MG TAB PO SCH ×2 (08:28→20:35)
[2019-11-14] MEDS: OMEPRAZOLE 20 MG CAP PO SCH (08:28)
[2019-11-14] MEDS: REMEDY PHYTOPLEX Z-GUARD PASTE 113GM TUBE (FROM STOREROOM PRODUCT) TOP SCH ×3 (08:28→20:36)
[2019-11-14] MEDS ORDERED: HEPARIN 1,000 UNITS/ML 10ML VIAL (FOR RADIOLOGY& DIALYSIS ONLY)(J1644-10) IV ONE ×2 (13:00)
[2019-11-14 14:00] VITALS: BP 132/86
--- NOTE | 2019-11-14 14:51 | IPNPDOC ---
PM&R Progress Note DATE OF SERVICE: Nov 14, 2019 Rehab Aid Progress Note Subjective: Patient reports he feels ok and his pain is well controlled. REVIEW OF SYSTEMS: The following is a completed review of systems and has been reviewed. Review of systems otherwise unremarkable. PAIN: Patient self reports right hip pain and chronic low back pain EYES: No recent vision changes EARS, NOSE, & THROAT: No throat pain, or dysphagia, or rhinorrhea. CARDIOVASCULAR: Denies chest pain or palpitations PULMONARY: Denies shortness of breath GASTROINTESTINAL: denies constipation GENITOURINARY: denies dysuria MUSCULOSKELETAL: right hip fracture NEUROLOGICAL: denies focal tremor HEMATOLOGICAL: +anemia SKIN: right hip incision PSYCHIATRIC: Unremarkable All other review of systems found to be negative. PHYSICAL EXAMINATION: VITAL SIGNS: Please see below. GENERAL: Pleasant and cooperative. No acute distress. thin HEENT: PERRL. Extraocular movements intact. Clear conjunctiva CARDIOVASCULAR: Irregular rate and rhythm. No murmurs, rubs, or gallops LUNGS: Clear to auscultation bilaterally. No wheezes. No rhonchi ABDOMEN: Soft, nontender, nondistended. Positive bowel sounds. Normal active bowel sounds NEUROLOGICAL: Alert and oriented times three. Cranial nerves II through XII grossly intact. Sensation grossly intact EXTREMITIES: 5\5 strength bilateral upper extremities. 5\5 strength right ankle DF and PF (limited due to recent surgery) 5/5 strength in left lower extremity. SKIN: right hip incision ASSESSMENT: 83-year-old M with past medical history of ESRD on HD, Afib, CHF who presents status post fall with right hip fracture: PLAN: 1. Rehab- PT/OT advance gait and ADL training, strengthen/stretch/maintain ROM all 4 extremities, ambulating short distances with RW -Max HR 110-120 or RPE 4-5 while in therapy 2. Neuro: no known hx, monitor for delirium 3. Cardiac: hx of CAD s/p CABG & CHF with EF 35%, fluid management per renal, will fluid restrict while on ARU- medicine consulted to assist in management -Hx of afib on Co-Reg and Warfarin, monitor daily INRs and adjust, goal 2-3- holding Warfarin again today for INR 3, will restart tomorrow at lower dose, no signs of active bleed -pmh HTN, will c/u to hold hydralazine for soft BPs -HLD- statin 4. Resp: patient without known pulmonary disease, patient denies being on home 0 2 -monitor for infection and encourage incentive spirometry -c/u supplemental 02, will change to nocturnal to assist with daytime somnolence 5. Renal: ESRD on HD [id number], renal consulted to assist in management -s/p 1x dose Veltassa for high potassium-resolved 6. Ortho: s/p right hip fracture with ORIF- ortho consulted 7. Heme: anemia of chronic disease, per renal 8. Pain: c/u morphine sulfate 15mg BID per patient's request stating this helped him the most at home and [place] q6h prn -c/u effexor to 37.5 BID 9. DVT ppx: teds, on Coumadin 10. GI ppx: prilosec -c/u Relistor 4mg q48h IM renally dosed for constipation, enema ordered daily prn 11. Psych- c/u Remeron 15 mg qhs to help with insomnia and poor appetite- improving 12. Leukocytosis: likely from post-op inflammation, stable, CRP overall trending down - patient denies cough, fevers, or chills- blood cx negative and CXR no infiltrate 13. Dispo: 11/16/19 to home, progressing towards goals Allergies Coded Allergies: No Known Allergies (Verified , 03/09/18) Vital Signs Vital Signs Date Time Temp Pulse Resp B/P (MAP) Pulse Ox O2 Delivery O2 Flow Rate FiO2 11/14/19 12:20 18 Room Air 11/14/19 08:28 87 167/77 11/14/19 06:00 96.4 93 Laboratory Data Labs 24H Laboratory Tests 2 11/14/19 06:29: 11/14/19 06:32: Prothrombin Time 30.5H, Prothromb Time International Ratio 2.93 Current Medications Current Medications Current Medications Medications (Trade) Dose Ordered Sig/Kristen Route PRN Reason Start Time Stop Time Status Last Admin Dose Admin Acetaminophen (Tylenol Tab) 1,000 mg TID PO 10/27/19 16:00 11/06/19 11:14 DC 11/06/19 07:57 Acetaminophen/ Hydrocodone Bitart ([place], Anexsia 5/325) 1 tab Q6HP PRN PO MILD/MODERATE PAIN (PS 1-7) 11/06/19 11:15 11/14/19 12:20 Atorvastatin Calcium (Lipitor) 80 mg QHS PO 10/27/19 21:00 11/13/19 20:49 Carvedilol (COReg) 3.125 mg BID PO 10/31/19 21:00 11/14/19 08:28 Carvedilol (COReg) 3.125 mg DAILY PO 10/28/19 09:00 10/31/19 11:26 DC 10/31/19 09:09 Darbepoetin Alvin (Aranesp (Dialysis Use)) 100 mcg HD IV 10/27/19 18:30 11/09/19 21:22 DC Darbepoetin Alvin (Aranesp (Dialysis Use)) 200 mcg HD IV 11/09/19 21:30 Gabapentin (Neurontin) 100 mg QHS PO 10/27/19 21:00 10/31/19 14:53 DC 10/30/19 21:32 Iron (Venofer) 100 mg HD IV 11/02/19 11:15 11/23/19 23:59 Magnesium Hydroxide (Milk Of Magnesia) 30 ml DAILYPRN PRN PO CONSTIPATION 10/27/19 12:30 11/13/19 07:44 Methylnaltrexone [place] (Relistor) 4 mg Q48H SC 11/02/19 15:00 11/12/19 14:45 Mirtazapine (Remeron) 7.5 mg QHS PO 11/02/19 21:00 11/07/19 12:30 DC 11/06/19 20:41 Mirtazapine (Remeron) 15 mg QHS PO 11/07/19 21:00 11/13/19 20:47 Miscellaneous (Unresolved Clarification Entry) SEE LABEL COMMENTS DAILY XX 11/12/19 09:00 11/12/19 12:22 DC Morphine Sulfate (Ms Contin) 15 mg BID PO 11/06/19 09:00 11/14/19 08:27 Nitroglycerin (Nitrostat (1/ 150)) 0.4 mg Q5MP PRN SL CHEST PAIN 10/27/19 12:30 Omeprazole (PriLOSEC) 20 mg DAILY PO 10/28/19 09:00 11/14/19 08:28 Oxycodone HCl (Roxicodone, Oxyir) 5 mg 0700,1100,1500,1900 PO 10/27/19 15:00 10/31/19 14:53 DC 10/31/19 12:31 Oxycodone HCl (Roxicodone, Oxyir) 5 mg QHS PRN PO PAIN 10/27/19 12:30 10/31/19 14:53 DC 10/29/19 21:53 Oxycodone HCl (Roxicodone, Oxyir) 5 mg QHS PRN PO PAIN 10/29/19 11:30 10/31/19 14:53 DC 10/31/19 01:49 Ramelteon (Rozerem) 8 mg QHS PO 10/27/19 21:00 10/31/19 14:53 DC 10/30/19 21:33 Senna/Docusate Sodium (Senokot S) 1 tab BID PO 10/27/19 21:00 11/10/19 13:51 DC 11/10/19 09:05 Senna/Docusate Sodium (Senokot S) 2 tab BID PO 11/10/19 21:00 11/14/19 08:27 Sevelamer Carbonate (Renvela) 1,600 mg WM PO 10/27/19 12:30 11/14/19 12:18 Sodium Biphosphate/ Sodium Phosphate (Fleet Enema) 1 ea DAILYPRN PRN [place] CONSTIPATION 11/09/19 17:30 11/09/19 18:43 Sodium Biphosphate/ Sodium Phosphate (Fleet Enema) 1 ea Q3DP PRN [place] CONSTIPATION 11/06/19 09:00 11/09/19 17:28 DC 11/08/19 17:21 Tizanidine HCl (Zanaflex) 2 mg 0700,1100,1600,2100 PO 11/01/19 16:00 11/06/19 11:13 DC 11/06/19 10:11 Tizanidine HCl (Zanaflex) 2 mg QHS PRN PO pain 11/02/19 10:30 11/06/19 11:13 DC Tramadol HCl (Ultram) 25 mg Q4HP PRN PO MODERATE PAIN (PS 5-7) 10/31/19 15:00 11/02/19 10:19 DC 11/02/19 01:52 Tramadol HCl (Ultram) 50 mg DAILY@0100 PRN PO PAIN 11/02/19 12:00 11/06/19 11:13 DC 11/06/19 02:50 Tramadol HCl (Ultram) 50 mg Q4HP PRN PO MODERATE PAIN (PS 5-7) 11/02/19 10:30 11/02/19 11:58 DC Tramadol HCl (Ultram) 50 mg QID PO 11/02/19 13:00 11/02/19 12:00 DC Tramadol HCl (Ultram) 50 mg TID PO 11/02/19 13:00 11/06/19 11:13 DC 11/06/19 07:56 Trazodone HCl (Desyrel) 25 mg QHSP PRN PO INSOMNIA 10/27/19 12:30 11/01/19 11:42 DC 10/30/19 21:32 Trazodone HCl (Desyrel) 50 mg QHS PO 11/01/19 21:00 11/02/19 11:55 DC 11/01/19 21:17 Venlafaxine HCl (Effexor) 18.75 mg BID PO 10/30/19 09:00 10/31/19 14:53 DC 10/31/19 09:09 Venlafaxine HCl (Effexor) 37.5 mg BID PO 10/31/19 21:00 11/14/19 08:28 Vitamin B Complex/ Vit C/Folic Acid (Nephro-Nadine Rx) 1 tab DAILY PO 10/27/19 09:00 11/14/19 08:26 Warfarin Sodium (Coumadin) 1 mg DAILY@17 PO 11/03/19 17:00 11/06/19 09:13 DC 11/05/19 17:09 Warfarin Sodium (Coumadin) 2 mg DAILY@17 PO 11/06/19 17:00 11/07/19 12:55 DC 11/06/19 17:24 Warfarin Sodium (Coumadin) 2 mg DAILY@17 PO 11/14/19 17:00 Warfarin Sodium (Coumadin) 2.5 mg DAILY@17 PO 10/28/19 17:00 10/30/19 09:58 DC 10/29/19 16:08 Warfarin Sodium (Coumadin) 2.5 mg DAILY@17 PO 11/08/19 17:00 11/14/19 10:07 DC 11/13/19 17:36 Warfarin Sodium (Coumadin) 3 mg DAILY@17 PO 11/07/19 17:00 11/08/19 10:14 DC 11/07/19 17:33 KATJA UGALDE MD Nov 14, 2019 14:51
[2019-11-14] MEDS: METHYLNALTREXONE BROMIDE 12 MG/0.6 ML VIAL (RELISTOR) SC SCH (14:53)
--- NOTE | 2019-11-14 18:15 | IPN ---
DATE: 11/14/2019 SUBJECTIVE: Kenji was seen and examined this morning in the rehabilitation unit doing his physical therapy and also later in the afternoon in the hemodialysis unit receiving dialysis. He denies any complaints. Reports therapy has been going well. Has target discharge date of November 17. Denies shortness of breath or dyspnea on exertion. Temperature 96.4, pulse 87, respiratory rate 18, blood pressure 167/77, saturating 93% on room air. Intake yesterday was 1080. Goal fluid removal is going to be 1500 with dialysis today. In general, patient is seen awake, alert, oriented, interactive. No apparent distress. Extraocular muscles are intact. Tongue is moist. Ears, nose, and throat unremarkable. Neck is supple. Jugular veins are not elevated. Heart sounds are irregular. There is trace edema of the legs. Lungs are clear to auscultation bilaterally. No rale or rhonchi. Abdomen is soft and nontender. Musculoskeletal: He moves all four extremities on command. Arteriovenous access: His right forearm fistula is presently in use in the dialysis unit. Neurologic: Oriented times three at baseline mentation. Skin: Normal temperature and turgor. LABORATORY DATA: White count 13.4, hemoglobin 8.7, platelets 382. Sodium 134, potassium 5.1, bicarbonate 23. INPATIENT MEDICATIONS: Reviewed by myself. His Coumadin was adjusted by the primary team. Remainder medications is unchanged from prior. PROBLEMS: 1. End-stage renal disease, on hemodialysis on a Wednesday, , Wednesday schedule. His electrolytes are acceptable. His volume status is acceptable. Ultrafiltration goal is around 1.5 liters as tolerated by his hemodynamics. He continues on fluid restriction. 2. 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 He continues with Aranesp and Venofer with dialysis. Hemoglobin is suboptimal at 8.7. 3. Hypertension. Blood pressures are somewhat high today, but he is being dialyzed, and blood pressures are subsequently expected to improve. Continue low-dose carvedilol. 4. Systolic congestive heart failure. Volume status is reasonable. He continues with fluid restriction, and goal fluid removal with dialysis today is 1.5 liters. 5. History of atrial fibrillation, rate controlled with carvedilol and anticoagulated with Coumadin with a therapeutic INR today. 6. Leukocytosis. I note his white count is slowly increasing. I am going to get a repeat C-reactive protein (CRP).
[2019-11-14] MEDS: WARFARIN SOD 2 MG TAB PO SCH (19:01)
[2019-11-14 20:00] VITALS: BP 125/58
[2019-11-14] MEDS: ATORVASTATIN 20 MG TAB PO SCH (20:35)
[2019-11-14] MEDS: MIRTAZAPINE 15 MG TAB PO SCH (20:35)
[2019-11-15 06:00] VITALS: BP 168/70
[2019-11-15 07:02] LABS: HEMATOCRIT 27.7 % (42.0-52.0); HEMOGLOBIN 8.8 g/dl (13.5-17.5); MEAN CORPUSCULAR HEMOGLOBIN 35.1 pg (27.0-33.0); MEAN CORPUSCULAR HGB CONC 31.8 g/dl (32.0-36.5); MEAN CORPUSCULAR VOLUME 110.4 fl (80.0-96.0); PLATELET COUNT, AUTOMATED 393 10^3/uL (150-450); RED BLOOD COUNT 2.51 10^6/uL (4.30-6.10); WHITE BLOOD COUNT 12.7 10^3/uL (4.0-10.0)
[2019-11-15 07:14] LABS: INR 2.93; PROTHROMBIN TIME 30.5 SECONDS (11.8-14.0)
[2019-11-15 07:26] LABS: CALCIUM LEVEL 8.8 MG/DL (8.8-10.2); CREATININE FOR GFR 3.69 MG/DL (0.70-1.30); GLOMERULAR FILTRATION RATE 16.8 (>35); POTASSIUM SERUM 4.7 MEQ/L (3.5-5.1)
[2019-11-15] MEDS: (RENVELA) SEVELAMER **CARBONate** 800 MG TAB PO SCH ×3 (07:53→17:04)
[2019-11-15] MEDS: NEPHRO-VIT TAB (NEPHROCAPS) PO SCH (07:53)
[2019-11-15] MEDS: VENLAFAXINE 37.5 MG TAB PO SCH ×2 (07:53→21:51)
[2019-11-15] MEDS: CARVedilol 3.125 MG TAB PO SCH ×2 (07:53→21:54)
[2019-11-15] MEDS: MORPHINE 15 MG SA TAB PO SCH ×2 (07:53→21:52)
[2019-11-15] MEDS: SENOKOT S TAB PO SCH ×2 (07:53→21:51)
[2019-11-15] MEDS: OMEPRAZOLE 20 MG CAP PO SCH (07:54)
[2019-11-15] MEDS: REMEDY PHYTOPLEX Z-GUARD PASTE 113GM TUBE (FROM STOREROOM PRODUCT) TOP SCH ×3 (07:54→21:55)
[2019-11-15 08:42] LABS: C REACTIVE PROTEIN QUANTITATIV 8.79 MG/DL (0.00-0.30)
[2019-11-15 14:00] VITALS: BP 141/68
[2019-11-15] MEDS: WARFARIN SOD 2 MG TAB PO SCH (17:04)
[2019-11-15] MEDS: SODIUM CHLORIDE NASAL 0.65% SPRAY BTL (OCEAN) SCH (21:51)
[2019-11-15] MEDS: ATORVASTATIN 20 MG TAB PO SCH (21:52)
[2019-11-15] MEDS: MIRTAZAPINE 15 MG TAB PO SCH (21:52)
[2019-11-15 22:20] VITALS: BP 151/67
[2019-11-16 06:00] VITALS: BP 140/64
[2019-11-16 07:14] LABS: INR 2.98; PROTHROMBIN TIME 30.9 SECONDS (11.8-14.0)
[2019-11-16] MEDS: OMEPRAZOLE 20 MG CAP PO SCH (09:21)
[2019-11-16] MEDS: (RENVELA) SEVELAMER **CARBONate** 800 MG TAB PO SCH ×3 (09:21→19:45)
[2019-11-16] MEDS: VENLAFAXINE 37.5 MG TAB PO SCH ×2 (09:21→21:49)
[2019-11-16] MEDS: NEPHRO-VIT TAB (NEPHROCAPS) PO SCH (09:21)
[2019-11-16] MEDS: CARVedilol 3.125 MG TAB PO SCH ×2 (09:21→21:48)
[2019-11-16] MEDS: SENOKOT S TAB PO SCH ×2 (09:21→21:47)
[2019-11-16] MEDS: MORPHINE 15 MG SA TAB PO SCH ×2 (09:22→21:49)
[2019-11-16] MEDS: REMEDY PHYTOPLEX Z-GUARD PASTE 113GM TUBE (FROM STOREROOM PRODUCT) TOP SCH ×3 (09:22→21:50)
[2019-11-16] MEDS: SODIUM CHLORIDE NASAL 0.65% SPRAY BTL (OCEAN) SCH ×4 (09:22→21:00)
[2019-11-16 14:00] VITALS: BP 147/70
--- NOTE | 2019-11-16 16:16 | IPN ---
DATE OF SERVICE: 11/16/2019 SUBJECTIVE: Kenji is seen and examined this morning in the rehab unit and later in the afternoon in the hemodialysis unit receiving his treatment. He reports rehab is going very well. He walked more than 100 feet today. He is for probable discharge tomorrow. He reports no issues with dialysis. Temperature 97.5, pulse 77, respiratory rate 18, blood pressure 140/64, saturating 93% on room air. Intake yesterday was 1330. Weight in the bed scale today is 59.3 kg. General: The patient is seen awake, alert, oriented, interactive, in no apparent distress. Extraocular muscles are intact. Tongue is moist. Ears, nose, and throat are unremarkable. Neck is supple. Jugular veins were not elevated. Heart sounds are irregular. There is some trace edema in the legs. Lungs are clear to auscultation bilaterally. No rale or rhonchi. Abdomen is soft and nontender. He moves all four extremities on command. Arteriovenous access right forearm fistula is presently in use. Neurologic: Oriented times three, at baseline mentation. Skin: Normal temperature and turgor. LABS: Hemoglobin 8.8, platelets 393, white count 12.7. Sodium 133. CRP 8.7. INPATIENT MEDICATIONS: Reviewed by myself and no changes from prior. PROBLEMS: 1. End-stage renal disease on hemodialysis on Wednesday, , Wednesday schedule. His electrolytes are acceptable. His volume status is compensated. Ultrafiltration goal will be around 1.5 liters as tolerated by hemodynamics. He continues on fluid restriction. Fistula is in good use. 2. 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 His hemoglobin remains suboptimal. He is receiving Venofer and Aranesp with dialysis. There are no signs of bleed. Goal hemoglobin is 10-11. 3. Hypertension. Blood pressures are well controlled and no change is being made to the current regimen. 4. Systolic congestive heart failure. Volume status is well compensated. Continue with three times weekly hemodialysis and oral fluid restriction. 5. Atrial fibrillation. Rate controlled with Carvedilol and anticoagulated with Coumadin with a therapeutic international normalized ratio (INR).
[2019-11-16] MEDS: WARFARIN SOD 2 MG TAB PO SCH (19:43)
[2019-11-16] MEDS: METHYLNALTREXONE BROMIDE 12 MG/0.6 ML VIAL (RELISTOR) SC SCH (19:43)
[2019-11-16] MEDS: ATORVASTATIN 20 MG TAB PO SCH (21:49)
[2019-11-16] MEDS: MIRTAZAPINE 15 MG TAB PO SCH (21:49)
[2019-11-16 22:01] VITALS: BP 137/80
[2019-11-17] MEDS: NORCO, ANEXSIA 5/325MG TABLET (HYDROcodone/ACETAMINOPHEN) PO PRN (01:55)
[2019-11-17 06:00] VITALS: BP 136/67
[2019-11-17 07:25] LABS: INR 2.46; PROTHROMBIN TIME 26.5 SECONDS (11.8-14.0)
[2019-11-17] MEDS ORDERED: REME15TA PO (07:35)
[2019-11-17] MEDS ORDERED: VENL37TA PO (07:35)
[2019-11-17] MEDS: (RENVELA) SEVELAMER **CARBONate** 800 MG TAB PO SCH (09:10)
[2019-11-17] MEDS: OMEPRAZOLE 20 MG CAP PO SCH (09:10)
[2019-11-17] MEDS: SENOKOT S TAB PO SCH (09:10)
[2019-11-17 09:11] VITALS: BP 136/67
[2019-11-17] MEDS: VENLAFAXINE 37.5 MG TAB PO SCH (09:11)
[2019-11-17] MEDS: CARVedilol 3.125 MG TAB PO SCH (09:11)
[2019-11-17] MEDS: SODIUM CHLORIDE NASAL 0.65% SPRAY BTL (OCEAN) SCH (09:11)
[2019-11-17] MEDS: NEPHRO-VIT TAB (NEPHROCAPS) PO SCH (09:11)
[2019-11-17] MEDS: REMEDY PHYTOPLEX Z-GUARD PASTE 113GM TUBE (FROM STOREROOM PRODUCT) TOP SCH (09:11)
[2019-11-17] MEDS: MORPHINE 15 MG SA TAB PO SCH (09:11)
--- NOTE | 2019-11-20 11:01 | IPNPDOC ---
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 REVIEW OF SYSTEMS: The following is a completed review of systems and has been reviewed. Review of systems otherwise unremarkable. PAIN: Patient self reports right hip pain and chronic low back pain EYES: No recent vision changes EARS, NOSE, & THROAT: No throat pain, or dysphagia, or rhinorrhea. CARDIOVASCULAR: Denies chest pain or palpitations PULMONARY: Denies shortness of breath GASTROINTESTINAL: denies constipation GENITOURINARY: denies dysuria MUSCULOSKELETAL: right hip fracture NEUROLOGICAL: denies focal tremor HEMATOLOGICAL: +anemia SKIN: right hip incision PSYCHIATRIC: Unremarkable All other review of systems found to be negative. PHYSICAL EXAMINATION: VITAL SIGNS: Please see below. GENERAL: Pleasant and cooperative. No acute distress. thin HEENT: PERRL. Extraocular movements intact. Clear conjunctiva CARDIOVASCULAR: Irregular rate and rhythm. No murmurs, rubs, or gallops LUNGS: Clear to auscultation bilaterally. No wheezes. No rhonchi ABDOMEN: Soft, nontender, nondistended. Positive bowel sounds. Normal active bowel sounds NEUROLOGICAL: Alert and oriented times three. Cranial nerves II through XII grossly intact. Sensation grossly intact EXTREMITIES: 5\5 strength bilateral upper extremities. 5\5 strength right ankle DF and PF (limited due to recent surgery) 5/5 strength in left lower extremity. SKIN: right hip incision ASSESSMENT: 83-year-old M with past medical history of ESRD on HD, Afib, CHF who presents status post fall with right hip fracture: PLAN: 1. Rehab- PT/OT advance gait and ADL training, strengthen/stretch/maintain ROM all 4 extremities, ambulating short distances with RW -Max HR 110-120 or RPE 4-5 while in therapy 2. Neuro: no known hx, monitor for delirium 3. Cardiac: hx of CAD s/p CABG & CHF with EF 35%, fluid management per renal, will fluid restrict while on ARU- medicine consulted to assist in management -Hx of afib on Co-Reg and Warfarin, monitor daily INRs and adjust, goal 2-3- holding Warfarin again today for INR 3, will restart tomorrow at lower dose, no signs of active bleed -pmh HTN, will c/u to hold hydralazine for soft BPs -HLD- statin 4. Resp: patient without known pulmonary disease, patient denies being on home 02 -monitor for infection and encourage incentive spirometry -c/u supplemental 02, will change to nocturnal to assist with daytime somnolence 5. Renal: ESRD on HD [id number], renal consulted to assist in management -s/p 1x dose Veltassa for high potassium-resolved 6. Ortho: s/p right hip fracture with ORIF- ortho consulted 7. Heme: anemia of chronic disease, per renal 8. Pain: c/u morphine sulfate 15mg BID per patient's request stating this helped him the most at home and [place] q6h prn -c/u effexor to 37.5 BID 9. DVT ppx: teds, on Coumadin 10. GI ppx: prilosec -c/u Relistor 4mg q48h IM renally dosed for constipation, enema ordered daily prn 11. Psych- c/u Remeron 15 mg qhs to help with insomnia and poor appetite-improving 12. Leukocytosis: likely from post-op inflammation vs chronic inflammation in setting of ESRD- no fever - patient denies cough, fevers, or chills- blood cx negative and CXR no infiltrate 13. Dispo: 11/16/19 to home, progressing towards goals Allergies Coded Allergies: No Known Allergies (Verified , 03/09/18) Vital Signs Vital Signs Date Time Temp Pulse Resp B/P (MAP) Pulse Ox O2 Delivery O2 Flow Rate FiO2 11/17/19 09:11 16 Room Air 11/17/19 09:11 62 136/67 11/17/19 06:00 96.7 99 Current Medications Current Medications Current Medications Medications (Trade) Dose Ordered Sig/Kristen Route PRN Reason Start Time Stop Time Status Last Admin Dose Admin Acetaminophen (Tylenol Tab) 1,000 mg TID PO 10/27/19 16:00 11/06/19 11:14 DC 11/06/19 07:57 Acetaminophen/ Hydrocodone Bitart ([place], Anexsia 5/325) 1 tab Q6HP PRN PO MILD/MODERATE PAIN (PS 1-7) 11/06/19 11:15 11/17/19 13:02 DC 11/17/19 01:55 Atorvastatin Calcium (Lipitor) 80 mg QHS PO 10/27/19 21:00 11/17/19 13:02 DC 11/16/19 21:49 Carvedilol (COReg) 3.125 mg BID PO 10/31/19 21:00 11/17/19 13:02 DC 11/17/19 09:11 Carvedilol (COReg) 3.125 mg DAILY PO 10/28/19 09:00 10/31/19 11:26 DC 10/31/19 09:09 Darbepoetin Alvin (Aranesp (Dialysis Use)) 100 mcg HD IV 10/27/19 18:30 11/09/19 21:22 DC Darbepoetin Alvin (Aranesp (Dialysis Use)) 200 mcg HD IV 11/09/19 21:30 11/17/19 13:02 DC Gabapentin (Neurontin) 100 mg QHS PO 10/27/19 21:00 10/31/19 14:53 DC 10/30/19 21:32 Iron (Venofer) 100 mg HD IV 11/02/19 11:15 11/17/19 13:02 DC Magnesium Hydroxide (Milk Of Magnesia) 30 ml DAILYPRN PRN PO CONSTIPATION 10/27/19 12:30 11/17/19 13:02 DC 11/13/19 07:44 Methylnaltrexone Thayer (Relistor) 4 mg Q48H SC 11/02/19 15:00 11/17/19 13:02 DC 11/16/19 19:43 Mirtazapine (Remeron) 7.5 mg QHS PO 11/02/19 21:00 11/07/19 12:30 DC 11/06/19 20:41 Mirtazapine (Remeron) 15 mg QHS PO 11/07/19 21:00 11/17/19 13:02 DC 11/16/19 21:49 Miscellaneous (Unresolved Clarification Entry) SEE LABEL COMMENTS DAILY XX 11/12/19 09:00 11/12/19 12:22 DC Morphine Sulfate (Ms Contin) 15 mg BID PO 11/06/19 09:00 11/17/19 13:02 DC 11/17/19 09:11 Nitroglycerin (Nitrostat (1/ 150)) 0.4 mg Q5MP PRN SL CHEST PAIN 10/27/19 12:30 11/17/19 13:02 DC Omeprazole (PriLOSEC) 20 mg DAILY PO 10/28/19 09:00 11/17/19 13:02 DC 11/17/19 09:10 Oxycodone HCl (Roxicodone, Oxyir) 5 mg 0700,1100,1500,1900 PO 10/27/19 15:00 10/31/19 14:53 DC 10/31/19 12:31 Oxycodone HCl (Roxicodone, Oxyir) 5 mg QHS PRN PO PAIN 10/27/19 12:30 10/31/19 14:53 DC 10/29/19 21:53 Oxycodone HCl (Roxicodone, Oxyir) 5 mg QHS PRN PO PAIN 10/29/19 11:30 10/31/19 14:53 DC 10/31/19 01:49 Ramelteon (Rozerem) 8 mg QHS PO 10/27/19 21:00 10/31/19 14:53 DC 10/30/19 21:33 Senna/Docusate Sodium (Senokot S) 1 tab BID PO 10/27/19 21:00 11/10/19 13:51 DC 11/10/19 09:05 Senna/Docusate Sodium (Senokot S) 2 tab BID PO 11/10/19 21:00 11/17/19 13:03 DC 11/17/19 09:10 Sevelamer Carbonate (Renvela) 1,600 mg WM PO 10/27/19 12:30 11/17/19 13:02 DC 11/17/19 09:10 Sodium Biphosphate/ Sodium Phosphate (Fleet Enema) 1 ea DAILYPRN PRN GA CONSTIPATION 11/09/19 17:30 11/17/19 13:02 DC 11/09/19 18:43 Sodium Biphosphate/ Sodium Phosphate (Fleet Enema) 1 ea Q3DP PRN GA CONSTIPATION 11/06/19 09:00 11/09/19 17:28 DC 11/08/19 17:21 Sodium Chloride ([place] Nasal Mcconnell) 2 SPRAYS EACH NOSTRIL QID NA 11/15/19 21:00 11/17/19 13:03 DC 11/17/19 09:11 Tizanidine HCl (Zanaflex) 2 mg 0700,1100,1600,2100 PO 11/01/19 16:00 11/06/19 11:13 DC 11/06/19 10:11 Tizanidine HCl (Zanaflex) 2 mg QHS PRN PO pain 11/02/19 10:30 11/06/19 11:13 DC Tramadol HCl (Ultram) 25 mg Q4HP PRN PO MODERATE PAIN (PS 5-7) 10/31/19 15:00 11/02/19 10:19 DC 11/02/19 01:52 Tramadol HCl (Ultram) 50 mg DAILY@0100 PRN PO PAIN 11/02/19 12:00 11/06/19 11:13 DC 11/06/19 02:50 Tramadol HCl (Ultram) 50 mg Q4HP PRN PO MODERATE PAIN (PS 5-7) 11/02/19 10:30 11/02/19 11:58 DC Tramadol HCl (Ultram) 50 mg QID PO 11/02/19 13:00 11/02/19 12:00 DC Tramadol HCl (Ultram) 50 mg TID PO 11/02/19 13:00 11/06/19 11:13 DC 11/06/19 07:56 Trazodone HCl (Desyrel) 25 mg QHSP PRN PO INSOMNIA 10/27/19 12:30 11/01/19 11:42 DC 10/30/19 21:32 Trazodone HCl (Desyrel) 50 mg QHS PO 11/01/19 21:00 11/02/19 11:55 DC 11/01/19 21:17 Venlafaxine HCl (Effexor) 18.75 mg BID PO 10/30/19 09:00 10/31/19 14:53 DC 10/31/19 09:09 Venlafaxine HCl (Effexor) 37.5 mg BID PO 10/31/19 21:00 11/17/19 13:02 DC 11/17/19 09:11 Vitamin B Complex/ Vit C/Folic Acid (Nephro-Nadine Rx) 1 tab DAILY PO 10/27/19 09:00 11/17/19 13:02 DC 11/17/19 09:11 Warfarin Sodium (Coumadin) 1 mg DAILY@17 PO 11/03/19 17:00 11/06/19 09:13 DC 11/05/19 17:09 Warfarin Sodium (Coumadin) 2 mg DAILY@17 PO 11/06/19 17:00 11/07/19 12:55 DC 11/06/19 17:24 Warfarin Sodium (Coumadin) 2 mg DAILY@17 PO 11/14/19 17:00 11/17/19 13:03 DC 11/16/19 19:43 Warfarin Sodium (Coumadin) 2.5 mg DAILY@17 PO 10/28/19 17:00 10/30/19 09:58 DC 10/29/19 16:08 Warfarin Sodium (Coumadin) 2.5 mg DAILY@17 PO 11/08/19 17:00 11/14/19 10:07 DC 11/13/19 17:36 Warfarin Sodium (Coumadin) 3 mg DAILY@17 PO 11/07/19 17:00 11/08/19 10:14 DC 11/07/19 17:33 KATJA UGALDE MD Nov 20, 2019 11:01
--- NOTE | 2019-11-20 12:21 | PMRDS ---
DATE OF ADMISSION: 10/27/2019 DATE OF DISCHARGE: 11/17/2019 CHIEF COMPLAINT/DISCHARGE DIAGNOSIS: Hip fracture in the setting of end-stage renal disease. HISTORY OF PRESENT ILLNESS: 83M pmh CAD s/p CABG, Afib obn Coumadin, HLD, HTN, chronic back pain, ESRD on HD who fell at home onto his right side and presented to [facility] ED on 10-24-19 complaining of difficulty walking. Hip x-ray revealed, Comminuted intertrochanteric right hip fracture in varus position. He was evaluated by orthopedics and underwent an ORIF on 10-26-19 without any complications and was made WBAT. He was monitored on telemetry for his atrial fibrillation, and was found to have had post-op anemia and leukocytosis. He was evaluated by therapy, noted to be well below his prior level of function and deemed medically appropriate for discharge to ARU on 11/06/2019. PAST MEDICAL HISTORY: As per HPI. HOSPITAL COURSE: The patient was admitted on a comprehensive PT, OT program. He received 24-hour nursing supervision and weekly team meetings were held to discuss his progress. The patient reported significant pain during his hospital course and eventually was transitioned to morphine sulfate 15 mg twice a day and started on a low dose of Effexor gradually increasing to 37.5 twice a day. The patient also complained of chronic constipation and was started on Relistor in addition to receiving enemas. The patient reported poor appetite and difficulty sleeping and was started on Remeron with overall improvement in his appetite and mood. The patient had persistent low grade leukocytosis thought to be due to postop inflammation versus chronic inflammation in the setting of end-stage renal disease, was without fever and blood cultures in addition to a chest x-ray were negative. He was maintained on Coumadin for his atrial fibrillation and fluid restriction for congestive heart failure. He made significant gains in therapy and was deemed medically and functionally stable to return home. DISCHARGE MEDICATIONS: As per instructions. FUNCTIONAL HISTORY ON DISCHARGE: Patient was modified independent for functional transfers, able to ambulate 98 feet and negotiate 7stairs with contact guard assist level. In occupational therapy he was modified independent for toileting and modified independent for grooming. Thank you for this referral.
== END 2019-11-17 12:45 | disposition home health service (06) | DRG 559 ==
LOC: M PM&R 11:00
PROVIDERS: ADMIT Physical Medicine & Rehabilitation; ATTEND Physical Medicine & Rehabilitation
DX: S72.144D Nondisplaced intertrochanteric fracture of right femur, subsequent encounter for closed fracture with routine healing (principal); N18.6 End stage renal disease; I13.2 Hypertensive heart and chronic kidney disease with heart failure and with stage 5 chronic kidney disease, or end stage renal disease; I50.22 Chronic systolic (congestive) heart failure; N25.81 Secondary hyperparathyroidism of renal origin; E87.1 Hypo-osmolality and hyponatremia; I48.20 Chronic atrial fibrillation, unspecified; Z79.01 Long term (current) use of anticoagulants; Z87.891 Personal history of nicotine dependence; I25.10 Atherosclerotic heart disease of native coronary artery without angina pectoris; Z95.1 Presence of aortocoronary bypass graft; D63.1 Anemia in chronic kidney disease; M54.5 Low back pain; E78.5 Hyperlipidemia, unspecified; K21.9 Gastro-esophageal reflux disease without esophagitis; E87.5 Hyperkalemia; W18.30XD Fall on same level, unspecified, subsequent encounter; Y92.009 Unspecified place in unspecified non-institutional (private) residence as the place of occurrence of the external cause; G47.00 Insomnia, unspecified; Z79.899 Other long term (current) drug therapy; Z90.81 Acquired absence of spleen; K59.00 Constipation, unspecified; D72.829 Elevated white blood cell count, unspecified; Z99.2 Dependence on renal dialysis

== ENCOUNTER → 2020-08-19 | Outpatient (REF) | payer MEDICARE, OTHER ==
[~2020-08-19] MED LIST changes: +AMLO1TAB24 PO; -AMLO5TAB6 PO; +REME15TA PO; +VENL37TA PO
== END ==
LOC: M LAB REF 16:47
PROVIDERS: ATTEND Physician Assistant
DX: C44.329 Squamous cell carcinoma of skin of other parts of face (principal)
CPT/HCPCS: 11102; 88305; G0463

== ENCOUNTER 2020-10-14 11:32 | Inpatient (IN) | payer MEDICARE, OTHER ==
[~2020-10-14] VITALS: Ht 175.3 cm; Wt 54.9 kg
[~2020-10-14 11:32] MED LIST changes: +MIRT-62 PO; -REME15TA PO
--- NOTE | 2020-10-14 12:23 | REP ---
INDICATION: R sided weakness COMPARISON: None. TECHNIQUE: Axial noncontrast images from the skull base to the thoracic inlet with coronal reformations. This CT examination was performed using the following dose reduction techniques: Automated exposure control, adjustment of mA and/or kv according to the patient's size, and use of iterative reconstruction technique. FINDINGS: Atrophy with periventricular leukomalacia and microvascular ischemic changes are appreciated. The ventricles and sulci are symmetric. Rajput-white differentiation is maintained. There is no evidence for acute intracranial hemorrhage, mass/mass effect, pathology or infarction. No extra-axial fluid collection. Calvarium is intact. Paranasal sinuses and mastoid air cells are clear. IMPRESSION: Atrophy and microvascular ischemic changes. No acute intracranial hemorrhage, infarction, or mass/mass effect. <Electronically signed by Anton Garcia > 10/14/20 [id number]
[2020-10-14 12:30] LABS: BASO % 0.2 % (0.0-1.0); EOS % 0.1 % (0.0-3.0); HEMATOCRIT 32.3 % (42.0-52.0); HEMOGLOBIN 10.5 g/dl (13.5-17.5); LYMPH # 0.2 10^3/uL (1.5-5.0); LYMPH % 2.2 % (24.0-44.0); MEAN CORPUSCULAR HEMOGLOBIN 35.2 pg (27.0-33.0); MEAN CORPUSCULAR HGB CONC 32.5 g/dl (32.0-36.5); MEAN CORPUSCULAR VOLUME 108.4 fl (80.0-96.0); MONO # 0.5 10^3/uL (0.0-0.8); NEUTROPHILS # 7.4 10^3/uL (1.5-8.5); PLATELET COUNT, AUTOMATED 166 10^3/uL (150-450); RED BLOOD COUNT 2.98 10^6/uL (4.30-6.10); WHITE BLOOD COUNT 8.2 10^3/uL (4.0-10.0)
--- NOTE | 2020-10-14 12:45 | REP ---
INDICATION: CVA. COMPARISON: Comparison chest x-ray November 03, 2019. TECHNIQUE: Portable upright AP chest radiograph. FINDINGS: Cardiomegaly and prior sternotomy wires are again noted. There are old healed rib fractures bilaterally. There is diffuse osteopenia. The thoracic aorta is calcific and tortuous. The lungs are exposed at a lesser level of inspiration today. Interstitial and bronchovascular markings are increased particularly at the bases. No definite focal infiltrate is seen.. IMPRESSION: Relatively low level of inspiration. Cardiomegaly. Prominent interstitial markings at the bases likely related to level of inspiration. No definite focal infiltrate.. <Electronically signed by Percy Henderson > 10/14/20 1819
[2020-10-14 12:48] LABS: INR 3.2; PROTHROMBIN TIME 33.5 SECONDS (12.5-14.3)
[2020-10-14 13:14] LABS: CK-MB VALUE MASS 25.3 NG/ML (<3.6); MB/CK RELATIVE INDEX 2.58 (< OR =4); TROPONIN I 0.46 NG/ML (< 0.10)
[2020-10-14] MEDS ORDERED: CARVedilol 3.125 MG TAB PO STA (13:52)
[2020-10-14] MEDS ORDERED: WARF4TAB51 PO (15:38)
[2020-10-14] MEDS ORDERED: TRAZ-252 PO (15:38)
--- NOTE | 2020-10-14 16:43 | HPEPDOC ---
[facility] Medical History & Physical Date of Admission Oct 14, 2020 Date of Service: Oct 14, 2020 History and Physical CHIEF COMPLAINT: generalized weakness HISTORY OF PRESENT ILLNESS: 84-year-old male with a past medical history of ESRD on HD MWF, CAD status post CABG, chronic A. fib (AC on coumadin), systolic CHF, presented to the ED today after completing dialysis for generalized weakness and deconditioning. Patient lives alone and has a history of recurrent falls, most recently approx 5 days ago, resulted in laceration to L forehead. Patient is concerned about his well-being and is afraid to live alone, worried about falling and unable to get up. Reports he completed HD this morning. Patient also reports seeing visual hallucinations while in the ER, reports he saw a "deer" in his ER room. CT head wo contrast showed no acute changes. He is hard of hearing and is not a great historian. On arrival to ED found to be RVR (HR 120s), was given home dose of PO coreg 3.125, HR improved to ~100-105. Finally, patient reports feeling L middle finger pain without radiation this morning, which has since resolved. He denies chest pain, shortness of breath, palpitations, fevers, chills, cough or n/v/d. On arrival, labs showed WBC 8.2. Hgb 10.5. MCV 108.4. INR 3.2. CK 979. Trop 0.46, repeat 0.48. EKG showed no acute ischemic changes. Afib. Patient will be admitted to hospitalist service with nephrology on consult for HD, for assistance with likely placement to [place]. PAST MEDICAL HISTORY: ESRD on hemodialysis MWF CAD status post CABG Chronic A. fib on Coumadin Systolic congestive heart failure Valvular heart disease GERD Hypertension Dyslipidemia Chronic back pain Anemia of CK D Secondary hyperparathyroidism PAST SURGICAL HISTORY: R hip fx s/p ORIF 10/26/19 CABG Back surgery Splenectomy Tonsillectomy Laminectomy SOCIAL HISTORY: denies etoh use Former smoker, quit 15 years ago Denies illicits Lives alone. There are 2 children living in the area. FAMILY HISTORY: I personally reviewed family history and found not pertinent ALLERGIES: Please see below. REVIEW OF SYSTEMS: CONSTITUTIONAL: patient denies fevers, chills HEENT: patient denies blurred vision, loss of vision, headache,. CARDIOVASCULAR: patient denies chest pain, palpitations. RESPIRATORY: patient denies shortness of breath, cough, hemoptysis. GASTROINTESTINAL: patient denies abdominal pain, n/v/d, blood in stool. GENITOURINARY: patient denies dysuria, discharge. SKIN: patient denies rashes. MUSCULOSKELETAL: She reports left middle finger pain which is now resolved. NEUROLOGICAL: patient denies focal weakness, numbness, seizures. PSYCHIATRIC: Patient reports visual hallucinations ENDOCRINE: patient denies polyuria, heat intolerance, cold intolerance. HEMATOLOGIC/LYMPHATIC: patient denies easy bruising. HOME MEDICATIONS: Please see below. PHYSICAL EXAMINATION: VITAL SIGNS: please see below General: NAD, comfortable HEENT: PERRLA, EOMI, sclerae clear Neck: supple, normal ROM, no JVD Respiratory: lungs CTAB, no wheeze, no rales, no crackles CVS: RRR, normal S1, S2, no murmurs Abdo: soft, no masses, no hepatosplenomegaly, BS+, no rebound tenderness Extremities: no edema, pulses 2+ MSK: no joint deformities, normal ROM Neuro: no focal neuro deficits, moving all 4 extremities, CN2-12 intact. Strength 5/5 in all 4 extremities. No nystagmus. Psych: calm, cooperative, AAO x 3 LABORATORY DATA: See below. IMAGING: CT head wo contrast (10/14/20): Atrophy and microvascular ischemic changes. No acute intracranial hemorrhage, infarction, or mass/mass effect. CXR (10/14/20): Relatively low level of inspiration. Cardiomegaly. Prominent interstitial markings at the bases likely related to level of inspiration. No definite focal infiltrate. MICROBIOLOGY: Please see below. ASSESSMENT: . . PLAN: #ESRD - on HD MWF via R arm fistula - last HD on 10/14/20, completed in entirety - c/w renvela - electrolytes appropriate - consulted nephrology, Dr. Parry aware #Afib with RVR - HR improved with PO coreg 3.125 in ER - resume home meds - c/w coumadin, INR 3.20, hold this evening's dose - Tele #Elevated Trop - 0.46 -> 0.48 - no acute EKG changes - reports no anginal symptoms - in setting of afib with RVR as well as ESRD and rhabdo - do not suspect ACS in this setting - will cycle cardiac enzymes and EKGs #CAD s/p CABG - c/w ASA/statin - nitro prn #Rhabdomyolysis - likely related to fall - CK 979 - no IVF as patient has ESRD, no risk of nephrotoxicity #Frequent falls - deconditioned - reports visual hallucination, possible lewy body dementia? - CT head wo contrast no acute findings - PT/OT - fall precautions #Visual hallucinations - CT head wo contrast negative - possible lewy body dementia, however patient exhibits no parkinsonian features on exam - D/w Dr. Frank, neuro. Recommends majority of workup to be performed as outaptient, given no acyute findings on CT - he recommended MRI brain wo contrast to r/o prior occipital lobe CVA - if MRI shows acute changes, to consult neuro. 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 PFS consulted for assistance with placement. PT and OT evaluation pending. Fall precautions ordered. Vital Signs Vital Signs Date Time Temp Pulse Resp B/P (MAP) Pulse Ox O2 Delivery O2 Flow Rate FiO2 10/14/20 14:02 116 91 10/14/20 14:02 149/89 10/14/20 11:34 98.8 18 Room Air Laboratory Data Labs 24H Laboratory Tests 2 10/14/20 12:24: Immature Granulocyte % (Auto) 0.5, Neutrophils (%) (Auto) 91.0H, Lymphocytes (%) (Auto) 2.2L, Monocytes (%) (Auto) 6.0H, Eosinophils (%) (Auto) 0.1, Basophils (%) (Auto) 0.2, Neutrophils # (Auto) 7.4, Lymphocytes # (Auto) 0.2L, Monocytes # (Auto) 0.5, Eosinophils # (Auto) 0.0, Basophils # (Auto) 0.0, Nucleated Red Blood Cells % (auto) 0.2H, Prothrombin Time 33.5H, Prothromb Time International Ratio 3.20, Activated Partial Thromboplast Time 48.0H, Total Creatine Kinase 979H, Creatine Kinase MB 25.3H, Creatine Kinase MB Relative Index 2.58, Troponin I 0.46H 10/14/20 12:29: POC Glucose (Misc Panel) 132H, POC Sodium (Misc Panel) 132L, POC Potassium (Misc Panel) 5.1, POC Chloride (Misc Panel) 96L, POC Total CO2 (Misc Panel) 28.0H, POC Blood Urea Nitrogen (Misc Panel 49H, POC Ionized Calcium (Misc Panel) 3.8L, POC Creatinine (Misc Panel) 6.9H, POC Hematocrit (Misc Panel) 33.0L 10/14/20 14:45: Coronavirus (COVID-19)(PCR) NEGATIVE 10/14/20 15:09: Troponin I 0.48H CBC/BMP Laboratory Tests 10/14/20 12:24 Home Medications Scheduled Atorvastatin Calcium (Atorvastatin Calcium) 80 Mg Tablet, 80 MG PO QHS Carvedilol (Carvedilol) 6.25 Mg Tablet, 6.25 MG PO Q12H Folic Acid/Vit B Complex and C (Annabel-Nadine Tablet) 1 Tab Tab, 1 TAB PO DAILY Lidocaine/Prilocaine (Lidocaine-Prilocaine Cream) 1 Cre Cre, 1 DOSE EXT 3XW TAKES ON TUESDAYS, WEDNESDAY AND SATURDAYS BEFORE DIALYSIS. Omeprazole (Omeprazole) 20 Mg Cap, 20 MG PO DAILY Sevelamer Carbonate (Renvela) 800 Mg Tab, 1,600 MG PO WM Trazodone HCl (Trazodone HCl) 50 Mg Tablet, 50 MG PO QHS Warfarin Sodium (Warfarin Sodium) 2 Mg Tablet, 2 MG PO QPM Scheduled PRN Acetaminophen (Tylenol) 325 Mg Tablet, 650 MG PO Q4H PRN for PAIN Docusate Sodium (Docusate Sodium) 100 Mg Cap, 100 MG PO DAILY PRN for CONSTIPATION Morphine Sulfate (Morphine Sulfate ER) 15 Mg Tab, 15 MG PO BID PRN for PAIN PATIENT STATES HE TAKES ONLY WHEN NEEDED Nitroglycerin (Nitrostat) 0.4 Mg Subl, 0.4 MG SL NITRO PRN for CHEST PAIN Oxycodone HCl (Oxycodone HCl) 5 Mg Tablet, 5 MG PO Q6H PRN for BREAKTHROUGH PAIN Allergies Coded Allergies: No Known Allergies (Verified , 03/09/18) A-FIB/CHADSVASC A-FIB History Current/History of A-Fib/PAF?: Yes Current PO Anticoag Therapy: Yes MARIA A WATSON MD Oct 14, 2020 16:43
[2020-10-14] MEDS ORDERED: MOM 30ML SUSPENSION UDC PO PRN (16:45)
[2020-10-14] MEDS ORDERED: NITROGLYCERIN 0.4 MG SUBL TABLET SL PRN (16:45)
[2020-10-14] MEDS ORDERED: OXYC-517 PO (17:18)
[2020-10-14] MEDS: (RENVELA) SEVELAMER **CARBONate** 800 MG TAB PO SCH (18:42)
[2020-10-14] MEDS ORDERED: CARVedilol 3.125 MG TAB PO SCH (21:00)
[2020-10-14] MEDS ORDERED: WARFARIN SOD 2MG TAB PO SCH (21:00)
[2020-10-14 22:35] VITALS: BP 124/69
[2020-10-14] MEDS: DOCUSATE SODIUM 100MG CAPSULE PO SCH (23:00)
[2020-10-14] MEDS: traZODone 50 MG TAB PO SCH (23:00)
[2020-10-14] MEDS: ATORVASTATIN 20 MG TAB PO SCH (23:00)
[2020-10-15] MEDS: ACETAMINOPHEN TAB 650MG DOSE (2X325MG) PO PRN ×2 (00:08→10:22)
[2020-10-15 06:00] VITALS: BP 119/66
--- NOTE | 2020-10-15 06:40 | ECGEPIP ---
[facility] - ED Test Date: 2020-10-14 Pat Name: MICHAEL HACKETT Department: Room: - Gender: Male Insulation Technician: : [id number] Requested By: Jimi Cortez Order Number: [id number] Reading MD: Jimi Blount Measurements Intervals [place] Rate: 111 P: IN: 0 QRS: 16 QRSD: 89 T: 124 QT: 322 QTc: 438 Interpretive Statements ATRIAL FIBRILLATION WITH RAPID VENTRICULAR RESPONSE WITH ABERRANT CONDUCTION OR VENTRICULAR PREMATURE COMPLEXES NONSPECIFIC ST & T-WAVE ABNORMALITY SIMILAR TO 10/24/19 Electronically Signed on 10-15-2020 6:40:14 EST by Jimi Blount
[2020-10-15 07:01] LABS: BASO % 0.4 % (0.0-1.0); EOS % 0.5 % (0.0-3.0); HEMATOCRIT 34.4 % (42.0-52.0); HEMOGLOBIN 11.1 g/dl (13.5-17.5); LYMPH # 0.5 10^3/uL (1.5-5.0); MEAN CORPUSCULAR HEMOGLOBIN 34.7 pg (27.0-33.0); MEAN CORPUSCULAR HGB CONC 32.3 g/dl (32.0-36.5); MEAN CORPUSCULAR VOLUME 107.5 fl (80.0-96.0); MONO # 0.7 10^3/uL (0.0-0.8); MONO % 9.6 % (0.0-5.0); NEUTROPHILS # 6.2 10^3/uL (1.5-8.5); NEUTROPHILS % 82.8 % (36.0-66.0); PLATELET COUNT, AUTOMATED 149 10^3/uL (150-450); WHITE BLOOD COUNT 7.5 10^3/uL (4.0-10.0)
[2020-10-15 07:14] LABS: INR 2.47; PROTHROMBIN TIME 27.3 SECONDS (12.5-14.3)
[2020-10-15 07:30] LABS: ALBUMIN 2.8 GM/DL (3.2-5.2); BILIRUBIN,TOTAL 0.6 MG/DL (0.2-1.0); CALCIUM LEVEL 8.4 MG/DL (8.8-10.2); CREATININE FOR GFR 7.58 MG/DL (0.70-1.30); GLOMERULAR FILTRATION RATE 7.3 (>35); MAGNESIUM LEVEL 2.1 MG/DL (1.8-2.4); POTASSIUM SERUM 5.6 MEQ/L (3.5-5.1); TOTAL PROTEIN 6.7 GM/DL (6.4-8.2); TROPONIN I 0.42 NG/ML (< 0.10)
[2020-10-15] MEDS: OMEPRAZOLE 20 MG CAP PO SCH (10:22)
[2020-10-15] MEDS: (RENVELA) SEVELAMER **CARBONate** 800 MG TAB PO SCH ×3 (10:22→17:42)
[2020-10-15] MEDS: DOCUSATE SODIUM 100MG CAPSULE PO SCH ×2 (10:22→20:11)
[2020-10-15] MEDS: CARVedilol 6.25 MG TAB PO SCH ×2 (10:22→20:19)
[2020-10-15] MEDS: MORPHINE 15 MG SA TAB PO PRN (12:28)
--- NOTE | 2020-10-15 12:43 | IPNPDOC ---
Text Note Date of Service The patient was seen on 10/15/20. NOTE Subjective: Patient is an 84 year old male with a PMHx of ESRD on HD (TTS), CAD s/p CABG, Chronic A. fib (on Coumadin), Systolic CHF, HTN, DLP, Chronic back pain, Anemia, GERD, who presented to the ED with complaints of generalized weakness and deconditioning. Upon arrival to emergency room, patient was found to be in A. fib with RVR with a heart rate of 120s. She was admitted to the hospital service for further evaluation and treatment. Nephrology was called on consultation. Patient was seen and examined at the bedside. Currently patient denies any chest pain, shortness breath, palpitations, nausea, vomiting, abdominal pain or diarrhea. Objective: Vitals (See below) General: Lying in bed, appears comfortable, AAOx3 HEENT: NC, AT CVS: +S1S2 Lungs: Fair air entry b/l, no appreciable wheezing, rhonchi or rales Abdomen: Soft, ND, NT Extremities: - Edema, - Calf tenderness Imaging: CT head wo contrast (10/14/20): Atrophy and microvascular ischemic changes. No acute intracranial hemorrhage, infarction, or mass/mass effect. CXR (10/14/20): Relatively low level of inspiration. Cardiomegaly. Prominent interstitial markings at the bases likely related to level of inspiration. No definite focal infiltrate. Assessment and plan: ESRD on HD (TTS) - Patient has received dialysis yesterday - Nephrology on consultation Afib with RVR - Currently patient's rate appears to be better controlled - Will continue with rate control with carvedilol - INR is therapeutic - Will continue with full into regulation with Coumadin Elevated Trop - Patient denies any chest pain, shortness breath or palpitations - Troponins have remained stable - EKG reviewed CAD s/p CABG - c/w ASA and Statin - Nitro PRN Rhabdomyolysis - likely related to fall - Patient has cleared physical therapy - Discussed with patient, family and PFS; will look the placement Frequent falls / Deconditioned - c/w PT/OT - c/w fall precautions s/p Visual hallucinations - possible Lewy body dementia, however patient exhibits no parkinsonian features on exam - CT head wo contrast negative - Will consider MRI if symptoms persist s/p Supratherapeutic INR Chronic back pain - c/w Morphine and Lidocaine patch 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 - has f/u wit dermatology for resection Protein Calorie malnutrition - BMI 17.8 - Complicating medical care 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
--- NOTE | 2020-10-15 12:58 | CR ---
NEPHROLOGY CONSULTATION DATE: 10/15/2020 REQUESTING CLINICIAN: Anand Han MD. REASONS FOR CONSULTATION: To assist in the management of end-stage renal disease. HISTORY OF PRESENT ILLNESS: Mr. Grace is an 84-year-old gentleman with multiple chronic medical problems including coronary artery disease, chronic atrial fibrillation, systolic congestive heart failure and end-stage renal disease. He presented to the Emergency Room with generalized weakness and failure to thrive. He reports that he was feeling very weak and did not eat anything for the last few days. He lives by himself. He was admitted yesterday after dialysis. I had seen him this morning. PAST MEDICAL HISTORY: Significant for: 1. End-stage renal disease on maintenance hemodialysis on a Wednesday, Wednesday and Wednesday schedule. 2. Chronic systolic congestive heart failure. 3. Coronary artery disease with prior CABG. 4. History of chronic atrial fibrillation on anticoagulation. 5. History of valvular heart disease. 6. History of GERD. 7. Dyslipidemia. 8. Chronic back pain. 9. Anemia of chronic kidney disease. 10. Secondary hyperparathyroidism. PAST SURGICAL HISTORY: Significant for: 1. Right hip fracture status post ORIF. 2. CABG. 3. Back surgery. 4. Splenectomy. 5. Tonsillectomy. 6. Laminectomy. 7. History of AV fistula creation. FAMILY HISTORY: Noncontributory. PERSONAL AND SOCIAL HISTORY: Patient is lives by himself. He denies any alcohol or tobacco use. ALLERGIES: No known drug allergies. MEDICATIONS: Home medications include: 1. Coumadin. 2. Atorvastatin 80 mg daily. 3. Multivitamin 1 tablet daily. 4. Omeprazole 20 mg daily. 5. Renvela 800 mg, 2 tablets three times a day. 6. Trazodone 50 mg at bedtime. 7. Tylenol as needed for pain. 8. Nitroglycerin 0.4 mg p.r.n. for chest pain. 9. Oxycodone 5 mg q6h p.r.n. severe back pain. REVIEW OF SYSTEMS: Patient denies any fever or chills. He has been feeling weak and worsened over the last few days. He also reports a poor appetite. Ears, nose and throat: He is slightly [id number]. Denies any sore throat or sinus problems. Cardiovascular system: Significant for congestive heart failure and chronic atrial fibrillation. He denies any chest pain. Respiratory system: Negative for hemoptysis or pleuritic type of chest pain. GI system: Negative for vomiting or diarrhea, but he does report a poor appetite and also has history of gastroesophageal reflux disease. system: Negative for dysuria or hematuria. 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 Hematological system: Significant for chronic anticoagulation and anemia. Skin: Negative for rash or ulcers. Endocrine system: Negative for diabetes or thyroid problems. He has secondary hyperparathyroidism. PHYSICAL EXAMINATION: This is a frail, elderly gentleman sitting in the chair at the time of my visit. He has significant kyphosis. Temperature 97.8 degrees Fahrenheit, heart rate 102 per minute and respiratory rate 18 per minute. Blood pressure 119/66 mmHg and oxygen saturation 96% on room air. Head: Atraumatic. . Neck: Supple and JVD not abnormally elevated. Heart: Sounds are irregular and tachycardic. Lungs: With bibasilar rales. Abdomen: Soft and nontender and bowel sounds are normal. Extremities: Without any cyanosis or clubbing. Left arm AV fistula is patent. Neurologically: He is awake and at his baseline mentation without any focal deficit. LABORATORY DATA: Today's labs show WBC count 7.5, hemoglobin 11.1, hematocrit 34.4 and platelets 149. Sodium 133, potassium 5.6, BUN 70 and creatinine 7.58. Troponin has been 0.04, 0.45 and 0.44. PROBLEMS AND PLANS: 1. Generalized weakness most likely failure to thrive in this elderly, frail gentleman: I think a couple days of physical therapy will probably help him. 2. End-stage renal disease: Patient was dialyzed yesterday; however, he is still noticed to be hyperkalemic. We will plan to dialyze him again this afternoon. 3. Hyperkalemia probably related to end-stage renal disease: He reports not eating well for the last few days. We will correct his hyperkalemia with dialysis today and then recheck his electrolytes tomorrow. 4. Congestive heart failure: Volume status seems clinically well compensated. He does have bilateral pulmonary rales probably related to chronic fibrosis. 5. Chronic atrial fibrillation: Ventricular rate is moderately well controlled. His INR has been therapeutic. 6. Anemia: At present his anemia is stable and does not need any urgent intervention. Thank you for involving me in the care of Mr. Oconnell 7:34). I will follow him along with you.
[2020-10-15] MEDS ORDERED: WARFARIN SOD 2MG TAB PO SCH (17:00)
[2020-10-15] MEDS: ATORVASTATIN 20 MG TAB PO SCH (20:10)
[2020-10-15] MEDS: traZODone 50 MG TAB PO SCH (20:11)
[2020-10-15 22:00] VITALS: BP 129/76
--- NOTE | 2020-10-16 05:52 | ECGEPIP ---
[facility] Test Date: 2020-10-15 Pat Name: MICHAEL HACKETT Department: Room: [place] [address] Gender: Male Service Supervisor: : 1935 Requested By: MARIA A WATSON Order Number: [id number] Reading MD: Talat Moran Measurements Intervals [place] Rate: 75 P: RI: 0 QRS: 47 QRSD: 93 T: 134 QT: 395 QTc: 443 Interpretive Statements Atrial fibrillation with controlled ventricular response Low QRS complex voltage in the limb leads Nonspecific ST-T wave abnormalities Compared to prior tracing of 10/06/2020, heart rate is slower Electronically Signed on 10-16-2020 5:52:14 EST by Talat Moran
--- NOTE | 2020-10-16 05:57 | ECGEPIP ---
[facility] Test Date: 2020-10-15 Pat Name: MICHAEL HACKETT Department: Room: [place] [address] Gender: Male Security Intern: NATANAEL : 1935 Requested By: MARIA A WATSON Order Number: [id number] Reading MD: Talat Moran Measurements Intervals [place] Rate: 83 P: RI: 0 QRS: 20 QRSD: 93 T: 123 QT: 384 QTc: 452 Interpretive Statements Atrial fibrillation with controlled ventricular response Low QRS complex voltage in the limb leads Nonspecific ST-T wave abnormalities No significant change when compared to prior tracing of :27 this date Electronically Signed on 10-16-2020 5:57:35 EST by Talat Moran
[2020-10-16 06:00] VITALS: BP 118/77
[2020-10-16 06:38] LABS: BASO % 0.4 % (0.0-1.0); EOS # 0.1 10^3/uL (0.0-0.5); EOS % 1.2 % (0.0-3.0); HEMATOCRIT 34.1 % (42.0-52.0); HEMOGLOBIN 11.3 g/dl (13.5-17.5); LYMPH # 0.4 10^3/uL (1.5-5.0); LYMPH % 5.3 % (24.0-44.0); MEAN CORPUSCULAR HEMOGLOBIN 35.6 pg (27.0-33.0); MEAN CORPUSCULAR HGB CONC 33.1 g/dl (32.0-36.5); MEAN CORPUSCULAR VOLUME 107.6 fl (80.0-96.0); MONO # 0.8 10^3/uL (0.0-0.8); MONO % 10.2 % (0.0-5.0); NEUTROPHILS # 6.4 10^3/uL (1.5-8.5); NEUTROPHILS % 82.5 % (36.0-66.0); PLATELET COUNT, AUTOMATED 148 10^3/uL (150-450); RED BLOOD COUNT 3.17 10^6/uL (4.30-6.10); WHITE BLOOD COUNT 7.8 10^3/uL (4.0-10.0)
[2020-10-16 07:05] LABS: INR 1.79; PROTHROMBIN TIME 21.2 SECONDS (12.5-14.3)
[2020-10-16 07:07] LABS: ALBUMIN 2.8 GM/DL (3.2-5.2); BILIRUBIN,TOTAL 0.6 MG/DL (0.2-1.0); CALCIUM LEVEL 8.2 MG/DL (8.8-10.2); CREATININE FOR GFR 5.99 MG/DL (0.70-1.30); GLOMERULAR FILTRATION RATE 9.6 (>35); POTASSIUM SERUM 4.9 MEQ/L (3.5-5.1); TOTAL PROTEIN 6.7 GM/DL (6.4-8.2)
[2020-10-16] MEDS: OMEPRAZOLE 20 MG CAP PO SCH (07:33)
[2020-10-16] MEDS: (RENVELA) SEVELAMER **CARBONate** 800 MG TAB PO SCH ×3 (07:33→17:52)
[2020-10-16] MEDS: DOCUSATE SODIUM 100MG CAPSULE PO SCH ×2 (07:33→20:03)
[2020-10-16] MEDS: CARVedilol 6.25 MG TAB PO SCH ×2 (07:36→20:03)
--- NOTE | 2020-10-16 13:18 | IPN ---
PROGRESS NOTE DATE: 10/16/2020 SUBJECTIVE: Mr. Grace is seen this morning at his bedside. He just completed his physical therapy. He wants to go home and does not want to be placed in [facility]. He has been frail and living by himself. He has had multiple falls at home but still he is declining to go to [facility]. Today is his regular dialysis day and he was dialyzed yesterday because of hyperkalemia. PHYSICAL EXAMINATION: Vital signs: Temperature 97.5 degrees Fahrenheit, heart rate 93 per minute, respiratory rate 17 per minute, blood pressure 118/77 mmHg. Oxygen saturation 97% on room air. Head: He has a bruise on his forehead. He reports that he feel about a week ago. Neck: Supple, JVD not abnormally elevated. Heart: Sounds are irregular rhythm. Lungs: With bibasilar rales. Abdomen: Soft and nontender. Bowel sounds normal. Extremities: Without cyanosis or clubbing. Neurological: He is awake, alert, at this baseline mentation. LABS: Today labs showed WBC 7.8, hemoglobin 11.3, hematocrit 34.1. Platelets 148. Sodium 130, potassium 4.9, CO2 29, BUN 46 and creatinine 5.99. Glucose 105, calcium 8.2. PROBLEMS: 1. End-stage renal disease. The patient will be dialyzed today. Today is his regular dialysis day. He can then be discharged after dialysis and return to outpatient dialysis clinic on Wednesday for his next regular scheduled treatment. 2. Hyponatremia, most likely related to chronic renal failure and congestive heart failure. This is likely to improve with dialysis. 3. Hyperkalemia. His potassium level was 5.6 yesterday and it did improve with dialysis. He will be dialyzed again today with 2.0 mEq potassium bath. 4. Anemia. At present his anemia is stable and does not need any intervention. 5. Atrial fibrillation. His ventricular rate is reasonably well controlled and he remains on anticoagulation. INR is slightly low today, 1.79. I would recommend resuming his chronic dose of Coumadin. 6. Disposition: The patient wants to go home and does not want to go to a [facility]. He has fallen multiple times and has losing weight as he lives by himself and does not have any help.
--- NOTE | 2020-10-16 13:20 | IPNPDOC ---
Text Note Date of Service The patient was seen on 10/16/20. NOTE Subjective: Patient is an 84 year old male with a PMHx of ESRD on HD (TTS), CAD s/p CABG, Chronic A. fib (on Coumadin), Systolic CHF, HTN, DLP, Chronic back pain, Anemia, GERD, who presented to the ED with complaints of generalized weakness and deconditioning. Upon arrival to emergency room, patient was found to be in A. fib with RVR with a heart rate of 120s. She was admitted to the hospital service for further evaluation and treatment. Nephrology was called on consultation. Patient was seen and examined at the bedside. Currently denies any chest pain, shortness breath, palpitations, nausea, vomiting, abdominal pain or diarrhea. Patient has been working with physical therapy. PFS is looking into placement options. Objective: Vitals (See below) General: Lying in bed, remains comfortable, is awake and alert, oriented 3 HEENT: NC, AT CVS: +S1S2 Lungs: Air entry appears to be fair bilaterally without any evidence of rhonchi, crackles or wheezing Abdomen: Soft, nondistended and nontender Extremities: Lower extremities do not reveal any edema, - Calf tenderness Imaging: CT head wo contrast (10/14/20): Atrophy and microvascular ischemic changes. No acute intracranial hemorrhage, infarction, or mass/mass effect. CXR (10/14/20): Relatively low level of inspiration. Cardiomegaly. Prominent interstitial markings at the bases likely related to level of inspiration. No definite focal infiltrate. Assessment and plan: ESRD on HD (TTS) - Patient has received dialysis yesterday - Nephrology on consultation Afib with RVR - Currently patient's rate appears to be better controlled - Will continue with rate control with carvedilol - INR is sub-therapeutic - c/w full anticoagulation with Coumadin - will increase dose Elevated Trop - Patient denies any chest pain, shortness breath or palpitations - Troponins have remained stable - EKG reviewed CAD s/p CABG - c/w ASA and Statin - Nitro PRN Rhabdomyolysis - likely related to fall - Patient has cleared physical therapy - Discussed with patient, family and PFS; will look the placement Frequent falls / Deconditioned - c/w PT/OT - c/w fall precautions s/p Visual hallucinations - possible Lewy body dementia, however patient exhibits no parkinsonian features on exam - CT head wo contrast negative - Will consider MRI if symptoms persist s/p Supra-therapeutic INR Chronic back pain - c/w Morphine and Lidocaine patch 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 - has f/u wit dermatology for resection Protein Calorie malnutrition - BMI 17.8 - Complicating medical care 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
[2020-10-16] MEDS ORDERED: WARFARIN SOD 3MG TAB PO SCH (17:00)
[2020-10-16 17:30] VITALS: BP 141/73
[2020-10-16] MEDS: ATORVASTATIN 20 MG TAB PO SCH (20:00)
[2020-10-16] MEDS: traZODone 50 MG TAB PO SCH (20:02)
[2020-10-16 20:03] VITALS: BP 137/71
[2020-10-17] MEDS: MAALOX 30 ML SUSP *UDC PO PRN ×2 (05:40→15:13)
[2020-10-17 06:00] VITALS: BP 124/61
[2020-10-17 06:05] LABS: BASO % 0.2 % (0.0-1.0); EOS # 0.1 10^3/uL (0.0-0.5); EOS % 1.3 % (0.0-3.0); HEMATOCRIT 33.1 % (42.0-52.0); HEMOGLOBIN 10.8 g/dl (13.5-17.5); LYMPH # 0.4 10^3/uL (1.5-5.0); MEAN CORPUSCULAR HEMOGLOBIN 35.6 pg (27.0-33.0); MEAN CORPUSCULAR HGB CONC 32.6 g/dl (32.0-36.5); MEAN CORPUSCULAR VOLUME 109.2 fl (80.0-96.0); MONO # 0.8 10^3/uL (0.0-0.8); MONO % 9.6 % (0.0-5.0); NEUTROPHILS # 7.3 10^3/uL (1.5-8.5); NEUTROPHILS % 84.3 % (36.0-66.0); PLATELET COUNT, AUTOMATED 133 10^3/uL (150-450); RED BLOOD COUNT 3.03 10^6/uL (4.30-6.10); WHITE BLOOD COUNT 8.7 10^3/uL (4.0-10.0)
[2020-10-17 06:20] LABS: INR 1.92; PROTHROMBIN TIME 22.4 SECONDS (12.5-14.3)
[2020-10-17 06:34] LABS: ALBUMIN 2.8 GM/DL (3.2-5.2); BILIRUBIN,TOTAL 0.9 MG/DL (0.2-1.0); CALCIUM LEVEL 8.4 MG/DL (8.8-10.2); CREATININE FOR GFR 5.1 MG/DL (0.70-1.30); GLOMERULAR FILTRATION RATE 11.5 (>35); MAGNESIUM LEVEL 1.8 MG/DL (1.8-2.4); POTASSIUM SERUM 4.5 MEQ/L (3.5-5.1); TOTAL PROTEIN 6.6 GM/DL (6.4-8.2)
[2020-10-17] MEDS: DOCUSATE SODIUM 100MG CAPSULE PO SCH ×2 (07:59→08:03)
[2020-10-17] MEDS: OMEPRAZOLE 20 MG CAP PO SCH (07:59)
[2020-10-17] MEDS: (RENVELA) SEVELAMER **CARBONate** 800 MG TAB PO SCH ×2 (07:59→13:09)
[2020-10-17] MEDS: CARVedilol 6.25 MG TAB PO SCH (08:00)
--- NOTE | 2020-10-17 12:37 | IPN ---
PROGRESS NOTE DATE: 10/17/2020 Mr. Grace is seen this morning on his bedside. He is lying in the bed with head elevated. Yesterday he wanted to go home. director of home health services has been talking to him about possible senior living placement due to failure to thrive at home. He has history of frequent falls and frequent medication errors. In addition, he is also having problems with his diet and dietary restrictions related to end-stage renal disease and congestive heart failure. Patient was dialyzed yesterday. PHYSICAL EXAMINATION: Temperature 97.3 degrees Fahrenheit, heart rate 83 per minute, respiratory rate 19 per minute, blood pressure 124/60 mmHg, and oxygen saturation 99% on room air. Bruise on his left forehead is improving. Neck is supple and jugular venous distention (JVD) minimally elevated. Heart sounds are irregular in rhythm and lungs with few basilar crepitations.. Abdomen soft and nontender and without a palpable organomegaly. Extremities without any cyanosis or clubbing. Neurologically, he is awake, alert, and oriented times three. Today's labs show WBC count 8.7, hemoglobin 10.8, hematocrit 33.1. Sodium 132, potassium 4.5, CO2 of 30, BUN 36, and creatinine 5.1. Glucose 100, calcium 8.4. PROBLEMS: 1. End-stage renal disease. Patient was dialyzed yesterday, and he tolerated his dialysis well. His next dialysis will be scheduled for Wednesday. At present there is no urgent indication for dialysis today. 2. Hyponatremia. Mild hyponatremia, slightly improved since yesterday. No urgent intervention is needed, and this is probably chronic and likely not causing any symptoms. 3. Anemia. His anemia is stable at present and does not need any urgent intervention. This is being managed with dialysis. 4. Congestive heart failure. His volume status is clinically well compensated. Patient will be dialyzed on Wednesday again, and then we will try to remove about 2 liters of fluid as he tolerates. DISPOSITION: Patient and family services is working with patient for possible placement or discharge to home with services.
[2020-10-17] MEDS ORDERED: CARV6.25 PO (12:56)
[2020-10-17] MEDS: MORPHINE 15 MG SA TAB PO PRN (14:48)
--- NOTE | 2020-10-17 15:49 | DS.PDOC ---
Discharge Summary General Date of Admission Oct 14, 2020 at 16:43 Date of Discharge 10/17/2020 Discharge Summary PROCEDURES PERFORMED DURING STAY: [None]. ADMITTING DIAGNOSES / DISCHARGE DIAGNOSES: ESRD on HD (TTS) A. 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 fib (on Coumadin), Systolic CHF, HTN, DLP, Chronic back pain, Anemia, GERD, who presented to the ED with complaints of generalized weakness and deconditioning. Upon arrival to emergency room, patient was found to be in A. fib with RVR with a heart rate of 120s. She was admitted to the hospital service for further evaluation and treatment. Nephrology was called on consultation. HOSPITAL COURSE: ESRD on HD (TTS) - Patient has received dialysis yesterday - Nephrology on consultation A. fib; s/p RVR - Currently patient's rate appears to be better controlled - Will continue with rate control with carvedilol - INR has been approaching therapeutic range - Will have outpatient follow up for INR check within 2 days - c/w full anticoagulation with Coumadin - Will have outpatient follow-up with primary care provider within the next 7 days s/p Elevated Troponin - Patient denies any chest pain, shortness breath or palpitations - Troponins have remained stable - EKG reviewed CAD s/p CABG - c/w ASA and Statin - Nitro PRN Rhabdomyolysis - likely related to fall - Patient has cleared physical therapy - After extensive discussion with patient; he has requested to go home with services - Patient has a capacity to make his own decisions and has been cleared by physical therapy at his baseline level of function for discharge home - Patient has been advised to follow-up with primary care provider, and nephrology within the next 7 days Frequent falls / Deconditioned - c/w PT/OT - c/w fall precautions s/p Visual hallucinations - possible Lewy body dementia, however patient exhibits no parkinsonian features on exam - CT head w/o contrast negative - Will consider MRI if symptoms persist s/p Supra-therapeutic INR Chronic back pain - c/w Morphine and Lidocaine patch R derm malignancy - Appears to be BCC - has f/u wit dermatology for resection Protein Calorie malnutrition - BMI 17.8 - Complicating medical care 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 ALLERGIES: Please see below. PHYSICAL EXAMINATION ON DISCHARGE: Vitals (See below) General: Patient is sitting up in chair, does not appear to be in any distress, is awake, alert and oriented 3 HEENT: NC, AT CVS: +S1S2 Lungs: There appears to be fair air entry bilaterally and no auscultated wheezing, rhonchi or rales Abdomen: Abdomen remains soft without any distention or tenderness Extremities: Lower extremities do not reveal any edema, - Calf tenderness LABORATORY DATA: Please see below. IMAGING: CT head wo contrast (10/14/20): Atrophy and microvascular ischemic changes. No acute intracranial hemorrhage, infarction, or mass/mass effect. CXR (10/14/20): Relatively low level of inspiration. Cardiomegaly. Prominent interstitial markings at the bases likely related to level of inspiration. No definite focal infiltrate. ACTIVITY: [As tolerated]. DISCHARGE PLAN: Follow-up with primary care provider, and nephrology within the next 7 days Remain compliant with treatment plan and medications Return to the ER if you experience any problems DISPOSITION: Home with services DISCHARGE CONDITION: [Stable]. TIME SPENT ON DISCHARGE: 35 minutes. Vital Signs/I&Os Vital Signs Date Time Temp Pulse Resp B/P (MAP) Pulse Ox O2 Delivery O2 Flow Rate FiO2 10/17/20 14:48 18 10/17/20 06:00 97.3 124/61 (82) Room Air 10/16/20 20:03 83 10/16/20 17:30 99 I&O- Last 24 Hours up to 6 AM 10/17/20 06:00 Intake Total 1590 ml Output Total 1500 ml Balance 90 ml Laboratory Data Labs 24H Laboratory Tests 2 10/17/20 05:22: Immature Granulocyte % (Auto) 0.6, Neutrophils (%) (Auto) 84.3H, Lymphocytes (%) (Auto) 4.0L, Monocytes (%) (Auto) 9.6H, Eosinophils (%) (Auto) 1.3, Basophils (%) (Auto) 0.2, Neutrophils # (Auto) 7.3, Lymphocytes # (Auto) 0.4L, Monocytes # (Auto) 0.8, Eosinophils # (Auto) 0.1, Basophils # (Auto) 0.0, Nucleated Red Blood Cells % (auto) 0.0, Prothrombin Time 22.4H, Prothromb Time International Ratio 1.92, Anion Gap 7L, Glomerular Filtration Rate 11.5L, Calcium Level 8.4L, Magnesium Level 1.8, Total Bilirubin 0.9, Aspartate Amino Transf (AST/SGOT) 55H, Alanine Aminotransferase (ALT/SGPT) 37, Alkaline Phosphatase 119H, Total Protein 6.6, Albumin 2.8L, Albumin/Globulin Ratio 0.7 CBC/BMP Laboratory Tests 10/17/20 05:22 Discharge Medications Scheduled Atorvastatin Calcium (Atorvastatin Calcium) 80 Mg Tablet, 80 MG PO QHS, (Re ported) Carvedilol (Carvedilol) 6.25 Mg Tablet, 6.25 MG PO Q12H Folic Acid/Vit B Complex and C (Annabel-Nadine Tablet) 1 Tab Tab, 1 TAB PO DAILY, (Reported) Lidocaine/Prilocaine (Lidocaine-Prilocaine Cream) 1 Cre Cre, 1 DOSE EXT 3XW, (Reported) TAKES ON TUESDAYS, WEDNESDAY AND SATURDAYS BEFORE DIALYSIS. Omeprazole (Omeprazole) 20 Mg Cap, 20 MG PO DAILY, (Reported) Sevelamer Carbonate (Renvela) 800 Mg Tab, 1,600 MG PO WM, (Reported) Trazodone HCl (Trazodone HCl) 50 Mg Tablet, 50 MG PO QHS, (Reported) Warfarin Sodium (Warfarin Sodium) 2 Mg Tablet, 2 MG PO QPM, (Reported) Scheduled PRN Acetaminophen (Tylenol) 325 Mg Tablet, 650 MG PO Q4H PRN for PAIN, (Reported) Docusate Sodium (Docusate Sodium) 100 Mg Cap, 100 MG PO DAILY PRN for CONSTIPATION, (Reported) Morphine Sulfate (Morphine Sulfate ER) 15 Mg Tab, 15 MG PO BID PRN for PAIN, (Reported) PATIENT STATES HE TAKES ONLY WHEN NEEDED Nitroglycerin (Nitrostat) 0.4 Mg Subl, 0.4 MG SL NITRO PRN for CHEST PAIN, (Reported) Oxycodone HCl (Oxycodone HCl) 5 Mg Tablet, 5 MG PO Q6H PRN for BREAKTHROUGH PAIN, (Reported) Allergies Coded Allergies: No Known Allergies (Verified , 03/09/18) MINOR MORALES MD Oct 17, 2020 15:49
== END 2020-10-17 16:31 | disposition home health service (06) | DRG 308 ==
LOC: M ED 11:32 → M ED INP 16:43 → M MSPAV 22:41
PROVIDERS: ADMIT Family Medicine; ATTEND Internal Medicine
PROC: 5A1D70Z Performance of Urinary Filtration, Intermittent, Less than 6 Hours Per Day (ICD-10-PCS; principal; 2020-10-15)
DX: I48.20 Chronic atrial fibrillation, unspecified (principal); N18.6 End stage renal disease; M62.82 Rhabdomyolysis; E46 Unspecified protein-calorie malnutrition; I50.22 Chronic systolic (congestive) heart failure; E87.1 Hypo-osmolality and hyponatremia; I13.2 Hypertensive heart and chronic kidney disease with heart failure and with stage 5 chronic kidney disease, or end stage renal disease; N25.81 Secondary hyperparathyroidism of renal origin; R44.1 Visual hallucinations; I25.10 Atherosclerotic heart disease of native coronary artery without angina pectoris; K21.9 Gastro-esophageal reflux disease without esophagitis; R29.6 Repeated falls; Z79.899 Other long term (current) drug therapy; Z79.01 Long term (current) use of anticoagulants; Z87.891 Personal history of nicotine dependence; D63.1 Anemia in chronic kidney disease; E78.5 Hyperlipidemia, unspecified; E87.5 Hyperkalemia; Z90.81 Acquired absence of spleen

== ENCOUNTER → 2020-10-25 | Outpatient (REF) | payer MEDICARE, OTHER ==
[~2020-10-25] MED LIST changes: +CARV6.25 PO; +WARF4TAB51 PO
[2020-10-25 13:19] LABS: INR 1.22; PROTHROMBIN TIME 15.7 SECONDS (12.5-14.3)
== END ==
LOC: M LAB REF 12:43
PROVIDERS: ATTEND Physician Assistant Medical
DX: Z79.01 Long term (current) use of anticoagulants (principal)

== ENCOUNTER → 2020-11-06 | Outpatient (REF) | payer MEDICARE, OTHER | LOC: M LAB REF 08:56 | PROVIDERS: ATTEND Dermatology | DX: C44.329 Squamous cell carcinoma of skin of other parts of face (principal); L57.0 Actinic keratosis ==

== ENCOUNTER 2020-12-19 05:59 | Inpatient (IN) | payer MEDICARE, OTHER ==
[~2020-12-19] VITALS: Ht 170.2 cm; Wt 51.2 kg
[~2020-12-19 05:59] MED LIST changes: +ASPI-569 PO; -ASPI81TAEC PO; -PEG1POW PO; +POLY17PO18 PO
[2020-12-19] MEDS ORDERED: CARVedilol 6.25 MG TAB PO ONE (06:10)
[2020-12-19] MEDS: METOPROLOL 5 MG/5 ML VIAL IV SCH ×3 (06:20→06:45)
[2020-12-19 06:31] LABS: BASO % 0.1 % (0.0-1.0); HEMATOCRIT 37.1 % (42.0-52.0); LYMPH # 0.4 10^3/uL (1.5-5.0); MEAN CORPUSCULAR HEMOGLOBIN 34.2 pg (27.0-33.0); MEAN CORPUSCULAR HGB CONC 32.3 g/dl (32.0-36.5); MEAN CORPUSCULAR VOLUME 105.7 fl (80.0-96.0); MONO # 0.8 10^3/uL (0.0-0.8); MONO % 4.4 % (2.0-8.0); NEUTROPHILS # 16.8 10^3/uL (1.5-8.5); NEUTROPHILS % 92.5 % (36.0-66.0); PLATELET COUNT, AUTOMATED 201 10^3/uL (150-450); RED BLOOD COUNT 3.51 10^6/uL (4.30-6.10); WHITE BLOOD COUNT 18.1 10^3/uL (4.0-10.0)
[2020-12-19 06:41] LABS: INR 1.65; PROTHROMBIN TIME 19.9 SECONDS (12.5-14.3)
[2020-12-19 07:06] LABS: CALCIUM LEVEL 10.1 MG/DL (8.8-10.2); CK-MB VALUE MASS 4.9 NG/ML (<3.6); CREATININE FOR GFR 7.16 MG/DL (0.70-1.30); GLOMERULAR FILTRATION RATE 7.8 (>35); MAGNESIUM LEVEL 2.3 MG/DL (1.8-2.4); MB/CK RELATIVE INDEX 2.37 (< OR =4); POTASSIUM SERUM 5.5 MEQ/L (3.5-5.1); TROPONIN I 0.09 NG/ML (< 0.10)
[2020-12-19] MEDS: GASTROGRAFIN SOLUTION 30ML PO SCH ×2 (07:22→07:50)
[2020-12-19] MEDS ORDERED: PIPERACILLIN/TAZOBACTAM SOD 4.5 GM in D5W MINI-BAG PLUS 50 ML IV ONE (07:30)
--- NOTE | 2020-12-19 08:07 | REP ---
INDICATION: elev wbc COMPARISON: 11/03/2019 TECHNIQUE: Portable AP view of the chest FINDINGS: The mediastinum and cardiac silhouette are stable again demonstrating mild cardiomegaly with evidence for prior sternotomy and CABG. The lung benson demonstrate chronic changes without acute consolidation, effusion, or pneumothorax. Skeletal structures demonstrate old rib fractures. IMPRESSION: No acute cardiopulmonary process appreciated. <Electronically signed by Anton Garcia > 12/19/20 [id number]
[2020-12-19] MEDS ORDERED: ISOVUE-370 76% 100ML VIAL As Ordered ONE (08:38)
[2020-12-19] MEDS: MIRALAX *UNIT DOSE* 17GM PACKET PO SCH (09:00)
--- NOTE | 2020-12-19 09:10 | REP ---
INDICATION: diverticulitis (pt to have dialysis after). COMPARISON: 08/03/2013 TECHNIQUE: Axial contrast-enhanced images from the lung bases to the pubic symphysis using oral and 75 cc Isovue 370 intravenous contrast material. . This CT examination was performed using the following dose reduction techniques: Automated exposure control, adjustment of mA and/or kv according to the patient's size, and the use of iterative reconstruction technique. FINDINGS: Liver, gallbladder, pancreas, and bilateral adrenal glands are relatively normal/stable. The kidneys demonstrate age-related atrophic changes along with bilateral hypodensities likely representing simple and complex cysts measuring up to 1.1 cm in the left kidney and 4.5 cm in the right kidney. No associated hydronephrosis or acute perinephric stranding. Evidence for prior splenectomy. The stomach is under distended and gastritis versus normal collapsed appearance cannot be differentiated. There is no evidence for bowel obstruction or acute inflammatory process. There is however fecal stasis and possible fecal impaction at the rectosigmoid which is distended to approximately 6.9 cm diameter. Colonic and sigmoid diverticulosis noted without acute diverticulitis. The bladder is markedly distended and extends into the right mid abdomen displacing small and large bowel and possibly related to the patient's abdominal pain findings may be secondary to outlet obstruction with a mildly prominent prostate gland measuring 4.7 cm diameter. No ascites. No free air. No adenopathy. Atherosclerotic changes to the aorta and vasculature noted without aneurysm or dissection. Musculoskeletal structures demonstrate age-related osteopenia and degenerative changes without acute osseous abnormality. IMPRESSION: 1. Markedly distended bladder which may be secondary to outlet obstruction and possibly related to patient's lower abdominal pain. 2. Suspected fecal impaction at the rectosigmoid level distended to 6.9 cm diameter without associated bowel obstruction. 3. Diverticulosis noted without acute diverticulitis. <Electronically signed by Anton Garcia > 12/19/20 0906
[2020-12-19] MEDS ORDERED: LIDOCAINE 2% 5ML JELLY UROJET TOP ONE (09:25)
[2020-12-19] MEDS ORDERED: FLEET ENEMA PR STA (09:27)
[2020-12-19] MEDS ORDERED: MOM 30ML SUSPENSION UDC PO PRN (11:05)
[2020-12-19] MEDS ORDERED: MAALOX 30 ML SUSP *UDC PO PRN (11:05)
[2020-12-19] MEDS ORDERED: NEPH1TAB11 PO (11:12)
[2020-12-19] MEDS ORDERED: CARV6.25 PO (11:12)
--- NOTE | 2020-12-19 11:13 | HPEPDOC ---
[facility] Medical History & Physical Date of Admission Dec 19, 2020 Date of Service: Dec 19, 2020 History and Physical CHIEF COMPLAINT: constipation HISTORY OF PRESENT ILLNESS: 84-year-old male with a past medical history of ES RD on HD MWF, CAD status post CABG, chronic A. fib (AC on coumadin), systolic CHF, presented to [facility] with constipation, abdominal discomfort and weakness for the past 4 days. He states that he has poor appetite and has had reduced PO intake. His last HD was on . Further, as was the case on his last admission in 09/2020, he continues to endorse visual hallucinations, particularly of animals in his room. 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 Denies hemoptysis, chest pain, fevers, chills, blood per rectum, palpitations. He finally reports that his bilateral LEs have been painful and have areas of skin breakdown with surrounding cellulitis. On arrival to the ER, vitals T 98.0. HR 140. BP 162/86. SpO 93%. Lab work remarkable for WBC 19.1. Hgb 12.0. Hct 37.1. Na 132. K 3.3. Cr 7.16. BUN 69. Trop 0.09. UA showing pyuria and RBC (34) with trace LE. EKG showing afib with RVR. Received one dose of metoprolol 5 mg IV, which was effective in reducing the rate to 80s-90s. CT abdo pelvis with IV and oral contrast showing significant bladder distension as well as fecal impaction at rectosigmoid level distended to 6.9 cm. Patient was straighcathed and 800 cc of urine was produced, sent for culture. Fleet enema was given, without resultant BM. Manual disimpaction was not successful, but revealed soft, sand colored stool in rectal vault. Patient will be admitted to hospitalist service for managment of cellulitis, UTI, and fecal impaction, with nephrology on consultation for hemodialysis. PAST MEDICAL HISTORY: ESRD on hemodialysis MWF CAD status post CABG Chronic A. fib on Coumadin Systolic congestive heart failure Valvular heart disease GERD Hypertension Dyslipidemia Chronic back pain Anemia of CK D Secondary hyperparathyroidism PAST SURGICAL HISTORY: R hip fx s/p ORIF 10/26/19 CABG Back surgery Splenectomy Tonsillectomy Laminectomy SOCIAL HISTORY: denies etoh use Former smoker, quit 15 years ago Denies illicits Lives alone. There are 2 children living in the area. FAMILY HISTORY: I personally reviewed family history and found not pertinent ALLERGIES: Please see below. REVIEW OF SYSTEMS: CONSTITUTIONAL: patient denies fevers, chills HEENT: patient denies blurred vision, loss of vision, headache,. CARDIOVASCULAR: patient denies chest pain, palpitations. RESPIRATORY: patient denies shortness of breath, cough, hemoptysis. GASTROINTESTINAL: patient denies abdominal pain, n/v/d, blood in stool. reports constipation GENITOURINARY: patient denies dysuria, discharge. SKIN: patient denies rashes. MUSCULOSKELETAL: She reports left middle finger pain which is now resolved. NEUROLOGICAL: patient denies focal weakness, numbness, seizures. PSYCHIATRIC: Patient reports visual hallucinations ENDOCRINE: patient denies polyuria, heat intolerance, cold intolerance. HEMATOLOGIC/LYMPHATIC: patient denies easy bruising. HOME MEDICATIONS: Please see below. PHYSICAL EXAMINATION: VITAL SIGNS: please see below General: NAD, comfortable HEENT: PERRLA, EOMI, sclerae clear Neck: supple, normal ROM, no JVD Respiratory: lungs CTAB, no wheeze, no rales, no crackles CVS: RRR, normal S1, S2, no murmurs Abdo: soft, no masses, no hepatosplenomegaly, BS+, no rebound tenderness Extremities: no edema, pulses 2+ MSK: no joint deformities, normal ROM Neuro: no focal neuro deficits, moving all 4 extremities, CN2-12 intact. Strength 5/5 in all 4 extremities. No nystagmus. Psych: calm, cooperative, AAO x 3 LABORATORY DATA: See below. IMAGING: CT abdo pelvis with IV and PO contrast (12/19/20): 1. Markedly distended bladder which may be secondary to outlet obstruction and possibly related to patient's lower abdominal pain. 2. Suspected fecal impaction at the rectosigmoid level distended to 6.9 cm diameter without associated bowel obstruction. 3. Diverticulosis noted without acute diverticulitis CXR (12/19/20): No acute cardiopulmonary process appreciated MICROBIOLOGY: Please see below. ASSESSMENT:84-year-old male with a past medical history of ESRD on HD MWF, CAD status post CABG, chronic A. fib (AC on coumadin), systolic CHF, presented to [facility] with constipation, abdominal discomfort and weakness for the past 4 days. Edgardo richter will be admitted to hospitalist service for management of cellulitis, UTI, and fecal impaction, with nephrology on consultation for hemodialysis. . PLAN: #ESRD - on HD Tues/Thur/Sat via R arm fistula - Na 132. K 5.5. Cr 7.16. - c/w renvela - electrolytes appropriate - consulted nephrology, Dr. Parry aware #Leukocytosis possibly 2/2 cellulitis, UTI - WBC 18.1. Afebrile. - check procal - UA + for pyura, blood, LE - lower extremities show area of skin maceration/ulceration with surrounding erythema - s/p zosyn in ER - will start IV vanco, with ESRD dosing. #Cellulititis - bilateral leg erythema with maceration/ulceration on shins - no weeping - check ESR, CRP, procal - s/p zosyn in ER - will start vancomycin #UTI - UA suggestive of UTI. WBC 18 - urine culture pending - s/p zosyn in ER - on vancomycin, will add ceftriaxone #Constipation - fecal impaction seen on CT abdo/pelvis with distension of bladder - received fleet enema in ER. Manual disempaction attempted by RN in ER without success - tap water enema. Miralax. Mag citrate. 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 patient decided to proceed with DNR/DNI status. MOLST form signed and witness. Diet renal. Vital Signs Vital Signs Date Time Temp Pulse Resp B/P (MAP) Pulse Ox O2 Delivery O2 Flow Rate FiO2 12/19/20 10:24 80 20 96 Room Air 12/19/20 09:04 141/76 (97) 12/19/20 08:24 98.0 Laboratory Data Labs 24H Laboratory Tests 2 12/19/20 06:17: Immature Granulocyte % (Auto) 1.0, Neutrophils (%) (Auto) 92.5H, Lymphocytes (%) (Auto) 2.0L, Monocytes (%) (Auto) 4.4, Eosinophils (%) (Auto) 0.0, Basophils (%) (Auto) 0.1, Neutrophils # (Auto) 16.8H, Lymphocytes # (Auto) 0.4L, Monocytes # (Auto) 0.8, Eosinophils # (Auto) 0.0, Basophils # (Auto) 0.0, Nucleated Red Blood Cells % (auto) 0.0, Prothrombin Time 19.9H, Prothromb Time International Ratio 1.65, Anion Gap 11, Glomerular Filtration Rate 7.8L, Calcium Level 10.1, Magnesium Level 2.3, Total Creatine Kinase 207, Creatine Kinase MB 4.9H, Creatine Kinase MB Relative Index 2.37, Troponin I 0.09 12/19/20 09:59: Urine Color BLANCA, Urine Appearance CLOUDYH, Urine pH 7.0, Urine Specific [place] 1.011, Urine Protein 2+H, Urine Glucose (UA) NEGATIVE, Urine Ketones NEGATIVE, Urine Blood 1+H, Urine Nitrite NEGATIVE, Urine Bilirubin NEGATIVE, Urine Urobilinogen 0.2, Urine Leukocyte Esterase TRACEH, Urine WBC (Auto) 95H, Urine RBC (Auto) 34H, Urine Hyaline Casts (Auto) 0, Urine Bacteria (Auto) 1+H, Urine Squamous Epithelial Cells 0, Urine Sperm (Auto) CBC/BMP Laboratory Tests 12/19/20 06:17 Microbiology Microbiology 12/19/20 Urine Culture, Received Pending 12/19/20 Blood Culture, Received Pending 12/19/20 Respiratory Virus Panel (PCR) (GIOVANNI) - Final, Complete 12/19/20 Blood Culture, Received Pending Home Medications Scheduled Atorvastatin Calcium (Atorvastatin Calcium) 80 Mg Tablet, 80 MG PO QHS Carvedilol (Carvedilol) 6.25 Mg Tablet, 6.25 MG PO BID Lidocaine/Prilocaine (Lidocaine-Prilocaine Cream) 1 Cre Cre, 1 DOSE EXT 3XW TAKES ON TUESDAYS, WEDNESDAY AND SATURDAYS BEFORE DIALYSIS. Omeprazole (Omeprazole) 20 Mg Cap, 20 MG PO DAILY Sevelamer Carbonate (Renvela) 800 Mg Tab, 2,400 MG PO WM Vit B Comp No.3/Folic/C/Biotin (Nephro-Nadine Rx Tablet) 1 Each Tablet, 1 TAB PO DAILY Warfarin Sodium (Warfarin Sodium) 2 Mg Tablet, 2 MG PO ASDIRECTED TAKE 2MG EVERYDAY EXCEPT WEDNESDAY, ADJUST PER PCP Scheduled PRN Acetaminophen (Tylenol) 325 Mg Tablet, 650 MG PO Q4H PRN for PAIN Docusate Sodium (Docusate Sodium) 100 Mg Cap, 100 MG PO DAILY PRN for CO NSTIPATION Morphine Sulfate (Morphine Sulfate ER) 15 Mg Tab, 15 MG PO BID PRN for PAIN PATIENT STATES HE TAKES ONLY WHEN NEEDED Nitroglycerin (Nitrostat) 0.4 Mg Subl, 0.4 MG SL NITRO PRN for CHEST PAIN Oxycodone HCl (Oxycodone HCl) 5 Mg Tablet, 5 MG PO Q6H PRN for BREAKTHROUGH PAIN Allergies Coded Allergies: No Known Allergies (Verified , 03/09/18) MARIA A WATSON MD Dec 19, 2020 11:12
[2020-12-19] MEDS ORDERED: GLYCERIN ADULT SUPP PR PRN (11:35)
[2020-12-19] MEDS ORDERED: MAGNESIUM CITRATE 300 ML BTL PO ONE ×2 (11:35→18:40)
[2020-12-19] MEDS ORDERED: SODIUM CHLORIDE 0.9% 1000ML IV PRN (11:50)
[2020-12-19] MEDS ORDERED: LIDOCAINE 1% SDV 5ML VIAL SC PRN (11:50)
[2020-12-19] MEDS ORDERED: NITROGLYCERIN 0.4 MG SUBL TABLET SL PRN (13:30)
[2020-12-19] MEDS ORDERED: HEPARIN SOD (PORCINE) 5000UNITS/ML 1ML VIAL/SYRINGE SC SCH (14:00)
[2020-12-19 14:08] LABS: C REACTIVE PROTEIN QUANTITATIV 7.88 MG/DL (0.00-0.30)
[2020-12-19 14:47] LABS: ERYTHROCYTE SEDIMENTATION RATE 62 mm/hr (0-20)
[2020-12-19 16:00] VITALS: BP 142/70
[2020-12-19] MEDS ORDERED: VANCOMYCIN HCL 1,000 MG, VIAL MATE ADAPTER 1 EACH in NS 250 ML IV ONE (16:00)
[2020-12-19] MEDS: **VANCO AFTER HD** MISC XX SCH (16:36)
[2020-12-19] MEDS: WARFARIN SOD 2MG TAB PO SCH (16:36)
[2020-12-19] MEDS: (RENVELA) SEVELAMER **CARBONate** 800 MG TAB PO SCH (17:49)
[2020-12-19] MEDS: cefTRIAXone SOD 1 GM in D5W MINI-BAG PLUS 50 ML IV SCH (17:49)
[2020-12-19 20:00] VITALS: BP 139/67
[2020-12-19] MEDS: DOCUSATE SODIUM 100MG CAPSULE PO SCH (21:16)
[2020-12-19] MEDS: CARVedilol 6.25 MG TAB PO SCH (21:17)
[2020-12-19] MEDS: ATORVASTATIN 20 MG TAB PO SCH (21:17)
[2020-12-20] VITALS: BP 143/63
[2020-12-20 04:00] VITALS: BP 108/50
[2020-12-20 04:00] LABS: BASO % 0.1 % (0.0-1.0); HEMATOCRIT 31.8 % (42.0-52.0); HEMOGLOBIN 10.5 g/dl (13.5-17.5); LYMPH # 0.3 10^3/uL (1.5-5.0); LYMPH % 1.7 % (24.0-44.0); MEAN CORPUSCULAR HEMOGLOBIN 34.7 pg (27.0-33.0); MONO # 0.9 10^3/uL (0.0-0.8); MONO % 5.5 % (2.0-8.0); NEUTROPHILS # 15.3 10^3/uL (1.5-8.5); NEUTROPHILS % 92.2 % (36.0-66.0); PLATELET COUNT, AUTOMATED 194 10^3/uL (150-450); RED BLOOD COUNT 3.03 10^6/uL (4.30-6.10); WHITE BLOOD COUNT 16.6 10^3/uL (4.0-10.0)
[2020-12-20 04:09] LABS: INR 2.32
[2020-12-20 04:22] LABS: ALBUMIN 2.6 GM/DL (3.2-5.2); BILIRUBIN,TOTAL 0.6 MG/DL (0.2-1.0); CALCIUM LEVEL 8.8 MG/DL (8.8-10.2); CREATININE FOR GFR 5.06 MG/DL (0.70-1.30); GLOMERULAR FILTRATION RATE 11.6 (>35); MAGNESIUM LEVEL 2.3 MG/DL (1.8-2.4); POTASSIUM SERUM 4.9 MEQ/L (3.5-5.1); TOTAL PROTEIN 6.2 GM/DL (6.4-8.2)
[2020-12-20] MEDS ORDERED: VANCOMYCIN HCL 1,000 MG, VIAL MATE ADAPTER 1 EACH in NS 250 ML IV ONE (07:30)
[2020-12-20 08:00] VITALS: BP 145/62
--- NOTE | 2020-12-20 08:03 | ECGEPIP ---
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
[2020-12-20] MEDS: NEPHRO-VIT TAB (NEPHROCAPS) PO SCH (08:05)
[2020-12-20] MEDS: (RENVELA) SEVELAMER **CARBONate** 800 MG TAB PO SCH ×3 (08:06→17:39)
[2020-12-20] MEDS: MIRALAX *UNIT DOSE* 17GM PACKET PO SCH (08:06)
[2020-12-20] MEDS: OMEPRAZOLE 20 MG CAP PO SCH (08:06)
[2020-12-20] MEDS: DOCUSATE SODIUM 100MG CAPSULE PO SCH ×2 (08:06→20:45)
[2020-12-20] MEDS: CARVedilol 6.25 MG TAB PO SCH ×2 (08:20→20:46)
[2020-12-20] MEDS ORDERED: SLF 3 ML SYR IV PRN (08:55)
[2020-12-20] MEDS: LACTULOSE 20 GM/30 ML SYRUP UD PO SCH (10:20)
--- NOTE | 2020-12-20 10:32 | REP ---
INDICATION: suspected malignancy COMPARISON: 09/22/2007 TECHNIQUE: Axial noncontrast images from the thoracic inlet to the upper abdomen with coronal and sagittal reformations. This CT examination was performed using the following dose reduction techniques: Automated exposure control, adjustment of mA and/or kv according to the patient's size, and use of iterative reconstruction technique. FINDINGS: Lung benson demonstrate diffuse chronic age-related reticulonodular interstitial changes along with mild basilar atelectasis (left greater than right). No obvious focal consolidation, suspicious nodule or mass lesion is appreciated. No pneumothorax. Mediastinum demonstrates significant atherosclerotic disease to the thoracic aorta, branch vessels and coronary arteries along with cardiomegaly. No aortic aneurysm. No pericardial effusion. No significant, obvious adenopathy noted by noncontrast evaluation. Evidence for prior sternotomy. Skeletal structures demonstrate osteopenia and degenerative changes along with evidence for old healed rib fractures. IMPRESSION: Minimal basilar atelectasis. Diffuse chronic changes. Significant atherosclerotic disease along with cardiomegaly. <Electronically signed by Anton Garcia > 12/20/20 1026
--- NOTE | 2020-12-20 10:46 | IPNPDOC ---
Date Seen The patient was seen on 12/20/20. Progress Note SUBJECTIVE: Patient was seen and examined at bedside this morning. No acute events overnight. Patient is afebrile, vital signs are signs stable. Had some small bowel movements yesterday afternoon, but since no appropriate bowel movement. Attempted sleet and water enemas. Patient denies any abdominal pain, fevers, chills, chest pain, nausea, vomiting or diarrhea. Received dialysis on 12/19/20. Next session planned for 12/21/20. OBJECTIVE PHYSICAL EXAMINATION: VITAL SIGNS: please see below General: NAD, comfortable HEENT: PERRLA, EOMI, sclerae clear Neck: supple, normal ROM, no JVD Respiratory: lungs CTAB, no wheeze, no rales, no crackles CVS: RRR, normal S1, S2, no murmurs Abdo: soft, no masses, no hepatosplenomegaly, BS+, no rebound tenderness Extremities: no edema, pulses 2+ MSK: no joint deformities, normal ROM Neuro: no focal neuro deficits, moving all 4 extremities, CN2-[address] [place]th 5/5 in all 4 extremities. No nystagmus. Psych: calm, cooperative, AAO x 3 LABORATORY DATA, IMAGING STUDIES, MICROBIOLOGY: Please see below. CT chest wo contrast (12/20/20): Minimal basilar atelectasis. Diffuse chronic changes. Significant atherosclerotic disease along with cardiomegaly. CT abdo pelvis with IV and PO contrast (12/19/20): 1. Markedly distended bladder which may be secondary to outlet obstruction and possibly related to patient's lower abdominal pain. 2. Suspected fecal impaction at the rectosigmoid level distended to 6.9 cm diameter without associated bowel obstruction. 3. Diverticulosis noted without acute diverticulitis CXR (12/19/20): No acute cardiopulmonary process appreciated DVT prophylaxis ordered?: SCDs/test/warfarin. ASSESSMENT AND PLAN: 84-year-old male with a past medical history of ESRD on HD MWF, CAD status post CABG, chronic A. fib (AC on coumadin), systolic CHF, presented to [facility] with constipation, abdominal discomfort and weakness for the past 4 days. Patient will be admitted to hospitalist service for management of cellulitis, UTI, and fecal impaction, with nephrology on consultation for hemodialysis. Due to constipation and obstruction of bladder outlet suspect m garretancy and GI tract. Obtain CEA level elevated at 6.4. Discussed with Dr. Bud Powell recommended bowel regimen as below with plan for colonoscopy as there is a likelihood of bowel malignancy. PROBLEMS: #ESRD - on HD Tues/Thur/Sat via R arm fistula - electrolytes improved - c/w renvela - electrolytes appropriate - consulted nephrology, Dr. Parry #Leukocytosis possibly 2/2 cellulitis, UTI - WBC trending down, 18 to 16. - procal 0.56. - UA + for pyura, blood, LE - lower extremities show area of skin maceration/ulceration with surrounding erythema - s/p zosyn in ER - Vanc (day #2). Ceftriaxone (Day #2) #Cellulititis - bilateral leg erythema with maceration/ulceration on shins - no weeping - check ESR, CRP, procal - s/p zosyn in ER - Vanc (day #2). Ceftriaxone (Day #2) #UTI - UA suggestive of UTI. WBC 18 - urine culture pending - s/p zosyn in ER - Vanc (day #2). Ceftriaxone (Day #2) #Constipation - fecal impaction seen on CT abdo/pelvis with distension of bladder - received fleet enema in ER. Manual disempaction attempted by RN in ER without success - tap water enema. Miralax. Mag citrate acheived no meaningful BM - Suspect mass in rectosigmoid colon due to fecal statis and impaction in rectosigmoid or possibly a prostate process due to bladder distension 2/2 outlet obstruction - CEA level elevate to 6.4. CA-19-9, PSA pending. #Bladder outlet obstruction - CT abdo pelvis on 12/20/20 showing bladder outlet obstruction - d/w Dr. Garcia, prostatic enlargement likely responsible, although fecal impaction in rectosigmoid may play a role - patient was straight catheterized in ER on 11/21/20, drained 800 cc of urine - obtain bladder scan #Visual hallucination - persistent, occur almost daily - patient has refused MRI brain - concern for metastatic disease given cachexia, weight loss, poor appetite, although lewy body dementia may be a reasonable differential #Afib with RVR - HR improved with IV metoprolol - resume home meds - AC with warfarin, INR subtherapeutic - Tele #CAD s/p CABG - c/w ASA/statin - nitro prn #Anemia - in setting ESRD, AOCD - Hgb 12.0, improved from prior level #Frequent falls - deconditioned - PT/OT - fall precautions #Chronic back pain - takes morphine sulfate 15 mg PO BID at home - lidocaine patch #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 patient decided to proceed with DNR/DNI status. MOLST form signed and witness. Diet renal. OT recommending rehab on DC due to deconditioning. I spoke to patien't son Kenji Grace at [phone]. I answered all questions in detail provided. Update us of the patient's progress. Son agrees that the patient looks very frail and weak. There is uncertainty as to whether this father could tolerate extensive workup for malignancy and/or subsequent therapy such as chemotherapy or surgery. They have discussed amongst themselves, i.e., the children whether the possibility of hospice is something they could consider. I will continue to have the discussion with the patient as well as the family. VS, I&O, 24H, Fishbone Vital Signs/I&O Vital Signs Date Time Temp Pulse Resp B/P (MAP) Pulse Ox O2 Delivery O2 Flow Rate FiO2 12/20/20 08:20 82 127/60 12/20/20 08:00 98.1 18 95 Room Air I&O- Last 24 Hours up to 6 AM 12/20/20 06:00 Intake Total 670 ml Output Total 2300 ml Balance -1630 ml Laboratory Data 24H LABS Laboratory Tests 2 12/19/20 13:00: Procalcitonin 0.58 12/20/20 03:22: Immature Granulocyte % (Auto) 0.5, Neutrophils (%) (Auto) 92.2H, Lymphocytes (%) (Auto) 1.7L, Monocytes (%) (Auto) 5.5, Eosinophils (%) (Auto) 0.0, Basophils (%) (Auto) 0.1, Neutrophils # (Auto) 15.3H, Lymphocytes # (Auto) 0.3L, Monocytes # (Auto) 0.9H, Eosinophils # (Auto) 0.0, Basophils # (Auto) 0.0, Nucleated Red Blood Cells % (auto) 0.1H, Prothrombin Time 26.0H, Prothromb Time International Ratio 2.32, Anion Gap 7L, Glomerular Filtration Rate 11.6L, Calcium Level 8.8, Magnesium Level 2.3, Total Bilirubin 0.6, Aspartate Amino Transf (AST/SGOT) 23, Alanine Aminotransferase (ALT/SGPT) 19, Alkaline Phosphatase 87, Total Protein 6.2L, Albumin 2.6L, Albumin/Globulin Ratio 0.7 12/20/20 06:44: Random Vancomycin Level 7.7 CBC/BMP Laboratory Tests 12/20/20 03:22 Microbiology Microbiology 12/19/20 Urine Culture - Final, Complete 12/19/20 Blood Culture - Preliminary, Resulted No growth after 24 hours . All specim... 12/19/20 Respiratory Virus Panel (PCR) (GIOVANNI) - Final, Complete 12/19/20 Blood Culture - Preliminary, Resulted No growth after 24 hours . All specim... MARIA A WATSON MD Dec 20, 2020 10:46
[2020-12-20 12:00] VITALS: BP 137/71
[2020-12-20] MEDS: cefTRIAXone SOD 1 GM in D5W MINI-BAG PLUS 50 ML IV SCH (14:52)
[2020-12-20] MEDS: SLF 3 ML SYR IV SCH ×2 (14:52→20:47)
[2020-12-20] MEDS: **VANCO AFTER HD** MISC XX SCH (15:41)
[2020-12-20 16:00] VITALS: BP 139/71
[2020-12-20] MEDS: WARFARIN SOD 2MG TAB PO SCH (17:39)
[2020-12-20 20:00] VITALS: BP 123/55
[2020-12-20] MEDS: ATORVASTATIN 20 MG TAB PO SCH (20:44)
[2020-12-20] MEDS: oxyCODONE 5MG TAB PO PRN (20:46)
[2020-12-21] VITALS: BP 152/60
[2020-12-21 04:00] VITALS: BP 128/61
[2020-12-21] MEDS: SLF 3 ML SYR IV SCH ×3 (05:18→20:44)
[2020-12-21 06:41] LABS: BASO % 0.1 % (0.0-1.0); HEMATOCRIT 34.1 % (42.0-52.0); HEMOGLOBIN 11.1 g/dl (13.5-17.5); LYMPH # 0.4 10^3/uL (1.5-5.0); MEAN CORPUSCULAR HEMOGLOBIN 34.3 pg (27.0-33.0); MEAN CORPUSCULAR HGB CONC 32.6 g/dl (32.0-36.5); MEAN CORPUSCULAR VOLUME 105.2 fl (80.0-96.0); MONO # 0.9 10^3/uL (0.0-0.8); MONO % 7.5 % (2.0-8.0); NEUTROPHILS # 11.2 10^3/uL (1.5-8.5); NEUTROPHILS % 88.8 % (36.0-66.0); PLATELET COUNT, AUTOMATED 214 10^3/uL (150-450); RED BLOOD COUNT 3.24 10^6/uL (4.30-6.10); WHITE BLOOD COUNT 12.6 10^3/uL (4.0-10.0)
[2020-12-21] MEDS ORDERED: VANCOMYCIN HCL 1,000 MG, VIAL MATE ADAPTER 1 EACH in NS 250 ML IV SCH (07:15)
[2020-12-21 07:25] VITALS: BP 144/65
[2020-12-21 07:27] LABS: ALBUMIN 2.5 GM/DL (3.2-5.2); BILIRUBIN,TOTAL 0.5 MG/DL (0.2-1.0); CALCIUM LEVEL 8.1 MG/DL (8.8-10.2); CREATININE FOR GFR 6.64 MG/DL (0.70-1.30); GLOMERULAR FILTRATION RATE 8.5 (>35); MAGNESIUM LEVEL 2.6 MG/DL (1.8-2.4); POTASSIUM SERUM 5.3 MEQ/L (3.5-5.1); TOTAL PROTEIN 6.1 GM/DL (6.4-8.2)
[2020-12-21 07:56] VITALS: BP 144/65
[2020-12-21] MEDS: OMEPRAZOLE 20 MG CAP PO SCH (07:56)
[2020-12-21] MEDS: NEPHRO-VIT TAB (NEPHROCAPS) PO SCH (07:56)
[2020-12-21] MEDS: LACTULOSE 20 GM/30 ML SYRUP UD PO SCH (07:56)
[2020-12-21] MEDS: CARVedilol 6.25 MG TAB PO SCH (07:56)
[2020-12-21] MEDS: DOCUSATE SODIUM 100MG CAPSULE PO SCH ×2 (07:56→20:43)
[2020-12-21] MEDS: (RENVELA) SEVELAMER **CARBONate** 800 MG TAB PO SCH ×2 (07:57→12:30)
[2020-12-21] MEDS: MIRALAX *UNIT DOSE* 17GM PACKET PO SCH (07:57)
[2020-12-21 08:35] LABS: C REACTIVE PROTEIN QUANTITATIV 6.71 MG/DL (0.00-0.30)
[2020-12-21 09:03] LABS: ERYTHROCYTE SEDIMENTATION RATE 51 mm/hr (0-20)
--- NOTE | 2020-12-21 11:01 | IPN ---
NEPHROLOGY PROGRESS NOTE DATE: 12/20/2020 SUBJECTIVE: Kenji is seen and examined this morning at the bedside. He offers no complaints. He was dialyzed yesterday. His treatment was uneventful. He reports his abdominal discomfort is improving and he had bowel movements as well. PHYSICAL EXAMINATION: VITAL SIGNS: Temperature 97.3, pulse 81, respiratory rate 18, blood pressure 137/71, saturating 94-98% on room air. GENERAL: Patient is seen awake, alert, oriented, lying in bed, elderly, frail male in no apparent distress. HEAD: Extraocular muscles are intact. There is bitemporal wasting. Tongue is moist. NECK: Supple. Jugular veins are not elevated. HEART SOUNDS: Irregularly irregular. There is no significant peripheral edema. LUNGS: Clear to auscultation bilaterally. No crackle or rale. ABDOMEN: Soft. There are bowel sounds. His bladder was not palpable. EXTREMITIES: Show dressings over his distal legs and also cellulitis. There is a fistula in the right arm which is patent and has thrill and bruit. There is lean muscle wasting. NEUROLOGIC: He is awake, alert, oriented times three. No focal deficits. LABORATORY STUDIES: Today's labs show INR 2.3. Sodium 134, potassium 4.9, BUN 45. Hemoglobin 19.5, white count 16.6. His blood cultures show no growth after 24 hours times two sets. His vancomycin random level was low. CT of the chest done today shows diffuse chronic changes. No focal consolidation, suspicious nodule or mass. INPATIENT MEDICATIONS: Reviewed by myself. He continues on vancomycin and ceftriaxone. His remainder of medications remain unchanged as compared with yesterday. PROBLEMS: 1. End-stage renal disease on hemodialysis on Wednesday, , Wednesday schedule. Patient was dialyzed yesterday with 1.5 liters of fluid removed. His electrolytes and volume status are acceptable. His fistula is in good use. Next dialysis will be on Wednesday. 2. Atrial fibrillation. Patient is rate controlled with beta bailee, has therapeutic INR and is on Coumadin. 3. Cellulitis with leukocytosis. Patient is on broad spectrum antibiotics managed by the primary service. His white count is downtrending. He remains afebrile and hemodynamically stable. His blood cultures were negative for growth times two sets, as was his urine culture was likewise negative. 4. Constipation and bladder outlet obstruction. CT abdomen and pelvis and chest noted. Patient had an elevated CEA (6.4). Other tumor marker antigens are pending, including PSA. His imaging did not reveal any overt masses. 5. Hypertension. Blood pressures are improved and well-controlled with current dose of carvedilol.
--- NOTE | 2020-12-21 11:34 | CR ---
NEPHROLOGY CONSULTATION DATE: 12/19/2020 REQUESING PHYSICIAN: Dr. Han. REASON FOR CONSULTATION: Management of end-stage renal disease on hemodialysis. HISTORY OF PRESENT ILLNESS: Mr. Grace is well-known to me. He is an 84-year-old male with a past medical history of end-stage renal disease on hemodialysis Wednesday, Wednesday, Wednesday, coronary artery disease status post coronary artery bypass graft (CABG), chronic atrial fibrillation on Coumadin anticoagulation, systolic congestive heart failure and other comorbid conditions mentioned below. He presented to the emergency room today with complaint of abdominal discomfort and weakness over the past few days. Reports poor appetite and reduced intake. He missed his outpatient hemodialysis today. He also complains of chronic lower extremity ulcers that have been worsening and have been painful. In the emergency room, patient was found to be hypertensive and tachycardic with blood pressure initially 184/109 and heart rate in the 120s. He was afebrile and saturating well on room air and initial laboratory studies revealed leukocytosis with white count of 18,000 and hyperkalemia (potassium 5.5). Nephrology evaluation was requested for maintenance hemodialysis. PAST MEDICAL HISTORY: 1. End-stage renal disease on hemodialysis Wednesday, Wednesday, Wednesday. 2. Anemia of chronic renal failure. 3. Secondary hyperparathyroidism of renal origin. 4. Coronary artery disease (CAD) status post coronary artery bypass graft (CABG). 5. Chronic atrial fibrillation on Coumadin. 6. Systolic congestive heart failure. 7. Valvular heart disease. 8. Gastroesophageal reflux disease (GERD). 9. Hypertension. 10. Dyslipidemia. 11. Chronic back pain. 12. Frequent falls. 13. Skin cancers. PAST SURGICAL HISTORY: 1. Right hip fracture status post open reduction, internal fixation in 2019. 2. Coronary artery bypass graft (CABG). 3. Back surgery. 4. Splenectomy. 5. Tonsillectomy. 6. Laminectomy. 7. Arteriovenous fistula. FAMILY HISTORY: Noncontributory. PERSONAL/SOCIAL HISTORY: He is . He lives by himself. He denies alcohol use. He is an ex-smoker, quit 15 years ago. ALLERGIES: No known drug allergies. HOME MEDICATIONS: Reviewed and include: - Lipitor - carvedilol - omeprazole - Renvela - Nephro-Nadine - Coumadin - oxycodone as needed REVIEW OF SYSTEMS: CONSTITUTIONAL: Denies fevers or chills. Reports weight loss. HEENT: Denies visual changes, tearing or blurred vision. CARDIAC: Denies chest pain or palpitations. Has a history of congestive heart failure. Denies leg swelling. RESPIRATORY: Denies shortness of breath or cough. GASTROINTESTINAL: Reports abdominal pain and constipation. GENITOURINARY: He had significant urinary retention. SKIN: Reports cellulitis of the lower extremities and ulcers. MUSCULOSKELETAL: Reports arthritis and progressive debility. NEUROLOGIC: Denies seizures or syncope. PSYCHIATRIC: Reports visual hallucinations. ENDOCRINE: Secondary hyperparathyroidism of renal origin. Denies diabetes. HEMATOLOGIC: Reports chronic anticoagulant use and anemia of chronic renal failure. The remainder of review of systems is negative or as per history of present illness (HPI). PHYSICAL EXAMINATION: VITAL SIGNS: Temperature 98.0, pulse 87, respiratory rate 16, blood pressure 162/86, saturating 93-98% on room air. GENERAL: Patient is seen in the hemodialysis unit this afternoon receiving his treatment, awake, alert and in no apparent distress, elderly and frail-appearing male. HEAD: Extraocular muscles are intact. There is bitemporal wasting. His tongue is moist. NECK: Supple. Jugular veins are not elevated. HEART SOUNDS: Irregular. There is no significant peripheral edema. LUNGS: Clear to auscultation. No crackle or rale. ABDOMEN: Soft and nontender. The bladder is not palpable. EXTREMITIES: He is cachectic-appearing. He has dressings on his shins. There is no edema. NEUROLOGIC: He is oriented to person, place and situation, conversational and cooperative with physical examination. No focal deficits. His right arm fistula is in use. LABORATORY DATA: Sodium 132, potassium 5.5, BUN 69. White count 18.1, hemoglobin 12.0, platelets 201. Blood cultures are sent and pending. IMAGING DATA: CT abdomen and pelvis done today showed a markedly distended bladder with probable outlet obstruction and fecal impaction and diverticulosis without diverticulitis. Chest x-ray today showed no acute cardiopulmonary process. INPATIENT MEDICATIONS: - ceftriaxone 1 gram intravenous (IV) daily - atorvastatin 80 mg by mouth at bedtime - carvedilol 6.25 mg by mouth twice a day - docusate 100 mg by mouth twice a day - lactulose 15 mL by mouth daily - omeprazole 20 mg by mouth daily - Roxicodone as needed - MiraLax one packet by mouth daily - Renvela 2.4 grams by mouth with meals - Nephro-Nadine one tablet daily - Coumadin 2 mg by mouth daily PROBLEMS: 1. End-stage renal disease on hemodialysis on a Wednesday, , Wednesday schedule via right arm fistula. Patient missed his outpatient hemodialysis today. He is being dialyzed with 1.5 liters of fluid removed. His mild hyperkalemia will resolve with dialysis. His electrolytes and volume status are otherwise acceptable. Continue current dialysis prescription. 2. Urinary retention. Patient presented with complaint of abdominal pain. CAT scan showed markedly distended bladder and he had a straight catheterization in the emergency room with 800 mL of urine removed. 3. Leukocytosis. Probably related to lower extremity cellulitis. His white count is 18,000. He is afebrile. His cultures have been sent and pending. Antibiotics and would care is as per primary team. He is receiving vancomycin and Zosyn. 4. Atrial fibrillation. Patient came in initially with rapid ventricular response, but heart rate improved with IV beta bailee. He is on his home dose of carvedilol and he has a subtherapeutic INR of 1.6 and he continues on Coumadin anticoagulation. 5. Systolic congestive heart failure. Patient's volume status is regulated by dialysis and compensated and 1.5 liters are removed with his treatment today.
[2020-12-21 12:36] VITALS: BP 141/67
--- NOTE | 2020-12-21 12:55 | IPNPDOC ---
Date Seen The patient was seen on 12/21/20. Progress Note SUBJECTIVE: Patient was seen and examined at bedside this morning. No acute events overnight. Patient is afebrile, vital signs are signs stable. Had some small bowel movements yesterday afternoon, but since no appropriate bowel movement. Attempted sleet and water enemas. Patient denies any abdominal pain, fevers, chills, chest pain, nausea, vomiting or diarrhea. Received dialysis on 12/19/20. Next session planned for 12/21/20. OBJECTIVE PHYSICAL EXAMINATION: VITAL SIGNS: please see below General: NAD, comfortable HEENT: PERRLA, EOMI, sclerae clear Neck: supple, normal ROM, no JVD Respiratory: lungs CTAB, no wheeze, no rales, no crackles CVS: RRR, normal S1, S2, no murmurs Abdo: soft, no masses, no hepatosplenomegaly, BS+, no rebound tenderness Extremities: no edema, pulses 2+ MSK: no joint deformities, normal ROM Neuro: no focal neuro deficits, moving all 4 extremities, CN2-[address]th 5/5 in all 4 extremities. No nystagmus. Psych: calm, cooperative, AAO x 3 LABORATORY DATA, IMAGING STUDIES, MICROBIOLOGY: Please see below. CT chest wo contrast (12/20/20): Minimal basilar atelectasis. Diffuse chronic changes. Significant atherosclerotic disease along with cardiomegaly. CT abdo pelvis with IV and PO contrast (12/19/20): 1. Markedly distended bladder which may be secondary to outlet obstruction and possibly related to patient's lower abdominal pain. 2. Suspected fecal impaction at the rectosigmoid level distended to 6.9 cm diameter without associated bowel obstruction. 3. Diverticulosis noted without acute diverticulitis CXR (12/19/20): No acute cardiopulmonary process appreciated DVT prophylaxis ordered?: SCDs/test/warfarin. ASSESSMENT AND PLAN: 84-year-old male with a past medical history of ESRD on HD MWF, CAD status post CABG, chronic A. fib (AC on coumadin), systolic CHF, presented to [facility] with constipation, abdominal discomfort and weakness for the past 4 days. Patient will be admitted to hospitalist service for management of cellulitis, UTI, and fecal impaction, with nephrology on consultation for hemodialysis. Due to constipation and obstruction of bladder outlet suspect m garretancy and GI tract. Obtain CEA level elevated at 6.4. Discussed with Dr. Bud Powell recommended bowel regimen as below with plan for colonoscopy as there is a likelihood of bowel malignancy. PROBLEMS: #ESRD - on HD Tues/Thur/Sat via R arm fistula - electrolytes improved - c/w renvela - electrolytes appropriate - consulted nephrology, Dr. Parry #Leukocytosis possibly 2/2 cellulitis, UTI - WBC trending down, 18 to 16 to 12 - procal 0.56. - UA + for pyura, blood, LE - lower extremities show area of skin maceration/ulceration with surrounding erythema - s/p zosyn in ER - Vanc (day #3). Ceftriaxone (Day #3) #Cellulititis - bilateral leg erythema with maceration/ulceration on shins - no weeping - check ESR, CRP, procal - s/p zosyn in ER - Vanc (day #3). Ceftriaxone (Day #4) #UTI - UA suggestive of UTI. WBC 18 - urine culture pending - s/p zosyn in ER - Vanc (day #3). Ceftriaxone (Day #3) #Constipation - fecal impaction seen on CT abdo/pelvis with distension of bladder - received fleet enema in ER. Manual disempaction attempted by RN in ER without success - tap water enema. Miralax. Mag citrate acheived no meaningful BM - Suspect mass in rectosigmoid colon due to fecal statis and impaction in rectosigmoid or possibly a prostate process due to bladder distension 2/2 outlet obstruction - CEA level elevate to 6.4. CA-19-9, PSA pending. - surgical consult placed, d/w Dr. Francois. Slow bowel prep. Patient agreeable to colonoscopy. #Bladder outlet obstruction - CT abdo pelvis on 12/20/20 showing bladder outlet obstruction - d/w Dr. Garcia, prostatic enlargement likely responsible, although fecal impaction in rectosigmoid may play a role - patient was straight catheterized in ER on 11/21/20, drained 800 cc of urine - obtain bladder scan #Visual hallucination - persistent, occur almost daily - patient has refused MRI brain - concern for metastatic disease given cachexia, weight loss, poor appetite, although lewy body dementia may be a reasonable differential #Afib with RVR - HR improved with IV metoprolol - resume home meds - AC with warfarin, INR subtherapeutic - Tele #CAD s/p CABG - c/w ASA/statin - nitro prn #Anemia - in setting ESRD, AOCD - Hgb 12.0, improved from prior level #Frequent falls - deconditioned - PT/OT - fall precautions #Chronic back pain - takes morphine sulfate 15 mg PO BID at home - unable to hold meds due to pain, although it would benefit his constipation #R derm malignancy - s/p excision by derm - has f/u wit dermatology #Protein Calorie malnutrition - BMI 17.3 diet - contact lens edge buffer eval Dispo: pending clinical improvement. patient decided to proceed with DNR/DNI status. MOLST form signed and witness. Diet renal. OT recommending rehab on DC due to deconditioning. I spoke to patien't son Kenji Grace at [phone]. I answered all questions in detail provided. VS, I&O, 24H, Fishbone Vital Signs/I&O Vital Signs Date Time Temp Pulse Resp B/P (MAP) Pulse Ox O2 Delivery O2 Flow Rate FiO2 12/21/20 12:36 96.5 82 18 141/67 (91) 100 Room Air I&O- Last 24 Hours up to 6 AM 12/21/20 06:00 Intake Total 570 ml Output Total 0 ml Balance 570 ml Laboratory Data 24H LABS Laboratory Tests 2 12/21/20 06:32: Immature Granulocyte % (Auto) 0.6, Neutrophils (%) (Auto) 88.8H, Lymphocytes (%) (Auto) 3.0L, Monocytes (%) (Auto) 7.5, Eosinophils (%) (Auto) 0.0, Basophils (%) (Auto) 0.1, Neutrophils # (Auto) 11.2H, Lymphocytes # (Auto) 0.4L, Monocytes # (Auto) 0.9H, Eosinophils # (Auto) 0.0, Basophils # (Auto) 0.0, Nucleated Red Blood Cells % (auto) 0.3H, Erythrocyte Sedimentation Rate 51H, Anion Gap 10, Glomerular Filtration Rate 8.5L, Calcium Level 8.1L, Magnesium Level 2.6H, Total Bilirubin 0.5, Aspartate Amino Transf (AST/SGOT) 22, Alanine Aminotransferase (ALT/SGPT) 19, Alkaline Phosphatase 87, C-Reactive Protein, Quantitative 6.71H, Total Protein 6.1L, Albumin 2.5L, Albumin/Globulin Ratio 0.7, Random Vancomycin Level 18.2 CBC/BMP Laboratory Tests 12/21/20 06:32 Microbiology Microbiology 12/19/20 Urine Culture - Final, Complete 12/19/20 Blood Culture - Preliminary, Resulted No Growth after 48 hours. All Specime... 12/19/20 Respiratory Virus Panel (PCR) ([facility]) - Final, Complete 12/19/20 Blood Culture - Preliminary, Resulted No Growth after 48 hours. All Specime... MARIA A WATSON MD Dec 21, 2020 12:55
--- NOTE | 2020-12-21 13:42 | IPN ---
NEPHROLOGY PROGRESS NOTE DATE: 12/21/2020 SUBJECTIVE: Mr. Grace is seen this morning during hemodialysis. He is uncomfortable and not feeling well. He was noticed to have fecal impaction and is being treated with enemas and oral bowel preparations. He denies any vomiting, dyspnea or chest pain. He is very frail and has been gradually failing. PHYSICAL EXAMINATION: Temperature 96.5 degrees Fahrenheit, heart rate 82 per minute and respiratory rate 18 per minute. Blood pressure 141/67 mmHg and oxygen saturation 100% on room air. Head: Atraumatic. Neck: Supple and JVD not abnormally elevated. Heart: Sounds are irregular in rhythm. Lungs: Lungs sound clear to auscultation. Back: He has significant kyphosis deformity. Abdomen: Soft and bowel sounds are present. Extremities: Without any cyanosis or clubbing. Neurologically: He is at his baseline mentation. LABORATORY DATA: Today's labs show WBC count down to 12.6, hemoglobin 11.1, hematocrit 34.1 and platelet count 214. Sodium 133, potassium 5.3, CO2 28, BUN 68 and creatinine 6.64. Total protein 6.1 and albumin 2.5. PROBLEMS/PLAN: 1. End-stage renal disease: Patient is being dialyzed today and he is tolerating dialysis reasonably well. He has chronic hypotension, but asymptomatic. 2. Hyperkalemia: This is mild and will be corrected will dialysis. No other intervention will be needed. Patient has fecal impaction so he should not be given any Kayexalate anyway. 3. Anemia: His anemia is mild and stable and does not need any urgent intervention. 4. Fecal impaction: Patient is being treated with enemas and stool softener. 5. Atrial fibrillation: He has been on chronic anticoagulation and rate is well controlled. 6. Cellulitis: Patient has been on antibiotics including vancomycin and ceftriaxone. He is currently afebrile.
[2020-12-21] MEDS: cefTRIAXone SOD 1 GM in D5W MINI-BAG PLUS 50 ML IV SCH (15:46)
[2020-12-21 16:00] VITALS: BP 135/63
[2020-12-21] MEDS ORDERED: ONDANSETRON 4MG/2ML VIAL IV PRN (16:20)
[2020-12-21] MEDS ORDERED: LORazepam 2 MG/ML VIAL IV PRN (16:20)
[2020-12-21] MEDS ORDERED: SCOPOLAMINE 1MG TRANSDERMAL PATCH TOP PRN (16:20)
[2020-12-21] MEDS ORDERED: FLEET ENEMA PR PRN (16:20)
[2020-12-21] MEDS ORDERED: HYOSCYAMINE SULFATE 0.125 MG SUBL TABLET PO PRN (16:20)
[2020-12-21] MEDS ORDERED: ATROPINE SULFATE 1% OP SOLN 2 ML BTL SL PRN (16:20)
[2020-12-21] MEDS ORDERED: FLEET OIL RETENTION ENEMA PR ONE ×2 (17:00)
[2020-12-21] MEDS: MORPHINE 2 MG/ML 1ML VIAL (J2270) IV PRN (20:44)
[2020-12-22] MEDS: MORPHINE 2 MG/ML 1ML VIAL (J2270) IV PRN ×2 (01:00→09:44)
[2020-12-22 04:00] LABS: BASO % 0.1 % (0.0-1.0); EOS # 0.1 10^3/uL (0.0-0.5); EOS % 0.9 % (0.0-3.0); HEMOGLOBIN 12.8 g/dl (13.5-17.5); LYMPH # 0.3 10^3/uL (1.5-5.0); LYMPH % 4.4 % (24.0-44.0); MEAN CORPUSCULAR HEMOGLOBIN 33.6 pg (27.0-33.0); MEAN CORPUSCULAR HGB CONC 31.2 g/dl (32.0-36.5); MEAN CORPUSCULAR VOLUME 107.6 fl (80.0-96.0); MONO # 0.8 10^3/uL (0.0-0.8); NEUTROPHILS # 5.6 10^3/uL (1.5-8.5); NEUTROPHILS % 82.3 % (36.0-66.0); PLATELET COUNT, AUTOMATED 168 10^3/uL (150-450); RED BLOOD COUNT 3.81 10^6/uL (4.30-6.10); WHITE BLOOD COUNT 6.8 10^3/uL (4.0-10.0)
[2020-12-22 04:34] LABS: ALBUMIN 2.3 GM/DL (3.2-5.2); BILIRUBIN,TOTAL 0.4 MG/DL (0.2-1.0); CALCIUM LEVEL 8.7 MG/DL (8.8-10.2); CREATININE FOR GFR 4.53 MG/DL (0.70-1.30); GLOMERULAR FILTRATION RATE 13.2 (>35); MAGNESIUM LEVEL 2.3 MG/DL (1.8-2.4); POTASSIUM SERUM 4.1 MEQ/L (3.5-5.1); TOTAL PROTEIN 6.5 GM/DL (6.4-8.2)
[2020-12-22] MEDS: MORPHINE 15 MG SA TAB PO PRN (05:40)
[2020-12-22] MEDS: SLF 3 ML SYR IV SCH ×3 (05:41→22:00)
[2020-12-22 07:06] LABS: PSA TOTAL 1.1 ng/mL (0.0-4.0)
[2020-12-22] MEDS: NEPHRO-VIT TAB (NEPHROCAPS) PO SCH (09:00)
[2020-12-22] MEDS ORDERED: FLEET OIL RETENTION ENEMA PR ONE (09:00)
[2020-12-22] MEDS: MIRALAX *UNIT DOSE* 17GM PACKET PO SCH (09:43)
[2020-12-22] MEDS: OMEPRAZOLE 20 MG CAP PO SCH (09:44)
[2020-12-22] MEDS: LACTULOSE 20 GM/30 ML SYRUP UD PO SCH (09:44)
[2020-12-22] MEDS: DOCUSATE SODIUM 100MG CAPSULE PO SCH ×2 (09:44→20:58)
--- NOTE | 2020-12-22 13:15 | IPN ---
PROGRESS NOTE DATE: 12/22/2020 SUBJECTIVE: Mr. Grace is seen this morning on this bedside. He was dialyzed yesterday; and after dialysis I received a call from the hospitalist. Apparently, the patient has been doing poorly for the last several months. I have discussed with the patient at length multiple times about the possibility of prison placement, which he has declined. Now the patient decided to stop dialysis and go for comfort measures only. He has been changed to comfort measures only status and has a DO NOT RESUSCITATE (DNR) in place. No further dialysis will be scheduled and I am signing off his case.
[2020-12-22] MEDS: oxyCODONE 5MG TAB PO PRN (14:29)
[2020-12-23] MEDS: SLF 3 ML SYR IV SCH ×3 (05:05→20:51)
[2020-12-23] MEDS: NEPHRO-VIT TAB (NEPHROCAPS) PO SCH (09:17)
[2020-12-23] MEDS: OMEPRAZOLE 20 MG CAP PO SCH (09:17)
[2020-12-23] MEDS: MIRALAX *UNIT DOSE* 17GM PACKET PO SCH (09:17)
[2020-12-23] MEDS: LACTULOSE 20 GM/30 ML SYRUP UD PO SCH (09:17)
[2020-12-23] MEDS: oxyCODONE 5MG TAB PO PRN ×2 (09:18→14:42)
[2020-12-23] MEDS: DOCUSATE SODIUM 100MG CAPSULE PO SCH ×2 (09:22→20:17)
[2020-12-23] MEDS: MORPHINE 15 MG SA TAB PO PRN (15:43)
[2020-12-23] MEDS: ACETAMINOPHEN TAB 650MG DOSE (2X325MG) PO PRN (20:50)
[2020-12-24] MEDS: SLF 3 ML SYR IV SCH ×3 (03:13→22:00)
[2020-12-24] MEDS: ACETAMINOPHEN TAB 650MG DOSE (2X325MG) PO PRN (04:11)
[2020-12-24] MEDS: LACTULOSE 20 GM/30 ML SYRUP UD PO SCH (09:00)
[2020-12-24] MEDS: MIRALAX *UNIT DOSE* 17GM PACKET PO SCH (09:00)
[2020-12-24] MEDS: DOCUSATE SODIUM 100MG CAPSULE PO SCH ×2 (09:00→21:00)
[2020-12-24] MEDS: OMEPRAZOLE 20 MG CAP PO SCH (09:19)
[2020-12-24] MEDS: NEPHRO-VIT TAB (NEPHROCAPS) PO SCH (09:19)
--- NOTE | 2020-12-24 14:07 | DS.PDOC ---
Discharge Summary General Date of Admission Dec 19, 2020 at 11:02 Date of Discharge 12/25/20 Attending Physician: María Johnson MD Discharge Summary HISTORY OF PRESENT ILLNESS: 84-year-old male with a past medical history of ESRD on HD MWF, CAD status post CABG, chronic A. fib (AC on coumadin), systolic CHF, presented to [facility] with constipation, abdominal discomfort and weakness for the past 4 days. He states that he has poor appetite and has had reduced PO intake. His last HD was on . Further, as was the case on his last admission in 09/2020, he continues to endorse visual hallucinations, particularly of animals in his room. assisted smoker, 30+ years. Denies hemoptysis, chest pain, fevers, chills, blood per rectum, palpitations. He finally reports that his bilateral LEs have been painful and have areas of skin breakdown with surrounding cellulitis. On arrival to the ER, vitals T 98.0. HR 140. BP 162/86. SpO 93%. Lab work remarkable for WBC 19.1. Hgb 12.0. Hct 37.1. Na 132. K 3.3. Cr 7.16. BUN 69. Trop 0.09. UA showing pyuria and RBC (34) with trace LE. EKG showing afib with RVR. Received one dose of metoprolol 5 mg IV, which was effective in reducing the rate to 80s-90s. CT abdo pelvis with IV and oral contrast showing significant bladder distension as well as fecal impaction at rectosigmoid level distended to 6.9 cm. Patient was straighcathed and 800 cc of urine was produced, sent for culture. Fleet enema was given, without resultant BM. Manual disimpaction was not successful, but revealed soft, sand colored stool in rectal vault. Patient will be admitted to hospitalist service for managment of cellulitis, UTI, and fecal impaction, with nephrology on consultation for hemodialysis. PAST MEDICAL HISTORY: ESRD on hemodialysis MWF CAD status post CABG Chronic A. fib on Coumadin Systolic congestive heart failure Valvular heart disease GERD Hypertension Dyslipidemia Chronic back pain Anemia of CK D Secondary hyperparathyroidism PAST SURGICAL HISTORY: R hip fx s/p ORIF 10/26/19 CABG Back surgery Splenectomy Tonsillectomy Laminectomy SOCIAL HISTORY: denies etoh use Former smoker, quit 15 years ago Denies illicits Lives alone. There are 2 children living in the area. FAMILY HISTORY: I personally reviewed family history and found not pertinent OBJECTIVE PHYSICAL EXAMINATION: VITAL SIGNS: please see below General: NAD, comfortable HEENT: PERRLA, EOMI, sclerae clear Neck: supple, normal ROM, no JVD Respiratory: lungs CTAB, no wheeze, no rales, no crackles CVS: RRR, normal S1, S2, no murmurs Abdo: soft, no masses, no hepatosplenomegaly, BS+, no rebound tenderness Extremities: no edema, pulses 2+ MSK: no joint deformities, normal ROM Neuro: no focal neuro deficits, moving all 4 extremities, CN2-12 intact. Strength 5/5 in all 4 extremities. No nystagmus. Psych: calm, cooperative, AAO x 3 LABORATORY DATA, IMAGING STUDIES, MICROBIOLOGY: Please see below. CT chest wo contrast (12/20/20): Minimal basilar atelectasis. Diffuse chronic changes. Significant atherosclerotic disease along with cardiomegaly. CT abdo pelvis with IV and PO contrast (12/19/20): 1. Markedly distended bladder which may be secondary to outlet obstruction and possibly related to patient's lower abdominal pain. 2. Suspected fecal impaction at the rectosigmoid level distended to 6.9 cm diameter without associated bowel obstruction. 3. Diverticulosis noted without acute diverticulitis CXR (12/19/20): No acute cardiopulmonary process appreciated DVT prophylaxis ordered?: SCDs/test/warfarin. ASSESSMENT AND PLAN: 84-year-old male with a past medical history of ESRD on HD MWF, CAD status post CABG, chronic A. fib (AC on coumadin), systolic CHF, presented to [facility] with constipation, abdominal discomfort and weakness for the past 4 days. Patient will be admitted to hospitalist service for management of cellulitis, UTI, and fecal impaction, with nephrology on consultation for hemodialysis. Due to constipation and obstruction of bladder outlet suspect malignancy and GI tract. Obtain CEA level elevated at 6.4. Discussed with Dr. Bud Powell recommended bowel regimen as below with plan for colonoscopy as there is a likelihood of bowel malignancy. PROBLEMS: #ESRD - on HD Tues/Thur/Sat via R arm fistula - electrolytes improved - c/w renvela - electrolytes appropriate - consulted nephrology, Dr. Parry #Leukocytosis possibly 2/2 cellulitis, UTI - WBC trending down, 18 to 16 to 12 - procal 0.56. - UA + for pyura, blood, LE - lower extremities show area of skin maceration/ulceration with surrounding erythema - s/p zosyn in ER - Vanc (day #3). Ceftriaxone (Day #3) #Cellulititis - bilateral leg erythema with maceration/ulceration on shins - no weeping - check ESR, CRP, procal - s/p zosyn in ER - Vanc (day #3). Ceftriaxone (Day #4) #UTI - UA suggestive of UTI. WBC 18 - urine culture pending - s/p zosyn in ER - Vanc (day #3). Ceftriaxone (Day #3) #Constipation possibly 2/2 to mass in rectosigmoid colon due to fecal statis and impaction in rectosigmoid or possibly a prostate process due to bladder disten frankie 2/2 outlet obstruction - fecal impaction seen on CT abdo/pelvis with distension of bladder - received fleet enema in ER. Manual disempaction attempted by RN in ER without success - tap water enema. Miralax. Mag citrate acheived no meaningful BM - CEA level elevate to 6.4. CA-19-9, PSA pending. - surgical consult placed, d/w Dr. Francois. Slow bowel prep. Patient agreeable to colonoscopy. #Bladder outlet obstruction - CT abdo pelvis on 12/20/20 showing bladder outlet obstruction - d/w Dr. Garcia, prostatic enlargement likely responsible, although fecal impaction in rectosigmoid may play a role - patient was straight catheterized in ER on 11/21/20, drained 800 cc of urine - obtain bladder scan #Visual hallucination - persistent, occur almost daily - patient has refused MRI brain - concern for metastatic disease given cachexia, weight loss, poor appetite, although lewy body dementia may be a reasonable differential #Afib with RVR - HR improved with IV metoprolol - resume home meds - AC with warfarin, INR subtherapeutic - Tele #CAD s/p CABG - c/w ASA/statin - nitro prn #Anemia - in setting ESRD, AOCD - Hgb 12.0, improved from prior level #Frequent falls - deconditioned - PT/OT - fall precautions #Chronic back pain - takes morphine sulfate 15 mg PO BID at home - unable to hold meds due to pain, although it would benefit his constipation #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 TIME SPENT ON DISCHARGE: 35 minutes. Vital Signs/I&Os Vital Signs Date Time Temp Pulse Resp B/P (MAP) Pulse Ox O2 Delivery O2 Flow Rate FiO2 12/23/20 15:43 18 12/22/20 09:54 Room Air 12/21/20 16:00 96.1 72 135/63 (87) 85 I&O- Last 24 Hours up to 6 AM 12/24/20 05:59 Intake Total 1400 ml Balance 1400 ml Laboratory Data Labs 24H Laboratory Tests 2 12/24/20 10:18: Coronavirus (COVID-19)(PCR) NEGATIVE Microbiology Microbiology 12/19/20 Urine Culture - Final, Complete 12/19/20 Blood Culture - Final, Complete NO GROWTH AFTER 5 DAYS 12/19/20 Respiratory Virus Panel (PCR) ([facility]) - Final, Complete 12/19/20 Blood Culture - Final, Complete NO GROWTH AFTER 5 DAYS Discharge Medications Scheduled Atorvastatin Calcium (Atorvastatin Calcium) 80 Mg Tablet, 80 MG PO QHS, (Reported) Carvedilol (Carvedilol) 6.25 Mg Tablet, 6.25 MG PO BID, (Reported) Docusate Sodium (Dok) 100 Mg Capsule, 100 MG PO BID Lactulose (Lactulose) 10 Gm/15 Ml Solution, 15 ML PO DAILY Lidocaine/Prilocaine (Lidocaine-Prilocaine Cream) 1 Cre Cre, 1 DOSE EXT 3XW, (Reported) TAKES ON TUESDAYS, WEDNESDAY AND SATURDAYS BEFORE DIALYSIS. Omeprazole (Omeprazole) 20 Mg Cap, 20 MG PO DAILY, (Reported) Polyethylene Glycol 3350 (Miralax) 17 Gm Powd.pack, 1 PKT PO DAILY Sevelamer Carbonate (Renvela) 800 Mg Tab, 2,400 MG PO WM, (Reported) Vit B Comp No.3/Folic/C/Biotin (Nephro-Nadine Rx Tablet) 1 Each Tablet, 1 TAB PO DAILY, (Reported) Scheduled PRN Acetaminophen (Tylenol) 325 Mg Tablet, 650 MG PO Q4H PRN for PAIN, (Reported) Hyoscyamine Sulfate (Hyoscyamine Sulfate) 0.125 Mg Tab.subl, 0.125 MG PO Q4HP PRN for TERMINAL SECRETIONS Use sublingually if unable to swallow Lorazepam (Ativan) 0.5 Mg Tablet, 0.5 MG PO Q4HP PRN for ANXIETY/AGITATION Use sublingually if unable to swallow Morphine Sulfate (Morphine Sulfate ER) 15 Mg Tab, 15 MG PO BID PRN for PAIN PATIENT STATES HE TAKES ONLY WHEN NEEDED Morphine Sulfate (Morphine Sulfate) 100 Mg/5 Ml Solution, 0.25-1 ML PO Q2H PRN for PAIN OR DYSPNEA Use sublingually if unable to swallow Nitroglycerin (Nitrostat) 0.4 Mg Subl, 0.4 MG SL NITRO PRN for CHEST PAIN, (Reported) Allergies Coded Allergies: No Known Allergies (Verified , 03/09/18) María Johnson MD Dec 24, 2020 14:07
[2020-12-24] MEDS ORDERED: LACT20EL PO ×2 (14:16→14:30)
[2020-12-24] MEDS ORDERED: ATIV1TAB10 PO ×2 (14:16→14:30)
[2020-12-24] MEDS ORDERED: HYOS125TA PO ×2 (14:16→14:30)
[2020-12-24] MEDS ORDERED: MIRA1POW3 PO ×2 (14:16→14:30)
[2020-12-24] MEDS ORDERED: DOK1CAP7 PO ×2 (14:16→14:30)
[2020-12-24] MEDS ORDERED: MORP20SO3 PO ×2 (14:16→14:30)
[2020-12-24] MEDS ORDERED: MORP-69 PO (14:30)
[2020-12-24] MEDS: oxyCODONE 5MG TAB PO PRN (18:31)
[2020-12-25] MEDS: oxyCODONE 5MG TAB PO PRN (01:35)
[2020-12-25] MEDS: SLF 3 ML SYR IV SCH (01:36)
[2020-12-25] MEDS: LACTULOSE 20 GM/30 ML SYRUP UD PO SCH (08:41)
[2020-12-25] MEDS: DOCUSATE SODIUM 100MG CAPSULE PO SCH (08:41)
[2020-12-25] MEDS: MIRALAX *UNIT DOSE* 17GM PACKET PO SCH (08:42)
[2020-12-25] MEDS: NEPHRO-VIT TAB (NEPHROCAPS) PO SCH (08:44)
[2020-12-25] MEDS: OMEPRAZOLE 20 MG CAP PO SCH (08:44)
--- NOTE | 2020-12-25 16:52 | DS.PDOC ---
Discharge Summary General Date of Admission Dec 19, 2020 at 11:02 Date of Discharge 12/25/20 Attending Physician: María Johnson MD Discharge Summary HISTORY OF PRESENT ILLNESS: 84-year-old male with a past medical history of ESRD on HD MWF, CAD status post CABG, chronic A. fib (AC on coumadin), systolic CHF, presented to [facility] with constipation, abdominal discomfort and weakness for the past 4 days. He states that he has poor appetite and has had reduced PO intake. His last HD was on . Further, as was the case on his last admission in 09/2020, he continues to endorse visual hallucinations, particularly of animals in his room. senior living smoker, 30+ years. Denies hemoptysis, chest pain, fevers, chills, blood per rectum, palpitations. He finally reports that his bilateral LEs have been painful and have areas of skin breakdown with surrounding cellulitis. On arrival to the ER, vitals T 98.0. HR 140. BP 162/86. SpO 93%. Lab work remarkable for WBC 19.1. Hgb 12.0. Hct 37.1. Na 132. K 3.3. Cr 7.16. BUN 69. Trop 0.09. UA showing pyuria and RBC (34) with trace LE. EKG showing afib with RVR. Received one dose of metoprolol 5 mg IV, which was effective in reducing the rate to 80s- 90s. CT abdo pelvis with IV and oral contrast showing significant bladder distension as well as fecal impaction at rectosigmoid level distended to 6.9 cm. Patient was straight-cathed and 800 cc of urine was produced, sent for culture. Fleet enema was given, without resultant BM. Manual disimpaction was not successful, but revealed soft, sand colored stool in rectal vault. Patient will be admitted to hospitalist service for management of cellulitis, UTI, and fecal impaction, with nephrology on consultation for hemodialysis. HOSPITAL COURSE: Patient struggled with constipation likely 2/2 to dehydration, fecal impaction likely 2/2 to what was suspected to be rectosigmoid mass. Concern for malignancy expressed. Colonoscopy was ordered. He was also diagnosed with protein calorie malnutrition, nutrition assessed. He struggled with chronic severe pain, pain regimen adjusted here. On 12/21/20 RN called to patient's bedside. Mr. Grace expressed wishes to discontinue hemodialysis and to proceed with comfort measures only, due to failure to thrive and chronic severe pain. Patient was alert and oriented and had capacity to make decision. He displayed appropriate judgement and had good insight into his condition. I spoke to his son Eloy Grace at [phone] and answered all questions. He was in agreement with his father's decision. I informed Dr. Regalado. Surgical consult for colonoscopy cancelled. On 12/25/20 patient was [facility] to [facility] for them to continue care. PAST MEDICAL HISTORY: ESRD on hemodialysis MWF CAD status post CABG Chronic A. fib on Coumadin Systolic congestive heart failure Valvular heart disease GERD Hypertension Dyslipidemia Chronic back pain Anemia of CK D Secondary hyperparathyroidism PAST SURGICAL HISTORY: R hip fx s/p ORIF 10/26/19 CABG Back surgery Splenectomy Tonsillectomy Laminectomy SOCIAL HISTORY: Denies ETOH use Former smoker, quit 15 years ago Denies illicits Lived alone. PHYSICAL EXAMINATION: General: NAD, comfortable HEENT: PERRLA, EOMI, sclerae clear Neck: supple, normal ROM, no JVD Respiratory: lungs CTAB, no wheeze, no rales, no crackles CVS: RRR, normal S1, S2, no murmurs Abdo: soft, no masses, no hepatosplenomegaly, BS+, no rebound tenderness Extremities: no edema, pulses 2+ MSK: no joint deformities, normal ROM Neuro: no focal neuro deficits, moving all 4 extremities, CN2-12 intact. Strength 5/5 in all 4 extremities. No nystagmus. Psych: calm, cooperative, AAO x 3 LABORATORY DATA, IMAGING STUDIES, MICROBIOLOGY: Please see below. CT chest wo contrast (12/20/20): Minimal basilar atelectasis. Diffuse chronic changes. Significant atherosclerotic disease along with cardiomegaly. CT abdo pelvis with IV and PO contrast (12/19/20): 1. Markedly distended bladder which may be secondary to outlet obstruction and possibly related to patient's lower abdominal pain. 2. Suspected fecal impaction at the rectosigmoid level distended to 6.9 cm diameter without associated bowel obstruction. 3. Diverticulosis noted without acute diverticulitis CXR (12/19/20): No acute cardiopulmonary process appreciated DIAGNOSES AT TIME OF DISCHARGE TO [facility]OSPICE HOME: Rectosigmoid colon mass Failure to thrive Chronic severe pain ESRD on HD //Wed Leukocytosis 2/2 b/l lower ext cellulitis, UTI Constipation 2/2 to fecal impaction, rectosigmoid mass Bladder outlet obstruction Visual hallucinations Atrial fibrillation with RVR Anemia Frequent falls 2/2 to physical deconditioning Skin malignancy Protein Calorie malnutrition DISPOSITION: [facility] STATUS, discharging today to [facility]. TIME SPENT ON DISCHARGE: 35 minutes. Vital Signs/I&Os Vital Signs Date Time Temp Pulse Resp B/P (MAP) Pulse Ox O2 Delivery O2 Flow Rate FiO2 12/24/20 19:22 16 12/22/20 09:54 Room Air 12/21/20 16:00 96.1 72 135/63 (87) 85 I&O- Last 24 Hours up to 6 AM 12/25/20 06:00 Intake Total 2320 ml Output Total 0 ml Balance 2320 ml Microbiology Microbiology 12/19/20 Urine Culture - Final, Complete 12/19/20 Blood Culture - Final, Complete NO GROWTH AFTER 5 DAYS 12/19/20 Respiratory Virus Panel (PCR) (GIOVANNI) - Final, Complete 12/19/20 Blood Culture - Final, Complete NO GROWTH AFTER 5 DAYS Discharge Medications Scheduled Atorvastatin Calcium (Atorvastatin Calcium) 80 Mg Tablet, 80 MG PO QHS, (Reported) Carvedilol (Carvedilol) 6.25 Mg Tablet, 6.25 MG PO BID, (Reported) Docusate Sodium (Dok) 100 Mg Capsule, 100 MG PO BID Lactulose (Lactulose) 10 Gm/15 Ml Solution, 15 ML PO DAILY Lidocaine/Prilocaine (Lidocaine-Prilocaine Cream) 1 Cre Cre, 1 DOSE EXT 3XW, (Reported) TAKES ON TUESDAYS, WEDNESDAY AND SATURDAYS BEFORE DIALYSIS. Omeprazole (Omeprazole) 20 Mg Cap, 20 MG PO DAILY, (Reported) Polyethylene Glycol 3350 (Miralax) 17 Gm Powd.pack, 1 PKT PO DAILY Sevelamer Carbonate (Renvela) 800 Mg Tab, 2,400 MG PO WM, (Reported) Vit B Comp No.3/Folic/C/Biotin (Nephro-Nadine Rx Tablet) 1 Each Tablet, 1 TAB PO DAILY, (Reported) Scheduled PRN Acetaminophen (Tylenol) 325 Mg Tablet, 650 MG PO Q4H PRN for PAIN, (Reported) Hyoscyamine Sulfate (Hyoscyamine Sulfate) 0.125 Mg Tab.subl, 0.125 MG PO Q4HP PRN for TERMINAL SECRETIONS Use sublingually if unable to swallow Lorazepam (Ativan) 0.5 Mg Tablet, 0.5 MG PO Q4HP PRN for ANXIETY/AGITATION Use sublingually if unable to swallow Morphine Sulfate (Morphine Sulfate ER) 15 Mg Tab, 15 MG PO BID PRN for PAIN PATIENT STATES HE TAKES ONLY WHEN NEEDED Morphine Sulfate (Morphine Sulfate) 100 Mg/5 Ml Solution, 0.25-1 ML PO Q2H PRN for PAIN OR DYSPNEA Use sublingually if unable to swallow Nitroglycerin (Nitrostat) 0.4 Mg Subl, 0.4 MG SL NITRO PRN for CHEST PAIN, (Reported) Allergies Coded Allergies: No Known Allergies (Verified , 03/09/18) María Johnson MD Dec 25, 2020 16:51
== END 2020-12-25 09:05 | disposition hospice, inpatient (51) | DRG 388 ==
LOC: M ED 05:59 → M ED INP 11:02 → M PCU 13:56 → M MS5PR 12-22 10:19
PROVIDERS: ADMIT Family Medicine; ATTEND Internal Medicine
PROC: 6A601ZZ Phototherapy of Skin, Multiple (ICD-10-PCS; principal; 2020-12-19)
DX: K56.41 Fecal impaction (principal); N18.6 End stage renal disease; N39.0 Urinary tract infection, site not specified; L03.115 Cellulitis of right lower limb; N25.81 Secondary hyperparathyroidism of renal origin; I13.2 Hypertensive heart and chronic kidney disease with heart failure and with stage 5 chronic kidney disease, or end stage renal disease; I50.22 Chronic systolic (congestive) heart failure; I48.20 Chronic atrial fibrillation, unspecified; E46 Unspecified protein-calorie malnutrition; R64 Cachexia; L03.116 Cellulitis of left lower limb; Z68.1 Body mass index [BMI] 19.9 or less, adult; R29.6 Repeated falls; R44.1 Visual hallucinations; N32.0 Bladder-neck obstruction; R62.7 Adult failure to thrive; E87.5 Hyperkalemia; K63.89 Other specified diseases of intestine; Z99.2 Dependence on renal dialysis; D63.1 Anemia in chronic kidney disease; K21.9 Gastro-esophageal reflux disease without esophagitis; I25.10 Atherosclerotic heart disease of native coronary artery without angina pectoris; Z79.01 Long term (current) use of anticoagulants; Z87.891 Personal history of nicotine dependence; E78.5 Hyperlipidemia, unspecified; Z79.899 Other long term (current) drug therapy; Z66 Do not resuscitate; D72.829 Elevated white blood cell count, unspecified; Z90.81 Acquired absence of spleen; Z51.5 Encounter for palliative care